=== PATIENT | male | born 1935 | race Caucasian/White ===

== ENCOUNTER 2023-06-09 08:29 | Outpatient (REF) | payer MEDICARE, SELFPAY ==
--- NOTE | 2023-06-09 | EMG_ITS ---
Right median and ulnar motor and sensory studies were performed. Right radial sensory study was performed and paraspinal muscles were tested with a needle. IMPRESSION: 1. 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 2. Mild right ulnar neuropathy across cubital tunnel. MD MAJOR Zapien/SHARONL / [phone]
== END 2023-06-09 08:30 | disposition home or self-care (01) ==
LOC: HO.NEURO 08:29
PROVIDERS: PCP Internal Medicine; Visit Provider Internal Medicine
DX: G56.01 Carpal tunnel syndrome, right upper limb (principal)
CPT/HCPCS: 95886; 95909

== ENCOUNTER 2023-08-09 10:47 | Inpatient (IN) | payer MEDICARE, SELFPAY ==
[2023-08-09] VITALS (10 sets, daily range): BP systolic 118–146; BP diastolic 36–58; PULSE 64–80; RESP 15–23; TEMP 36–36.8; O2SAT 95–100; BMI 29.2
--- NOTE | ~2023-08-09 | XR_ITS ---
EXAMINATION: XR CHEST CLINICAL INFORMATION: Hypoxia. Follow-up atelectasis. COMPARISON: X-ray 08/09/2023 TECHNIQUE: Frontal view of the chest was obtained. FINDINGS: Rotated positioning. Lordotic view. The cardiomediastinal silhouette is prominent, appearing similar as compared to previous allowing for difference in positioning/technique. Low lung volumes. Elevation of the right hemidiaphragm.. Bronchovascular crowding and bibasilar atelectasis or scarring is again seen. There is mild bronchial wall thickening, which may reflect inflammatory or infectious process. No dense consolidation is seen. No significant effusion. No pulmonary edema. No pneumothorax. XR/XR chest 1V IMPRESSION: Low lung volumes. There is bibasilar atelectasis and/or scarring. Bronchial wall thickening may reflect inflammatory infectious process. No dense consolidation.
--- NOTE | ~2023-08-09 | CT_ITS ---
EXAMINATION: CT ABDOMEN AND PELVIS WITHOUT CONTRAST CLINICAL INFORMATION: Rule out masses. COMPARISON: None available. TECHNIQUE: Multidetector volumetric imaging was performed from the superior aspect of the liver through the pubic symphysis. Sagittal and coronal reformatted images were obtained on the technologist's workstation. This CT examination was performed using dose optimization techniques as appropriate, variously including the following: *Automated exposure control *Adjustment of mA and/or kV according to patient size (this includes techniques or standardized protocols for targeted exams where dose is matched to indication/reason for exam; i.e. extremities or head) *Use of iterative reconstruction technique DLP: 599 mGy-cm FINDINGS: LUNG BASES: There is small to moderate right pleural effusion and small left pleural effusion with underlying bibasilar compressive atelectasis. Heart size is borderline normal. LIVER, GALLBLADDER, AND BILIARY TREE: The liver is normal in size, shape, and attenuation. No focal hepatic lesion or biliary ductal dilatation is present. The gallbladder has been surgically removed. PANCREAS: Unremarkable. SPLEEN: The spleen is unremarkable. There is punctate calcification in spleen. ADRENAL GLANDS: Unremarkable. KIDNEYS AND URETERS: The kidneys are normal in size, shape, and attenuation. No hydronephrosis, hydroureter, or calculi seen. No perinephric stranding. There are multiple lung right renal cysts largest is exophytic midpole measuring 6.3 x 5.2 cm. BLADDER: The bladder is distended with no bladder wall thickening or radiopaque calculi seen.. GASTROINTESTINAL TRACT: There is scattered stool, diverticula and gas seen throughout the colon without significant distention. There is a small diverticulum arising of the third segment of the duodenum, less likely perforated collection.. Best visualized on axial image 41/3 and sagittal image 96/6. Small bowel loops are normal caliber. Appendix is not visualized. There is small amount of perihepatic and perisplenic fluid. There is diffuse haziness ABDOMINAL WALL: There is abdominal wall hernia repair with mesh in place no recurrent abdominal wall hernia seen. LYMPH NODES: Normal. VASCULAR: Mild atherosclerosis of abdominal aorta is noted PELVIC VISCERA: Unremarkable. OSSEOUS STRUCTURES: No aggressive lytic or sclerotic process seen. There is mild degenerative disc changes L4-L5 and L5/S1 disc level. There are bilateral hip prosthesis producing artifact along the lower pelvis and limiting evaluation. CT/CT abdomen pelvis wo IV con IMPRESSION: No acute intra-abdominal process seen. Colonic diverticulosis without diverticulitis. Nonspecific free fluid in the right perihepatic and perisplenic space. Right renal cysts Fleischner guidelines were followed.
--- NOTE | ~2023-08-09 | NM_ITS ---
EXAMINATION: PULMONARY PERFUSION STUDY CLINICAL INFORMATION: COPD, previous Covid, shortness of breath, significant pulmonary hypertension, acute respiratory failure. COMPARISON: No previous lung scan is available for comparison. A radiograph the chest dated 08/09/2023 is available for comparison. TECHNIQUE: Following the intravenous injection of 1.5 mCi Tc-99m MAA, the lungs were imaged in the anterior and posterior, left and right lateral and RERE, JAUREGUI, LPO, and RPO projections using a gamma scintillation camera. FINDINGS: No segmental perfusion defects are present. There is homogeneous distribution of activity bilaterally. There are no focal anatomic appearing perfusion defects present. NM/NM pul perfusion IMPRESSION: Normal radionuclide lung perfusion scan.
--- NOTE | ~2023-08-09 | XR_ITS ---
EXAMINATION: XR CHEST CLINICAL INFORMATION: Shortness of breath. COMPARISON: None available. TECHNIQUE: Frontal view of the chest was obtained. FINDINGS: The cardiomediastinal silhouette is within normal limits. There appears to be mild atelectasis or scarring at the lung bases. There is blunting of the costophrenic angles. The lungs are otherwise clear. 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 The soft tissues are unremarkable. XR/XR chest 1V IMPRESSION: Atelectatic change and/or scarring at the lung bases. Blunted costophrenic angles possibly chronic change/minimal pleural fluid.
--- NOTE | 2023-08-09 11:02 | ECG_ITS ---
Test Reason : chest pain Blood Pressure : / mmHG Vent. Rate : 074 BPM Atrial Rate : 074 BPM P-R Int : 000 ms QRS Dur : 112 ms QT Int : 402 ms P-R-T Axes : 000 -18 -15 degrees QTc Int : 446 ms Atrial fibrillation Incomplete right bundle branch block Left axis deviation ST & T wave abnormality, consider anterior ischemia Abnormal ECG No previous ECGs available Referred By: Generic ED Physician Electronically Signed By:LA NENA MOELLER MD
--- NOTE | 2023-08-09 11:27 | ED_ITS ---
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 Patient states that his shortness of breath has gotten significantly worse over the last few weeks. Patient states that he also had a stomach ache, now resolved, for which he took pepto bismol and had a black stool after. Patient denies any dizziness, lightheadedness, abdominal pain, nausea, vomiting, fever, chills, blurry vision, double vision, loss of vision, chest pain, back pain, night sweats, pain with urination, increased urinary frequency, increased urinary urgency, blood in his urine, syncope or a near syncopal episode, recent trauma or falls, bowel incontinence, bladder incontinence, bowel retention, bladder retention, or any other complaints at this time. Onset (ago): week(s) Severity: moderate Relieving factors: none Exacerbating factors: none Associated symptoms: shortness of breath Treatments prior to arrival: none Related Data Home Medications Medication Instructions Recorded Confirmed albuterol sulfate 90 mcg/actuation 2 puff inhalation QID PRN wheezing 08/09/23 08/09/23 aerosol inhaler clotrimazole 1 % topical cream 1 appl topical BID PRN Rash 08/09/23 08/09/23 empagliflozin 10 mg tablet 10 mg PO QAM 08/09/23 08/09/23 (Jardiance) fluticasone 100 mcg-salmeterol 50 1 ea inhalation DAILY 08/09/23 08/09/23 mcg/dose blistr powdr for inhalation ketoconazole 2 % topical cream 1 appl topical BID PRN Rash 08/09/23 08/09/23 losartan 50 mg tablet 50 mg PO DAILY 08/09/23 08/09/23 metformin 850 mg tablet 850 mg PO DAILY 08/09/23 08/09/23 metoprolol succinate 100 mg 100 mg PO DAILY 08/09/23 08/09/23 tablet,extended release 24 hr montelukast 10 mg tablet 10 mg PO DAILY 08/09/23 08/09/23 multivitamin 1 tab PO DAILY 08/09/23 08/09/23 rivaroxaban 15 mg tablet (Xarelto) 15 mg PO DAILY 08/09/23 08/09/23 rosuvastatin 5 mg tablet 5 mg PO DAILY 08/09/23 08/09/23 tamsulosin 0.4 mg capsule 0.4 mg PO BEDTIME 08/09/23 08/09/23 torsemide 20 mg tablet 20 mg PO DAILY 08/09/23 08/09/23 umeclidinium 62.5 mcg/actuation 1 inh inhalation DAILY 08/09/23 08/09/23 blister powder for inhalation (Incruse Ellipta) Allergies Allergy/AdvReac Type Severity Reaction Status Date / Time No Known Allergies Allergy Verified 08/09/23 10:51 Review of Systems 2 Constitutional: Constitutional: Reports no additional constitutional complaints, Denies chills, Denies fever(s) and Denies night sweats Eyes: Eyes: Reports no additional eye complaints, Denies blurry vision, Denies change in vision, Denies diplopia, Denies eye discharge, Denies loss of vision and Denies eye pain ENT: Denies dizziness Cardiovascular: Cardiovascular: Reports no additional cardiovascular complaints, Denies chest pain, Denies lightheadedness, Denies Loss of Consciousness and Reports dyspnea Respiratory: Respiratory: Reports no additional respiratory complaints and Reports dyspnea Gastrointestinal: Gastrointestinal: Reports no additional gastrointestinal complaints, Denies abdominal pain, Denies hematochezia, Denies change in bowel habits and Denies change in stool character Comments: one episode of a black stool Genitourinary: Genitourinary: Reports no additional male genitourinary complaints, Denies hematuria, Denies oliguria, Denies difficulty urinating, Denies dysuria, Denies urinary frequency, Denies urinary hesitancy, Denies urinary incontinence and Denies urinary urgency Musculoskeletal: Musculoskeletal: Reports no additional musculoskeletal complaints, Denies numbness and Denies tingling Neurologic: Denies dizziness, Denies loss of vision, Denies numbness and Denies tingling Psychiatric: Psychiatric: Reports no additional psychiatric complaints Endocrine: Endocrine: Reports no additional endocrine complaints Hematologic/Lymphatic: Hematologic/Lymphatic: Reports no additional hematologic/lymphatic complaints Allergic/Immunologic: Allergic/Immunologic: Reports no additional allergic/immunologic complaints [facility] Past Medical History Attestation statement: The following information was validated with the patient. (all information validated with the patient's ) Source: old records reviewed and obtained from family (patient's provided additional history and confirmed the history provided by the patient) Social History Social History Advance Directives: No Advance Directives Information Provided: Yes Physical Exam ED Vital Signs: Vital Signs - 24 hr 08/09/23 10:52 08/09/23 11:54 08/09/23 13:08 Temperature 96.8 F 97.5 F Pulse Rate 73 71 73 Respiratory Rate 20 15 18 Blood Pressure 137/41 L 122/48 L 124/51 L Pulse Oximetry 96 Oxygen Delivery Method Room Air Nasal Cannula Oxygen Flow Rate 3 08/09/23 13:31 08/09/23 14:53 Temperature 97.6 F 98.2 F Pulse Rate 79 68 Respiratory Rate 18 19 Blood Pressure 118/42 L 119/54 L Pulse Oximetry 100 Oxygen Delivery Method Nasal Cannula Oxygen Flow Rate 3 BMI result Body Mass Index 29.2 Const General: cooperative, no acute distress, alert and awake Nutritional Appearance: well nourished Orientation/consciousness: patient oriented x3 Limitations: no limitations HENMT Head: Yes normal to inspection and Yes atraumatic Ears: hearing grossly normal bilaterally and external ears normal General nose exam: Normal external nose present, no nasal discharge noted and no epistaxis Face and sinus: Yes normal facial exam, No abrasion and No laceration Mouth: Normal oral and palatal mucosa present, no drooling and no muffled voice Eyes General: appearance normal, both eyes and all related structures Periorbital: periorbital findings normal Eyelids: Yes eyelids normal Conjunctivae: conjunctivae normal Pupils: Equal, round and reactive pupils present EOM: EOMs intact bilaterally Neck Neck: Yes normal visual inspection, Yes full ROM and Yes no lymphadenopathy Chest Chest palpation & inspection: normal inspection of the chest Resp Effort & Inspection: able to speak in complete sentences and labored Auscultation: diminished lung sounds diffuse Cardio Rate: regular rate Rhythm: regular rhythm GI Inspection: Yes normal to inspection Palpation (GI): Soft to palpation, not firm, nontender, no guarding and not rigid Neuro General: patient oriented x3 and moves all extremities Cranial nerves: Yes Equal, round and reactive pupils present Cognition (Neuro): normal cognition Motor exam (neuro): 5/5 motor strength present throughout Sensory Exam: Normal double simultaneous stimulation for sensation Coordination: [id number] test normal Extrem General: Yes normal to inspection, Yes full ROM and Yes capillary refill normal Psych Appearance: grossly normal Mental Status: mental status grossly normal Affect: normal affect Attitude: cooperative Thought process: Normal thought process present Thought content: Normal thought content present Insight: Good insight present (Psych) Medications Administered Discontinued Medications Generic Name Dose Route Start Last Admin Trade Name Freq PRN Reason Stop Dose Admin Sodium Chloride 100 mls @ 100 mls/hr 08/09/23 12:14 08/09/23 13:30 Ns IV 08/09/23 13:13 100 mls/hr ONCE ONE Administration Medical Decision Making Medical Decision Making MDM Narrative: Patient is an 87 year old assigned male at with a history of anemia for which he is supposed to be taking iron supplements but does not, cardiac stents for which is on xarelto, and long COVID / COPD for which he follows with a arts administrator or manager presenting to the emergency department today with worsening shortness of breath and 1 episode of black stool after taking pepto bismol. Patient's physical exam was as noted in the physical exam portion of this note. Patient's blood work showed a HGB of 6.0, HCT of 21, sodium of 134, BUN of 40, CR of 2.48, and a BNP of 297. Patient's EKG was unremarkable. Patient's chest x- ray showed no acute process. Patient agreed to transfusion of blood cells. 1 unit was ordered. I spoke to the hospitalist who agreed to admission. I explained my physical exam findings as well as all test results to the patient and the patient's . I answered all questions asked by the patient and the patient's . Patient and the patient's verbalized agreement and understanding with this treatment plan and admission. Differential Diagnosis Differential Diagnoses: The differential diagnosis associated with the presentation includes Anemia GI bleeding Long COVID COVID-19 Influenza RSV Pneumonia Admission/Observation Consideration of admission/observation: Escalation of care including admission/observation considered Patient admitted. Consult Healthcare Provider Management of the patient was discussed with: Hospitalist (agreed to admission as noted in the MDM Rationale portion of this note.) Lab Data [facility] Lab Attestation statement: I reviewed the patient's lab results. My interpretation of these labs are in the MDM Rationale portion of this note. 08/09/23 11:50 08/09/23 11:50 Labs: Lab Results 08/09/23 08/09/23 08/09/23 Range/Units 11:50 11:51 11:52 WBC 8.5 (4.8-10.8) X10*3/uL RBC 2.41 L (4.60-5.80) X10*6/uL Hgb 6.0 L* (14.0-18.0) g/dl Hct 21.0 L* (42.0-52.0) % MCV 87.1 (80.0-98.0) fL MCH 24.9 L (27.0-33.0) pg MCHC 28.6 L (31.0-36.0) g/dl RDW 17.2 H (11.0-16.0) % Plt Count 310 (160-400) X10*3/uL MPV 11.0 (9.4-12.4) fL Immature Gran % (Auto) 0.6 H (0.0-0.4) % Neut % (Auto) 86.3 H (45-73) % Lymph % (Auto) 4.4 L (20-40) % Lander % (Auto) 6.2 (2-11) % Eos % (Auto) 1.9 (0-4) % Baso % (Auto) 0.6 (0-2) % Lymph # (Auto) 0.4 L (1.2-4.9) X10*3/uL Lander # (Auto) 0.5 (0.1-1.2) X10*3/uL Eos # (Auto) 0.2 (0.0-0.4) X10*3/uL Baso # (Auto) 0.1 (0.0-0.2) X10*3/uL Abs Immat Gran (auto) 0.05 H (0.00-0.03) X10*3/uL Absolute Neuts (auto) 7.3 (2.0-8.3) x10*3/uL Absolute Nucleated RBC 0.020 H (0.0-0.012) X10*3/uL Nucleated RBC % (auto) 0.2 (0.0-0.2) /100WBC PT 26.1 H (11.1-13.3) SEC INR 2.1 H (0.9-1.1) APTT 36.1 (26.0-36.4) SEC VBG pH (7.32-7.43) VBG pCO2 mmHg VBG pO2 mmHg VBG HCO3 (22-26) mmol/L VBG O2 Saturation VBG Base Excess mmol/L Sodium 134 L (135-145) mmol/L Potassium 3.9 (3.3-5.1) mmol/L Chloride 98 (96-108) mmol/L Carbon Dioxide 24 (22-29) mmol/L Anion Gap 16 (12-20) BUN 40 H (9-16) mg/dL Creatinine 2.48 H (0.5-1.4) mg/dL Estim Creat Clear Calc 23.2 Estimated GFR 25 Random Glucose 202 H (60-115) mg/dL Calcium 8.5 (8.4-10.2) mg/dL Magnesium 2.1 (1.6-2.6) mg/dL Total Bilirubin 1.2 H (0.0-1.0) mg/dL AST 16 (5-37) U/L ALT 9 (0-40) U/L Alkaline Phosphatase 87 (39-117) U/L Troponin I High Sens 16.4 (<3.5-35.0) ng/L B-Natriuretic Peptide 297 H (<100) pg/mL Total Protein 6.4 L (6.5-8.0) g/dL Albumin 3.4 L (3.5-5.0) g/dL Stool Occult Blood NEGATIVE (NEGATIVE) Influenza Type A (PCR) NEGATIVE (Negative) Influenza Type B (PCR) NEGATIVE (Negative) RSV RNA Qual (PCR) NEGATIVE (Negative) SARS-CoV-2 RNA (RT-PCR) NEGATIVE (Negative) Blood Type B Positive Antibody Screen NEGATIVE Crossmatch See Detail 08/09/23 Range/Units 11:55 WBC (4.8-10.8) X10*3/uL RBC (4.60-5.80) X10*6/uL Hgb (14.0-18.0) g/dl Hct (42.0-52.0) % MCV (80.0-98.0) fL MCH (27.0-33.0) pg MCHC (31.0-36.0) g/dl RDW (11.0-16.0) % Plt Count (160-400) X10*3/uL MPV (9.4-12.4) fL Immature Gran % (Auto) (0.0-0.4) % Neut % (Auto) (45-73) % Lymph % (Auto) (20-40) % Lander % (Auto) (2-11) % Eos % (Auto) (0-4) % Baso % (Auto) (0-2) % Lymph # (Auto) (1.2-4.9) X10*3/uL Lander # (Auto) (0.1-1.2) X10*3/uL Eos # (Auto) (0.0-0.4) X10*3/uL Baso # (Auto) (0.0-0.2) X10*3/uL Abs Immat Gran (auto) (0.00-0.03) X10*3/uL Absolute Neuts (auto) (2.0-8.3) x10*3/uL Absolute Nucleated RBC (0.0-0.012) X10*3/uL Nucleated RBC % (auto) (0.0-0.2) /100WBC PT (11.1-13.3) SEC INR (0.9-1.1) APTT (26.0-36.4) SEC VBG pH 7.40 (7.32-7.43) VBG pCO2 40 mmHg VBG pO2 42 mmHg VBG HCO3 25 (22-26) mmol/L VBG O2 Saturation TNP VBG Base Excess 0.6 mmol/L Sodium (135-145) mmol/L Potassium (3.3-5.1) mmol/L Chloride (96-108) mmol/L Carbon Dioxide (22-29) mmol/L Anion Gap (12-20) BUN (9-16) mg/dL Creatinine (0.5-1.4) mg/dL Estim Creat Clear Calc Estimated GFR Random Glucose (60-115) mg/dL Calcium (8.4-10.2) mg/dL Magnesium (1.6-2.6) mg/dL Total Bilirubin (0.0-1.0) mg/dL AST (5-37) U/L ALT (0-40) U/L Alkaline Phosphatase (39-117) U/L Troponin I High Sens (<3.5-35.0) ng/L B-Natriuretic Peptide (<100) pg/mL Total Protein (6.5-8.0) g/dL Albumin (3.5-5.0) g/dL Stool Occult Blood (NEGATIVE) Influenza Type A (PCR) (Negative) Influenza Type B (PCR) (Negative) RSV RNA Qual (PCR) (Negative) SARS-CoV-2 RNA (RT-PCR) (Negative) Blood Type Antibody Screen Crossmatch Independent Interpretation I performed an independent interpretation of an: EKG and Plain X-Ray Interpretation: My interpretation is in agreement with the radiologist's impression of this imaging study. - EXAMINATION: XR CHEST CLINICAL INFORMATION: Shortness of breath. COMPARISON: None available. TECHNIQUE: Frontal view of the chest was obtained. FINDINGS: The cardiomediastinal silhouette is within normal limits. There appears to be mild atelectasis or scarring at the lung bases. There is blunting of the costophrenic angles. The lungs are otherwise clear. 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 The soft tissues are unremarkable. XR/XR chest 1V IMPRESSION: Atelectatic change and/or scarring at the lung bases. Blunted costophrenic angles possibly chronic change/minimal pleural fluid. Dictated By: Papito Rodriguez Signed By: Electronically signed by Papito Rodriguez 08/09/23 9300 Radiology Impression Discussion of test interpretation with radiology: I have reviewed the radiologist's reading. Independent Historian Clinical information obtained from an independent historian. History obtained from or confirmed by: Spouse (patient provided additional history and confirmed the history provided by the patient.) Critical Care Time Critical Care Time Critical Care Time: Yes Total Critical Care Time: 55 Attestation: I spent 55 minutes of Critical Care Time with this patient. This does not include time spent on separately reported billable procedures. Discharge Plan Discharge Clinical Impression: Anemia Patient Disposition: Admitted As Inpatient
[2023-08-09 11:58] LABS: MANUAL DIFF FLAG NO
[2023-08-09 11:58] LABS: OBS Int Ctl Valid YES; OBS1 NEGATIVE (NEGATIVE)
[2023-08-09 11:59] LABS: Basophils Absolute Auto 0.1 X10*3/uL (0.0-0.2); Basophils Percent Auto 0.6 % (0-2); Eosinophils Absolute Auto 0.2 X10*3/uL (0.0-0.4); Eosinophils Percent Auto 1.9 % (0-4); Imm Gran Abs Auto 0.05 X10*3/uL (0.00-0.03); Imm Gran Pct Auto 0.6 % (0.0-0.4); Lymphocytes Absolute Auto 0.4 X10*3/uL (1.2-4.9); Lymphocytes Percent Auto 4.4 % (20-40); Mean Corpuscular HGB Conc 28.6 g/dl (31.0-36.0); Mean Corpuscular Hemoglobin 24.9 pg (27.0-33.0); Mean Corpuscular Volume 87.1 fL (80.0-98.0); Monocytes Absolute Auto 0.5 X10*3/uL (0.1-1.2); Monocytes Percent Auto 6.2 % (2-11); NRBC Pct Auto 0.2 /100WBC (0.0-0.2); Neutrophils Absolute Auto 7.3 x10*3/uL (2.0-8.3); Neutrophils Percent Auto 86.3 % (45-73); Platelet Count 310 X10*3/uL (160-400); Red Blood Count 2.41 X10*6/uL (4.60-5.80); Red Cell Distribution Width 17.2 % (11.0-16.0); White Blood Count 8.5 X10*3/uL (4.8-10.8)
[2023-08-09 12:00] LABS: Venous Blood Gas Refer to POC result
[2023-08-09 12:01] LABS: VBG Base Excess 0.6 mmol/L; VBG HCO3 25 mmol/L (22-26); VBG pCO2 40 mmHg; VBG pO2 42 mmHg
[2023-08-09 12:04] LABS: INTERNATIONAL NORM RATIO 2.1 (0.9-1.1); Prothrombin Time 26.1 SEC (11.1-13.3)
[2023-08-09 12:07] LABS: Partial Thromboplastin Time 36.1 SEC (26.0-36.4)
[2023-08-09 12:17] LABS: Alanine Aminotransferase 9 U/L (0-40); Albumin Level 3.4 g/dL (3.5-5.0); Alkaline Phosphatase 87 U/L (39-117); Anion Gap 16 (12-20); Aspartate Amino Transferase 16 U/L (5-37); Bilirubin Total 1.2 mg/dL (0.0-1.0); Blood Urea Nitrogen 40 mg/dL (9-16); Calcium 8.5 mg/dL (8.4-10.2); Carbon Dioxide 24 mmol/L (22-29); Chloride 98 mmol/L (96-108); Creatinine Clr Calc Pharmacy 23.2; Estimated Glomerular Filt Rate 25; Glucose Random 202 mg/dL (60-115); Magnesium 2.1 mg/dL (1.6-2.6); Potassium 3.9 mmol/L (3.3-5.1); Sodium 134 mmol/L (135-145); Total Protein 6.4 g/dL (6.5-8.0)
[2023-08-09 12:18] LABS: B Type Natriuretic Peptide 297 pg/mL (<100)
[2023-08-09 12:25] LABS: Troponin-I High Sensitivity 16.4 ng/L (<3.5-35.0)
[2023-08-09 12:39] LABS: Influenza A PCR NEGATIVE (Negative); Influenza B PCR NEGATIVE (Negative); Resp Syncy Virus RNA Qual PCR NEGATIVE (Negative); SARS COV2 PCR INHOUSE NEGATIVE (Negative)
--- NOTE | 2023-08-09 13:47 | PC.NURSE ---
20g IV INSERTED L HAND AND RAC. BLOOD VERIFIED BY TWO RNS AND TRANSFUSION STARTED. VSS, DOCUMENTED PER PROTOCOL. PT TOLERATING TRANSFUSION WELL. DENIES SOB/HEADACHE/DIZZINESS. O2 SAT MAINTAINING AT 96-98% ON 3L N/C. WILL REASSESS.
--- NOTE | 2023-08-09 14:26 | PHA.MEDREC ---
Pharmacy Consult ? Medication Reconciliation Pharmacy has completed the medication reconciliation with patient. Patient stated he takes Advair and metformin once daily but claims history shows twice daily dosing. Patient also said he took medications this morning but was unable to name which ones he took.
--- NOTE | 2023-08-09 14:49 | P.HPHOSP_ITS ---
History of Present Illness Date of Service: 08/09/23 Attending physician on admission: Marcelino Jeffery Chief Complaint: Shortness of breath, difficulty breathing Pt is an 87-year-old male with a PMH significant for?anemia, chronic AFib on Xarelto, non insulin-dependent diabetes type 2, CKD unspecified, HTN, HLD, BPH, and long COVID/COPD pulmonology who presents to the ED with?generalized fatigue and worsening SOB and GU x1 week. Patient states he has been experiencing significant SOB on and off for the past 3 months, but significantly worse during the past week. Presents to the ED today since this morning he couldn't walk 10 ft without either collapsing or holding onto something due to SOB. Patient denies any hematemesis or bright red blood per rectum, but does note he had 2-3 days black stool earlier in the week. Patient around this time also took Pepto- Bismol for ?a couple of days? for an upset stomach now resolved. He believes his stool was darker-colored than normal before taking Pepto-Bismol, but was noted to be significantly darker after taking it. Stool has since returned to brown-colored. Pt has at least a 3-year hx of anemia per PCP; was started on iron supplementation at one point but stopped taking around a year ago d/t constipation. Patient also complains of increasing lower leg edema and 7 lb weight gain in the past week. He denies any history of CHF and states he is torsemide for lower leg edema. Reports normally any swelling in his legs will goal weight by, the time he wakes up but this past week he legs have remained edematous in the morning. Pt denies fever, chills, nausea, vomiting, abdominal pain. No diarrhea. In the ED pt was afebrile with pulse as high as 79 and are are as high as 20, slightly soft BP as low as 118/42, satting at 96% on 3L NC. Labs were significant for normocytic anemia of H&H 6.0/21.0 (baseline unknown), sodium 134, BUN 40, creatinine 2.48, BNP 297. No leukocytosis. VBG largely WNL. Stool negative for occult blood. Negative for influenza type a and B, RSV, COVID. CXR showed atelectatic change and/or scarring at the lung bases with blunted costophrenic angles, possibly chronic changes/minimal fluid. EKG demonstrated atrial fibrillation with nonspecific ST and T-wave abnormalities. Pt was treated with IVF and transfused 1 unit of PRBCs. Pt will be admitted to the hospital for treatment further evaluation of symptomatic anemia. Review of Systems 2 Review of Systems: Increased Weakness, fatigue, shortness of breath, GU x1 week Increased LLE, 7 lb weight gain Dark colored stool earlier in the week Denies hematemesis, hematochezia No fever, chills, nausea, vomiting, abdominal pain, diarrhea No chest pain/pressure, palpitations [facility] Medical History (Updated 08/09/23 @ 16:28 by CHHAYA Spaulding) Non-insulin dependent type 2 diabetes mellitus HTN (hypertension) HLD (hyperlipidemia) Persistent atrial fibrillation BPH (benign prostatic hyperplasia) Long COVID COPD (chronic obstructive pulmonary disease) Lower leg edema Chronic kidney disease, unspecified Social History Advance Directives: No Advance Directives Information Provided: Yes Meds Allergies Allergy/AdvReac Type Severity Reaction Status Date / Time No Known Allergies Allergy Verified 08/09/23 10:51 Home Medications Medication Instructions Recorded Confirmed Last Taken Type albuterol sulfate 90 mcg/actuation 2 puff inhalation QID PRN wheezing 08/09/23 08/09/23 Unknown History aerosol inhaler clotrimazole 1 % topical cream 1 appl topical BID PRN Rash 08/09/23 08/09/23 Unknown History empagliflozin 10 mg tablet 10 mg PO QAM 08/09/23 08/09/23 Unknown History (Jardiance) fluticasone 100 mcg-salmeterol 50 1 ea inhalation DAILY 08/09/23 08/09/23 Unknown History mcg/dose blistr powdr for inhalation ketoconazole 2 % topical cream 1 appl topical BID PRN Rash 08/09/23 08/09/23 Unknown History losartan 50 mg tablet 50 mg PO DAILY 08/09/23 08/09/23 Unknown History metformin 850 mg tablet 850 mg PO DAILY 08/09/23 08/09/23 Unknown History metoprolol succinate 100 mg 100 mg PO DAILY 08/09/23 08/09/23 Unknown History tablet,extended release 24 hr montelukast 10 mg tablet 10 mg PO DAILY 08/09/23 08/09/23 Unknown History multivitamin 1 tab PO DAILY 08/09/23 08/09/23 Unknown History rivaroxaban 15 mg tablet (Xarelto) 15 mg PO DAILY 08/09/23 08/09/23 Unknown History rosuvastatin 5 mg tablet 5 mg PO DAILY 08/09/23 08/09/23 Unknown History tamsulosin 0.4 mg capsule 0.4 mg PO BEDTIME 08/09/23 08/09/23 Unknown History torsemide 20 mg tablet 20 mg PO DAILY 08/09/23 08/09/23 Unknown History umeclidinium 62.5 mcg/actuation 1 inh inhalation DAILY 08/09/23 08/09/23 Unknown History blister powder for inhalation (Incruse Ellipta) Physical Exam 2 Vital Signs and Narrative: Vital Signs: Last Vital Signs Temp 97.6 F 08/09/23 13:31 Pulse 79 08/09/23 13:31 Resp 18 08/09/23 13:31 BP 118/42 L 08/09/23 13:31 Pulse Ox 96 08/09/23 11:54 O2 Del Method Nasal Cannula 08/09/23 11:54 O2 Flow Rate 3 08/09/23 11:54 BMI result Body Mass Index 29.2 Constitutional: Alert, in no acute distress. Mental Status: Oriented to person, place and time. Eyes: Pupils are equal, round, and reactive to light. Ear, Nose, and Throat: Oropharynx clear, mucous membranes moist. Ears and nose without deformities. Trachea midline. Respiratory: Mild wheezing bilaterally. Cardiovascular: Irregularly irregular. No murmurs, rubs, or gallops. Gastrointestinal: Abdomen soft, non-tender, non-distended. Normal bowel sounds. Neurologic: Cranial nerves II-XII are grossly intact bilaterally. No focal neurological deficits. Moves all extremities spontaneously. Skin: Warm, dry. Musculoskeletal: No cyanosis or clubbing. Extremities: 3+ bilateral pitting edema. Psychiatric: Normal mood and affect. Results Labs 08/09/23 11:50 08/09/23 11:50 Labs: Laboratory Results - last 24 hr 08/09/23 08/09/23 08/09/23 11:50 11:51 11:52 MCV 87.1 MCH 24.9 L MCHC 28.6 L RDW 17.2 H Plt Count 310 MPV 11.0 Immature Gran % (Auto) 0.6 H Neut % (Auto) 86.3 H Lymph % (Auto) 4.4 L [place] % (Auto) 6.2 Eos % (Auto) 1.9 Baso % (Auto) 0.6 Lymph # (Auto) 0.4 L [place] # (Auto) 0.5 Eos # (Auto) 0.2 Baso # (Auto) 0.1 Abs Immat Gran (auto) 0.05 H Absolute Neuts (auto) 7.3 Absolute Nucleated RBC 0.020 H Nucleated RBC % (auto) 0.2 PT 26.1 H INR 2.1 H APTT 36.1 VBG pH VBG pCO2 VBG pO2 VBG HCO3 VBG O2 Saturation VBG Base Excess Anion Gap 16 Estim Creat Clear Calc 23.2 Estimated GFR 25 Random Glucose 202 H Calcium 8.5 Magnesium 2.1 Total Bilirubin 1.2 H AST 16 ALT 9 Alkaline Phosphatase 87 B-Natriuretic Peptide 297 H Total Protein 6.4 L Albumin 3.4 L Stool Occult Blood NEGATIVE Influenza Type A (PCR) NEGATIVE Influenza Type B (PCR) NEGATIVE RSV RNA Qual (PCR) NEGATIVE SARS-CoV-2 RNA (RT-PCR) NEGATIVE Blood Type B Positive Antibody Screen NEGATIVE Crossmatch See Detail 08/09/23 11:55 MCV MCH MCHC RDW Plt Count MPV Immature Gran % (Auto) Neut % (Auto) Lymph % (Auto) [place] % (Auto) Eos % (Auto) Baso % (Auto) Lymph # (Auto) [place] # (Auto) Eos # (Auto) Baso # (Auto) Abs Immat Gran (auto) Absolute Neuts (auto) Absolute Nucleated RBC Nucleated RBC % (auto) PT INR APTT VBG pH 7.40 VBG pCO2 40 VBG pO2 42 VBG HCO3 25 VBG O2 Saturation TNP VBG Base Excess 0.6 Anion Gap Estim Creat Clear Calc Estimated GFR Random Glucose Calcium Magnesium Total Bilirubin AST ALT Alkaline Phosphatase B-Natriuretic Peptide Total Protein Albumin Stool Occult Blood Influenza Type A (PCR) Influenza Type B (PCR) RSV RNA Qual (PCR) SARS-CoV-2 RNA (RT-PCR) Blood Type Antibody Screen Crossmatch Imaging Radiologist's Impressions: Impressions Chest X-Ray 08/09/23 13:25 IMPRESSION: Atelectatic change and/or scarring at the lung bases. Blunted costophrenic angles possibly chronic change/minimal pleural fluid. Assessment and Plan (1) Anemia: Status: Acute Plan Pt is an 87-year-old male with a PMH significant for?anemia, chronic AFib on Xarelto, non insulin-dependent diabetes type 2, CKD unspecified, HTN, HLD, BPH, and long COVID/COPD pulmonology who presents to the ED with?generalized fatigue and worsening SOB and GU x1 week. Pt will be admitted to the hospital for treatment further evaluation of symptomatic anemia. Acute on chronic anemia H&H 6.0/21.0 at time of admission, on Xarelto. baseline unknown Pt with increased SOB, fatigue, generalized weakness x1 week, possible 2-3 days of black stools Stool negative for occult blood Pt w/ hx of anemia, used to be on iron supplementation by no longer taking Etiology unclear: ?GI bleed Pt transfused 1 unit PRBCs in ED Will get iron studies, LDH, indirect bilirubin GI consult IV Protonix Hold Xarelto Monitor on telemetry Follow CBC Lower leg edema 7lb weight gain, worsening LLE in the past week, elevated BNP, CXR with possible small pleural effusions Denies CHF history, says on torsemide for edema Will diurese with Lasix 40mg bid Will get echocardiogram Monitor on telemetry CKD Creatinine 2.48, baseline unclear though sees a mechanical product engineer outpatient Pt states has not been eating or drinking much the past week: dehydration vs cardio-renal Will treat as above with Lasix Follow BMP COPD/long COVID Pt slightly wheezy, will treat with Duonebs Continue home inhalers Non-insulin dependent diabetes type 2 Hold metformin Continue Jardiance Will place on sliding scale insulin Diabetic diet HTN BP a little soft, also with possible FABRIZIO Will hold losartan for now Resume as warranted HLD Continue statin BPH Continue tamsulosin Quality Stroke Does the patient have a stroke diagnosis?: No VTE Prior VTE?: No VTE Risk Level:: Medical - moderate - high VTE Device Contraindication: N/A - Device Ordered VTE Drug Contraindication: Treatment Not Indicated
[2023-08-09 16:25] LABS: Bilirubin Direct 0.6 mg/dL (0.0-0.5); Iron 15 mcg/dL (45-160); Lactate Dehydrogenase 178 U/L (118-273); Percent Iron Saturation 5 % (15-50); Total Iron Binding Capacity 329 mcg/dL (228-428); Unsaturated Iron Binding 314 ug/dL
[2023-08-09] MEDS: 0.9 % Sodium Chloride Flush 3 ML SYRINGE IVFLUSH (17:28)
[2023-08-09] MEDS: Pantoprazole Sodium 40 MG/10 ML VIAL IVPUSH (17:29)
--- NOTE | 2023-08-09 17:56 | PC.NURSE ---
Per PA, Hold Lasix due to low BP that was reported.
[2023-08-09 19:05] LABS: Glucose, Whole Blood 113 mg/dL (60-115)
--- NOTE | 2023-08-09 20:54 | PC.NURSE ---
assumed care of pt at 1915. pt resting in stretcher sats 99% on 3L NC. pt denies cp/n/v/d at this time. reporting feeling like he may need the breathing tx soon. pt denies any pain. tolerating po intake; eating dinner at this time. call gonzalez within reach.
--- NOTE | 2023-08-09 21:15 | PC.NURSE ---
resp notified for breathing tx.
[2023-08-09] MEDS: Albuterol/Iprat 2.5/0.5MG 3 ML AMPUL.NEB INHALE (21:25)
--- NOTE | 2023-08-09 21:51 | MHC.EDTECH ---
Dinner tray provided
[2023-08-09 21:56] LABS: Glucose, Whole Blood 204 mg/dL (60-115)
[2023-08-09] MEDS: Insulin Lispro 100 UNIT/ML 3 ML VIAL SUBCUT (21:59)
[2023-08-09] MEDS: Tamsulosin HCL 0.4 MG CAPSULE PO (22:00)
[2023-08-10] VITALS (18 sets, daily range): BP systolic 109–147; BP diastolic 46–76; PULSE 59–87; RESP 16–20; TEMP 36.2–37.2; O2SAT 92–98
[2023-08-10] MEDS: 0.9 % Sodium Chloride Flush 3 ML SYRINGE IVFLUSH ×3 (01:27→21:19)
--- NOTE | 2023-08-10 01:43 | PC.NURSE ---
report given to laine mcleod.
[2023-08-10] MEDS: Pantoprazole Sodium 40 MG/10 ML VIAL IVPUSH (05:56)
--- NOTE | 2023-08-10 06:15 | P.CNGI_ITS ---
History of Present Illness Data of Consult Service Date: 08/10/23 Requesting physician: Marcelino Jeffery Primary Care Provider: Flakita Rivera MD HPI Reason for consult: melena Pt is an 87-year-old male with a PMH significant for?anemia, chronic AFib on Xarelto, non insulin-dependent diabetes type 2, CKD unspecified, HTN, HLD, BPH, and long COVID/COPD pulmonology who I am seeing for anemia. Patient presented to ED with worsening fatigue and SOB and GU x1 week. . He has several days of blackish colored soft stools and v mild non radiating discomfort 1/10 in the epigastric area. He had been taking pepto as well but this was after dark stools. He denies nausea, vomiting, diarrhea or poor appetite. no sputum or chest pain. He commenced xarelto about 1-2 months ago. He has received IVF and transfused 1 unit of PRBCs. TESTS: Labs: normocytic anemia of H&H 6.0/21.0 (baseline unknown), sodium 134, BUN 40, creatinine 2.48, BNP 297. No leukocytosis. Stool negative for occult blood. Negative for influenza type a and B, RSV, COVID CXR: atelectatic change and/or scarring at the lung bases with blunted costophrenic angles, possibly chronic changes/minimal fluid EKG: atrial fibrillation with nonspecific ST and T-wave abnormalities Review of Systems 2 Review of Systems: Constitutional : No Weight loss, No Fever, No Chills ENT/Mouth : No sore throat, No Rhinorrhea Eyes: No Swelling, No Redness Cardiovascular : No Chest Pain, + SOB, + Edema Respiratory : No Cough, No Sputum, No Wheezing Gastrointestinal : see HPI Genitourinary : NO Dysuria, No Urinary Frequency, No Hematuria, No Urgency Musculoskeletal : No joint pain, No Myalgias, No Joint Swelling Skin : No Skin Lesions, No rash Neuro : + Weakness, No Numbness, No Dizziness, No Headache Psych : No Anxiety/Panic, No Depression Heme/Lymph: No Bruising, No Lymphadenopathy Endocrine : No Polyuria, No Polydipsia All other systems reviewed and are negative. Constitutional: Constitutional: Reports no additional constitutional complaints, Denies chills, Denies fever(s) and Denies night sweats Eyes: Eyes: Reports no additional eye complaints, Denies blurry vision, Denies change in vision, Denies diplopia, Denies eye discharge, Denies loss of vision and Denies eye pain ENT: Denies dizziness Cardiovascular: Cardiovascular: Reports no additional cardiovascular complaints, Denies chest pain, Denies lightheadedness, Denies Loss of Consciousness and Reports dyspnea Respiratory: Respiratory: Reports no additional respiratory complaints and Reports dyspnea Gastrointestinal: Gastrointestinal: Reports no additional gastrointestinal complaints, Denies abdominal pain, Denies hematochezia, Denies change in bowel habits and Denies change in stool character Genitourinary: Genitourinary: Reports no additional male genitourinary complaints, Denies hematuria, Denies oliguria, Denies difficulty urinating, Denies dysuria, Denies urinary frequency, Denies urinary hesitancy, Denies urinary incontinence and Denies urinary urgency Musculoskeletal: Musculoskeletal: Reports no additional musculoskeletal complaints, Denies numbness and Denies tingling Neurologic: Denies dizziness, Denies loss of vision, Denies numbness and Denies tingling Psychiatric: Psychiatric: Reports no additional psychiatric complaints Endocrine: Endocrine: Reports no additional endocrine complaints Hematologic/Lymphatic: Hematologic/Lymphatic: Reports no additional hematologic/lymphatic complaints Allergic/Immunologic: Allergic/Immunologic: Reports no additional allergic/immunologic complaints [facility] Past Medical History Medical History Non-insulin dependent type 2 diabetes mellitus HTN (hypertension) HLD (hyperlipidemia) Persistent atrial fibrillation BPH (benign prostatic hyperplasia) Long COVID COPD (chronic obstructive pulmonary disease) Lower leg edema Chronic kidney disease, unspecified Family History Pertinent family history: no FH of CRC or ulcers Social History Social History Household Members: Spouse Housing: Other Housing Other:: mobile home Do you presently have visiting nurse or other home services: No Patient Tobacco Use Status: Former Tobacco user Use of substances other than those prescribed or required for medical reasons: No Currently Displaying Signs/Symptoms of Drug Intoxication Withdrawal: No Do you feel safe in your current relationship?: Yes Advance Directives: No Advance Directives Information Provided: Yes Do you have thoughts of harming others: None Do you have a plan to hurt others: No Plan Recently lost weight without trying: No Nutrition Risks: No Nutritional Risk Poor oral hygiene: No service: Yes Meds Allergies Allergy/AdvReac Type Severity Reaction Status Date / Time No Known Allergies Allergy Verified 08/09/23 10:51 Active Medications: Current Medications Acetaminophen (Acetaminophen 325 Mg Tablet) 650 mg PO Q6H PRN PRN Reason: Pain, Mild (Pain Scale 1-3) Albuterol Sulfate (Albuterol Sulfate 90 Mcg 8 Gm Inhaler) 2 puff INHALE QID PRN PRN Reason: wheezing Albuterol/Ipratropium (Albuterol/Iprat 2.5/0.5mg 3 Ml Ampul.Neb) 3 ml INHALE RQ4H WHILE AWAKE [facility] Last Admin: 08/09/23 21:25 Dose: 3 ml Atorvastatin Calcium (Atorvastatin Calcium 20 Mg Tablet) 20 mg PO DAILY [facility] Benzonatate (Benzonatate 100 Mg Capsule) 100 mg PO TID PRN PRN Reason: Cough Dextrose (Dextrose 50 % 25 Gm/50 Ml Syringe) 25 gm IVPUSH Q15M PRN; Protocol PRN Reason: per Hypoglycemia Standing Ord. Docusate Sodium (Docusate Sodium 100 Mg Capsule) 100 mg PO DAILY PRN PRN Reason: Constipation Empagliflozin (Empagliflozin 10 Mg Tablet) 10 mg PO DAILY [facility] Fluticasone/Vilanterol (Fluticasone/Vilanterol 100/25 Blst.W.Dev) 1 puff INHALE RDAILY [facility] Furosemide (Furosemide 40 Mg/4 Ml Vial) 40 mg IVPUSH BID@0900,1800 [facility]; Protocol Last Admin: 08/09/23 19:02 Dose: Not Given Glucose (Glucose Gel 15 Gm Gel..Gram.) 15 gm PO Q15M PRN; Protocol PRN Reason: per Hypoglycemia Standing Ord. Insulin Human Lispro (Insulin Lispro 100 Unit/Ml 3 Ml Vial) 0 unit SUBCUT QIDACHS [facility]; Protocol Last Admin: 08/09/23 21:59 Dose: 4 unit Melatonin (Melatonin 3 Mg Tablet) 6 mg PO BEDTIME PRN PRN Reason: Insomnia Metoprolol Succinate (Metoprolol Succinate Er 100 Mg Tab.Er.24h) 100 mg PO DAILY [facility]; Protocol Montelukast Sodium (Montelukast Sodium 10 Mg Tablet) 10 mg PO DAILY [facility] Multivitamins/Vitamin C (Multivitamin Tablet) 1 tab PO DAILY [facility] Ondansetron HCl (Ondansetron Hcl 4 Mg/2 Ml Vial) 4 mg IVPUSH Q8H PRN PRN Reason: Nausea and Vomiting Pantoprazole Sodium (Pantoprazole Sodium 40 Mg/10 Ml Vial) 40 mg IVPUSH DAILY@0630 [facility] Last Admin: 08/10/23 05:56 Dose: 40 mg Sodium Chloride (0.9 % Sodium Chloride Flush 3 Ml Syringe) 3 ml IVFLUSH QSHIFT [facility] Last Admin: 08/10/23 01:27 Dose: 3 ml Tamsulosin HCl (Tamsulosin Hcl 0.4 Mg Capsule) 0.4 mg PO BEDTIME [facility] Last Admin: 08/09/23 22:00 Dose: 0.4 mg Home Medications Medication Instructions Recorded Confirmed Last Taken Type albuterol sulfate 90 mcg/actuation 2 puff inhalation QID PRN wheezing 08/09/23 08/09/23 Unknown History aerosol inhaler clotrimazole 1 % topical cream 1 appl topical BID PRN Rash 08/09/23 08/09/23 Unknown History empagliflozin 10 mg tablet 10 mg PO QAM 08/09/23 08/09/23 Unknown History (Jardiance) fluticasone 100 mcg-salmeterol 50 1 ea inhalation DAILY 08/09/23 08/09/23 Unknown History mcg/dose blistr powdr for inhalation ketoconazole 2 % topical cream 1 appl topical BID PRN Rash 08/09/23 08/09/23 Unknown History losartan 50 mg tablet 50 mg PO DAILY 08/09/23 08/09/23 Unknown History metformin 850 mg tablet 850 mg PO DAILY 08/09/23 08/09/23 Unknown History metoprolol succinate 100 mg 100 mg PO DAILY 08/09/23 08/09/23 Unknown History tablet,extended release 24 hr montelukast 10 mg tablet 10 mg PO DAILY 08/09/23 08/09/23 Unknown History multivitamin 1 tab PO DAILY 08/09/23 08/09/23 Unknown History rivaroxaban 15 mg tablet (Xarelto) 15 mg PO DAILY 08/09/23 08/09/23 Unknown History rosuvastatin 5 mg tablet 5 mg PO DAILY 08/09/23 08/09/23 Unknown History tamsulosin 0.4 mg capsule 0.4 mg PO BEDTIME 08/09/23 08/09/23 Unknown History torsemide 20 mg tablet 20 mg PO DAILY 08/09/23 08/09/23 Unknown History umeclidinium 62.5 mcg/actuation 1 inh inhalation DAILY 08/09/23 08/09/23 Unknown History blister powder for inhalation (Incruse Ellipta) Physical Exam 2 Vital Signs: Vital Signs: Last Vital Signs Temp 98.0 F 08/10/23 03:35 Pulse 59 08/10/23 03:35 Resp 20 08/10/23 03:35 BP 130/59 L 08/10/23 03:35 Pulse Ox 94 08/10/23 03:35 O2 Del Method Nasal Cannula 08/10/23 03:35 O2 Flow Rate 2 08/10/23 03:35 BMI result Body Mass Index 29.2 EXAM: GENERAL: The patient is well developed and nontoxic. VITAL SIGNS:see workflow HEENT: Nonicteric sclerae, PERRLA, EOMI. Oropharynx clear. Moist mucous membranes. Conjunctivae appear pale . No thyroid mass. CHEST: Chest wall is nontender. HEART: Regular rate and rhythm without murmurs. LUNGS: Clear to auscultation bilaterally. ABDOMEN: Soft, positive bowel sounds, nontender, no organomegaly.no flank tenderness SKIN: No rash, no excessive bruising, petechiae, or purpura. NEUROLOGIC: Cranial nerves II-XII intact without motor/sensory deficit. Const: General: cooperative, no acute distress, alert and awake Nutritional Appearance: well nourished Orientation/consciousness: patient oriented x3 Limitations: no limitations HEENT: Head: Yes normal to inspection and Yes atraumatic Ears: hearing grossly normal bilaterally and external ears normal General nose exam: Normal external nose present, no nasal discharge noted and no epistaxis Face and sinus: Yes normal facial exam, No abrasion and No laceration Mouth: Normal oral and palatal mucosa present, no drooling and no muffled voice Eyes: General: appearance normal, both eyes and all related structures P eriorbital: periorbital findings normal Eyelids: Yes eyelids normal C onjunctivae: conjunctivae normal Pupils: Equal, round and reactive pupils present EOM: EOMs intact bilaterally Neck: Neck: Yes normal visual inspection, Yes full ROM and Yes no lymphadenopathy Chest: Chest palpation & inspection: normal inspection of the chest Resp: Effort & Inspection: able to speak in complete sentences and labored Auscultation: diminished lung sounds diffuse Cardio: Rate: regular rate Rhythm: regular rhythm GI: Inspection: Yes normal to inspection Palpation (GI): Soft to palpation, not firm, nontender, no guarding and not rigid Neuro: General: patient oriented x3 and moves all extremities Cranial nerves: Yes Equal, round and reactive pupils present Cognition (Neuro): n ormal cognition Motor exam (neuro): 5/5 motor strength present throughout Sensory Exam: Normal double simultaneous stimulation for sensation C oordination: [id number] test normal Extrem: General: Yes normal to inspection, Yes full ROM and Yes capillary refill normal Psych: Appearance: grossly normal Mental Status: mental status grossly normal Affect: normal affect Attitude: cooperative Thought process: N ormal thought process present Thought content: Normal thought content present Insight: Good insight present (Psych) Results Labs 08/10/23 06:36 08/10/23 06:36 Labs: Short CBC 08/09/23 Range/Units 11:50 WBC 8.5 (4.8-10.8) X10*3/uL Hgb 6.0 L* (14.0-18.0) g/dl Hct 21.0 L* (42.0-52.0) % Plt Count 310 (160-400) X10*3/uL BMP 08/09/23 11:50 Sodium 134 L Potassium 3.9 Chloride 98 Carbon Dioxide 24 BUN 40 H Creatinine 2.48 H Calcium 8.5 Liver Function 08/09/23 Range/Units 11:50 Total Bilirubin 1.2 H (0.0-1.0) mg/dL Direct Bilirubin 0.6 H (0.0-0.5) mg/dL AST 16 (5-37) U/L ALT 9 (0-40) U/L Alkaline Phosphatase 87 (39-117) U/L Albumin 3.4 L (3.5-5.0) g/dL Assessment and Plan (1) Anemia: Status: Acute Plan 1/ Blood loss anemia, possible with melena ddx: esophagitis, PUD, neoplasia, malabsorption PLAN: 1/ EGD, colo on Tuesday, ok to eat today, clears tomorrow with prep in the evening 2/ can use low dose PPI Procedures Date of Service Date of Service: 08/10/23
--- NOTE | 2023-08-10 07:00 | CA_ITS ---
Transthoracic Echocardiogram Patient (Last, First, Middle): Tha Wagner R Gender: Male Date of : 1935 Age: 87 Procedure Date: 08/10/2023 Procedure Type: Transthoracic Echocardiogram Location: [facility] Height: 175.26 cm Weight: 89.81 kg BSA: 2.06 m2 Heart Rate: bpm BP: 147 / 67 mmHg Fire Prevention Captain: RADHA Referring MD: Tabatha SHAVER Highway Engineering Technician: Nik Strickland MD Symptoms: Increased LLE, SOB x1 week, denies CHF hx Study Quality: Adequate w contrast ECG Rhythm: Atrial Fibrillation Conclusions: - 1. Low normal LV ejection fraction 2. Moderately dilated right-sided chambers with mild to moderate RV systolic dysfunction 3. Trivial aortic regurgitation 4. Moderate to severe elevation right fungal systolic pressure in at least moderately elevated right atrial pressures 5. No gross pericardial effusion Findings Procedure Information Contrast agent, definity, is being given per protocol without apparent complications. Left Ventricle Normal left ventricular cavity size. There is normal left ventricular wall thickness. The left ventricular systolic function is low normal. The visually estimated ejection fraction is between 50-55%. Diastolic function is indeterminate on the basis of available data. Right Ventricle Moderately increased right ventricular cavity size. There is mild to moderately decreased right ventricular systolic function. Atria The left atrium is moderately dilated. There is lipomatous hypertrophy of the interatrial septum. There is no evidence of interatrial shunt. Aortic Valve There is mild calcification of the aortic valve. There is no aortic valve stenosis. There is trace (trivial) aortic valve regurgitation. Mitral Valve There is mild anterior and moderate posterior mitral leaflet thickening. There is moderate mitral annular calcification. There is trace mitral valve regurgitation. There is no mitral valve stenosis. Pulmonic Valve The pulmonic valve was not well visualized. Tricuspid Valve Likely normal tricuspid valve structure and function. There is mild tricuspid valve regurgitation. Moderately elevated right atrial pressure. Moderate to severe pulmonary hypertension is present. Great Vessels The pulmonary artery was not well visualized. There is mild dilatation of the ascending aorta measuring 3.70 cm. Venous The inferior vena cava is moderately dilated and collapses less than 50% with inspiration. Pericardium/Pleural There is no evidence of pericardial effusion. There is a left sided pleural effusion. Prior Study Comparison No prior study available for comparison. Measurements 2D Linear Measurements IVSd: 0.92 0.6-0.9/0.6-1.0 cm LVIDd: 5.05 3.9-5.3/4.2-5.9 cm LVIDd Index: 2.45 2.4-3.2/2.2-3.1 cm/m2 LVIDs: 2.79 2.0-3.6 cm LVPWd: 0.79 0.7-1.1 cm LA Diam: 4.60 2.7-3.8/3.0-4.0 cm LAIDs Index: 2.23 1.5-2.3 cm/m2 LV Mass: 187.48 67-162/88-224 g LV Mass Index: 91.01 43-95/49-115 g/m2 LVOT Diam: 2.40 3.0+(-)1.3 cm 2D Systolic Function EF 4C: 61.20 >55% EF 2C: 46.20 >55% EF BiP: 54.20 >55% Mitral Valve MV Pk E: 1.28 MV Decel Time: 244.00 E'Lateral: 9.03 E'Medial: 7.36 E/E' Med: 17.40 E/E' Lat: 14.20 Aortic Valve AoV Pk Kranthi: 1.76 AoV Pk Grad: 12.00 ANGELO: 3.36 LVOT LVOT Pk Kranthi: 1.31 LVOT Mn Kranthi: 0.99 LVOT VTI: 0.25 LVOT Pk Grad: 7.00 LVOT Mn Grad: 5.00 LVOT Diam: 2.40 LVOT Area: 4.52 Diastolic Function MV Pk E: 1.28 E'Medial: 7.36 E/E' Med: 17.40 E' Laterial: 9.03 E/E' Lat: 14.20 Right Ventricle TAPSE (mm): 15.80 TVS' Kranthi: 11.80 Tricuspid Valve TR Pk Kranthi: 3.37 TR Pk Grad: 45.00 RA Press: 15.00 RVSP: 60.00 Great Vessels Aorta Sinus of Valsalva: 3.50 2.0-3.5 cm Ao Asc: 3.70 2.1-3.4 cm Ao Arch: 4.30 Pulmonary Valve PV Pk Kranthi: 1.10 Peak PV Grad: 5.00 Updated in Other Vendor System with Status of Final Nik Strickland MD electronically signed on 08/10/2023 3:54:46 PM with status of Final
[2023-08-10 07:17] LABS: Glucose, Whole Blood 143 mg/dL (60-115)
[2023-08-10] MEDS: Albuterol/Iprat 2.5/0.5MG 3 ML AMPUL.NEB INHALE ×4 (07:26→19:36)
[2023-08-10 07:53] LABS: Anion Gap 14 (12-20); Blood Urea Nitrogen 35 mg/dL (9-16); Calcium 8.5 mg/dL (8.4-10.2); Carbon Dioxide 26 mmol/L (22-29); Chloride 100 mmol/L (96-108); Estimated Glomerular Filt Rate 30; Glucose Random 147 mg/dL (60-115); Potassium 3.7 mmol/L (3.3-5.1); Sodium 136 mmol/L (135-145)
[2023-08-10 07:56] LABS: Mean Corpuscular HGB Conc 29.5 g/dl (31.0-36.0); Mean Corpuscular Hemoglobin 25.5 pg (27.0-33.0); Mean Corpuscular Volume 86.3 fL (80.0-98.0); Mean Platelet Volume 11.4 fL (9.4-12.4); Platelet Count 316 X10*3/uL (160-400); Red Blood Count 2.55 X10*6/uL (4.60-5.80); Red Cell Distribution Width 16.9 % (11.0-16.0); White Blood Count 10.7 X10*3/uL (4.8-10.8)
[2023-08-10 08:05] LABS: Hemoglobin 6.5 g/dl (14.0-18.0)
--- NOTE | 2023-08-10 08:19 | MHC.CM.PN ---
CM met with Patient at bedside and addressed IMM with him, providing Patient with the original and a copy has been placed on the chart. Patient lives in a mobile home with his /HCP and adult Son and he uses a cane on uneven ground. Home/self care is the goal and CM has initiated and will follow for dc planning. PCP is Dr. Flakita Rivera.
[2023-08-10] MEDS: Empagliflozin 10 MG TABLET PO (09:18)
[2023-08-10] MEDS: Metoprolol Succinate ER 100 MG TAB.ER.24H PO (09:18)
[2023-08-10] MEDS: Montelukast Sodium 10 MG TABLET PO (09:18)
[2023-08-10] MEDS: Atorvastatin Calcium 20 MG TABLET PO (09:18)
[2023-08-10] MEDS: Multivitamin TABLET 1 TAB PO (09:18)
[2023-08-10] MEDS: Furosemide 40 MG/4 ML VIAL IVPUSH ×2 (09:19→17:11)
[2023-08-10 11:18] LABS: Glucose, Whole Blood 186 mg/dL (60-115)
[2023-08-10] MEDS: Insulin Lispro 100 UNIT/ML 3 ML VIAL SUBCUT ×2 (11:54→17:11)
--- NOTE | 2023-08-10 12:31 | HO.PM.IMPN ---
Subjective Subjective Date of Service: 08/10/23 Interval History: seen and evaluated this morning feels better overall still requiring O2 supplement Hb low at 6.5 , to transfuse Review of Systems Review of Systems: Yes all other systems are reviewed and are negative Physical Exam Vital Signs: Vital Signs: Last Vital Signs Temp 98.0 F 08/10/23 11:13 Pulse 83 08/10/23 11:35 Resp 18 08/10/23 11:35 BP 136/62 08/10/23 11:13 Pulse Ox 98 08/10/23 11:13 O2 Del Method Nasal Cannula 08/10/23 11:13 O2 Flow Rate 2 08/10/23 11:13 BMI result Body Mass Index 29.2 Const: Other: Constitutional : Awake, interactive, not in distress Neck : Normal inspection, Supple Cardiovascular : RRR, no JVP, trace lower extremity edema Respiratory : good bilateral air entry, fine basal crackles, no wheezes or rhonchi Gastrointestinal: soft, lax, Normal bowel sounds, Non tender Skin : Warm, Dry Neurological : Alert & oriented x3, No focal deficit Objective Data Active Medications Acetaminophen (Acetaminophen 325 Mg Tablet) 650 mg PO Q6H PRN PRN Reason: Pain, Mild (Pain Scale 1-3) Albuterol Sulfate (Albuterol Sulfate 90 Mcg 8 Gm Inhaler) 2 puff INHALE QID PRN PRN Reason: wheezing Albuterol/Ipratropium (Albuterol/Iprat 2.5/0.5mg 3 Ml Ampul.Neb) 3 ml INHALE RQ4H WHILE AWAKE [facility] Last Admin: 08/10/23 11:33 Dose: 3 ml Documented By: NEYDA Atorvastatin Calcium (Atorvastatin Calcium 20 Mg Tablet) 20 mg PO DAILY [facility] Last Admin: 08/10/23 09:18 Dose: 20 mg Documented By: CHANNING Benzonatate (Benzonatate 100 Mg Capsule) 100 mg PO TID PRN PRN Reason: Cough Dextrose (Dextrose 50 % 25 Gm/50 Ml Syringe) 25 gm IVPUSH Q15M PRN; Protocol PRN Reason: per Hypoglycemia Standing Ord. Docusate Sodium (Docusate Sodium 100 Mg Capsule) 100 mg PO DAILY PRN PRN Reason: Constipation Empagliflozin (Empagliflozin 10 Mg Tablet) 10 mg PO DAILY [facility] Last Admin: 08/10/23 09:18 Dose: 10 mg Documented By: CHANNING Fluticasone/Vilanterol (Fluticasone/Vilanterol 100/25 Blst.W.Dev) 1 puff INHALE RDAILY [facility] Last Admin: 08/10/23 07:26 Dose: Not Given Documented By: NEYDA Non-Admin Reason: Med Not Available Furosemide (Furosemide 40 Mg/4 Ml Vial) 40 mg IVPUSH BID@0900,1800 [facility]; Protocol Last Admin: 08/10/23 09:19 Dose: 40 mg Documented By: CHANNING Glucose (Glucose Gel 15 Gm Gel..Gram.) 15 gm PO Q15M PRN; Protocol PRN Reason: per Hypoglycemia Standing Ord. Iron Sucrose 200 mg/ Sodium (Chloride) 110 mls @ 440 mls/hr IV DAILY [facility] Stop: 08/12/23 09:14 Insulin Human Lispro (Insulin Lispro 100 Unit/Ml 3 Ml Vial) 0 unit SUBCUT QIDACHS [facility]; Protocol Last Admin: 08/10/23 11:54 Dose: 2 unit Documented By: GUERO Melatonin (Melatonin 3 Mg Tablet) 6 mg PO BEDTIME PRN PRN Reason: Insomnia Metoprolol Succinate (Metoprolol Succinate Er 100 Mg Tab.Er.24h) 100 mg PO DAILY [facility]; Protocol Last Admin: 08/10/23 09:18 Dose: 100 mg Documented By: CHANNING Montelukast Sodium (Montelukast Sodium 10 Mg Tablet) 10 mg PO DAILY [facility] Last Admin: 08/10/23 09:18 Dose: 10 mg Documented By: CHANNING Multivitamins/Vitamin C (Multivitamin Tablet) 1 tab PO DAILY [facility] Last Admin: 08/10/23 09:18 Dose: 1 tab Documented By: CHANNING Ondansetron HCl (Ondansetron Hcl 4 Mg/2 Ml Vial) 4 mg IVPUSH Q8H PRN PRN Reason: Nausea and Vomiting Pantoprazole Sodium (Pantoprazole Sodium 40 Mg/10 Ml Vial) 40 mg IVPUSH DAILY@0630 [facility] Last Admin: 08/10/23 05:56 Dose: 40 mg Documented By: DREW Sodium Chloride (0.9 % Sodium Chloride Flush 3 Ml Syringe) 3 ml IVFLUSH QSHIFT [facility] Last Admin: 08/10/23 09:19 Dose: 3 ml Documented By: CHANNING Tamsulosin HCl (Tamsulosin Hcl 0.4 Mg Capsule) 0.4 mg PO BEDTIME [facility] Last Admin: 08/09/23 22:00 Dose: 0.4 mg Documented By: TONIO Labs 08/10/23 06:36 08/10/23 06:36 Labs: Laboratory Results - last 24 hr 08/09/23 08/09/23 08/09/23 11:50 11:51 19:01 MCV MCH MCHC RDW Plt Count MPV Absolute Nucleated RBC Nucleated RBC % (auto) Smear Path Review SEE NOTE Anion Gap Estim Creat Clear Calc Estimated GFR POC Glucose 113 Random Glucose Calcium Iron 15 L TIBC 329 % Saturation 5 L Unsat Iron Binding 314 Direct Bilirubin 0.6 H Lactate Dehydrogenase 178 Influenza Type A (PCR) NEGATIVE Influenza Type B (PCR) NEGATIVE RSV RNA Qual (PCR) NEGATIVE SARS-CoV-2 RNA (RT-PCR) NEGATIVE Blood Type B Positive Antibody Screen NEGATIVE Crossmatch See Detail 08/09/23 08/10/23 08/10/23 21:52 06:36 07:11 MCV 86.3 MCH 25.5 L MCHC 29.5 L RDW 16.9 H Plt Count 316 MPV 11.4 Absolute Nucleated RBC 0.000 Nucleated RBC % (auto) 0.0 Smear Path Review Anion Gap 14 Estim Creat Clear Calc 27.0 Estimated GFR 30 POC Glucose 204 H 143 H Random Glucose 147 H Calcium 8.5 Iron TIBC % Saturation Unsat Iron Binding Direct Bilirubin Lactate Dehydrogenase Influenza Type A (PCR) Influenza Type B (PCR) RSV RNA Qual (PCR) SARS-CoV-2 RNA (RT-PCR) Blood Type Antibody Screen Crossmatch 08/10/23 11:14 MCV MCH MCHC RDW Plt Count MPV Absolute Nucleated RBC Nucleated RBC % (auto) Smear Path Review Anion Gap Estim Creat Clear Calc Estimated GFR POC Glucose 186 H Random Glucose Calcium Iron TIBC % Saturation Unsat Iron Binding Direct Bilirubin Lactate Dehydrogenase Influenza Type A (PCR) Influenza Type B (PCR) RSV RNA Qual (PCR) SARS-CoV-2 RNA (RT-PCR) Blood Type Antibody Screen Crossmatch Assessment and Plan (1) Lower leg edema: Status: Acute (2) Symptomatic anemia: Status: Acute (3) Acute on chronic anemia: Status: Acute Plan Pt is an 87-year-old male with a PMH significant for?anemia, chronic AFib on Xarelto, non insulin-dependent diabetes type 2, CKD unspecified, HTN, HLD, BPH, and long COVID/COPD pulmonology who presents to the ED with?generalized fatigue and worsening SOB and GU x1 week. Pt will be admitted to the hospital for treatment further evaluation of symptomatic anemia. Acute on chronic symptomatic anemia Hb 6.5 this morning. baseline unknown Stool negative for occult blood To transfuse 2 more units PRBCs, Total of 3 Low iron stores, normal LDH, indirect bilirubin GI input appreciated, Upper and lower endoscopies by Tuesday IV Protonix Hold Xarelto Monitor on telemetry Follow CBC Lower leg edema diurese with Lasix 40mg bid Pending echocardiogram Monitor on telemetry Follow BMP Kidney injury Unclear baseline but seems he has CKD Creatinine 2.48, improved to 2.1 could be cardio-renal, treat as above with Lasix Follow BMP COPD/long COVID slightly wheezy, will treat with Duonebs Continue home inhalers Non-insulin dependent diabetes type 2 Hold metformin Continue Jardiance Will place on sliding scale insulin Diabetic diet HTN BP a little soft, also with possible FABRIZIO Will hold losartan for now Resume as warranted HLD Continue statin BPH Continue tamsulosin The patient will need overnight stay pending evaluation of anemia with endoscopies and blood work Quality Stroke Does the patient have a stroke diagnosis?: No VTE Prior VTE?: No VTE Risk Level:: Medical - moderate - high VTE Device Contraindication: N/A - Device Ordered VTE Drug Contraindication: Treatment Not Indicated
[2023-08-10] MEDS: Iron Sucrose Complex 200 MG in 0.9 % Sodium Chloride 100 ML 440 MG IV (13:18)
[2023-08-10 16:36] LABS: Glucose, Whole Blood 173 mg/dL (60-115)
--- NOTE | 2023-08-10 17:32 | PC.NURSE ---
Pt A&OX4 speech clear. VILLALTA to command 5/5 sensation intact, +pp bilat 2+ pitting edema to BLE left > right. Denies headache, dizziness or vision changes pupils PERRLA 2B. LS dim continues on oxygen 2L satting mid 90's. Afib on tele. BS+X4 abdomen soft non-tender denies nausea/vomiting tolerating diet. Voiding in urinal without difficulty clear yellow urine. Stands at bedside to void with steady gait. Denies pain/discomfort. 2 units PRBC's given during shift tolerated well. IV iron given per order. Echo completed at bedside this afternoon. Pulmonary consult pending. Pt resting comfortably in bed. Will continue to monitor and report changes
[2023-08-10 20:28] LABS: Glucose, Whole Blood 145 mg/dL (60-115)
[2023-08-10] MEDS: Melatonin 3 MG TABLET 6 MG PO (21:15)
[2023-08-10] MEDS: Tamsulosin HCL 0.4 MG CAPSULE PO (21:19)
[2023-08-11] VITALS (12 sets, daily range): BP systolic 117–137; BP diastolic 55–65; PULSE 68–97; RESP 18–20; TEMP 36.4–37.2; O2SAT 92–99
[2023-08-11] MEDS: Albuterol/Iprat 2.5/0.5MG 3 ML AMPUL.NEB INHALE ×4 (07:28→19:26)
[2023-08-11 08:04] LABS: Hematocrit 26.9 % (42.0-52.0); Hemoglobin 8.2 g/dl (14.0-18.0); Mean Corpuscular HGB Conc 30.5 g/dl (31.0-36.0); Mean Corpuscular Hemoglobin 26.7 pg (27.0-33.0); Mean Corpuscular Volume 87.6 fL (80.0-98.0); Mean Platelet Volume 11.1 fL (9.4-12.4); Platelet Count 301 X10*3/uL (160-400); Red Blood Count 3.07 X10*6/uL (4.60-5.80); Red Cell Distribution Width 16.5 % (11.0-16.0); White Blood Count 11.9 X10*3/uL (4.8-10.8)
[2023-08-11 08:04] LABS: Glucose, Whole Blood 147 mg/dL (60-115)
[2023-08-11 08:21] LABS: Anion Gap 14 (12-20); Blood Urea Nitrogen 31 mg/dL (9-16); Calcium 8.7 mg/dL (8.4-10.2); Carbon Dioxide 30 mmol/L (22-29); Chloride 100 mmol/L (96-108); Creatinine Clr Calc Pharmacy 28.6; Estimated Glomerular Filt Rate 32; Glucose Random 139 mg/dL (60-115); Potassium 3.6 mmol/L (3.3-5.1); Sodium 140 mmol/L (135-145)
--- NOTE | 2023-08-11 08:36 | PM.CNPUL ---
History of Present Illness History of Present Illness Consult date: 08/11/23 Chief complaint: Acute anemia Narrative: This is an inpatient pulmonary consultation. The patient is an 87-year-old male with a PMH significant for?anemia, chronic AFib on Xarelto, non insulin-dependent diabetes type 2, CKD unspecified, HTN, HLD, BPH, and long COVID/COPD pulmonology who presents to the ED with?generalized fatigue and worsening SOB and GU x1 week. Patient states he has been experiencing significant SOB on and off for the past 3 months, but significantly worse during the past week. Presents to the ED today since this morning he couldn't walk 10 ft without either collapsing or holding onto something due to SOB. Patient denies any hematemesis or bright red blood per rectum, but does note he had 2-3 days black stool earlier in the week. Patient around this time also took Pepto-Bismol for ?a couple of days? for an upset stomach now resolved. He believes his stool was darker-colored than normal before taking Pepto-Bismol, but was noted to be significantly darker after taking it. Stool has since returned to brown-colored. Pt has at least a 3-year hx of anemia per PCP; was started on iron supplementation at one point but stopped taking around a year ago d/t constipation. Patient also complains of increasing lower leg edema and 7 lb weight gain in the past week. He denies any history of CHF and states he is torsemide for lower leg edema. Reports normally any swelling in his legs will goal weight by, the time he wakes up but this past week he legs have remained edematous in the morning. Pt denies fever, chills, nausea, vomiting, abdominal pain. No diarrhea. The patient did have an echocardiogram demonstrating severe pulmonary hypertension with moderate right-sided systolic dysfunction. In addition to that had x-ray that I personally reviewed demonstrating some interstitial changes at the bases. Her examination he does have some expiratory wheezing rhonchi in addition to post exhalation coughing as well as trying rales during inhalation. The patient has been on his Xarelto for the atrial fibrillation therefore low risk for thromboembolic disease although still in differential specially with severe pulmonary hypertension additional imaging studies will be warranted specially with the bleeding. If he does get a lot them a CT scan at least will catch the lower lung bases to address the interstitial lung process based on his fine crackles. Review of Systems Constitutional: Constitutional: Reports no additional constitutional complaints, Denies chills, Denies fever(s) and Denies night sweats Eyes: Eyes: Reports no additional eye complaints, Denies blurry vision, Denies change in vision, Denies diplopia, Denies eye discharge, Denies loss of vision and Denies eye pain ENT: Denies dizziness Cardiovascular: Cardiovascular: Reports no additional cardiovascular complaints, Denies chest pain, Denies lightheadedness, Denies Loss of Consciousness and Reports dyspnea Respiratory: Respiratory: Reports cough and Reports dyspnea Gastrointestinal: Gastrointestinal: Reports no additional gastrointestinal complaints, Denies abdominal pain, Denies hematochezia, Denies change in bowel habits and Denies change in stool character Genitourinary: Genitourinary: Reports no additional male genitourinary complaints, Denies hematuria, Denies oliguria, Denies difficulty urinating, Denies dysuria, Denies urinary frequency, Denies urinary hesitancy, Denies urinary incontinence and Denies urinary urgency Musculoskeletal: Musculoskeletal: Reports no additional musculoskeletal complaints, Denies numbness and Denies tingling Neurologic: Denies dizziness, Denies loss of vision, Denies numbness and Denies tingling Psychiatric: Psychiatric: Reports no additional psychiatric complaints Endocrine: Endocrine: Reports no additional endocrine complaints Hematologic/Lymphatic: Hematologic/Lymphatic: Reports no additional hematologic/lymphatic complaints Allergic/Immunologic: Allergic/Immunologic: Reports no additional allergic/immunologic complaints FOR[facility]LY [facility], [facility] Past Medical History Medical History (Updated 08/11/23 @ 08:44 by Melquiades Beasley MD) Chest crackles Pulmonary hypertension Non-insulin dependent type 2 diabetes mellitus HTN (hypertension) HLD (hyperlipidemia) Persistent atrial fibrillation BPH (benign prostatic hyperplasia) Long COVID COPD (chronic obstructive pulmonary disease) Lower leg edema Chronic kidney disease, unspecified Social History Social History Household Members: Spouse Housing: Other Housing Other:: mobile home Do you presently have visiting nurse or other home services: No Patient Tobacco Use Status: Former Tobacco user Use of substances other than those prescribed or required for medical reasons: No Currently Displaying Signs/Symptoms of Drug Intoxication Withdrawal: No Do you feel safe in your current relationship?: Yes Advance Directives: No Advance Directives Information Provided: Yes Do you have thoughts of harming others: None Do you have a plan to hurt others: No Plan Recently lost weight without trying: No Nutrition Risks: No Nutritional Risk Poor oral hygiene: No service: Yes Meds Allergies Allergy/AdvReac Type Severity Reaction Status Date / Time No Known Allergies Allergy Verified 08/09/23 10:51 Active Medications: Current Medications Acetaminophen (Acetaminophen 325 Mg Tablet) 650 mg PO Q6H PRN PRN Reason: Pain, Mild (Pain Scale 1-3) Albuterol Sulfate (Albuterol Sulfate 90 Mcg 8 Gm Inhaler) 2 puff INHALE QID PRN PRN Reason: wheezing Albuterol/Ipratropium (Albuterol/Iprat 2.5/0.5mg 3 Ml Ampul.Neb) 3 ml INHALE RQ4H WHILE AWAKE [facility] Last Admin: 08/11/23 07:28 Dose: 3 ml Atorvastatin Calcium (Atorvastatin Calcium 20 Mg Tablet) 20 mg PO DAILY [facility] Last Admin: 08/10/23 09:18 Dose: 20 mg Benzonatate (Benzonatate 100 Mg Capsule) 100 mg PO TID PRN PRN Reason: Cough Dextrose (Dextrose 50 % 25 Gm/50 Ml Syringe) 25 gm IVPUSH Q15M PRN; Protocol PRN Reason: per Hypoglycemia Standing Ord. Docusate Sodium (Docusate Sodium 100 Mg Capsule) 100 mg PO DAILY PRN PRN Reason: Constipation Empagliflozin (Empagliflozin 10 Mg Tablet) 10 mg PO DAILY [facility] Last Admin: 08/10/23 09:18 Dose: 10 mg Fluticasone/Vilanterol (Fluticasone/Vilanterol 100/25 Blst.W.Dev) 1 puff INHALE RDAILY [facility] Last Admin: 08/10/23 07:26 Dose: Not Given Furosemide (Furosemide 40 Mg/4 Ml Vial) 40 mg IVPUSH BID@0900,1800 [facility]; Protocol Last Admin: 08/10/23 17:11 Dose: 40 mg Glucose (Glucose Gel 15 Gm Gel..Gram.) 15 gm PO Q15M PRN; Protocol PRN Reason: per Hypoglycemia Standing Ord. Iron Sucrose 200 mg/ Sodium (Chloride) 110 mls @ 440 mls/hr IV DAILY [facility] Stop: 08/12/23 09:14 Last Infusion: 08/10/23 14:06 Dose: Infused Insulin Human Lispro (Insulin Lispro 100 Unit/Ml 3 Ml Vial) 0 unit SUBCUT QIDACHS [facility]; Protocol Last Admin: 08/11/23 08:19 Dose: Not Given Melatonin (Melatonin 3 Mg Tablet) 6 mg PO BEDTIME PRN PRN Reason: Insomnia Last Admin: 08/10/23 21:15 Dose: 6 mg Methylprednisolone Sodium Succinate (Methylprednisolone Sod Succ 125 Mg/2 Ml Vial) 60 mg IVPUSH ONCE ONE Stop: 08/11/23 08:36 Metoprolol Succinate (Metoprolol Succinate Er 100 Mg Tab.Er.24h) 100 mg PO DAILY [facility]; Protocol Last Admin: 08/10/23 09:18 Dose: 100 mg Montelukast Sodium (Montelukast Sodium 10 Mg Tablet) 10 mg PO DAILY [facility] Last Admin: 08/10/23 09:18 Dose: 10 mg Multivitamins/Vitamin C (Multivitamin Tablet) 1 tab PO DAILY [facility] Last Admin: 08/10/23 09:18 Dose: 1 tab Ondansetron HCl (Ondansetron Hcl 4 Mg/2 Ml Vial) 4 mg IVPUSH Q8H PRN PRN Reason: Nausea and Vomiting Pantoprazole Sodium (Pantoprazole Sodium 40 Mg/10 Ml Vial) 40 mg IVPUSH DAILY@0630 [facility] Last Admin: 08/10/23 05:56 Dose: 40 mg Sodium Chloride (0.9 % Sodium Chloride Flush 3 Ml Syringe) 3 ml IVFLUSH QSHIFT [facility] Last Admin: 08/10/23 21:19 Dose: 3 ml Tamsulosin HCl (Tamsulosin Hcl 0.4 Mg Capsule) 0.4 mg PO BEDTIME [facility] Last Admin: 08/10/23 21:19 Dose: 0.4 mg Home Medications Medication Instructions Recorded Confirmed Last Taken Type albuterol sulfate 90 mcg/actuation 2 puff inhalation QID PRN wheezing 08/09/23 08/09/23 Unknown History aerosol inhaler clotrimazole 1 % topical cream 1 appl topical BID PRN Rash 08/09/23 08/09/23 Unknown History empagliflozin 10 mg tablet 10 mg PO QAM 08/09/23 08/09/23 Unknown History (Jardiance) fluticasone 100 mcg-salmeterol 50 1 ea inhalation DAILY 08/09/23 08/09/23 Unknown History mcg/dose blistr powdr for inhalation ketoconazole 2 % topical cream 1 appl topical BID PRN Rash 08/09/23 08/09/23 Unknown History losartan 50 mg tablet 50 mg PO DAILY 08/09/23 08/09/23 Unknown History metformin 850 mg tablet 850 mg PO DAILY 08/09/23 08/09/23 Unknown History metoprolol succinate 100 mg 100 mg PO DAILY 08/09/23 08/09/23 Unknown History tablet,extended release 24 hr montelukast 10 mg tablet 10 mg PO DAILY 08/09/23 08/09/23 Unknown History multivitamin 1 tab PO DAILY 08/09/23 08/09/23 Unknown History rivaroxaban 15 mg tablet (Xarelto) 15 mg PO DAILY 08/09/23 08/09/23 Unknown History rosuvastatin 5 mg tablet 5 mg PO DAILY 08/09/23 08/09/23 Unknown History tamsulosin 0.4 mg capsule 0.4 mg PO BEDTIME 08/09/23 08/09/23 Unknown History torsemide 20 mg tablet 20 mg PO DAILY 08/09/23 08/09/23 Unknown History umeclidinium 62.5 mcg/actuation 1 inh inhalation DAILY 08/09/23 08/09/23 Unknown History blister powder for inhalation (Incruse Ellipta) Physical Exam Vital Signs: Vital Signs: Last Vital Signs Temp 98.3 F 08/11/23 07:07 Pulse 78 08/11/23 07:33 Resp 20 08/11/23 07:33 BP 137/65 08/11/23 07:07 Pulse Ox 99 08/11/23 07:07 O2 Del Method Oxymask 08/11/23 07:07 O2 Flow Rate 2 08/11/23 03:38 BMI result Body Mass Index 29.2 Const: General: comfortable HEENT: Head: Yes normocephalic Neck: Neck: Yes supple Chest: Chest palpation & inspection: normal inspection of the chest Resp: Effort & Inspection: normal respiratory effort and prolonged expiratory phase Auscultation: rales bilateral at the base, rhonchi, wheezes and diminished lung sounds Cardio: Heart sounds: S1 normal heart sound present and S2 normal heart sound present GI: Palpation (GI): Soft to palpation Skin: General skin exam: no rashes or lesions noted Extrem: General: Yes no clubbing, cyanosis or edema Results Laboratory Findings 08/11/23 06:48 08/11/23 06:48 ABG, PT/INR, D-dimer: PT/INR, D-dimer PT 26.1 SEC (11.1-13.3) H 08/09/23 11:50 INR 2.1 (0.9-1.1) H 08/09/23 11:50 Abnormal lab findings: Abnormal Labs 08/09/23 08/09/23 08/10/23 11:50 21:52 06:36 WBC RBC 2.41 L 2.55 L Hgb 6.0 L* 6.5 L* Hct 21.0 L* 22.0 L MCH 24.9 L 25.5 L MCHC 28.6 L 29.5 L RDW 17.2 H 16.9 H Immature Gran % (Auto) 0.6 H Neut % (Auto) 86.3 H Lymph % (Auto) 4.4 L Lymph # (Auto) 0.4 L Abs Immat Gran (auto) 0.05 H Absolute Nucleated RBC 0.020 H PT 26.1 H INR 2.1 H Sodium 134 L Carbon Dioxide BUN 40 H 35 H Creatinine 2.48 H 2.13 H POC Glucose 204 H Random Glucose 202 H 147 H Iron 15 L % Saturation 5 L Total Bilirubin 1.2 H Direct Bilirubin 0.6 H B-Natriuretic Peptide 297 H Total Protein 6.4 L Albumin 3.4 L Crossmatch See Detail 08/10/23 08/10/23 08/10/23 07:11 11:14 16:28 WBC RBC Hgb Hct MCH MCHC RDW Immature Gran % (Auto) Neut % (Auto) Lymph % (Auto) Lymph # (Auto) Abs Immat Gran (auto) Absolute Nucleated RBC PT INR Sodium Carbon Dioxide BUN Creatinine POC Glucose 143 H 186 H 173 H Random Glucose Iron % Saturation Total Bilirubin Direct Bilirubin B-Natriuretic Peptide Total Protein Albumin Crossmatch 08/10/23 08/11/23 08/11/23 20:15 06:48 07:12 WBC 11.9 H RBC 3.07 L D Hgb 8.2 L D Hct 26.9 L D MCH 26.7 L MCHC 30.5 L RDW 16.5 H Immature Gran % (Auto) Neut % (Auto) Lymph % (Auto) Lymph # (Auto) Abs Immat Gran (auto) Absolute Nucleated RBC PT INR Sodium Carbon Dioxide 30 H BUN 31 H Creatinine 2.01 H POC Glucose 145 H 147 H Random Glucose 139 H Iron % Saturation Total Bilirubin Direct Bilirubin B-Natriuretic Peptide Total Protein Albumin Crossmatch Assessment and Plan (1) Acute respiratory failure: Qualifiers: Respiratory failure complication: hypoxia Qualified Code(s): J96.01 - Acute respiratory failure with hypoxia Status: Acute (2) COPD exacerbation: Status: Acute (3) Pulmonary hypertension: Status: Acute (4) Chest crackles: Status: Acute Plan Worsening dyspnea due to: severe anemia, COPD, pulmonary hypertension and likely a component of ILD Perfusion scan to R/O CTED solumedrol x 1 and reassess the breathing exam, may need additional corticosteroids diuresis as tolerated May benefit from additioal imaging if etiology is still not clear Procedures Date of Service Date of Service: 08/11/23
[2023-08-11] MEDS: Furosemide 40 MG/4 ML VIAL IVPUSH ×2 (09:56→16:15)
[2023-08-11] MEDS: methylPREDNISolone Sod Succ 125 MG/2 ML VIAL 60 MG IVPUSH (09:57)
[2023-08-11] MEDS: Pantoprazole Sodium 40 MG/10 ML VIAL IVPUSH (09:57)
[2023-08-11] MEDS: Metoprolol Succinate ER 100 MG TAB.ER.24H PO (10:01)
[2023-08-11] MEDS: Multivitamin TABLET 1 TAB PO (10:01)
[2023-08-11] MEDS: 0.9 % Sodium Chloride Flush 3 ML SYRINGE IVFLUSH ×3 (10:01→21:38)
[2023-08-11] MEDS: Montelukast Sodium 10 MG TABLET PO (10:01)
[2023-08-11] MEDS: Atorvastatin Calcium 20 MG TABLET PO (10:01)
[2023-08-11] MEDS: Empagliflozin 10 MG TABLET PO (10:01)
[2023-08-11 11:26] LABS: Glucose, Whole Blood 191 mg/dL (60-115)
[2023-08-11] MEDS: Fluticasone/Vilanterol 100/25 BLST.W.DEV 1 PUFF INHALE (11:30)
--- NOTE | 2023-08-11 11:57 | MHC.CM.PN ---
PT is recommending home with services; CM will follow.
[2023-08-11] MEDS: Iron Sucrose Complex 200 MG in 0.9 % Sodium Chloride 100 ML 110 MG IV (12:07)
[2023-08-11] MEDS: Insulin Lispro 100 UNIT/ML 3 ML VIAL SUBCUT ×3 (12:16→21:38)
--- NOTE | 2023-08-11 12:44 | HO.PM.IMPN ---
Subjective Subjective Date of Service: 08/11/23 Interval History: seen and evaluated this morning feels better overall still requiring O2 supplement Hb improved to 8.2 after transfusion Plan for upper and lower endoscopies tomorrow Review of Systems Review of Systems: Yes all other systems are reviewed and are negative Physical Exam Vital Signs: Vital Signs: Last Vital Signs Temp 98.9 F 08/11/23 11:23 Pulse 75 08/11/23 11:31 Resp 18 08/11/23 11:31 BP 134/60 08/11/23 11:23 Pulse Ox 99 08/11/23 11:23 O2 Del Method Nasal Cannula 08/11/23 11:23 O2 Flow Rate 6 08/11/23 11:23 BMI result Body Mass Index 29.2 Const: Other: Constitutional : Awake, interactive, not in distress Neck : Normal inspection, Supple Cardiovascular : RRR, no JVP, trace lower extremity edema Respiratory : good bilateral air entry, fine basal crackles, no wheezes or rhonchi Gastrointestinal: soft, lax, Normal bowel sounds, Non tender Skin : Warm, Dry Neurological : Alert & oriented to self and place, No focal deficit Objective Data Active Medications Acetaminophen (Acetaminophen 325 Mg Tablet) 650 mg PO Q6H PRN PRN Reason: Pain, Mild (Pain Scale 1-3) Albuterol Sulfate (Albuterol Sulfate 90 Mcg 8 Gm Inhaler) 2 puff INHALE QID PRN PRN Reason: wheezing Albuterol/Ipratropium (Albuterol/Iprat 2.5/0.5mg 3 Ml Ampul.Neb) 3 ml INHALE RQ4H WHILE AWAKE [facility] Last Admin: 08/11/23 11:30 Dose: 3 ml Documented By: SOMMER Atorvastatin Calcium (Atorvastatin Calcium 20 Mg Tablet) 20 mg PO DAILY [facility] Last Admin: 08/11/23 10:01 Dose: 20 mg Documented By: HUSSEINTEKDale Benzonatate (Benzonatate 100 Mg Capsule) 100 mg PO TID PRN PRN Reason: Cough Dextrose (Dextrose 50 % 25 Gm/50 Ml Syringe) 25 gm IVPUSH Q15M PRN; Protocol PRN Reason: per Hypoglycemia Standing Ord. Docusate Sodium (Docusate Sodium 100 Mg Capsule) 100 mg PO DAILY PRN PRN Reason: Constipation Empagliflozin (Empagliflozin 10 Mg Tablet) 10 mg PO DAILY [facility] Last Admin: 08/11/23 10:01 Dose: 10 mg Documented By: PINKY Fluticasone/Vilanterol (Fluticasone/Vilanterol 100/25 Blst.W.Dev) 1 puff INHALE RDAILY [facility] Last Admin: 08/11/23 11:30 Dose: 1 puff Documented By: SOMMER Furosemide (Furosemide 40 Mg/4 Ml Vial) 40 mg IVPUSH BID@0900,1800 [facility]; Protocol Last Admin: 08/11/23 09:56 Dose: 40 mg Documented By: PINKY Glucose (Glucose Gel 15 Gm Gel..Gram.) 15 gm PO Q15M PRN; Protocol PRN Reason: per Hypoglycemia Standing Ord. Iron Sucrose 200 mg/ Sodium (Chloride) 110 mls @ 440 mls/hr IV DAILY [facility] Stop: 08/12/23 09:14 Last Admin: 08/11/23 12:07 Dose: 110 mls/hr Documented By: CHRISTINA Insulin Human Lispro (Insulin Lispro 100 Unit/Ml 3 Ml Vial) 0 unit SUBCUT QIDACHS [facility]; Protocol Last Admin: 08/11/23 12:16 Dose: 2 unit Documented By: CHRISTINA Melatonin (Melatonin 3 Mg Tablet) 6 mg PO BEDTIME PRN PRN Reason: Insomnia Last Admin: 08/10/23 21:15 Dose: 6 mg Documented By: HOLLEY Metoprolol Succinate (Metoprolol Succinate Er 100 Mg Tab.Er.24h) 100 mg PO DAILY [facility]; Protocol Last Admin: 08/11/23 10:01 Dose: 100 mg Documented By: PINKY Montelukast Sodium (Montelukast Sodium 10 Mg Tablet) 10 mg PO DAILY [facility] Last Admin: 08/11/23 10:01 Dose: 10 mg Documented By: PINKY Multivitamins/Vitamin C (Multivitamin Tablet) 1 tab PO DAILY [facility] Last Admin: 08/11/23 10:01 Dose: 1 tab Documented By: PINKY Ondansetron HCl (Ondansetron Hcl 4 Mg/2 Ml Vial) 4 mg IVPUSH Q8H PRN PRN Reason: Nausea and Vomiting Pantoprazole Sodium (Pantoprazole Sodium 40 Mg/10 Ml Vial) 40 mg IVPUSH DAILY@0630 [facility] Last Admin: 08/11/23 09:57 Dose: 40 mg Documented By: PINKY Sodium Chloride (0.9 % Sodium Chloride Flush 3 Ml Syringe) 3 ml IVFLUSH QSHIFT [facility] Last Admin: 08/11/23 10:01 Dose: 3 ml Documented By: PINKY Tamsulosin HCl (Tamsulosin Hcl 0.4 Mg Capsule) 0.4 mg PO BEDTIME [facility] Last Admin: 08/10/23 21:19 Dose: 0.4 mg Documented By: ERENDIRATRH Labs 08/11/23 06:48 08/11/23 06:48 Labs: Laboratory Results - last 24 hr 08/09/23 08/10/23 08/10/23 11:50 16:28 20:15 MCV MCH MCHC RDW Plt Count MPV Absolute Nucleated RBC Nucleated RBC % (auto) Anion Gap Estim Creat Clear Calc Estimated GFR POC Glucose 173 H 145 H Random Glucose Calcium Blood Type B Positive Antibody Screen NEGATIVE Crossmatch See Detail 08/11/23 08/11/23 08/11/23 06:48 07:12 11:19 MCV 87.6 MCH 26.7 L MCHC 30.5 L RDW 16.5 H Plt Count 301 MPV 11.1 Absolute Nucleated RBC 0.000 Nucleated RBC % (auto) 0.0 Anion Gap 14 Estim Creat Clear Calc 28.6 Estimated GFR 32 POC Glucose 147 H 191 H Random Glucose 139 H Calcium 8.7 Blood Type Antibody Screen Crossmatch Assessment and Plan (1) 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 Pt will be admitted to the hospital for treatment further evaluation of symptomatic anemia. Acute on chronic symptomatic anemia Hb 8.2 after total of 3 units transfusion. baseline unknown Stool negative for occult blood Low iron stores, to give Iron CT abdomen to R\O masses GI input appreciated, Upper and lower endoscopies by Tuesday IV Protonix Hold Xarelto Monitor on telemetry Follow CBC Hypoxic respiratory failure 2/2 acute diastolic CHF exacerbation V\Q scan negative diurese with Lasix 40mg bid echocardiogram showing low normal EF w moderate RV dysfunction Monitor on telemetry Follow BMP Acute Kidney injury Unclear baseline but seems he has CKD Creatinine 2.48, improved to 2 could be cardio-renal, treat as above with Lasix Follow BMP COPD/long COVID slightly wheezy, will treat with Duonebs Continue home inhalers Non-insulin dependent diabetes type 2 Hold metformin Continue Jardiance sliding scale insulin Diabetic diet HTN BP a little soft, also with possible FABRIZIO Will hold losartan for now Resume as warranted HLD Continue statin BPH Continue tamsulosin The patient will need overnight stay pending evaluation of anemia with endoscopies and blood work Quality Stroke Does the patient have a stroke diagnosis?: No VTE Prior VTE?: No VTE Risk Level:: Medical - moderate - high VTE Device Contraindication: N/A - Device Ordered VTE Drug Contraindication: Treatment Not Indicated
[2023-08-11 15:48] LABS: Glucose, Whole Blood 274 mg/dL (60-115)
[2023-08-11 20:46] LABS: Glucose, Whole Blood 285 mg/dL (60-115)
[2023-08-11] MEDS: Melatonin 3 MG TABLET 6 MG PO (21:37)
[2023-08-11] MEDS: Tamsulosin HCL 0.4 MG CAPSULE PO (21:37)
[2023-08-12] VITALS (14 sets, daily range): BP systolic 111–137; BP diastolic 50–60; PULSE 74–86; RESP 16–29; TEMP 36.1–36.8; O2SAT 91–98
[2023-08-12] MEDS: Pantoprazole Sodium 40 MG/10 ML VIAL IVPUSH (05:49)
[2023-08-12 06:41] LABS: Hematocrit 27.1 % (42.0-52.0); Mean Corpuscular HGB Conc 29.5 g/dl (31.0-36.0); Mean Corpuscular Hemoglobin 26.2 pg (27.0-33.0); Mean Corpuscular Volume 88.9 fL (80.0-98.0); Mean Platelet Volume 11.2 fL (9.4-12.4); Platelet Count 300 X10*3/uL (160-400); Red Blood Count 3.05 X10*6/uL (4.60-5.80); Red Cell Distribution Width 16.6 % (11.0-16.0); White Blood Count 9.1 X10*3/uL (4.8-10.8)
[2023-08-12 06:42] LABS: Hemoglobin 8.1 g/dl (14.0-18.0); Mean Corpuscular Hemoglobin 26.6 pg (27.0-33.0); Mean Corpuscular Volume 88.8 fL (80.0-98.0); Mean Platelet Volume 11.1 fL (9.4-12.4); Platelet Count 305 X10*3/uL (160-400); Red Blood Count 3.04 X10*6/uL (4.60-5.80); Red Cell Distribution Width 16.4 % (11.0-16.0); White Blood Count 9.3 X10*3/uL (4.8-10.8)
[2023-08-12 06:52] LABS: Anion Gap 14 (12-20); Blood Urea Nitrogen 30 mg/dL (9-16); Calcium 8.6 mg/dL (8.4-10.2); Carbon Dioxide 30 mmol/L (22-29); Chloride 102 mmol/L (96-108); Creatinine Clr Calc Pharmacy 32.2; Estimated Glomerular Filt Rate 36; Glucose Random 167 mg/dL (60-115); Potassium 3.6 mmol/L (3.3-5.1); Sodium 142 mmol/L (135-145)
[2023-08-12 06:56] LABS: Anion Gap 15 (12-20); Blood Urea Nitrogen 30 mg/dL (9-16); Calcium 8.6 mg/dL (8.4-10.2); Carbon Dioxide 28 mmol/L (22-29); Chloride 102 mmol/L (96-108); Creatinine Clr Calc Pharmacy 33.3; Estimated Glomerular Filt Rate 38; Glucose Random 164 mg/dL (60-115); Potassium 3.8 mmol/L (3.3-5.1); Sodium 141 mmol/L (135-145)
[2023-08-12] MEDS: Fluticasone/Vilanterol 100/25 BLST.W.DEV 1 PUFF INHALE (07:36)
[2023-08-12] MEDS: Albuterol/Iprat 2.5/0.5MG 3 ML AMPUL.NEB INHALE ×4 (07:36→20:03)
[2023-08-12 08:02] LABS: Glucose, Whole Blood 154 mg/dL (60-115)
--- NOTE | 2023-08-12 08:08 | P.CDIM_ITS ---
PROVIDER RESPONSE TEXT: To clarify, the appropriate diagnosis supported by the clinical indicators: Acute QUERY TEXT: PHYSICIAN'S DOCUMENTATION REQUEST Date of Query: 08/11/2023 01:14 PM EST Patient Name: Tha Wagner Admit Date: 08/09/2023 Dear Jana Moore, A review of the medical record indicates additional documentation may be needed. Please review below and update the documentation accordingly. Clinical Indicators: Per Hospitalist Progress Note 08/11/23: still requiring O2 supplement Hypoxic respiratory failure 2/2 acute diastolic CHF exacerbation V\Q scan negative diurese with Lasix 40mg bid Clarify which of the following accurately represents the acuity of the hypoxic respiratory failure. Possible options might include: Acute Acute on chronic Compensated Chronic stable condition Remission Other (explain) Clinically unable to determine (explain) Thank you, Patricia Urbina RN Use of terms such as suspected, likely, concern for, or probable (associated with a specific diagnosi s that is being evaluated, monitored, or treated as if it exists) are acceptable and can be coded in the inpatient se tting, when documented at the time of discharge. Please use your independent medical judgment in providing your response. THIS QUERY IS PART OF THE PERMANENT MEDICAL RECORD
--- NOTE | 2023-08-12 09:07 | P.PNPL_ITS ---
Subjective Subjective Date of Service: 08/12/23 Interval history: The patient was seen on exam. Feel a little better. I did review his V/Q scan which was negative for any chronic thromboembolic disease. Nothing to explain the severe pulmonary hypertension. The patient did have a CT scan of the abdomen and pelvis demonstrating what appeared to be a small effusion on the right hemithorax in addition to that some areas of atelectasis although cannot rule out a small consolidation. He is still coughing still having some chest tightness and wheezing. He did respond well to the Solu-Medrol was started on some prednisone was doxycycline at this time. 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 In addition to that he is hemoglobin is better. Clinically is feeling a little better still on some oxygen. Objective Data Labs 08/12/23 06:01 08/12/23 06:01 Labs: Laboratory Results - last 24 hr 08/11/23 08/11/23 08/11/23 11:19 15:21 20:39 WBC RBC Hgb Hct MCV MCH MCHC RDW Plt Count MPV Absolute Nucleated RBC Nucleated RBC % (auto) Sodium Potassium Chloride Carbon Dioxide Anion Gap BUN Creatinine Estim Creat Clear Calc Estimated GFR POC Glucose 191 H 274 H 285 H Random Glucose Calcium 08/12/23 08/12/23 08/12/23 06:01 06:01 06:01 WBC 9.1 9.3 RBC 3.05 L 3.04 L Hgb 8.0 L Hct MCV MCH MCHC RDW Plt Count MPV Absolute Nucleated RBC Nucleated RBC % (auto) Sodium Potassium Chloride Carbon Dioxide Anion Gap BUN Creatinine Estim Creat Clear Calc Estimated GFR POC Glucose Random Glucose Calcium 08/12/23 08/12/23 08/12/23 06:01 06:01 06:01 WBC RBC Hgb 8.1 L Hct 27.1 L 27.0 L MCV 88.9 88.8 MCH 26.2 L MCHC RDW Plt Count MPV Absolute Nucleated RBC Nucleated RBC % (auto) Sodium Potassium Chloride Carbon Dioxide Anion Gap BUN Creatinine Estim Creat Clear Calc Estimated GFR POC Glucose Random Glucose Calcium 08/12/23 08/12/23 08/12/23 06:01 06:01 06:01 WBC RBC Hgb Hct MCV MCH 26.6 L MCHC 29.5 L 30.0 L RDW 16.6 H 16.4 H Plt Count 300 MPV Absolute Nucleated RBC Nucleated RBC % (auto) Sodium Potassium Chloride Carbon Dioxide Anion Gap BUN Creatinine Estim Creat Clear Calc Estimated GFR POC Glucose Random Glucose Calcium 08/12/23 08/12/23 08/12/23 06:01 06:01 06:01 WBC RBC Hgb Hct MCV MCH MCHC RDW Plt Count 305 MPV 11.2 11.1 Absolute Nucleated RBC 0.000 0.000 Nucleated RBC % (auto) 0.0 Sodium Potassium Chloride Carbon Dioxide Anion Gap BUN Creatinine Estim Creat Clear Calc Estimated GFR POC Glucose Random Glucose Calcium 08/12/23 08/12/23 08/12/23 06:01 06:01 06:01 WBC RBC Hgb Hct MCV MCH MCHC RDW Plt Count MPV Absolute Nucleated RBC Nucleated RBC % (auto) 0.0 Sodium 142 141 Potassium 3.6 3.8 Chloride 102 Carbon Dioxide Anion Gap BUN Creatinine Estim Creat Clear Calc Estimated GFR POC Glucose Random Glucose Calcium 08/12/23 08/12/23 08/12/23 06:01 06:01 06:01 WBC RBC Hgb Hct MCV MCH MCHC RDW Plt Count MPV Absolute Nucleated RBC Nucleated RBC % (auto) Sodium Potassium Chloride 102 Carbon Dioxide 30 H 28 Anion Gap 14 15 BUN 30 H Creatinine Estim Creat Clear Calc Estimated GFR POC Glucose Random Glucose Calcium 08/12/23 08/12/23 08/12/23 06:01 06:01 06:01 WBC RBC Hgb Hct MCV MCH MCHC RDW Plt Count MPV Absolute Nucleated RBC Nucleated RBC % (auto) Sodium Potassium Chloride Carbon Dioxide Anion Gap BUN 30 H Creatinine 1.79 H 1.73 H Estim Creat Clear Calc 32.2 33.3 Estimated GFR 36 POC Glucose Random Glucose Calcium 08/12/23 08/12/23 08/12/23 06:01 06:01 06:01 WBC RBC Hgb Hct MCV MCH MCHC RDW Plt Count MPV Absolute Nucleated RBC Nucleated RBC % (auto) Sodium Potassium Chloride Carbon Dioxide Anion Gap BUN Creatinine Estim Creat Clear Calc Estimated GFR 38 POC Glucose Random Glucose 167 H 164 H Calcium 8.6 8.6 08/12/23 07:33 WBC RBC Hgb Hct MCV MCH MCHC RDW Plt Count MPV Absolute Nucleated RBC Nucleated RBC % (auto) Sodium Potassium Chloride Carbon Dioxide Anion Gap BUN Creatinine Estim Creat Clear Calc Estimated GFR POC Glucose 154 H Random Glucose Calcium Review of Systems Constitutional: Reports no additional constitutional complaints, Denies chills, Denies fever(s) and Denies night sweats Eyes: Reports no additional eye complaints, Denies blurry vision, Denies change in vision, Denies diplopia, Denies eye discharge, Denies loss of vision and Denies eye pain Denies dizziness Cardiovascular: Reports no additional cardiovascular complaints, Denies chest pain, Denies lightheadedness, Denies Loss of Consciousness and Reports dyspnea Respiratory: Reports cough and Reports dyspnea Gastrointestinal: Reports no additional gastrointestinal complaints, Denies abdominal pain, Denies hematochezia, Denies change in bowel habits and Denies change in stool character Genitourinary: Reports no additional male genitourinary complaints, Denies hematuria, Denies oliguria, Denies difficulty urinating, Denies dysuria, Denies urinary frequency, Denies urinary hesitancy, Denies urinary incontinence and Denies urinary urgency Musculoskeletal: Reports no additional musculoskeletal complaints, Denies numbness and Denies tingling Denies dizziness, Denies loss of vision, Denies numbness and Denies tingling Psychiatric: Reports no additional psychiatric complaints Endocrine: Reports no additional endocrine complaints Hematologic/Lymphatic: Reports no additional hematologic/lymphatic complaints Allergic/Immunologic: Reports no additional allergic/immunologic complaints Physical Exam 2 Vital Signs: Vital Signs: Last Vital Signs Temp 97.0 F 08/12/23 09:01 Pulse 79 08/12/23 09:01 Resp 24 H 08/12/23 09:01 BP 126/59 L 08/12/23 09:01 Pulse Ox 94 08/12/23 09:01 O2 Del Method Nasal Cannula 08/12/23 09:01 O2 Flow Rate 2 08/12/23 09:01 BMI result Body Mass Index 29.2 Const: General: comfortable HEENT: Head: Yes normocephalic Neck: Neck: Yes supple Chest: Chest palpation & inspection: normal inspection of the chest Resp: Effort & Inspection: normal respiratory effort and prolonged expiratory phase Auscultation: rales bilateral at the base, rhonchi, wheezes and diminished lung sounds Cardio: Heart sounds: S1 normal heart sound present and S2 normal heart sound present GI: Palpation (GI): Soft to palpation Skin: General skin exam: no rashes or lesions noted Extrem: General: Yes no clubbing, cyanosis or edema Procedures Date of Service Date of Service: 08/12/23 Assessment and Plan Assessment and plan (1) Pulmonary hypertension: Status: Acute (2) COPD exacerbation: Status: Acute (3) Pleural effusion: Status: Acute (4) Symptomatic anemia: Status: Acute Plan Start Prednisone start PO Doxycycline continue diuresis as tolerated wean O2 to keep pox>90% Time Spent With Patient Time: Total time managing care of this patient today ____ minutes. Progress Note: Quality Stroke Does the patient have a stroke diagnosis?: No
[2023-08-12] MEDS: Iron Sucrose Complex 200 MG in 0.9 % Sodium Chloride 100 ML 110 MG IV (09:26)
[2023-08-12] MEDS: Furosemide 40 MG/4 ML VIAL IVPUSH ×2 (09:44→17:38)
[2023-08-12 11:40] LABS: Glucose, Whole Blood 147 mg/dL (60-115)
[2023-08-12] MEDS: Sodium Phosphate,Mono-Dibasic 133 ML ENEMA PR ×2 (11:44→12:08)
[2023-08-12 11:50] LABS: INTERNATIONAL NORM RATIO 1.3 (0.9-1.1); Prothrombin Time 15.4 SEC (11.1-13.3)
--- NOTE | 2023-08-12 12:12 | HO.ANESPROP2 ---
HPI - Anesthesia Eval Consult details Narrative: 87yo male patient for EGD, Colonoscopy [facility] Active Problems Active Problems: All Active Problems (Updated 08/12/23 @ 12:12 by Maliha Sanchez MD) Pleural effusion (Acute) 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 (Acute) EF 50-55% Acute respiratory failure (Acute) Chest crackles (Acute) Moderate to Severe Pulmonary hypertension (Acute) COPD exacerbation (Acute) Acute on chronic anemia (Acute) Symptomatic anemia (Acute) Lower leg edema (Acute) Anemia (Acute). S/p 3units of PRBC Hct today 27 Asthma/COPD Past Medical History Medical History 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 Chest crackles Pulmonary hypertension Non-insulin dependent type 2 diabetes mellitus HTN (hypertension) HLD (hyperlipidemia) Persistent atrial fibrillation BPH (benign prostatic hyperplasia) Long COVID COPD (chronic obstructive pulmonary disease) Lower leg edema Chronic kidney disease, unspecified Family History Family history of problems with anesthesia: No Surgical History Surgical History (Updated 08/12/23 @ 12:55 by Rabia Herrera) H/O colonoscopy History of cataract surgery History of endoscopy History of colon surgery History of cholecystectomy H/O heart artery stent Hip joint replacement status History of Problems with Anesthesia: No Social History Social History Household Members: Spouse Housing: Other Housing Other:: mobile home Do you presently have visiting nurse or other home services: No Patient Tobacco Use Status: Former Tobacco user Tobacco use type: Cigarette service: Yes Meds Allergies Allergy/AdvReac Type Severity Reaction Status Date / Time No Known Allergies Allergy Verified 08/12/23 12:55 Active Medications: Current Medications Acetaminophen (Acetaminophen 325 Mg Tablet) 650 mg PO Q6H PRN PRN Reason: Pain, Mild (Pain Scale 1-3) Albuterol Sulfate (Albuterol Sulfate 90 Mcg 8 Gm Inhaler) 2 puff INHALE QID PRN PRN Reason: wheezing Albuterol/Ipratropium (Albuterol/Iprat 2.5/0.5mg 3 Ml Ampul.Neb) 3 ml INHALE RQ4H WHILE AWAKE SANDIE Last Admin: 08/12/23 11:28 Dose: 3 ml Atorvastatin Calcium (Atorvastatin Calcium 20 Mg Tablet) 20 mg PO DAILY SANDIE Last Admin: 08/12/23 10:41 Dose: Not Given Benzonatate (Benzonatate 100 Mg Capsule) 100 mg PO TID PRN PRN Reason: Cough Dextrose (Dextrose 50 % 25 Gm/50 Ml Syringe) 25 gm IVPUSH Q15M PRN; Protocol PRN Reason: per Hypoglycemia Standing Ord. Docusate Sodium (Docusate Sodium 100 Mg Capsule) 100 mg PO DAILY PRN PRN Reason: Constipation Doxycycline Monohydrate (Doxycycline Monohydrate 100 Mg Capsule) 100 mg PO Q12H [facility] Last Admin: 08/12/23 10:45 Dose: Not Given Empagliflozin (Empagliflozin 10 Mg Tablet) 10 mg PO DAILY [facility] Last Admin: 08/12/23 10:41 Dose: Not Given Fluticasone/Vilanterol (Fluticasone/Vilanterol 100/25 Blst.W.Dev) 1 puff INHALE RDAILY [facility] Last Admin: 08/12/23 07:36 Dose: 1 puff Furosemide (Furosemide 40 Mg/4 Ml Vial) 40 mg IVPUSH BID@0900,1800 [facility]; Protocol Last Admin: 08/12/23 09:44 Dose: 40 mg Glucose (Glucose Gel 15 Gm Gel..Gram.) 15 gm PO Q15M PRN; Protocol PRN Reason: per Hypoglycemia Standing Ord. Lactated Ringer's (Lr) 1,000 mls @ 50 mls/hr IVCONT .Q20H [facility] Insulin Human Lispro (Insulin Lispro 100 Unit/Ml 3 Ml Vial) 0 unit SUBCUT QIDACHS [facility]; Protocol Last Admin: 08/12/23 11:39 Dose: Not Given Melatonin (Melatonin 3 Mg Tablet) 6 mg PO BEDTIME PRN PRN Reason: Insomnia Last Admin: 08/11/23 21:37 Dose: 6 mg Metoprolol Succinate (Metoprolol Succinate Er 100 Mg Tab.Er.24h) 100 mg PO DAILY [facility]; Protocol Last Admin: 08/12/23 10:44 Dose: Not Given Montelukast Sodium (Montelukast Sodium 10 Mg Tablet) 10 mg PO DAILY [facility] Last Admin: 08/12/23 10:44 Dose: Not Given Multivitamins/Vitamin C (Multivitamin Tablet) 1 tab PO DAILY [facility] Last Admin: 08/12/23 10:44 Dose: Not Given Ondansetron HCl (Ondansetron Hcl 4 Mg/2 Ml Vial) 4 mg IVPUSH Q8H PRN PRN Reason: Nausea and Vomiting Pantoprazole Sodium (Pantoprazole Sodium 40 Mg/10 Ml Vial) 40 mg IVPUSH DAILY@0630 [facility] Last Admin: 08/12/23 05:49 Dose: 40 mg Prednisone (Prednisone 20 Mg Tablet) 40 mg PO DAILY [facility] Last Admin: 08/12/23 10:44 Dose: Not Given Sodium Biphosphate/Sodium Phosphate (Sodium Phosphate,Bonner-Dibasic 133 Ml Enema) 133 ml CA ONCE PRN PRN Reason: Consult order Last Admin: 08/12/23 11:44 Dose: 133 ml Sodium Chloride (0.9 % Sodium Chloride Flush 3 Ml Syringe) 3 ml IVFLUSH QSHIFT [facility] Last Admin: 08/12/23 10:41 Dose: Not Given Tamsulosin HCl (Tamsulosin Hcl 0.4 Mg Capsule) 0.4 mg PO BEDTIME [facility] Last Admin: 08/11/23 21:37 Dose: 0.4 mg Home Medications Medication Instructions Recorded Confirmed Last Taken Type albuterol sulfate 90 mcg/actuation 2 puff inhalation QID PRN wheezing 08/09/23 08/09/23 Unknown History aerosol inhaler clotrimazole 1 % topical cream 1 appl topical BID PRN Rash 08/09/23 08/09/23 Unknown History empagliflozin 10 mg tablet 10 mg PO QAM 08/09/23 08/09/23 Unknown History (Jardiance) fluticasone 100 mcg-salmeterol 50 1 ea inhalation DAILY 08/09/23 08/09/23 Unknown History mcg/dose blistr powdr for inhalation ketoconazole 2 % topical cream 1 appl topical BID PRN Rash 08/09/23 08/09/23 Unknown History losartan 50 mg tablet 50 mg PO DAILY 08/09/23 08/09/23 Unknown History metformin 850 mg tablet 850 mg PO DAILY 08/09/23 08/09/23 Unknown History metoprolol succinate 100 mg 100 mg PO DAILY 08/09/23 08/09/23 Unknown History tablet,extended release 24 hr montelukast 10 mg tablet 10 mg PO DAILY 08/09/23 08/09/23 Unknown History multivitamin 1 tab PO DAILY 08/09/23 08/09/23 Unknown History rivaroxaban 15 mg tablet (Xarelto) 15 mg PO DAILY 08/09/23 08/09/23 Unknown History rosuvastatin 5 mg tablet 5 mg PO DAILY 08/09/23 08/09/23 Unknown History tamsulosin 0.4 mg capsule 0.4 mg PO BEDTIME 08/09/23 08/09/23 Unknown History torsemide 20 mg tablet 20 mg PO DAILY 08/09/23 08/09/23 Unknown History umeclidinium 62.5 mcg/actuation 1 inh inhalation DAILY 08/09/23 08/09/23 Unknown History blister powder for inhalation (Incruse Ellipta) Exam Height,Weight and Vital Signs: Height 5 ft 9 in Weight 89.811 kg Last Vital Signs Temp 97.2 F 08/12/23 11:06 Pulse 74 08/12/23 11:28 Resp 20 08/12/23 11:28 BP 118/52 L 08/12/23 11:06 Pulse Ox 93 08/12/23 11:06 O2 Del Method Room Air 08/12/23 11:06 O2 Flow Rate 2 08/12/23 09:01 Vital Signs Temp Pulse Resp BP Pulse Ox O2 Del Method O2 Flow Rate 08/12/23 12:42 98.0 F 86 16 137/60 97 Nasal Cannula 2 08/12/23 11:28 74 20 08/12/23 11:06 97.2 F 74 20 118/52 L 93 Room Air 08/12/23 09:12 79 126/59 L 94 08/12/23 09:01 97.0 F 79 24 H 126/59 L 94 Nasal Cannula 2 08/12/23 07:37 78 20 08/12/23 03:15 97.7 F 77 20 111/54 L 91 L Nasal Cannula 3 08/11/23 23:41 98.2 F 68 20 123/60 94 Nasal Cannula 3 08/11/23 19:49 97.5 F 78 18 128/56 L 97 Nasal Cannula 3 08/11/23 19:28 97 18 08/11/23 15:18 79 18 08/11/23 15:16 97.6 F 79 20 117/60 92 Nasal Cannula 2 Pertinent Lab Results Pertinent Lab Results: Laboratory Tests 08/09/23 08/09/23 08/09/23 11:50 11:51 11:52 WBC 8.5 RBC 2.41 L Hgb 6.0 L* Hct 21.0 L* MCV 87.1 MCH 24.9 L MCHC 28.6 L RDW 17.2 H Plt Count 310 MPV 11.0 Immature Gran % (Auto) 0.6 H Neut % (Auto) 86.3 H Lymph % (Auto) 4.4 L Bonner % (Auto) 6.2 Eos % (Auto) 1.9 Baso % (Auto) 0.6 Lymph # (Auto) 0.4 L Bonner # (Auto) 0.5 Eos # (Auto) 0.2 Baso # (Auto) 0.1 Abs Immat Gran (auto) 0.05 H Absolute Neuts (auto) 7.3 Absolute Nucleated RBC 0.020 H Nucleated RBC % (auto) 0.2 Smear Path Review SEE NOTE PT 26.1 H INR 2.1 H APTT 36.1 VBG pH VBG pCO2 VBG pO2 VBG HCO3 VBG O2 Saturation VBG Base Excess Sodium 134 L Potassium 3.9 Chloride 98 Carbon Dioxide 24 Anion Gap 16 BUN 40 H Creatinine 2.48 H Estim Creat Clear Calc 23.2 Estimated GFR 25 POC Glucose Random Glucose 202 H Calcium 8.5 Magnesium 2.1 Iron 15 L TIBC 329 % Saturation 5 L Unsat Iron Binding 314 Total Bilirubin 1.2 H Direct Bilirubin 0.6 H AST 16 ALT 9 Alkaline Phosphatase 87 Lactate Dehydrogenase 178 Troponin I High Sens 16.4 B-Natriuretic Peptide 297 H Total Protein 6.4 L Albumin 3.4 L Stool Occult Blood NEGATIVE Influenza Type A (PCR) NEGATIVE Influenza Type B (PCR) NEGATIVE RSV RNA Qual (PCR) NEGATIVE SARS-CoV-2 RNA (RT-PCR) NEGATIVE Blood Type B Positive Antibody Screen NEGATIVE Crossmatch See Detail 08/09/23 08/09/23 08/09/23 11:55 19:01 21:52 WBC RBC Hgb Hct MCV MCH MCHC RDW Plt Count MPV Immature Gran % (Auto) Neut % (Auto) Lymph % (Auto) Bonner % (Auto) Eos % (Auto) Baso % (Auto) Lymph # (Auto) Bonner # (Auto) Eos # (Auto) Baso # (Auto) Abs Immat Gran (auto) Absolute Neuts (auto) Absolute Nucleated RBC Nucleated RBC % (auto) Smear Path Review PT INR APTT VBG pH 7.40 VBG pCO2 40 VBG pO2 42 VBG HCO3 25 VBG O2 Saturation TNP VBG Base Excess 0.6 Sodium Potassium Chloride Carbon Dioxide Anion Gap BUN Creatinine Estim Creat Clear Calc Estimated GFR POC Glucose 113 204 H Random Glucose Calcium Magnesium Iron TIBC % Saturation Unsat Iron Binding Total Bilirubin Direct Bilirubin AST ALT Alkaline Phosphatase Lactate Dehydrogenase Troponin I High Sens B-Natriuretic Peptide Total Protein Albumin Stool Occult Blood Influenza Type A (PCR) Influenza Type B (PCR) RSV RNA Qual (PCR) SARS-CoV-2 RNA (RT-PCR) Blood Type Antibody Screen Crossmatch 08/10/23 08/10/23 08/10/23 06:36 07:11 11:14 WBC 10.7 RBC 2.55 L Hgb 6.5 L* Hct 22.0 L MCV 86.3 MCH 25.5 L MCHC 29.5 L RDW 16.9 H Plt Count 316 MPV 11.4 Immature Gran % (Auto) Neut % (Auto) Lymph % (Auto) Bonner % (Auto) Eos % (Auto) Baso % (Auto) Lymph # (Auto) Bonner # (Auto) Eos # (Auto) Baso # (Auto) Abs Immat Gran (auto) Absolute Neuts (auto) Absolute Nucleated RBC 0.000 Nucleated RBC % (auto) 0.0 Smear Path Review PT INR APTT VBG pH VBG pCO2 VBG pO2 VBG HCO3 VBG O2 Saturation VBG Base Excess Sodium 136 Potassium 3.7 Chloride 100 Carbon Dioxide 26 Anion Gap 14 BUN 35 H Creatinine 2.13 H Estim Creat Clear Calc 27.0 Estimated GFR 30 POC Glucose 143 H 186 H Random Glucose 147 H Calcium 8.5 Magnesium Iron TIBC % Saturation Unsat Iron Binding Total Bilirubin Direct Bilirubin AST ALT Alkaline Phosphatase Lactate Dehydrogenase Troponin I High Sens B-Natriuretic Peptide Total Protein Albumin Stool Occult Blood Influenza Type A (PCR) Influenza Type B (PCR) RSV RNA Qual (PCR) SARS-CoV-2 RNA (RT-PCR) Blood Type Antibody Screen Crossmatch 08/10/23 08/10/23 08/11/23 16:28 20:15 06:48 WBC 11.9 H RBC 3.07 L D Hgb 8.2 L D Hct 26.9 L D MCV 87.6 MCH 26.7 L MCHC 30.5 L RDW 16.5 H Plt Count 301 MPV 11.1 Immature Gran % (Auto) Neut % (Auto) Lymph % (Auto) Bonner % (Auto) Eos % (Auto) Baso % (Auto) Lymph # (Auto) Bonner # (Auto) Eos # (Auto) Baso # (Auto) Abs Immat Gran (auto) Absolute Neuts (auto) Absolute Nucleated RBC 0.000 Nucleated RBC % (auto) 0.0 Smear Path Review PT INR APTT VBG pH VBG pCO2 VBG pO2 VBG HCO3 VBG O2 Saturation VBG Base Excess Sodium 140 Potassium 3.6 Chloride 100 Carbon Dioxide 30 H Anion Gap 14 BUN 31 H Creatinine 2.01 H Estim Creat Clear Calc 28.6 Estimated GFR 32 POC Glucose 173 H 145 H Random Glucose 139 H Calcium 8.7 Magnesium Iron TIBC % Saturation Unsat Iron Binding Total Bilirubin Direct Bilirubin AST ALT Alkaline Phosphatase Lactate Dehydrogenase Troponin I High Sens B-Natriuretic Peptide Total Protein Albumin Stool Occult Blood Influenza Type A (PCR) Influenza Type B (PCR) RSV RNA Qual (PCR) SARS-CoV-2 RNA (RT-PCR) Blood Type Antibody Screen Crossmatch 08/11/23 08/11/23 08/11/23 07:12 11:19 15:21 WBC RBC Hgb Hct MCV MCH MCHC RDW Plt Count MPV Immature Gran % (Auto) Neut % (Auto) Lymph % (Auto) Bonner % (Auto) Eos % (Auto) Baso % (Auto) Lymph # (Auto) Bonner # (Auto) Eos # (Auto) Baso # (Auto) Abs Immat Gran (auto) Absolute Neuts (auto) Absolute Nucleated RBC Nucleated RBC % (auto) Smear Path Review PT INR APTT VBG pH VBG pCO2 VBG pO2 VBG HCO3 VBG O2 Saturation VBG Base Excess Sodium Potassium Chloride Carbon Dioxide Anion Gap BUN Creatinine Estim Creat Clear Calc Estimated GFR POC Glucose 147 H 191 H 274 H Random Glucose Calcium Magnesium Iron TIBC % Saturation Unsat Iron Binding Total Bilirubin Direct Bilirubin AST ALT Alkaline Phosphatase Lactate Dehydrogenase Troponin I High Sens B-Natriuretic Peptide Total Protein Albumin Stool Occult Blood Influenza Type A (PCR) Influenza Type B (PCR) RSV RNA Qual (PCR) SARS-CoV-2 RNA (RT-PCR) Blood Type Antibody Screen Crossmatch 08/11/23 08/12/23 08/12/23 20:39 06:01 06:01 WBC 9.1 9.3 RBC 3.05 L Hgb Hct MCV MCH MCHC RDW Plt Count MPV Immature Gran % (Auto) Neut % (Auto) Lymph % (Auto) Bonner % (Auto) Eos % (Auto) Baso % (Auto) Lymph # (Auto) Bonner # (Auto) Eos # (Auto) Baso # (Auto) Abs Immat Gran (auto) Absolute Neuts (auto) Absolute Nucleated RBC Nucleated RBC % (auto) Smear Path Review PT INR APTT VBG pH VBG pCO2 VBG pO2 VBG HCO3 VBG O2 Saturation VBG Base Excess Sodium Potassium Chloride Carbon Dioxide Anion Gap BUN Creatinine Estim Creat Clear Calc Estimated GFR POC Glucose 285 H Random Glucose Calcium Magnesium Iron TIBC % Saturation Unsat Iron Binding Total Bilirubin Direct Bilirubin AST ALT Alkaline Phosphatase Lactate Dehydrogenase Troponin I High Sens B-Natriuretic Peptide Total Protein Albumin Stool Occult Blood Influenza Type A (PCR) Influenza Type B (PCR) RSV RNA Qual (PCR) SARS-CoV-2 RNA (RT-PCR) Blood Type Antibody Screen Crossmatch 08/12/23 08/12/23 08/12/23 06:01 06:01 06:01 WBC RBC 3.04 L Hgb 8.0 L 8.1 L Hct 27.1 L 27.0 L MCV 88.9 MCH MCHC RDW Plt Count MPV Immature Gran % (Auto) Neut % (Auto) Lymph % (Auto) Bonner % (Auto) Eos % (Auto) Baso % (Auto) Lymph # (Auto) Bonner # (Auto) Eos # (Auto) Baso # (Auto) Abs Immat Gran (auto) Absolute Neuts (auto) Absolute Nucleated RBC Nucleated RBC % (auto) Smear Path Review PT INR APTT VBG pH VBG pCO2 VBG pO2 VBG HCO3 VBG O2 Saturation VBG Base Excess Sodium Potassium Chloride Carbon Dioxide Anion Gap BUN Creatinine Estim Creat Clear Calc Estimated GFR POC Glucose Random Glucose Calcium Magnesium Iron TIBC % Saturation Unsat Iron Binding Total Bilirubin Direct Bilirubin AST ALT Alkaline Phosphatase Lactate Dehydrogenase Troponin I High Sens B-Natriuretic Peptide Total Protein Albumin Stool Occult Blood Influenza Type A (PCR) Influenza Type B (PCR) RSV RNA Qual (PCR) SARS-CoV-2 RNA (RT-PCR) Blood Type Antibody Screen Crossmatch 08/12/23 08/12/23 08/12/23 06:01 06:01 06:01 WBC RBC Hgb Hct MCV 88.8 MCH 26.2 L 26.6 L MCHC 29.5 L 30.0 L RDW 16.6 H Plt Count MPV Immature Gran % (Auto) Neut % (Auto) Lymph % (Auto) Bonner % (Auto) Eos % (Auto) Baso % (Auto) Lymph # (Auto) Bonner # (Auto) Eos # (Auto) Baso # (Auto) Abs Immat Gran (auto) Absolute Neuts (auto) Absolute Nucleated RBC Nucleated RBC % (auto) Smear Path Review PT INR APTT VBG pH VBG pCO2 VBG pO2 VBG HCO3 VBG O2 Saturation VBG Base Excess Sodium Potassium Chloride Carbon Dioxide Anion Gap BUN Creatinine Estim Creat Clear Calc Estimated GFR POC Glucose Random Glucose Calcium Magnesium Iron TIBC % Saturation Unsat Iron Binding Total Bilirubin Direct Bilirubin AST ALT Alkaline Phosphatase Lactate Dehydrogenase Troponin I High Sens B-Natriuretic Peptide Total Protein Albumin Stool Occult Blood Influenza Type A (PCR) Influenza Type B (PCR) RSV RNA Qual (PCR) SARS-CoV-2 RNA (RT-PCR) Blood Type Antibody Screen Crossmatch 08/12/23 08/12/23 08/12/23 06:01 06:01 06:01 WBC RBC Hgb Hct MCV MCH MCHC RDW 16.4 H Plt Count 300 305 MPV 11.2 11.1 Immature Gran % (Auto) Neut % (Auto) Lymph % (Auto) Bonner % (Auto) Eos % (Auto) Baso % (Auto) Lymph # (Auto) Bonner # (Auto) Eos # (Auto) Baso # (Auto) Abs Immat Gran (auto) Absolute Neuts (auto) Absolute Nucleated RBC 0.000 Nucleated RBC % (auto) Smear Path Review PT INR APTT VBG pH VBG pCO2 VBG pO2 VBG HCO3 VBG O2 Saturation VBG Base Excess Sodium Potassium Chloride Carbon Dioxide Anion Gap BUN Creatinine Estim Creat Clear Calc Estimated GFR POC Glucose Random Glucose Calcium Magnesium Iron TIBC % Saturation Unsat Iron Binding Total Bilirubin Direct Bilirubin AST ALT Alkaline Phosphatase Lactate Dehydrogenase Troponin I High Sens B-Natriuretic Peptide Total Protein Albumin Stool Occult Blood Influenza Type A (PCR) Influenza Type B (PCR) RSV RNA Qual (PCR) SARS-CoV-2 RNA (RT-PCR) Blood Type Antibody Screen Crossmatch 08/12/23 08/12/23 08/12/23 06:01 06:01 06:01 WBC RBC Hgb Hct MCV MCH MCHC RDW Plt Count MPV Immature Gran % (Auto) Neut % (Auto) Lymph % (Auto) Bonner % (Auto) Eos % (Auto) Baso % (Auto) Lymph # (Auto) Bonner # (Auto) Eos # (Auto) Baso # (Auto) Abs Immat Gran (auto) Absolute Neuts (auto) Absolute Nucleated RBC 0.000 Nucleated RBC % (auto) 0.0 0.0 Smear Path Review PT INR APTT VBG pH VBG pCO2 VBG pO2 VBG HCO3 VBG O2 Saturation VBG Base Excess Sodium 142 141 Potassium 3.6 Chloride Carbon Dioxide Anion Gap BUN Creatinine Estim Creat Clear Calc Estimated GFR POC Glucose Random Glucose Calcium Magnesium Iron TIBC % Saturation Unsat Iron Binding Total Bilirubin Direct Bilirubin AST ALT Alkaline Phosphatase Lactate Dehydrogenase Troponin I High Sens B-Natriuretic Peptide Total Protein Albumin Stool Occult Blood Influenza Type A (PCR) Influenza Type B (PCR) RSV RNA Qual (PCR) SARS-CoV-2 RNA (RT-PCR) Blood Type Antibody Screen Crossmatch 08/12/23 08/12/23 08/12/23 06:01 06:01 06:01 WBC RBC Hgb Hct MCV MCH MCHC RDW Plt Count MPV Immature Gran % (Auto) Neut % (Auto) Lymph % (Auto) Bonner % (Auto) Eos % (Auto) Baso % (Auto) Lymph # (Auto) Bonner # (Auto) Eos # (Auto) Baso # (Auto) Abs Immat Gran (auto) Absolute Neuts (auto) Absolute Nucleated RBC Nucleated RBC % (auto) Smear Path Review PT INR APTT VBG pH VBG pCO2 VBG pO2 VBG HCO3 VBG O2 Saturation VBG Base Excess Sodium Potassium 3.8 Chloride 102 102 Carbon Dioxide 30 H 28 Anion Gap 14 BUN Creatinine Estim Creat Clear Calc Estimated GFR POC Glucose Random Glucose Calcium Magnesium Iron TIBC % Saturation Unsat Iron Binding Total Bilirubin Direct Bilirubin AST ALT Alkaline Phosphatase Lactate Dehydrogenase Troponin I High Sens B-Natriuretic Peptide Total Protein Albumin Stool Occult Blood Influenza Type A (PCR) Influenza Type B (PCR) RSV RNA Qual (PCR) SARS-CoV-2 RNA (RT-PCR) Blood Type Antibody Screen Crossmatch 08/12/23 08/12/23 08/12/23 06:01 06:01 06:01 WBC RBC Hgb Hct MCV MCH MCHC RDW Plt Count MPV Immature Gran % (Auto) Neut % (Auto) Lymph % (Auto) Bonner % (Auto) Eos % (Auto) Baso % (Auto) Lymph # (Auto) Bonner # (Auto) Eos # (Auto) Baso # (Auto) Abs Immat Gran (auto) Absolute Neuts (auto) Absolute Nucleated RBC Nucleated RBC % (auto) Smear Path Review PT INR APTT VBG pH VBG pCO2 VBG pO2 VBG HCO3 VBG O2 Saturation VBG Base Excess Sodium Potassium Chloride Carbon Dioxide Anion Gap 15 BUN 30 H 30 H Creatinine 1.79 H 1.73 H Estim Creat Clear Calc 32.2 Estimated GFR POC Glucose Random Glucose Calcium Magnesium Iron TIBC % Saturation Unsat Iron Binding Total Bilirubin Direct Bilirubin AST ALT Alkaline Phosphatase Lactate Dehydrogenase Troponin I High Sens B-Natriuretic Peptide Total Protein Albumin Stool Occult Blood Influenza Type A (PCR) Influenza Type B (PCR) RSV RNA Qual (PCR) SARS-CoV-2 RNA (RT-PCR) Blood Type Antibody Screen Crossmatch 08/12/23 08/12/23 08/12/23 06:01 06:01 06:01 WBC RBC Hgb Hct MCV MCH MCHC RDW Plt Count MPV Immature Gran % (Auto) Neut % (Auto) Lymph % (Auto) Bonner % (Auto) Eos % (Auto) Baso % (Auto) Lymph # (Auto) Bonner # (Auto) Eos # (Auto) Baso # (Auto) Abs Immat Gran (auto) Absolute Neuts (auto) Absolute Nucleated RBC Nucleated RBC % (auto) Smear Path Review PT INR APTT VBG pH VBG pCO2 VBG pO2 VBG HCO3 VBG O2 Saturation VBG Base Excess Sodium Potassium Chloride Carbon Dioxide Anion Gap BUN Creatinine Estim Creat Clear Calc 33.3 Estimated GFR 36 38 POC Glucose Random Glucose 167 H 164 H Calcium 8.6 Magnesium Iron TIBC % Saturation Unsat Iron Binding Total Bilirubin Direct Bilirubin AST ALT Alkaline Phosphatase Lactate Dehydrogenase Troponin I High Sens B-Natriuretic Peptide Total Protein Albumin Stool Occult Blood Influenza Type A (PCR) Influenza Type B (PCR) RSV RNA Qual (PCR) SARS-CoV-2 RNA (RT-PCR) Blood Type Antibody Screen Crossmatch 08/12/23 08/12/23 08/12/23 06:01 07:33 10:53 WBC RBC Hgb Hct MCV MCH MCHC RDW Plt Count MPV Immature Gran % (Auto) Neut % (Auto) Lymph % (Auto) Bonner % (Auto) Eos % (Auto) Baso % (Auto) Lymph # (Auto) Bonner # (Auto) Eos # (Auto) Baso # (Auto) Abs Immat Gran (auto) Absolute Neuts (auto) Absolute Nucleated RBC Nucleated RBC % (auto) Smear Path Review PT 15.4 H D INR 1.3 H APTT VBG pH VBG pCO2 VBG pO2 VBG HCO3 VBG O2 Saturation VBG Base Excess Sodium Potassium Chloride Carbon Dioxide Anion Gap BUN Creatinine Estim Creat Clear Calc Estimated GFR POC Glucose 154 H Random Glucose Calcium 8.6 Magnesium Iron TIBC % Saturation Unsat Iron Binding Total Bilirubin Direct Bilirubin AST ALT Alkaline Phosphatase Lactate Dehydrogenase Troponin I High Sens B-Natriuretic Peptide Total Protein Albumin Stool Occult Blood Influenza Type A (PCR) Influenza Type B (PCR) RSV RNA Qual (PCR) SARS-CoV-2 RNA (RT-PCR) Blood Type Antibody Screen Crossmatch 08/12/23 11:10 WBC RBC Hgb Hct MCV MCH MCHC RDW Plt Count MPV Immature Gran % (Auto) Neut % (Auto) Lymph % (Auto) Bonner % (Auto) Eos % (Auto) Baso % (Auto) Lymph # (Auto) Bonner # (Auto) Eos # (Auto) Baso # (Auto) Abs Immat Gran (auto) Absolute Neuts (auto) Absolute Nucleated RBC Nucleated RBC % (auto) Smear Path Review PT INR APTT VBG pH VBG pCO2 VBG pO2 VBG HCO3 VBG O2 Saturation VBG Base Excess Sodium Potassium Chloride Carbon Dioxide Anion Gap BUN Creatinine Estim Creat Clear Calc Estimated GFR POC Glucose 147 H Random Glucose Calcium Magnesium Iron TIBC % Saturation Unsat Iron Binding Total Bilirubin Direct Bilirubin AST ALT Alkaline Phosphatase Lactate Dehydrogenase Troponin I High Sens B-Natriuretic Peptide Total Protein Albumin Stool Occult Blood Influenza Type A (PCR) Influenza Type B (PCR) RSV RNA Qual (PCR) SARS-CoV-2 RNA (RT-PCR) Blood Type Antibody Screen Crossmatch Narrative Narrative: Procedure Date: 08/10/2023 Procedure Type: Transthoracic Echocardiogram ECG Rhythm: Atrial Fibrillation Conclusions: - 1. Low normal LV ejection fraction 2. Moderately dilated right-sided chambers with mild to moderate RV systolic dysfunction 3. Trivial aortic regurgitation 4. Moderate to severe elevation right fungal systolic pressure in at least moderately elevated right atrial pressures 5. No gross pericardial effusion Findings Left Ventricle Normal left ventricular cavity size. There is normal left ventricular wall thickness. The left ventricular systolic function is low normal. The visually estimated ejection fraction is between 50-55%. Diastolic function is indeterminate on the basis of available data. Right Ventricle Moderately increased right ventricular cavity size. There is mild to moderately decreased right ventricular systolic function. Atria The left atrium is moderately dilated. There is lipomatous hypertrophy of the interatrial septum. There is no evidence of interatrial shunt. Aortic Valve There is mild calcification of the aortic valve. There is no aortic valve stenosis. There is trace (trivial) aortic valve regurgitation. Mitral Valve There is mild anterior and moderate posterior mitral leaflet thickening. There is moderate mitral annular calcification. There is trace mitral valve regurgitation. There is no mitral valve stenosis. Pulmonic Valve The pulmonic valve was not well visualized. Tricuspid Valve Likely normal tricuspid valve structure and function. There is mild tricuspid valve regurgitation. Moderately elevated right atrial pressure. Moderate to severe pulmonary hypertension is present. Great Vessels The pulmonary artery was not well visualized. There is mild dilatation of the ascending aorta measuring 3.70 cm. Venous The inferior vena cava is moderately dilated and collapses less than 50% with inspiration. Pericardium/Pleural There is no evidence of pericardial effusion. There is a left sided pleural effusion. Prior Study Comparison No prior study available for comparison. Airway Mallampati Class: II TM Dist: >3cm Neck ROM: Full Partial: Upper and Lower Loose/Missing/Broken Teeth: Yes (Denies broken or loose teeth) Heart: Irregularly irregular Lungs: Transmitted sounds. ? Crackles Assessment and Plan Assessment Anesthesia Assessment: Anesthesia Plan Discussed and Chart Reviewed Final Anesthetic Review Family History of Problems with Anesthesia: No History of Problems with Anesthesia: No NPO: Yes ASA Class: IV Final Preanesthetic Review: No Changes in Pt Med Stat, Meds/Allgs Chart Reviewed, Consent Obtained/Reviewed and Anes Risks/Benef Reviewed Patient Risk: High Procedure Risk: Low Assessment/Block/Sedation in SS: Assess/Block/Sedation-SS Anesthetic Plan Anesthetic Plan: MAC: Disposition: Standard PACU
--- NOTE | 2023-08-12 12:30 | MHC.SHP ---
Pre-Procedural Eval Section A Date of Service: 08/12/23 The patient is an INPATIENT: Yes The History & Physical has been completed within 30 days and I have reviewed it.: Yes Section B Chief Complaint: Acute anemia Allergies: Allergies Allergy/AdvReac Type Severity Reaction Status Date / Time No Known Allergies Allergy Verified 08/09/23 10:51 Plan Diagnosis/Plan: Unchanged I have reviewed the history and physical and performed a pertinent physical examination on my patient. No changes have occurred unless specified. Time Spent With Patient Time: Total time managing care of this patient today ____ minutes.
--- NOTE | 2023-08-12 13:08 | PC.NURSE ---
Current blood band on patient . Patient in preop ready for procedure. Dr. Magana and Dr. Sanchez made aware. Per them, okay to proceed with band. OR nurse Goodwin made aware.
--- NOTE | 2023-08-12 13:09 | PC.NURSE ---
Patient arrived to preop with one PRN IV, #22 in right forearm. Area asymptomatic, flushed with normal saline with no issues.
--- NOTE | 2023-08-12 13:46 | HO.PM.IMPN ---
Subjective Subjective Date of Service: 08/12/23 Interval History: seen and evaluated this morning feels better overall still requiring O2 supplement Hb improved to 8.2 after transfusion Plan for endoscopies today Review of Systems Review of Systems: Yes all other systems are reviewed and are negative Physical Exam Vital Signs: Vital Signs: Last Vital Signs Temp 98.0 F 08/12/23 12:42 Pulse 86 08/12/23 12:42 Resp 16 08/12/23 12:42 BP 137/60 08/12/23 12:42 Pulse Ox 97 08/12/23 12:42 O2 Del Method Nasal Cannula 08/12/23 12:42 O2 Flow Rate 2 08/12/23 12:42 BMI result Body Mass Index 29.2 Const: Other: Constitutional : Awake, interactive, not in distress Neck : Normal inspection, Supple Cardiovascular : RRR, no JVP, trace lower extremity edema Respiratory : good bilateral air entry, fine basal crackles, no wheezes or rhonchi, On O2 supplement Gastrointestinal: soft, lax, Normal bowel sounds, Non tender Skin : Warm, Dry Neurological : Alert & oriented to self and place, No focal deficit Objective Data Active Medications Acetaminophen (Acetaminophen 325 Mg Tablet) 650 mg PO Q6H PRN PRN Reason: Pain, Mild (Pain Scale 1-3) Albuterol Sulfate (Albuterol Sulfate 90 Mcg 8 Gm Inhaler) 2 puff INHALE QID PRN PRN Reason: wheezing Albuterol Sulfate (Albuterol Sulfate (0.083%) 2.5 Mg/3 Ml Vial.Neb) 2.5 mg INHALE ONCE PRN PRN Reason: Wheezing Albuterol/Ipratropium (Albuterol/Iprat 2.5/0.5mg 3 Ml Ampul.Neb) 3 ml INHALE RQ4H WHILE AWAKE [facility] Last Admin: 08/12/23 11:28 Dose: 3 ml Documented By: PERI Atorvastatin Calcium (Atorvastatin Calcium 20 Mg Tablet) 20 mg PO DAILY [facility] Last Admin: 08/12/23 10:41 Dose: Not Given Documented By: PINKY Non-Admin Reason: NPO Benzonatate (Benzonatate 100 Mg Capsule) 100 mg PO TID PRN PRN Reason: Cough Dextrose (Dextrose 50 % 25 Gm/50 Ml Syringe) 25 gm IVPUSH Q15M PRN; Protocol PRN Reason: per Hypoglycemia Standing Ord. Docusate Sodium (Docusate Sodium 100 Mg Capsule) 100 mg PO DAILY PRN PRN Reason: Constipation Doxycycline Monohydrate (Doxycycline Monohydrate 100 Mg Capsule) 100 mg PO Q12H [facility] Last Admin: 08/12/23 10:45 Dose: Not Given Documented By: PINKY Non-Admin Reason: NPO Empagliflozin (Empagliflozin 10 Mg Tablet) 10 mg PO DAILY [facility] Last Admin: 08/12/23 10:41 Dose: Not Given Documented By: PINKY Non-Admin Reason: NPO Fluticasone/Vilanterol (Fluticasone/Vilanterol 100/25 Blst.W.Dev) 1 puff INHALE RDAILY [facility] Last Admin: 08/12/23 07:36 Dose: 1 puff Documented By: PERI Furosemide (Furosemide 40 Mg/4 Ml Vial) 40 mg IVPUSH BID@0900,1800 [facility]; Protocol Last Admin: 08/12/23 09:44 Dose: 40 mg Documented By: PINKY Glucose (Glucose Gel 15 Gm Gel..Gram.) 15 gm PO Q15M PRN; Protocol PRN Reason: per Hypoglycemia Standing Ord. Lactated Ringer's (Lr) 1,000 mls @ 50 mls/hr IVCONT .Q20H [facility] Insulin Human Lispro (Insulin Lispro 100 Unit/Ml 3 Ml Vial) 0 unit SUBCUT QIDACHS [facility]; Protocol Last Admin: 08/12/23 11:39 Dose: Not Given Documented By: PINKY Non-Admin Reason: NPO Melatonin (Melatonin 3 Mg Tablet) 6 mg PO BEDTIME PRN PRN Reason: Insomnia Last Admin: 08/11/23 21:37 Dose: 6 mg Documented By: GILBERTO Metoprolol Succinate (Metoprolol Succinate Er 100 Mg Tab.Er.24h) 100 mg PO DAILY [facility]; Protocol Last Admin: 08/12/23 10:44 Dose: Not Given Documented By: PINKY Non-Admin Reason: NPO Montelukast Sodium (Montelukast Sodium 10 Mg Tablet) 10 mg PO DAILY [facility] Last Admin: 08/12/23 10:44 Dose: Not Given Documented By: PINKY Non-Admin Reason: NPO Multivitamins/Vitamin C (Multivitamin Tablet) 1 tab PO DAILY [facility] Last Admin: 08/12/23 10:44 Dose: Not Given Documented By: PINKY Non-Admin Reason: NPO Ondansetron HCl (Ondansetron Hcl 4 Mg/2 Ml Vial) 4 mg IVPUSH Q8H PRN PRN Reason: Nausea and Vomiting Ondansetron HCl (Ondansetron Hcl 4 Mg/2 Ml Vial) 4 mg IVPUSH ONCE PRN PRN Reason: Nausea and Vomiting Pantoprazole Sodium (Pantoprazole Sodium 40 Mg/10 Ml Vial) 40 mg IVPUSH DAILY@0630 [facility] Last Admin: 08/12/23 05:49 Dose: 40 mg Documented By: GILBERTO Prednisone (Prednisone 20 Mg Tablet) 40 mg PO DAILY [facility] Last Admin: 08/12/23 10:44 Dose: Not Given Documented By: PINKY Non-Admin Reason: NPO Sodium Biphosphate/Sodium Phosphate (Sodium Phosphate,Fannin-Dibasic 133 Ml Enema) 133 ml [place] ONCE PRN PRN Reason: Consult order Last Admin: 08/12/23 11:44 Dose: 133 ml Documented By: PINKY Sodium Chloride (0.9 % Sodium Chloride Flush 3 Ml Syringe) 3 ml IVFLUSH QSHIFT [facility] Last Admin: 08/12/23 10:41 Dose: Not Given Documented By: PINKY Non-Admin Reason: Previously Administered Tamsulosin HCl (Tamsulosin Hcl 0.4 Mg Capsule) 0.4 mg PO BEDTIME [facility] Last Admin: 08/11/23 21:37 Dose: 0.4 mg Documented By: GILBERTO Labs 08/12/23 06:01 08/12/23 06:01 Labs: Laboratory Results - last 24 hr 08/11/23 08/11/23 08/12/23 15:21 20:39 06:01 MCV 88.9 MCH MCHC RDW Plt Count MPV Absolute Nucleated RBC Nucleated RBC % (auto) PT INR Anion Gap Estim Creat Clear Calc Estimated GFR POC Glucose 274 H 285 H Random Glucose Calcium 08/12/23 08/12/23 08/12/23 06:01 06:01 06:01 MCV 88.8 MCH 26.2 L 26.6 L MCHC 29.5 L 30.0 L RDW 16.6 H Plt Count MPV Absolute Nucleated RBC Nucleated RBC % (auto) PT INR Anion Gap Estim Creat Clear Calc Estimated GFR POC Glucose Random Glucose Calcium 08/12/23 08/12/23 08/12/23 06:01 06:01 06:01 MCV MCH MCHC RDW 16.4 H Plt Count 300 305 MPV 11.2 11.1 Absolute Nucleated RBC 0.000 Nucleated RBC % (auto) PT INR Anion Gap Estim Creat Clear Calc Estimated GFR POC Glucose Random Glucose Calcium 08/12/23 08/12/23 08/12/23 06:01 06:01 06:01 MCV MCH MCHC RDW Plt Count MPV Absolute Nucleated RBC 0.000 Nucleated RBC % (auto) 0.0 0.0 PT INR Anion Gap 14 15 Estim Creat Clear Calc 32.2 Estimated GFR POC Glucose Random Glucose Calcium 08/12/23 08/12/23 08/12/23 06:01 06:01 06:01 MCV MCH MCHC RDW Plt Count MPV Absolute Nucleated RBC Nucleated RBC % (auto) PT INR Anion Gap Estim Creat Clear Calc 33.3 Estimated GFR 36 38 POC Glucose Random Glucose 167 H 164 H Calcium 8.6 08/12/23 08/12/23 08/12/23 06:01 07:33 10:53 MCV MCH MCHC RDW Plt Count MPV Absolute Nucleated RBC Nucleated RBC % (auto) PT 15.4 H D INR 1.3 H Anion Gap Estim Creat Clear Calc Estimated GFR POC Glucose 154 H Random Glucose Calcium 8.6 08/12/23 11:10 MCV MCH MCHC RDW Plt Count MPV Absolute Nucleated RBC Nucleated RBC % (auto) PT INR Anion Gap Estim Creat Clear Calc Estimated GFR POC Glucose 147 H Random Glucose Calcium Assessment and Plan (1) Pleural effusion: Status: Acute (2) Acute respiratory failure: Status: Acute (3) Acute on chronic anemia: Status: Acute (4) COPD exacerbation: Status: Acute (5) Symptomatic anemia: Status: Acute Plan Pt is an 87-year-old male with a PMH significant for?anemia, chronic AFib on Xarelto, non insulin-dependent diabetes type 2, CKD unspecified, HTN, HLD, BPH, and long COVID/COPD pulmonology who presents to the ED with?generalized fatigue and worsening SOB and GU x1 week. Pt will be admitted to the hospital for treatment further evaluation of symptomatic anemia. Acute on chronic symptomatic anemia Hb 8.1 after total of 3 units transfusion. baseline unknown Stool negative for occult blood Low iron stores, to give Iron CT abdomen to R\O masses GI input appreciated, Upper and lower endoscopies today IV Protonix Hold Xarelto Monitor on telemetry Follow CBC Hypoxic respiratory failure 2/2 acute diastolic CHF exacerbation V\Q scan negative diurese with Lasix 40mg bid echocardiogram showing low normal EF w moderate RV dysfunction Monitor on telemetry Follow BMP Acute Kidney injury Unclear baseline but seems he has CKD Creatinine 2.48, improved to 1.7 could be cardio-renal, treat as above with Lasix Follow BMP acute exacerbation of COPD/long COVID slightly wheezy, will treat with Duonebs Add Doxycycline and Prednisone Continue home inhalers Non-insulin dependent diabetes type 2 Hold metformin Continue Jardiance sliding scale insulin Diabetic diet HTN BP a little soft, also with possible FABRIZIO Will hold losartan for now Resume as warranted HLD Continue statin BPH Continue tamsulosin The patient will need overnight stay pending evaluation of anemia with endoscopies and blood work Quality Stroke Does the patient have a stroke diagnosis?: No VTE Prior VTE?: No VTE Risk Level:: Medical - moderate - high VTE Device Contraindication: N/A - Device Ordered VTE Drug Contraindication: Treatment Not Indicated
--- NOTE | 2023-08-12 13:56 | P.OP_ITS ---
Operative Note Operative Note Date of Service: 08/12/23 Narrative: Operative Information Procedure Description: EGD, Colonoscopy Indication: anemia, Anesthesia: MAC FLEXIBLE TRANSORAL UPPER GASTROINTESTINAL ENDOSCOPY AND COLONOSCOPY PROCEDURE NOTE UPPER ENDOSCOPY Consent: Indications for the procedure and potential complications of bleeding, perforation, reaction to medications and missed diagnosis were discussed with the patient and informed consent was obtained. Instrument: Olympus GIF H 190 J mid size upper endoscope Monitoring: Vital signs and clinical assessment, continuous EKG monitoring, Pulse oximetry, Carbon Dioxide monitoring and blood pressure monitoring were done throughout the procedure. Procedure: The patient was placed in the left lateral decubitis position and pre-procedure medications were administered and a bite block was placed. The endoscope was inserted into the mouth and advanced under direct vision to the third part of duodenum. A careful inspection was made as the upper endoscope was withdrawn including a retroflexed examination of the proximal stomach; Findings and interventions are described below. Findings: Larynx:normal Esophagus: GE junction at 45 cm, diaphragm hiatus at 47 cm, consistent with 2 cm sliding hiatal hernia, schatzki ring also noted Stomach: Normal mucosa. Biopsies were obtained to r/o h pylori. Grade 2 flap valve on retroflexed examination of the cardia. Duodenum: Normal bulb and descending duodenum, small red spot noted possible AVM, burned with soft tip cvoag and then x 2 clips applied Intervention: Biopsies as noted above, coagulation and clips COLONOSCOPY Instrument: Olympus variable stiffness pediatric scope 190L Colonoscopy Monitoring: Vital signs and clinical assessment, continuous EKG monitoring, Pulse oximetry, Carbon Dioxide monitoring and blood pressure monitoring were done throughout the procedure. Colon withdrawal time was 10 minutes. Procedure: The patient was placed in the left lateral decubitis position and pre-procedure medications were administered. After a digital rectal examination of the ano-rectum, the video colonoscope was inserted into the rectum and advanced through the colon to the cecum/TI. The colonoscope was slowly withdrawn in a retrograde panoramic fashion and the colon mucosa was carefully examined including a retroflexed view of the rectum. Findings and interventions are described below. Procedure Difficulty:moderate Findings: No blood seen Terminal Ileum-normal Cecum:normal Ascending Colon: x 2 sessile polyps removed with cold sanre 8-10 mm, not retrieved, x 1 area with oozing, x 3 clips applied with hemospray Transverse Colon -normal Descending Colon:normal Sigmoid Colon: severe diverticulosis Rectum: Retroflexion with small internal hemorrhoids, grade I Anorectum - normal Colon preparation: Shafter Bowel Preparation Scale Right colon; 1 Transverse colon: 1 Left colon; 1 (0 = Unprepared colon segment with mucosa not seen due to solid stool that cannot be cleared. 1 = Portion of mucosa of the colon segment seen, but other areas of the colon segment not well seen due to staining, residual stool and/or opaque liquid. 2 = Minor amount of residual staining, small fragments of stool and/or opaque liquid, but mucosa of colon segment seen well. 3 = Entire mucosa of colon segment seen well with no residual staining, small fragments of stool or opaque liquid) Impression and Post Procedure Diagnosis: Endoscopy Findings: hiatal hernia schatzki ring possible AVM Colonoscopy Findings: polyps internal hemorrhoids diverticular disease Plan: Await Pathology results Repeat EGD/Colonoscopy as clinically needed High fiber diet leaflet avoid straining at stool, epsom salts and sitz bath, anusol supps or cream restart anticoagulation in 48 hrs--if further bleeding then capsule Above findings were reviewed with the patient and relevant handouts were provided if indicated.
[2023-08-12 16:44] LABS: Glucose, Whole Blood 173 mg/dL (60-115)
[2023-08-12] MEDS: Insulin Lispro 100 UNIT/ML 3 ML VIAL SUBCUT ×2 (17:37→20:24)
[2023-08-12] MEDS: 0.9 % Sodium Chloride Flush 3 ML SYRINGE IVFLUSH ×2 (17:38→20:24)
[2023-08-12] MEDS: Omeprazole 40 MG CAPSULE.DR PO (17:38)
[2023-08-12 19:56] LABS: Glucose, Whole Blood 175 mg/dL (60-115)
[2023-08-12] MEDS: Tamsulosin HCL 0.4 MG CAPSULE PO (20:23)
[2023-08-12] MEDS: Doxycycline Monohydrate 100 MG CAPSULE PO (20:24)
[2023-08-12] MEDS: Melatonin 3 MG TABLET 6 MG PO (20:24)
[2023-08-12] MEDS: Benzonatate 100 MG CAPSULE PO (20:32)
[2023-08-13] VITALS (11 sets, daily range): BP systolic 122–140; BP diastolic 44–70; PULSE 73–101; RESP 16–21; TEMP 36.2–37; O2SAT 92–98
[2023-08-13] MEDS: Omeprazole 40 MG CAPSULE.DR PO ×2 (05:19→16:28)
[2023-08-13 06:17] LABS: Hematocrit 26.5 % (42.0-52.0); Hemoglobin 7.9 g/dl (14.0-18.0); Mean Corpuscular HGB Conc 29.8 g/dl (31.0-36.0); Mean Corpuscular Hemoglobin 26.2 pg (27.0-33.0); Mean Corpuscular Volume 87.7 fL (80.0-98.0); Mean Platelet Volume 10.6 fL (9.4-12.4); Platelet Count 315 X10*3/uL (160-400); Red Blood Count 3.02 X10*6/uL (4.60-5.80); Red Cell Distribution Width 17.2 % (11.0-16.0); White Blood Count 10.8 X10*3/uL (4.8-10.8)
[2023-08-13 06:20] LABS: Anion Gap 14 (12-20); Blood Urea Nitrogen 27 mg/dL (9-16); Calcium 8.4 mg/dL (8.4-10.2); Carbon Dioxide 32 mmol/L (22-29); Chloride 98 mmol/L (96-108); Creatinine Clr Calc Pharmacy 30.8; Estimated Glomerular Filt Rate 34; Glucose Random 142 mg/dL (60-115); Potassium 3.4 mmol/L (3.3-5.1); Sodium 141 mmol/L (135-145)
[2023-08-13 07:21] LABS: Glucose, Whole Blood 172 mg/dL (60-115)
[2023-08-13] MEDS: Fluticasone/Vilanterol 100/25 BLST.W.DEV 1 PUFF INHALE (08:16)
[2023-08-13] MEDS: Metoprolol Succinate ER 100 MG TAB.ER.24H PO (09:38)
[2023-08-13] MEDS: Empagliflozin 10 MG TABLET PO (09:38)
[2023-08-13] MEDS: Multivitamin TABLET 1 TAB PO (09:39)
[2023-08-13] MEDS: 0.9 % Sodium Chloride Flush 3 ML SYRINGE IVFLUSH ×3 (09:39→22:17)
[2023-08-13] MEDS: Montelukast Sodium 10 MG TABLET PO (09:39)
[2023-08-13] MEDS: Doxycycline Monohydrate 100 MG CAPSULE PO ×2 (09:39→22:17)
[2023-08-13] MEDS: Atorvastatin Calcium 20 MG TABLET PO (09:39)
[2023-08-13] MEDS: predniSONE 20 MG TABLET 40 MG PO (09:39)
[2023-08-13] MEDS: Furosemide 40 MG/4 ML VIAL IVPUSH (09:39)
[2023-08-13] MEDS: Insulin Lispro 100 UNIT/ML 3 ML VIAL SUBCUT ×4 (09:39→22:17)
--- NOTE | 2023-08-13 10:57 | HO.POSTANES ---
Post Anesthesia Evaluation Post Anesthesia Evaluation Date of Service: 08/12/23 Vital Signs: Vital Signs Temp Pulse Resp BP Pulse Ox O2 Del Method O2 Flow Rate 08/13/23 10:42 97.1 F 76 20 132/58 L 98 Nasal Cannula 3 08/13/23 08:20 78 16 08/13/23 07:06 97.6 F 78 20 125/60 95 Nasal Cannula 3 08/13/23 03:05 97.2 F 73 21 H 122/44 L 97 Nasal Cannula 08/13/23 00:12 20 Anesthesia: Monitored Mental Status: Awake Pain Control: Satisfactory Nausea/Vomiting: None Hydration: Adequate Anesthesia-Related Issues: No Anes. Related Issues
[2023-08-13 11:21] LABS: Glucose, Whole Blood 270 mg/dL (60-115)
--- NOTE | 2023-08-13 13:48 | P.PNIM_ITS ---
Subjective Subjective Date of Service: 08/13/23 Interval History: seen and evaluated this morning feels better overall still requiring O2 supplement Hb stable at 7.9 after transfusion no reported bleeding Review of Systems Review of Systems: Yes all other systems are reviewed and are negative Physical Exam 2 Vital Signs: Vital Signs: Last Vital Signs Temp 97.1 F 08/13/23 10:42 Pulse 76 08/13/23 10:42 Resp 20 08/13/23 10:42 BP 132/58 L 08/13/23 10:42 Pulse Ox 98 08/13/23 10:42 O2 Del Method Nasal Cannula 08/13/23 10:42 O2 Flow Rate 3 08/13/23 10:42 BMI result Body Mass Index 29.2 Const: Other: Constitutional : Awake, interactive, not in distress Neck : Normal inspection, Supple Cardiovascular : RRR, no JVP, trace lower extremity edema Respiratory : good bilateral air entry, fine basal crackles, no wheezes or rhonchi, On O2 supplement Gastrointestinal: soft, lax, Normal bowel sounds, Non tender Skin : Warm, Dry Neurological : Alert & oriented to self and place, No focal deficit Objective Data Active Medications Acetaminophen (Acetaminophen 325 Mg Tablet) 650 mg PO Q6H PRN PRN Reason: Pain, Mild (Pain Scale 1-3) Albuterol Sulfate (Albuterol Sulfate 90 Mcg 8 Gm Inhaler) 2 puff INHALE QID PRN PRN Reason: wheezing Albuterol Sulfate (Albuterol Sulfate (0.083%) 2.5 Mg/3 Ml Vial.Neb) 2.5 mg INHALE ONCE PRN PRN Reason: Wheezing Albuterol/Ipratropium (Albuterol/Iprat 2.5/0.5mg 3 Ml Ampul.Neb) 3 ml INHALE RQ4H WHILE AWAKE [facility] Last Admin: 08/13/23 11:50 Dose: Not Given Documented By: YANI Non-Admin Reason: Patient Asleep Atorvastatin Calcium (Atorvastatin Calcium 20 Mg Tablet) 20 mg PO DAILY [facility] Last Admin: 08/13/23 09:39 Dose: 20 mg Documented By: APOLINAR Benzonatate (Benzonatate 100 Mg Capsule) 100 mg PO TID PRN PRN Reason: Cough Last Admin: 08/12/23 20:32 Dose: 100 mg Documented By: HO.THOMPSM Dextrose (Dextrose 50 % 25 Gm/50 Ml Syringe) 25 gm IVPUSH Q15M PRN; Protocol PRN Reason: per Hypoglycemia Standing Ord. Docusate Sodium (Docusate Sodium 100 Mg Capsule) 100 mg PO DAILY PRN PRN Reason: Constipation Doxycycline Monohydrate (Doxycycline Monohydrate 100 Mg Capsule) 100 mg PO Q12H [facility] Last Admin: 08/13/23 09:39 Dose: 100 mg Documented By: APOLINAR Empagliflozin (Empagliflozin 10 Mg Tablet) 10 mg PO DAILY [facility] Last Admin: 08/13/23 09:38 Dose: 10 mg Documented By: APOLINAR Fluticasone/Vilanterol (Fluticasone/Vilanterol 100/25 Blst.W.Dev) 1 puff INHALE RDAILY [facility] Last Admin: 08/13/23 08:16 Dose: 1 puff Documented By: YANI Furosemide (Furosemide 40 Mg/4 Ml Vial) 40 mg IVPUSH BID@0900,1800 [facility]; Protocol Last Admin: 08/13/23 09:39 Dose: 40 mg Documented By: APOLINAR Glucose (Glucose Gel 15 Gm Gel..Gram.) 15 gm PO Q15M PRN; Protocol PRN Reason: per Hypoglycemia Standing Ord. Insulin Human Lispro (Insulin Lispro 100 Unit/Ml 3 Ml Vial) 0 unit SUBCUT QIDACHS [facility]; Protocol Last Admin: 08/13/23 12:10 Dose: 6 unit Documented By: APOLINAR Melatonin (Melatonin 3 Mg Tablet) 6 mg PO BEDTIME PRN PRN Reason: Insomnia Last Admin: 08/12/23 20:24 Dose: 6 mg Documented By: GILBERTO Metoprolol Succinate (Metoprolol Succinate Er 100 Mg Tab.Er.24h) 100 mg PO DAILY [facility]; Protocol Last Admin: 08/13/23 09:38 Dose: 100 mg Documented By: APOLINAR Montelukast Sodium (Montelukast Sodium 10 Mg Tablet) 10 mg PO DAILY [facility] Last Admin: 08/13/23 09:39 Dose: 10 mg Documented By: APOLINAR Multivitamins/Vitamin C (Multivitamin Tablet) 1 tab PO DAILY [facility] Last Admin: 08/13/23 09:39 Dose: 1 tab Documented By: APOLINAR Omeprazole (Omeprazole 40 Mg Capsule.Dr) 40 mg PO BID@0630,1630 [facility] Last Admin: 08/13/23 05:19 Dose: 40 mg Documented By: GILBERTO Ondansetron HCl (Ondansetron Hcl 4 Mg/2 Ml Vial) 4 mg IVPUSH Q8H PRN PRN Reason: Nausea and Vomiting Ondansetron HCl (Ondansetron Hcl 4 Mg/2 Ml Vial) 4 mg IVPUSH ONCE PRN PRN Reason: Nausea and Vomiting Prednisone (Prednisone 20 Mg Tablet) 40 mg PO DAILY [facility] Last Admin: 08/13/23 09:39 Dose: 40 mg Documented By: APOLINAR Sodium Biphosphate/Sodium Phosphate (Sodium Phosphate,Antelope-Dibasic 133 Ml Enema) 133 ml [place] ONCE PRN PRN Reason: Consult order Last Admin: 08/12/23 11:44 Dose: 133 ml Documented By: PINKY Sodium Chloride (0.9 % Sodium Chloride Flush 3 Ml Syringe) 3 ml IVFLUSH QSHIFT [facility] Last Admin: 08/13/23 09:39 Dose: 3 ml Documented By: APOLINAR Tamsulosin HCl (Tamsulosin Hcl 0.4 Mg Capsule) 0.4 mg PO BEDTIME [facility] Last Admin: 08/12/23 20:23 Dose: 0.4 mg Documented By: GILBERTO Labs 08/13/23 05:37 08/13/23 05:37 Labs: Laboratory Results - last 24 hr 08/12/23 08/12/23 08/13/23 16:20 19:31 05:37 MCV 87.7 MCH 26.2 L MCHC 29.8 L RDW 17.2 H Plt Count 315 MPV 10.6 Absolute Nucleated RBC 0.000 Nucleated RBC % (auto) 0.0 Anion Gap 14 Estim Creat Clear Calc 30.8 Estimated GFR 34 POC Glucose 173 H 175 H Random Glucose 142 H Calcium 8.4 08/13/23 08/13/23 07:08 10:44 MCV MCH MCHC RDW Plt Count MPV Absolute Nucleated RBC Nucleated RBC % (auto) Anion Gap Estim Creat Clear Calc Estimated GFR POC Glucose 172 H 270 H Random Glucose Calcium Assessment and Plan (1) Acute respiratory failure: Status: Acute (2) COPD exacerbation: Status: Acute (3) Acute on chronic anemia: Status: Acute (4) Symptomatic anemia: Status: Acute (5) 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: Status: Acute Plan Pt is an 87-year-old male with a PMH significant for?anemia, chronic AFib on Xarelto, non insulin-dependent diabetes type 2, CKD unspecified, HTN, HLD, BPH, and long COVID/COPD pulmonology who presents to the ED with?generalized fatigue and worsening SOB and GU x1 week. Pt will be admitted to the hospital for treatment further evaluation of symptomatic anemia. Acute on chronic symptomatic anemia Hb 7.9 after total of 3 units transfusion. baseline unknown Stool negative for occult blood Low iron stores, to give Iron CT abdomen to R\O masses GI EGD: Rings, Hiatus hernia and AVM. Colonoscopy: Diverticulosis, Hemorroids and polyps. no active bleeding IV Protonix High Fiber diet DC Xarelto, to start Lovenox and Warfarin tomorrow per patient request Monitor on telemetry Follow CBC Hypoxic respiratory failure 2/2 acute diastolic CHF exacerbation improving V\Q scan negative diurese with Lasix 40mg bid echocardiogram showing low normal EF w moderate RV dysfunction Monitor on telemetry Follow BMP Acute Kidney injury Unclear baseline but seems he has CKD Creatinine 2.48, improved to 1.7 could be cardio-renal, treat as above with Lasix Follow BMP acute exacerbation of COPD/long COVID slightly wheezy, will treat with Duonebs Doxycycline and Prednisone Continue home inhalers Non-insulin dependent diabetes type 2 Hold metformin Continue Jardiance sliding scale insulin Diabetic diet HTN BP a little soft, also with possible FABRIZIO Will hold losartan for now Resume as warranted HLD Continue statin BPH Continue tamsulosin The patient will need overnight stay pending treatment of Hypoxia, restarting blood thinners Quality Stroke Does the patient have a stroke diagnosis?: No VTE Prior VTE?: No VTE Risk Level:: Medical - moderate - high VTE Device Contraindication: N/A - Device Ordered VTE Drug Contraindication: Treatment Not Indicated
[2023-08-13] MEDS: Benzonatate 100 MG CAPSULE PO ×2 (14:07→22:17)
[2023-08-13] MEDS: Docusate Sodium 100 MG CAPSULE PO (14:08)
[2023-08-13] MEDS: Albuterol/Iprat 2.5/0.5MG 3 ML AMPUL.NEB INHALE ×2 (16:11→20:17)
[2023-08-13 16:19] LABS: Glucose, Whole Blood 200 mg/dL (60-115)
[2023-08-13 20:44] LABS: Glucose, Whole Blood 210 mg/dL (60-115)
[2023-08-13] MEDS: Tamsulosin HCL 0.4 MG CAPSULE PO (22:16)
[2023-08-13] MEDS: Melatonin 3 MG TABLET 6 MG PO (22:17)
[2023-08-14] VITALS (9 sets, daily range): BP systolic 113–140; BP diastolic 51–66; PULSE 68–86; RESP 18–20; TEMP 36.1–36.7; O2SAT 92–98
[2023-08-14] MEDS: Omeprazole 40 MG CAPSULE.DR PO ×2 (05:44→17:10)
[2023-08-14 06:50] LABS: Anion Gap 15 (12-20); Blood Urea Nitrogen 27 mg/dL (9-16); Calcium 8.6 mg/dL (8.4-10.2); Carbon Dioxide 30 mmol/L (22-29); Chloride 100 mmol/L (96-108); Creatinine Clr Calc Pharmacy 34.1; Estimated Glomerular Filt Rate 39; Glucose Random 130 mg/dL (60-115); Potassium 3.4 mmol/L (3.3-5.1); Sodium 142 mmol/L (135-145)
[2023-08-14 07:16] LABS: Hemoglobin 8.3 g/dl (14.0-18.0); Mean Corpuscular HGB Conc 29.6 g/dl (31.0-36.0); Mean Corpuscular Hemoglobin 26.5 pg (27.0-33.0); Mean Corpuscular Volume 89.5 fL (80.0-98.0); Mean Platelet Volume 10.6 fL (9.4-12.4); Platelet Count 320 X10*3/uL (160-400); Red Blood Count 3.13 X10*6/uL (4.60-5.80); Red Cell Distribution Width 17.9 % (11.0-16.0); White Blood Count 8.5 X10*3/uL (4.8-10.8)
[2023-08-14] MEDS: Albuterol/Iprat 2.5/0.5MG 3 ML AMPUL.NEB INHALE ×3 (07:56→20:08)
[2023-08-14] MEDS: Fluticasone/Vilanterol 100/25 BLST.W.DEV 1 PUFF INHALE (07:56)
[2023-08-14 08:01] LABS: Glucose, Whole Blood 145 mg/dL (60-115)
[2023-08-14] MEDS: Multivitamin TABLET 1 TAB PO (08:38)
[2023-08-14] MEDS: Atorvastatin Calcium 20 MG TABLET PO (08:38)
[2023-08-14] MEDS: predniSONE 20 MG TABLET 40 MG PO (08:38)
[2023-08-14] MEDS: Metoprolol Succinate ER 100 MG TAB.ER.24H PO (08:38)
[2023-08-14] MEDS: Enoxaparin Sodium 100 MG/ML SYRINGE 90 MG SUBCUT ×2 (08:38→21:18)
[2023-08-14] MEDS: Torsemide 20 MG TABLET 40 MG PO (08:38)
[2023-08-14] MEDS: Doxycycline Monohydrate 100 MG CAPSULE PO ×2 (08:38→21:10)
[2023-08-14] MEDS: Montelukast Sodium 10 MG TABLET PO (08:38)
[2023-08-14] MEDS: 0.9 % Sodium Chloride Flush 3 ML SYRINGE IVFLUSH ×3 (08:38→19:33)
[2023-08-14] MEDS: Empagliflozin 10 MG TABLET PO (08:38)
--- NOTE | 2023-08-14 10:38 | P.PNPL_ITS ---
Subjective Subjective Date of Service: 08/14/23 Interval history: The patient was seen on exam. Feels a little better. Some in some chest congestion specially the right base. I did review his chest x-ray from today demonstrating some decreased lung volumes but otherwise no airspace disease. Seems like on the CAT scan the airspace disease was deep into the sulcus so probably very hard to see on the x-ray. Still clinically he is feeling better. He is agreeable to being discharged on oxygen whenever he is ready. The patient also is tolerating the diuresis. He is also using his respiratory therapy. Wheezing seems to be better. I did provide him with an Aerobika and he was able to try an use it. He found it effective. He will continue to use sit during the daytime for mucus clearance. Objective Data Labs 08/14/23 06:09 08/14/23 06:09 Labs: Laboratory Results - last 24 hr 08/13/23 08/13/23 08/13/23 10:44 16:12 20:25 WBC RBC Hgb Hct MCV MCH MCHC RDW Plt Count MPV Absolute Nucleated RBC Nucleated RBC % (auto) Sodium Potassium Chloride Carbon Dioxide Anion Gap BUN Creatinine Estim Creat Clear Calc Estimated GFR POC Glucose 270 H 200 H 210 H Random Glucose Calcium 08/14/23 08/14/23 06:09 07:40 WBC 8.5 RBC 3.13 L Hgb 8.3 L Hct 28.0 L MCV 89.5 MCH 26.5 L MCHC 29.6 L RDW 17.9 H Plt Count 320 MPV 10.6 Absolute Nucleated RBC 0.000 Nucleated RBC % (auto) 0.0 Sodium 142 Potassium 3.4 Chloride 100 Carbon Dioxide 30 H Anion Gap 15 BUN 27 H Creatinine 1.69 H Estim Creat Clear Calc 34.1 Estimated GFR 39 POC Glucose 145 H Random Glucose 130 H Calcium 8.6 Review of Systems Constitutional: Reports no additional constitutional complaints, Denies chills, Denies fever(s) and Denies night sweats Eyes: Reports no additional eye complaints, Denies blurry vision, Denies change in vision, Denies diplopia, Denies eye discharge, Denies loss of vision and Denies eye pain Denies dizziness Cardiovascular: Reports no additional cardiovascular complaints, Denies chest pain, Denies lightheadedness, Denies Loss of Consciousness and Reports dyspnea Respiratory: Reports cough and Reports dyspnea Gastrointestinal: Reports no additional gastrointestinal complaints, Denies abdominal pain, Denies hematochezia, Denies change in bowel habits and Denies change in stool character Genitourinary: Reports no additional male genitourinary complaints, Denies hematuria, Denies oliguria, Denies difficulty urinating, Denies dysuria, Denies urinary frequency, Denies urinary hesitancy, Denies urinary incontinence and Denies urinary urgency Musculoskeletal: Reports no additional musculoskeletal complaints, Denies numbness and Denies tingling Denies dizziness, Denies loss of vision, Denies numbness and Denies tingling Psychiatric: Reports no additional psychiatric complaints Endocrine: Reports no additional endocrine complaints Hematologic/Lymphatic: Reports no additional hematologic/lymphatic complaints Allergic/Immunologic: Reports no additional allergic/immunologic complaints Physical Exam 2 Vital Signs: Vital Signs: Last Vital Signs Temp 98.1 F 08/14/23 07:38 Pulse 68 08/14/23 07:38 Resp 18 08/14/23 07:57 BP 113/51 L 08/14/23 07:38 Pulse Ox 94 08/14/23 07:38 O2 Del Method Nasal Cannula 08/14/23 07:38 O2 Flow Rate 2.5 08/14/23 07:38 Oxygen Flow Rate 3 08/13/23 13:43 BMI result Body Mass Index 29.2 Const: General: comfortable HEENT: Head: Yes normocephalic Neck: Neck: Yes supple Chest: Chest palpation & inspection: normal inspection of the chest Resp: Effort & Inspection: normal respiratory effort and prolonged expiratory phase Auscultation: rales on the right at the base, no rhonchi, no wheezes and diminished lung sounds Cardio: Heart sounds: S1 normal heart sound present and S2 normal heart sound present GI: Palpation (GI): Soft to palpation Skin: General skin exam: no rashes or lesions noted Extrem: General: Yes no clubbing, cyanosis or edema Procedures Date of Service Date of Service: 08/14/23 Assessment and Plan Assessment and plan (1) Pulmonary hypertension: Problem details: with RV dysfuction Status: Acute (2) COPD exacerbation: Status: Acute (3) Pleural effusion: Status: Acute (4) Symptomatic anemia: Status: Acute Plan Prednisone taper Doxycycline x 8-10 days started Aerobika for CPT continue diuresis as tolerated O2 to keep pox>90%. Appears to require oxygen upon discharge F/U with outpt pulmonary Time Spent With Patient Time: Total time managing care of this patient today ____ minutes. Progress Note: Quality Stroke Does the patient have a stroke diagnosis?: No
[2023-08-14 11:18] LABS: Glucose, Whole Blood 205 mg/dL (60-115)
[2023-08-14] MEDS: Insulin Lispro 100 UNIT/ML 3 ML VIAL SUBCUT ×3 (11:50→21:16)
--- NOTE | 2023-08-14 12:53 | HO.PM.IMPN ---
Subjective Subjective Date of Service: 08/14/23 Interval History: seen and evaluated this morning feels better overall still requiring O2 supplement Hb stable at 8.3 after transfusion no reported bleeding Physical Exam Vital Signs: Vital Signs: Last Vital Signs Temp 97.4 F 08/14/23 10:49 Pulse 84 08/14/23 10:49 Resp 20 08/14/23 10:49 BP 115/51 L 08/14/23 10:49 Pulse Ox 98 08/14/23 10:49 O2 Del Method Nasal Cannula 08/14/23 10:49 O2 Flow Rate 2.5 08/14/23 10:49 Oxygen Flow Rate 3 08/13/23 13:43 BMI result Body Mass Index 29.2 Const: Other: Constitutional : Awake, interactive, not in distress Neck : Normal inspection, Supple Cardiovascular : RRR, no JVP, trace lower extremity edema Respiratory : good bilateral air entry, fine basal crackles, no wheezes or rhonchi, On O2 supplement Gastrointestinal: soft, lax, Normal bowel sounds, Non tender Skin : Warm, Dry Neurological : Alert & oriented to self and place, No focal deficit Objective Data Active Medications Acetaminophen (Acetaminophen 325 Mg Tablet) 650 mg PO Q6H PRN PRN Reason: Pain, Mild (Pain Scale 1-3) Albuterol Sulfate (Albuterol Sulfate 90 Mcg 8 Gm Inhaler) 2 puff INHALE QID PRN PRN Reason: wheezing Albuterol Sulfate (Albuterol Sulfate (0.083%) 2.5 Mg/3 Ml Vial.Neb) 2.5 mg INHALE ONCE PRN PRN Reason: Wheezing Albuterol/Ipratropium (Albuterol/Iprat 2.5/0.5mg 3 Ml Ampul.Neb) 3 ml INHALE RQ4H WHILE AWAKE [facility] Last Admin: 08/14/23 11:55 Dose: Not Given Documented By: AME Non-Admin Reason: pt visiting Atorvastatin Calcium (Atorvastatin Calcium 20 Mg Tablet) 20 mg PO DAILY [facility] Last Admin: 08/14/23 08:38 Dose: 20 mg Documented By: DIANA Benzonatate (Benzonatate 100 Mg Capsule) 100 mg PO TID PRN PRN Reason: Cough Last Admin: 08/13/23 22:17 Dose: 100 mg Documented By: GILBERTO Dextrose (Dextrose 50 % 25 Gm/50 Ml Syringe) 25 gm IVPUSH Q15M PRN; Protocol PRN Reason: per Hypoglycemia Standing Ord. Docusate Sodium (Docusate Sodium 100 Mg Capsule) 100 mg PO DAILY PRN PRN Reason: Constipation Last Admin: 08/13/23 14:08 Dose: 100 mg Documented By: APOLINAR Doxycycline Monohydrate (Doxycycline Monohydrate 100 Mg Capsule) 100 mg PO Q12H [facility] Last Admin: 08/14/23 08:38 Dose: 100 mg Documented By: DIANA Empagliflozin (Empagliflozin 10 Mg Tablet) 10 mg PO DAILY [facility] Last Admin: 08/14/23 08:38 Dose: 10 mg Documented By: DIANA Enoxaparin Sodium (Enoxaparin Sodium 100 Mg/Ml Syringe) 90 mg 1 mg/kg (90 mg) SUBCUT Q12H [facility] Last Admin: 08/14/23 08:38 Dose: 90 mg Documented By: DIANA Fluticasone/Vilanterol (Fluticasone/Vilanterol 100/25 Blst.W.Dev) 1 puff INHALE RDAILY [facility] Last Admin: 08/14/23 07:56 Dose: 1 puff Documented By: AME Glucose (Glucose Gel 15 Gm Gel..Gram.) 15 gm PO Q15M PRN; Protocol PRN Reason: per Hypoglycemia Standing Ord. Insulin Human Lispro (Insulin Lispro 100 Unit/Ml 3 Ml Vial) 0 unit SUBCUT QIDACHS [facility]; Protocol Last Admin: 08/14/23 11:50 Dose: 4 unit Documented By: APOLINAR Melatonin (Melatonin 3 Mg Tablet) 6 mg PO BEDTIME PRN PRN Reason: Insomnia Last Admin: 08/13/23 22:17 Dose: 6 mg Documented By: GILBERTO Metoprolol Succinate (Metoprolol Succinate Er 100 Mg Tab.Er.24h) 100 mg PO DAILY [facility]; Protocol Last Admin: 08/14/23 08:38 Dose: 100 mg Documented By: DIANA Montelukast Sodium (Montelukast Sodium 10 Mg Tablet) 10 mg PO DAILY [facility] Last Admin: 08/14/23 08:38 Dose: 10 mg Documented By: DIANA Multivitamins/Vitamin C (Multivitamin Tablet) 1 tab PO DAILY [facility] Last Admin: 08/14/23 08:38 Dose: 1 tab Documented By: DIANA Omeprazole (Omeprazole 40 Mg Capsule.Dr) 40 mg PO BID@0630,1630 [facility] Last Admin: 08/14/23 05:44 Dose: 40 mg Documented By: MADONNA Ondansetron HCl (Ondansetron Hcl 4 Mg/2 Ml Vial) 4 mg IVPUSH Q8H PRN PRN Reason: Nausea and Vomiting Ondansetron HCl (Ondansetron Hcl 4 Mg/2 Ml Vial) 4 mg IVPUSH ONCE PRN PRN Reason: Nausea and Vomiting Prednisone (Prednisone 20 Mg Tablet) 40 mg PO DAILY [facility] Last Admin: 08/14/23 08:38 Dose: 40 mg Documented By: DIANA Sodium Biphosphate/Sodium Phosphate (Sodium Phosphate,[place]-Dibasic 133 Ml Enema) 133 ml UT ONCE PRN PRN Reason: Consult order Last Admin: 08/12/23 11:44 Dose: 133 ml Documented By: PINKY Sodium Chloride (0.9 % Sodium Chloride Flush 3 Ml Syringe) 3 ml IVFLUSH QSHIFT [facility] Last Admin: 08/14/23 08:38 Dose: 3 ml Documented By: DIANA Tamsulosin HCl (Tamsulosin Hcl 0.4 Mg Capsule) 0.8 mg PO BEDTIME [facility] Torsemide (Torsemide 20 Mg Tablet) 40 mg PO DAILY [facility]; Protocol Last Admin: 08/14/23 08:38 Dose: 40 mg Documented By: DIANA Warfarin Sodium (Warfarin Sodium 2.5 Mg Tablet) 2.5 mg PO DAILY@1800 [facility] Labs 08/14/23 06:09 08/14/23 06:09 Labs: Laboratory Results - last 24 hr 08/13/23 08/13/23 08/14/23 16:12 20:25 06:09 MCV 89.5 MCH 26.5 L MCHC 29.6 L RDW 17.9 H Plt Count 320 MPV 10.6 Absolute Nucleated RBC 0.000 Nucleated RBC % (auto) 0.0 Anion Gap 15 Estim Creat Clear Calc 34.1 Estimated GFR 39 POC Glucose 200 H 210 H Random Glucose 130 H Calcium 8.6 08/14/23 08/14/23 07:40 10:50 MCV MCH MCHC RDW Plt Count MPV Absolute Nucleated RBC Nucleated RBC % (auto) Anion Gap Estim Creat Clear Calc Estimated GFR POC Glucose 145 H 205 H Random Glucose Calcium Assessment and Plan (1) Chronic atrial fibrillation: Status: Acute (2) Acute respiratory failure: Status: Acute (3) Pleural effusion: Status: Acute (4) COPD exacerbation: Status: Acute (5) Acute on chronic anemia: Status: Acute Plan Pt is an 87-year-old male with a PMH significant for?anemia, chronic AFib on Xarelto, non insulin-dependent diabetes type 2, CKD unspecified, HTN, HLD, BPH, and long COVID/COPD pulmonology who presents to the ED with?generalized fatigue and worsening SOB and GU x1 week. Pt will be admitted to the hospital for treatment further evaluation of symptomatic anemia. Acute on chronic symptomatic anemia Hb around 8 after total of 3 units transfusion. baseline unknown Stool negative for occult blood, Low iron stores, on Iron CT abdomen to R\O masses GI EGD: Rings, Hiatus hernia and AVM. Colonoscopy: Diverticulosis, Hemorroids and polyps. no active bleeding IV Protonix High Fiber diet DC Xarelto, to start Lovenox and Warfarin today Monitor on telemetry Follow CBC Hypoxic respiratory failure 2/2 acute diastolic CHF exacerbation improving V\Q scan negative Torsemide 40 mg daily Incentive spirometry echocardiogram showing low normal EF w moderate RV dysfunction Monitor on telemetry Follow BMP Acute Kidney injury Unclear baseline but seems he has CKD Creatinine 2.48, improved to 1.7 could be cardio-renal, treat as above with Lasix Follow BMP acute exacerbation of COPD/long COVID slightly wheezy, will treat with Duonebs Doxycycline and Prednisone Continue home inhalers Non-insulin dependent diabetes type 2 Hold metformin Continue Jardiance sliding scale insulin Diabetic diet HTN BP a little soft, also with possible FABRIZIO Will hold losartan for now Resume as warranted HLD Continue statin BPH Continue tamsulosin The patient will need overnight stay pending treatment of Hypoxia, restarting blood thinners Quality Stroke Does the patient have a stroke diagnosis?: No VTE Prior VTE?: No VTE Risk Level:: Medical - moderate - high VTE Device Contraindication: N/A - Device Ordered VTE Drug Contraindication: Treatment Not Indicated
[2023-08-14 16:36] LABS: Glucose, Whole Blood 250 mg/dL (60-115)
[2023-08-14] MEDS: Warfarin Sodium 2.5 MG TABLET PO (17:10)
[2023-08-14 20:23] LABS: Glucose, Whole Blood 245 mg/dL (60-115)
[2023-08-14] MEDS: Benzonatate 100 MG CAPSULE PO (21:09)
[2023-08-14] MEDS: Tamsulosin HCL 0.4 MG CAPSULE 0.8 MG PO (21:10)
[2023-08-14] MEDS: Melatonin 3 MG TABLET 6 MG PO (21:27)
[2023-08-15] VITALS (12 sets, daily range): BP systolic 100–129; BP diastolic 49–77; PULSE 61–88; RESP 16–20; TEMP 36.1–37; O2SAT 92–100
[2023-08-15] MEDS: Omeprazole 40 MG CAPSULE.DR PO ×2 (05:36→17:08)
[2023-08-15 07:43] LABS: Glucose, Whole Blood 148 mg/dL (60-115)
[2023-08-15 08:24] LABS: Hematocrit 28.2 % (42.0-52.0); Hemoglobin 8.3 g/dl (14.0-18.0); Mean Corpuscular HGB Conc 29.4 g/dl (31.0-36.0); Mean Corpuscular Hemoglobin 26.4 pg (27.0-33.0); Mean Corpuscular Volume 89.8 fL (80.0-98.0); Mean Platelet Volume 10.5 fL (9.4-12.4); Platelet Count 293 X10*3/uL (160-400); Red Blood Count 3.14 X10*6/uL (4.60-5.80); Red Cell Distribution Width 18.2 % (11.0-16.0)
[2023-08-15] MEDS: Albuterol/Iprat 2.5/0.5MG 3 ML AMPUL.NEB INHALE ×4 (08:30→19:16)
[2023-08-15 08:31] LABS: INTERNATIONAL NORM RATIO 1.2 (0.9-1.1); Prothrombin Time 14.8 SEC (11.1-13.3)
[2023-08-15] MEDS: Fluticasone/Vilanterol 100/25 BLST.W.DEV 1 PUFF INHALE (08:33)
[2023-08-15] MEDS: predniSONE 20 MG TABLET 40 MG PO (08:53)
[2023-08-15] MEDS: Torsemide 20 MG TABLET 40 MG PO (08:53)
[2023-08-15] MEDS: Doxycycline Monohydrate 100 MG CAPSULE PO ×2 (08:53→20:57)
[2023-08-15] MEDS: Atorvastatin Calcium 20 MG TABLET PO (08:53)
[2023-08-15] MEDS: Enoxaparin Sodium 100 MG/ML SYRINGE 90 MG SUBCUT ×2 (08:53→20:57)
[2023-08-15] MEDS: Montelukast Sodium 10 MG TABLET PO (08:53)
[2023-08-15] MEDS: Empagliflozin 10 MG TABLET PO (08:54)
[2023-08-15] MEDS: Multivitamin TABLET 1 TAB PO (08:54)
[2023-08-15] MEDS: 0.9 % Sodium Chloride Flush 3 ML SYRINGE IVFLUSH ×3 (08:54→23:47)
[2023-08-15] MEDS: Metoprolol Succinate ER 100 MG TAB.ER.24H PO (08:54)
--- NOTE | 2023-08-15 08:56 | P.PNPL_ITS ---
Subjective Subjective Date of Service: 08/15/23 Interval history: The patient was seen on exam. Breathing is better. He is having issues with urinary retention now. Continues with the nebulized therapy. He is going to have a 6 minutes walk test to see if she still requires oxygen supplementation. The patient should benefit from being discharged on oxygen based on his comorbidities. Objective Data Labs 08/15/23 06:27 08/14/23 06:09 Labs: Laboratory Results - last 24 hr 08/14/23 08/14/23 08/14/23 10:50 16:27 20:03 WBC RBC Hgb Hct MCV MCH MCHC RDW Plt Count MPV Absolute Nucleated RBC Nucleated RBC % (auto) PT INR POC Glucose 205 H 250 H 245 H 08/15/23 08/15/23 06:27 07:09 WBC 7.0 RBC 3.14 L Hgb 8.3 L Hct 28.2 L MCV 89.8 MCH 26.4 L MCHC 29.4 L RDW 18.2 H Plt Count 293 MPV 10.5 Absolute Nucleated RBC 0.000 Nucleated RBC % (auto) 0.0 PT 14.8 H INR 1.2 H POC Glucose 148 H Review of Systems Constitutional: Reports no additional constitutional complaints, Denies chills, Denies fever(s) and Denies night sweats Eyes: Reports no additional eye complaints, Denies blurry vision, Denies change in vision, Denies diplopia, Denies eye discharge, Denies loss of vision and Denies eye pain Denies dizziness Cardiovascular: Reports no additional cardiovascular complaints, Denies chest pain, Denies lightheadedness, Denies Loss of Consciousness, Denies dyspnea and Reports dyspnea on exertion Respiratory: Denies dyspnea and Reports dyspnea on exertion Gastrointestinal: Reports no additional gastrointestinal complaints, Denies abdominal pain, Denies hematochezia, Denies change in bowel habits and Denies change in stool character Genitourinary: Denies hematuria, Denies oliguria and Reports difficulty urinating Musculoskeletal: Reports no additional musculoskeletal complaints, Denies numbness and Denies tingling Denies dizziness, Denies loss of vision, Denies numbness and Denies tingling Psychiatric: Reports no additional psychiatric complaints Endocrine: Reports no additional endocrine complaints Hematologic/Lymphatic: Reports no additional hematologic/lymphatic complaints Allergic/Immunologic: Reports no additional allergic/immunologic complaints Physical Exam 2 Vital Signs: Vital Signs: Last Vital Signs Temp 98.6 F 08/15/23 07:06 Pulse 88 08/15/23 08:31 Resp 18 08/15/23 08:31 BP 129/77 08/15/23 07:06 Pulse Ox 98 08/15/23 07:06 O2 Del Method Nasal Cannula 08/15/23 07:06 O2 Flow Rate 2.5 08/15/23 07:06 Oxygen Flow Rate 2.5 08/14/23 13:00 BMI result Body Mass Index 29.2 Const: General: comfortable HEENT: Head: Yes normocephalic Neck: Neck: Yes supple Chest: Chest palpation & inspection: normal inspection of the chest Resp: Effort & Inspection: normal respiratory effort Auscultation: no rales, no rhonchi, no wheezes and diminished lung sounds Cardio: Heart sounds: S1 normal heart sound present and S2 normal heart sound present GI: Palpation (GI): Soft to palpation Skin: General skin exam: no rashes or lesions noted Extrem: General: Yes no clubbing, cyanosis or edema Procedures Date of Service Date of Service: 08/15/23 Assessment and Plan Assessment and plan (1) Pulmonary hypertension: Problem details: with RV dysfuction Status: Acute (2) COPD exacerbation: Status: Acute (3) Pleural effusion: Status: Acute (4) Symptomatic anemia: Status: Acute Plan Prednisone taper Doxycycline x 8-10 days continue for Aerobika for CPT continue diuresis as tolerated Avoid LAMA/MILES due to urinary retention O2 to keep pox>90%. Appears to require oxygen upon discharge F/U with outpt pulmonary Time Spent With Patient Time: Total time managing care of this patient today ____ minutes. Progress Note: Quality Stroke Does the patient have a stroke diagnosis?: No
[2023-08-15 08:59] LABS: Prostate Specific Antigen 3.82 ng/mL (<0.05-4.0)
--- NOTE | 2023-08-15 10:10 | MHC.CM.PN ---
PER MD ROUNDS, PT EXPECTED TO DC HOME TOMORROW WITH [facility] HOME O2 EVAL PENDING
[2023-08-15 10:18] LABS: Anion Gap 13 (12-20); Blood Urea Nitrogen 33 mg/dL (9-16); Calcium 8.6 mg/dL (8.4-10.2); Carbon Dioxide 33 mmol/L (22-29); Chloride 99 mmol/L (96-108); Creatinine Clr Calc Pharmacy 31.6; Estimated Glomerular Filt Rate 35; Glucose Random 232 mg/dL (60-115); Potassium 3.4 mmol/L (3.3-5.1); Sodium 142 mmol/L (135-145)
[2023-08-15] MEDS: Finasteride 5 MG TABLET PO (10:24)
--- NOTE | 2023-08-15 10:59 | PM.UROCN ---
History of Present Illness Consult details Consult date: 08/15/23 Narrative: CC: Urinary retention 87-year-old male. Abdomen to hospital with shortness of breath, generalized fatigue. Worsening of a prior 3 months. Three year history of anemia per PCP. Increase lower leg edema. past medical history progressive diabetes. Hypertension, dyslipidemia, long COVID. Initial therapy with blood transfusion and diuretic. creatinine has fallen from 2.5-1.8. Found to be in urinary retention Folic catheter placed 1400 cc residual Known BPH previously on alpha-amanda recommend addition finasteride 4 week follow-up voiding trial Review of Systems Constitutional: Constitutional: Reports as per HPI and Reports no additional constitutional complaints Cardiovascular: Cardiovascular: Reports as per HPI and Reports no additional cardiovascular complaints Respiratory: Respiratory: Reports as per HPI and Reports no additional respiratory complaints Gastrointestinal: Gastrointestinal: Reports as per HPI and Reports no additional gastrointestinal complaints Genitourinary: Genitourinary: Reports as per HPI Musculoskeletal: Musculoskeletal: Reports no additional musculoskeletal complaints and Reports as per HPI Neurologic: Reports system reviewed and no additional complaints, except as documented and Reports as per HPI [facility] Past Medical History Medical History (Updated 08/15/23 @ 11:03 by Bruce Gilbert MD) Chronic atrial fibrillation 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 Chest crackles Pulmonary hypertension Non-insulin dependent type 2 diabetes mellitus HTN (hypertension) HLD (hyperlipidemia) Persistent atrial fibrillation BPH (benign prostatic hyperplasia) Long COVID COPD (chronic obstructive pulmonary disease) Lower leg edema Chronic kidney disease, unspecified Surgical History Surgical History (Updated 08/12/23 @ 12:55 by Rabia Herrera) H/O colonoscopy History of cataract surgery History of endoscopy History of colon surgery History of cholecystectomy H/O heart artery stent Hip joint replacement status Social History Social History Household Members: Spouse Housing: Other Housing Other:: mobile home Do you presently have visiting nurse or other home services: No Patient Tobacco Use Status: Former Tobacco user Tobacco use type: Cigarette Smoked in Last 30 Days: No Use of substances other than those prescribed or required for medical reasons: No Currently Displaying Signs/Symptoms of Drug Intoxication Withdrawal: No Do you feel safe in your current relationship?: Yes Are you DNR?: No Advance Directives: No Advance Directives Information Provided: Yes Do you have thoughts of harming others: None Do you have a plan to hurt others: No Plan Recently lost weight without trying: No Nutrition Risks: No Nutritional Risk Poor oral hygiene: No service: Yes Meds Allergies Allergy/AdvReac Type Severity Reaction Status Date / Time No Known Allergies Allergy Verified 08/12/23 12:55 Active Medications: Current Medications Acetaminophen (Acetaminophen 325 Mg Tablet) 650 mg PO Q6H PRN PRN Reason: Pain, Mild (Pain Scale 1-3) Albuterol Sulfate (Albuterol Sulfate 90 Mcg 8 Gm Inhaler) 2 puff INHALE QID PRN PRN Reason: wheezing Albuterol Sulfate (Albuterol Sulfate (0.083%) 2.5 Mg/3 Ml Vial.Neb) 2.5 mg INHALE ONCE PRN PRN Reason: Wheezing Albuterol/Ipratropium (Albuterol/Iprat 2.5/0.5mg 3 Ml Ampul.Neb) 3 ml INHALE RQ4H WHILE AWAKE [facility] Last Admin: 08/15/23 08:30 Dose: 3 ml Atorvastatin Calcium (Atorvastatin Calcium 20 Mg Tablet) 20 mg PO DAILY [facility] Last Admin: 08/15/23 08:53 Dose: 20 mg Benzonatate (Benzonatate 100 Mg Capsule) 100 mg PO TID PRN PRN Reason: Cough Last Admin: 08/14/23 21:09 Dose: 100 mg Dextrose (Dextrose 50 % 25 Gm/50 Ml Syringe) 25 gm IVPUSH Q15M PRN; Protocol PRN Reason: per Hypoglycemia Standing Ord. Docusate Sodium (Docusate Sodium 100 Mg Capsule) 100 mg PO DAILY PRN PRN Reason: Constipation Last Admin: 08/13/23 14:08 Dose: 100 mg Doxycycline Monohydrate (Doxycycline Monohydrate 100 Mg Capsule) 100 mg PO Q12H [facility] Last Admin: 08/15/23 08:53 Dose: 100 mg Empagliflozin (Empagliflozin 10 Mg Tablet) 10 mg PO DAILY [facility] Last Admin: 08/15/23 08:54 Dose: 10 mg Enoxaparin Sodium (Enoxaparin Sodium 100 Mg/Ml Syringe) 90 mg 1 mg/kg (90 mg) SUBCUT Q12H [facility] Last Admin: 08/15/23 08:53 Dose: 90 mg Finasteride (Finasteride 5 Mg Tablet) 5 mg PO DAILY [facility] Last Admin: 08/15/23 10:24 Dose: 5 mg Fluticasone/Vilanterol (Fluticasone/Vilanterol 100/25 Blst.W.Dev) 1 puff INHALE RDAILY [facility] Last Admin: 08/15/23 08:33 Dose: 1 puff Glucose (Glucose Gel 15 Gm Gel..Gram.) 15 gm PO Q15M PRN; Protocol PRN Reason: per Hypoglycemia Standing Ord. Insulin Human Lispro (Insulin Lispro 100 Unit/Ml 3 Ml Vial) 0 unit SUBCUT QIDACHS [facility]; Protocol Last Admin: 08/15/23 07:46 Dose: Not Given Melatonin (Melatonin 3 Mg Tablet) 6 mg PO BEDTIME PRN PRN Reason: Insomnia Last Admin: 08/14/23 21:27 Dose: 6 mg Metoprolol Succinate (Metoprolol Succinate Er 100 Mg Tab.Er.24h) 100 mg PO DAILY [facility]; Protocol Last Admin: 08/15/23 08:54 Dose: 100 mg Montelukast Sodium (Montelukast Sodium 10 Mg Tablet) 10 mg PO DAILY [facility] Last Admin: 08/15/23 08:53 Dose: 10 mg Multivitamins/Vitamin C (Multivitamin Tablet) 1 tab PO DAILY [facility] Last Admin: 08/15/23 08:54 Dose: 1 tab Omeprazole (Omeprazole 40 Mg Capsule.Dr) 40 mg PO BID@0630,1630 [facility] Last Admin: 08/15/23 05:36 Dose: 40 mg Ondansetron HCl (Ondansetron Hcl 4 Mg/2 Ml Vial) 4 mg IVPUSH Q8H PRN PRN Reason: Nausea and Vomiting Ondansetron HCl (Ondansetron Hcl 4 Mg/2 Ml Vial) 4 mg IVPUSH ONCE PRN PRN Reason: Nausea and Vomiting Prednisone (Prednisone 20 Mg Tablet) 40 mg PO DAILY [facility] Last Admin: 08/15/23 08:53 Dose: 40 mg Sodium Biphosphate/Sodium Phosphate (Sodium Phosphate,[place]gs-Dibasic 133 Ml Enema) 133 ml PA ONCE PRN PRN Reason: Consult order Last Admin: 08/12/23 11:44 Dose: 133 ml Sodium Chloride (0.9 % Sodium Chloride Flush 3 Ml Syringe) 3 ml IVFLUSH QSHIFT [facility] Last Admin: 08/15/23 08:54 Dose: 3 ml Tamsulosin HCl (Tamsulosin Hcl 0.4 Mg Capsule) 0.8 mg PO BEDTIME [facility] Last Admin: 08/14/23 21:10 Dose: 0.8 mg Torsemide (Torsemide 20 Mg Tablet) 40 mg PO DAILY [facility]; Protocol Last Admin: 08/15/23 08:53 Dose: 40 mg Warfarin Sodium (Warfarin Sodium 5 Mg Tablet) 5 mg PO DAILY@1800 [facility] Home Medications Medication Instructions Recorded Confirmed Last Taken Type albuterol sulfate 90 mcg/actuation 2 puff inhalation QID PRN wheezing 08/09/23 08/09/23 Unknown History aerosol inhaler clotrimazole 1 % topical cream 1 appl topical BID PRN Rash 08/09/23 08/09/23 Unknown History empagliflozin 10 mg tablet 10 mg PO QAM 08/09/23 08/09/23 Unknown History (Jardiance) fluticasone 100 mcg-salmeterol 50 1 ea inhalation DAILY 08/09/23 08/09/23 Unknown History mcg/dose blistr powdr for inhalation ketoconazole 2 % topical cream 1 appl topical BID PRN Rash 08/09/23 08/09/23 Unknown History losartan 50 mg tablet 50 mg PO DAILY 08/09/23 08/09/23 Unknown History metformin 850 mg tablet 850 mg PO DAILY 08/09/23 08/09/23 Unknown History metoprolol succinate 100 mg 100 mg PO DAILY 08/09/23 08/09/23 Unknown History tablet,extended release 24 hr montelukast 10 mg tablet 10 mg PO DAILY 08/09/23 08/09/23 Unknown History multivitamin 1 tab PO DAILY 08/09/23 08/09/23 Unknown History rivaroxaban 15 mg tablet (Xarelto) 15 mg PO DAILY 08/09/23 08/09/23 Unknown History rosuvastatin 5 mg tablet 5 mg PO DAILY 08/09/23 08/09/23 Unknown History tamsulosin 0.4 mg capsule 0.4 mg PO BEDTIME 08/09/23 08/09/23 Unknown History torsemide 20 mg tablet 20 mg PO DAILY 08/09/23 08/09/23 Unknown History umeclidinium 62.5 mcg/actuation 1 inh inhalation DAILY 08/09/23 08/09/23 Unknown History blister powder for inhalation (Incruse Ellipta) Physical Exam Vital Signs: Vital Signs: Last Vital Signs Temp 98.6 F 08/15/23 07:06 Pulse 88 08/15/23 08:31 Resp 18 08/15/23 08:31 BP 129/77 08/15/23 07:06 Pulse Ox 98 08/15/23 07:06 O2 Del Method Nasal Cannula 08/15/23 07:06 O2 Flow Rate 2.5 08/15/23 07:06 Oxygen Flow Rate 2.5 08/14/23 13:00 BMI result Body Mass Index 29.2 Const: General: cooperative, healthy appearing, comfortable and no acute distress Orientation/consciousness: patient oriented x3 HEENT: Face and sinus: Yes normal facial exam Mouth: moist mucous membranes Neck: Neck: Yes normal visual inspection, Yes full ROM and Yes trachea midline Chest: Chest palpation & inspection: normal inspection of the chest Resp: Effort & Inspection: normal respiratory effort, able to speak in complete sentences and no respiratory distress GI: Inspection: Yes normal to inspection Back/Spine/Pelvis: Cervical Spine: normal cervical lordosis Thoracic/Lumbar Spine: thoracic and lumbar spine normal to inspection Skin: General skin exam: no rashes or lesions noted Neuro: General: patient oriented x3, tone normal and moves all extremities Extrem: General: Yes normal to inspection and Yes capillary refill normal Results Labs 08/15/23 06:27 08/15/23 10:02 Labs: Abnormal lab results 08/14/23 08/14/23 08/14/23 Range/Units 10:50 16:27 20:03 RBC (4.60-5.80) X10*6/uL Hgb (14.0-18.0) g/dl Hct (42.0-52.0) % MCH (27.0-33.0) pg MCHC (31.0-36.0) g/dl RDW (11.0-16.0) % PT (11.1-13.3) SEC INR (0.9-1.1) Carbon Dioxide (22-29) mmol/L BUN (9-16) mg/dL Creatinine (0.5-1.4) mg/dL POC Glucose 205 H 250 H 245 H (60-115) mg/dL Random Glucose (60-115) mg/dL 08/15/23 08/15/23 08/15/23 Range/Units 06:27 07:09 10:02 RBC 3.14 L (4.60-5.80) X10*6/uL Hgb 8.3 L (14.0-18.0) g/dl Hct 28.2 L (42.0-52.0) % MCH 26.4 L (27.0-33.0) pg MCHC 29.4 L (31.0-36.0) g/dl RDW 18.2 H (11.0-16.0) % PT 14.8 H (11.1-13.3) SEC INR 1.2 H (0.9-1.1) Carbon Dioxide 33 H (22-29) mmol/L BUN 33 H (9-16) mg/dL Creatinine 1.82 H (0.5-1.4) mg/dL POC Glucose 148 H (60-115) mg/dL Random Glucose 232 H (60-115) mg/dL Short CBC 08/15/23 Range/Units 06:27 WBC 7.0 (4.8-10.8) X10*3/uL Hgb 8.3 L (14.0-18.0) g/dl Hct 28.2 L (42.0-52.0) % Plt Count 293 (160-400) X10*3/uL BMP 08/15/23 10:02 Sodium 142 Potassium 3.4 Chloride 99 Carbon Dioxide 33 H BUN 33 H Creatinine 1.82 H Calcium 8.6 All other labs normal. Assessment and Plan (1) Urinary retention with incomplete bladder emptying: Status: Acute Plan Add finasteride Four week follow-up voiding trial in office Procedures Date of Service Date of Service: 08/15/23
[2023-08-15 11:52] LABS: Glucose, Whole Blood 234 mg/dL (60-115)
[2023-08-15] MEDS: Insulin Lispro 100 UNIT/ML 3 ML VIAL SUBCUT ×3 (11:58→20:57)
--- NOTE | 2023-08-15 12:03 | PC.NURSE ---
This am, patient complained of difficulty voiding nd bladder distention. Bladder scanned for >999mls. MD Moore made aware and ordered for dutton catheter placed along with urology consult. 16Fr dutton placed with no difficulties. 1400mls drained immediately. Urine initially yellow then pink tinged towards the last few mls. MD aware.
--- NOTE | 2023-08-15 12:58 | P.CDIM_ITS ---
PROVIDER RESPONSE TEXT: To clarify, the appropriate diagnosis supported by the clinical indicators: Other (explain): CKD2 QUERY TEXT: PHYSICIAN'S DOCUMENTATION REQUEST Date of Query: 08/15/2023 07:26 AM EST Patient Name: Tha Wagner Admit Date: 08/09/2023 Dear Jana Moore, A review of the medical record indicates additional documentation may be needed. Please review below and update the documentation accordingly. Clinical Indicators: Per Hospitalist Progress Note 08/14/23: Acute Kidney injury Unclear baseline but seems he has CKD Creatinine 2.48, improved to 1.7 could be cardio-renal, treat as above with Lasix Follow BMP Please clarify which of the following accurately represents the patient's renal status: CKD, please provide stage Other (explain) Clinically unable to determine (explain) Thank you, Patricia Urbina RN Use of terms such as suspected, likely, concern for, or probable (associated with a specific diagnosi s that is being evaluated, monitored, or treated as if it exists) are acceptable and can be coded in the inpatient se tting, when documented at the time of discharge. Please use your independent medical judgment in providing your response. THIS QUERY IS PART OF THE PERMANENT MEDICAL RECORD
--- NOTE | 2023-08-15 14:07 | P.PNIM_ITS ---
Subjective Subjective Date of Service: 08/15/23 Interval History: seen and evaluated this morning feels better overall retaining 1.4L of urine , dutton placed requiring O2 supplement Hb stable above 8 after transfusion no reported bleeding Review of Systems Review of Systems: Yes all other systems are reviewed and are negative Physical Exam 2 Vital Signs: Vital Signs: Last Vital Signs Temp 97.1 F 08/15/23 11:40 Pulse 67 08/15/23 11:40 Resp 18 08/15/23 11:40 BP 108/50 L 08/15/23 11:40 Pulse Ox 92 08/15/23 13:00 O2 Del Method Nasal Cannula 08/15/23 13:00 O2 Flow Rate 2.5 08/15/23 11:40 Oxygen Flow Rate 2.5 08/15/23 13:00 BMI result Body Mass Index 29.2 Const: Other: Constitutional : Awake, interactive, not in distress Neck : Normal inspection, Supple Cardiovascular : RRR, no JVP, trace lower extremity edema Respiratory : good bilateral air entry, fine basal crackles, no wheezes or rhonchi, On O2 supplement Gastrointestinal: soft, lax, Normal bowel sounds, Non tender Skin : Warm, Dry Neurological : Alert & oriented to self and place, No focal deficit Objective Data Active Medications Acetaminophen (Acetaminophen 325 Mg Tablet) 650 mg PO Q6H PRN PRN Reason: Pain, Mild (Pain Scale 1-3) Albuterol Sulfate (Albuterol Sulfate 90 Mcg 8 Gm Inhaler) 2 puff INHALE QID PRN PRN Reason: wheezing Albuterol Sulfate (Albuterol Sulfate (0.083%) 2.5 Mg/3 Ml Vial.Neb) 2.5 mg INHALE ONCE PRN PRN Reason: Wheezing Albuterol/Ipratropium (Albuterol/Iprat 2.5/0.5mg 3 Ml Ampul.Neb) 3 ml INHALE RQ4H WHILE AWAKE [facility] Last Admin: 08/15/23 11:25 Dose: 3 ml Documented By: AME Atorvastatin Calcium (Atorvastatin Calcium 20 Mg Tablet) 20 mg PO DAILY [facility] Last Admin: 08/15/23 08:53 Dose: 20 mg Documented By: MARYBEL Benzonatate (Benzonatate 100 Mg Capsule) 100 mg PO TID PRN PRN Reason: Cough Last Admin: 08/14/23 21:09 Dose: 100 mg Documented By: PETER Dextrose (Dextrose 50 % 25 Gm/50 Ml Syringe) 25 gm IVPUSH Q15M PRN; Protocol PRN Reason: per Hypoglycemia Standing Ord. Docusate Sodium (Docusate Sodium 100 Mg Capsule) 100 mg PO DAILY PRN PRN Reason: Constipation Last Admin: 08/13/23 14:08 Dose: 100 mg Documented By: APOLINAR Doxycycline Monohydrate (Doxycycline Monohydrate 100 Mg Capsule) 100 mg PO Q12H [facility] Last Admin: 08/15/23 08:53 Dose: 100 mg Documented By: MARYBEL Empagliflozin (Empagliflozin 10 Mg Tablet) 10 mg PO DAILY [facility] Last Admin: 08/15/23 08:54 Dose: 10 mg Documented By: MARYBEL Enoxaparin Sodium (Enoxaparin Sodium 100 Mg/Ml Syringe) 90 mg 1 mg/kg (90 mg) SUBCUT Q12H [facility] Last Admin: 08/15/23 08:53 Dose: 90 mg Documented By: MARYBEL Finasteride (Finasteride 5 Mg Tablet) 5 mg PO DAILY [facility] Last Admin: 08/15/23 10:24 Dose: 5 mg Documented By: MARYBEL Fluticasone/Vilanterol (Fluticasone/Vilanterol 100/25 Blst.W.Dev) 1 puff INHALE RDAILY [facility] Last Admin: 08/15/23 08:33 Dose: 1 puff Documented By: AME Glucose (Glucose Gel 15 Gm Gel..Gram.) 15 gm PO Q15M PRN; Protocol PRN Reason: per Hypoglycemia Standing Ord. Insulin Human Lispro (Insulin Lispro 100 Unit/Ml 3 Ml Vial) 0 unit SUBCUT QIDACHS [facility]; Protocol Last Admin: 08/15/23 11:58 Dose: 4 unit Documented By: RISHI Melatonin (Melatonin 3 Mg Tablet) 6 mg PO BEDTIME PRN PRN Reason: Insomnia Last Admin: 08/14/23 21:27 Dose: 6 mg Documented By: PETER Metoprolol Succinate (Metoprolol Succinate Er 100 Mg Tab.Er.24h) 100 mg PO DAILY [facility]; Protocol Last Admin: 08/15/23 08:54 Dose: 100 mg Documented By: MARYBEL Montelukast Sodium (Montelukast Sodium 10 Mg Tablet) 10 mg PO DAILY [facility] Last Admin: 08/15/23 08:53 Dose: 10 mg Documented By: MARYBEL Multivitamins/Vitamin C (Multivitamin Tablet) 1 tab PO DAILY [facility] Last Admin: 08/15/23 08:54 Dose: 1 tab Documented By: MARYBEL Omeprazole (Omeprazole 40 Mg Capsule.Dr) 40 mg PO BID@0630,1630 [facility] Last Admin: 08/15/23 05:36 Dose: 40 mg Documented By: PETER Ondansetron HCl (Ondansetron Hcl 4 Mg/2 Ml Vial) 4 mg IVPUSH Q8H PRN PRN Reason: Nausea and Vomiting Ondansetron HCl (Ondansetron Hcl 4 Mg/2 Ml Vial) 4 mg IVPUSH ONCE PRN PRN Reason: Nausea and Vomiting Prednisone (Prednisone 20 Mg Tablet) 40 mg PO DAILY [facility] Last Admin: 08/15/23 08:53 Dose: 40 mg Documented By: MARYBEL Sodium Biphosphate/Sodium Phosphate (Sodium Phosphate,[place]-Dibasic 133 Ml Enema) 133 ml [place] ONCE PRN PRN Reason: Consult order Last Admin: 08/12/23 11:44 Dose: 133 ml Documented By: PINKY Sodium Chloride (0.9 % Sodium Chloride Flush 3 Ml Syringe) 3 ml IVFLUSH QSHIFT [facility] Last Admin: 08/15/23 08:54 Dose: 3 ml Documented By: MARYBEL Tamsulosin HCl (Tamsulosin Hcl 0.4 Mg Capsule) 0.8 mg PO BEDTIME [facility] Last Admin: 08/14/23 21:10 Dose: 0.8 mg Documented By: PETER Torsemide (Torsemide 20 Mg Tablet) 40 mg PO DAILY [facility]; Protocol Last Admin: 08/15/23 08:53 Dose: 40 mg Documented By: MARYBEL Warfarin Sodium (Warfarin Sodium 5 Mg Tablet) 5 mg PO DAILY@1800 [facility] Labs 08/15/23 06:27 08/15/23 10:02 Labs: Laboratory Results - last 24 hr 08/14/23 08/14/23 08/15/23 16:27 20:03 06:27 MCV 89.8 MCH 26.4 L MCHC 29.4 L RDW 18.2 H Plt Count 293 MPV 10.5 Absolute Nucleated RBC 0.000 Nucleated RBC % (auto) 0.0 PT 14.8 H INR 1.2 H Anion Gap Estim Creat Clear Calc Estimated GFR POC Glucose 250 H 245 H Random Glucose Calcium Prostate Specific Ag 3.82 08/15/23 08/15/23 08/15/23 07:09 10:02 11:25 MCV MCH MCHC RDW Plt Count MPV Absolute Nucleated RBC Nucleated RBC % (auto) PT INR Anion Gap 13 Estim Creat Clear Calc 31.6 Estimated GFR 35 POC Glucose 148 H 234 H Random Glucose 232 H Calcium 8.6 Prostate Specific Ag Assessment and Plan (1) Urinary retention with incomplete bladder emptying: Status: Acute (2) Acute respiratory failure: Status: Acute (3) COPD exacerbation: Status: Acute (4) Acute on chronic anemia: Status: Acute (5) Symptomatic anemia: Status: Acute Plan Pt is an 87-year-old male with a PMH significant for?anemia, chronic AFib on Xarelto, non insulin-dependent diabetes type 2, CKD unspecified, HTN, HLD, BPH, and long COVID/COPD pulmonology who presents to the ED with?generalized fatigue and worsening SOB and GU x1 week. Pt will be admitted to the hospital for treatment further evaluation of symptomatic anemia. Acute on chronic symptomatic anemia Hb around 8 after total of 3 units transfusion. baseline unknown Stool negative for occult blood, Low iron stores, on Iron CT abdomen to R\O masses GI EGD: Rings, Hiatus hernia and AVM. Colonoscopy: Diverticulosis, Hemorroids and polyps. no active bleeding IV Protonix High Fiber diet DC Xarelto, to start Lovenox and Warfarin today Monitor on telemetry Follow CBC Hypoxic respiratory failure 2/2 acute diastolic CHF exacerbation improving V\Q scan negative Torsemide 40 mg daily Incentive spirometry echocardiogram showing low normal EF w moderate RV dysfunction Monitor on telemetry Home O2 eval Urine retention Bladder scan with 1.4L Dutton placed Increase Tamsulosin to 0.8 and start Finasteride To follow with urology as outpatient in 2-4 weeks Acute Kidney injury on CKDII Unclear baseline but seems he has CKDII Creatinine 2.48, improved to 1.8 could be cardio-renal, treat as above with Lasix Follow BMP acute exacerbation of COPD/long COVID slightly wheezy, will treat with Duonebs Pulm input, Doxycycline and Prednisone taper dose Continue home inhalers Non-insulin dependent diabetes type 2 Hold metformin Continue Jardiance sliding scale insulin Diabetic diet HTN BP a little soft, also with possible FABRIZIO Will hold losartan for now Resume as warranted HLD Continue statin BPH Continue tamsulosin The patient will need overnight stay pending treatment of Hypoxia, restarting blood thinners Quality Stroke Does the patient have a stroke diagnosis?: No VTE Prior VTE?: No VTE Risk Level:: Medical - moderate - high VTE Device Contraindication: N/A - Device Ordered VTE Drug Contraindication: Treatment Not Indicated
[2023-08-15] MEDS: Warfarin Sodium 5 MG TABLET PO (17:07)
[2023-08-15 18:49] LABS: Glucose, Whole Blood 205 mg/dL (60-115)
[2023-08-15 20:03] LABS: Glucose, Whole Blood 272 mg/dL (60-115)
[2023-08-15] MEDS: Tamsulosin HCL 0.4 MG CAPSULE 0.8 MG PO (20:57)
[2023-08-15] MEDS: Melatonin 3 MG TABLET 6 MG PO (21:03)
[2023-08-16] VITALS (7 sets, daily range): BP systolic 127–152; BP diastolic 63–70; PULSE 62–86; RESP 16–20; TEMP 36.1–36.8; O2SAT 90–98
[2023-08-16] MEDS: Omeprazole 40 MG CAPSULE.DR PO (06:05)
[2023-08-16 06:41] LABS: Hemoglobin 8.6 g/dl (14.0-18.0); Mean Corpuscular HGB Conc 29.7 g/dl (31.0-36.0); Mean Corpuscular Hemoglobin 26.6 pg (27.0-33.0); Mean Corpuscular Volume 89.8 fL (80.0-98.0); Mean Platelet Volume 10.5 fL (9.4-12.4); Platelet Count 276 X10*3/uL (160-400); Red Blood Count 3.23 X10*6/uL (4.60-5.80); Red Cell Distribution Width 18.3 % (11.0-16.0); White Blood Count 6.8 X10*3/uL (4.8-10.8)
[2023-08-16 07:02] LABS: INTERNATIONAL NORM RATIO 1.3 (0.9-1.1); Prothrombin Time 15.3 SEC (11.1-13.3)
[2023-08-16] MEDS: Albuterol/Iprat 2.5/0.5MG 3 ML AMPUL.NEB INHALE ×2 (07:38→11:21)
[2023-08-16] MEDS: Fluticasone/Vilanterol 100/25 BLST.W.DEV 1 PUFF INHALE (07:39)
[2023-08-16] MEDS: Enoxaparin Sodium 100 MG/ML SYRINGE 90 MG SUBCUT (07:56)
[2023-08-16] MEDS: 0.9 % Sodium Chloride Flush 3 ML SYRINGE IVFLUSH (07:56)
[2023-08-16] MEDS: Doxycycline Monohydrate 100 MG CAPSULE PO (07:56)
[2023-08-16 07:57] LABS: Glucose, Whole Blood 139 mg/dL (60-115)
[2023-08-16] MEDS: Montelukast Sodium 10 MG TABLET PO (07:57)
[2023-08-16] MEDS: Metoprolol Succinate ER 100 MG TAB.ER.24H PO (07:57)
[2023-08-16] MEDS: Torsemide 20 MG TABLET 40 MG PO (07:57)
[2023-08-16] MEDS: predniSONE 20 MG TABLET 40 MG PO (07:57)
[2023-08-16] MEDS: Empagliflozin 10 MG TABLET PO (07:57)
[2023-08-16] MEDS: Multivitamin TABLET 1 TAB PO (07:57)
[2023-08-16] MEDS: Atorvastatin Calcium 20 MG TABLET PO (07:58)
[2023-08-16] MEDS: Finasteride 5 MG TABLET PO (07:58)
--- NOTE | 2023-08-16 08:54 | MHC.CM.PN ---
Patient has been medically cleared for dc to home today, with services. Patient is active with Ann [facility]ONEY, who has been notified of today's dc. CM met with Patient at bedside and addressed IMM with him (original was given to Patient and as copy was placed on the chart). Patient's will transport home. Initialized on 08/16/23 08:50 - END OF NOTE
--- NOTE | 2023-08-16 09:14 | MHC.CM.PN ---
Per MD, Patient will be medically cleared for dc to home today with services. A referral was made to NA, who has been made aware of today's dc.CM met with Patient at bedside and addressed IMM with him. Patient's will transport.
--- NOTE | 2023-08-16 09:39 | MHC.CM.PN ---
VICTOR MANUEL returned a call to Daughter/Kacie @ [phone] and discussed dc planning. Kacie had clinical questions and CM asked MD to call Kacie directly. CM will follow.
--- NOTE | 2023-08-16 11:00 | W.MHC.F2F ---
Service Date Service Date: 08/16/23 Encounter Date of encounter: 08/16/23 Reasons for Services Signs and symptoms assessed: INR follow up Physical deconditioning Reason for intermediate: monitoring of PT/INR and teach disease management Reason for physical therapy: home safety and mobility and therapeutic exercises Homebound: Leaving the home is medically contraindicated at this time without the asist of a device and/or another person due th the listed conditions above and below. Reason homebound: unsteady gait / fall risk Certification: Based on the above findings, I certify that this patient is confined to the home and needs intermittent intermediate care, physical therapy and/or speech therapy, or continues to need occupational therapy. The patient is under my care, and I have initiated the establishment of the plan of care. The patient will be followed by a physician who will periodically review the plan of care. Time Spent With Patient Time: Total time managing care of this patient today ____ minutes.
--- NOTE | 2023-08-16 11:06 | P.DS_ITS ---
DS: Providers Provider Date of Service: 08/16/23 Date of admission: 08/09/23 15:42 Primary care physician: Flakita Rivera MD Consults: 08/09/23 15:49 Consult to Gastroenterology Routine Consulting Provider: Lakesha Magana Reason for consultation: Acute anemia on Xarelto, OBS neg ?GI bleed 08/10/23 13:03 Consult to Pulmonology Routine Consulting Provider: [facility] Reason for consultation: Family request for SOB and dyspnea, long Covid DS: Diagnosis Discharge Diagnosis (1) Urinary retention with incomplete bladder emptying: Status: Inactive (2) Acute respiratory failure: Status: Resolved (3) COPD exacerbation: Status: Resolved (4) Acute on chronic anemia: Status: Resolved (5) Symptomatic anemia: Status: Resolved (6) CKD (chronic kidney disease) stage 3, GFR 30-59 ml/min: Status: Acute (7) Pleural effusion: Status: Resolved DS: Summary Hospital Course Hospital Course: Admission note HPI Pt is an 87-year-old male with a PMH significant for?anemia, chronic AFib on Xarelto, non insulin-dependent diabetes type 2, CKD unspecified, HTN, HLD, BPH, and long COVID/COPD pulmonology who presents to the ED with?generalized fatigue and worsening SOB and GU x1 week. Patient states he has been experiencing significant SOB on and off for the past 3 months, but significantly worse during the past week. Presents to the ED today since this morning he couldn't walk 10 ft without either collapsing or holding onto something due to SOB. Patient denies any hematemesis or bright red blood per rectum, but does note he had 2-3 days black stool earlier in the week. Patient around this time also took Pepto- Bismol for ?a couple of days? for an upset stomach now resolved. He believes his stool was darker-colored than normal before taking Pepto-Bismol, but was noted to be significantly darker after taking it. Stool has since returned to brown-colored. Pt has at least a 3-year hx of anemia per PCP; was started on iron supplementation at one point but stopped taking around a year ago d/t constipation. Patient also complains of increasing lower leg edema and 7 lb weight gain in the past week. He denies any history of CHF and states he is torsemide for lower leg edema. Reports normally any swelling in his legs will goal weight by, the time he wakes up but this past week he legs have remained edematous in the morning. Pt denies fever, chills, nausea, vomiting, abdominal pain. No diarrhea. In the ED pt was afebrile with pulse as high as 79 and are are as high as 20, slightly soft BP as low as 118/42, satting at 96% on 3L NC. Labs were significant for normocytic anemia of H&H 6.0/21.0 (baseline unknown), sodium 134, BUN 40, creatinine 2.48, BNP 297. No leukocytosis. VBG largely WNL. Stool negative for occult blood. Negative for influenza type a and B, RSV, COVID. CXR showed atelectatic change and/or scarring at the lung bases with blunted costophrenic angles, possibly chronic changes/minimal fluid. EKG demonstrated atrial fibrillation with nonspecific ST and T-wave abnormalities. Pt was treated with IVF and transfused 1 unit of PRBCs. Pt will be admitted to the hospital for treatment further evaluation of symptomatic anemia. Hospital course # Acute on chronic symptomatic anemia Stool negative for occult blood, Low iron stores, started on Iron IV then PO. Hb around 8 after total of 3 units transfusion. baseline unknown prior to admission. CT abdomen negative for any masses. GI did EGD showing Rings, Hiatus hernia and AVM. Also Colonoscopy: Diverticulosis, Hemorroids and polyps. no active bleeding Treated with IV Protonix then PO Omeprazol, High Fiber diet DC Xarelto, started on Lovenox and Warfarin with INR 1.4 at time of discharge and no evidence of bleeding. To be followed at home by [facility] for INR check w goal 2-3. # Hypoxic respiratory failure 2/2 acute diastolic CHF exacerbation Treated with IV Furosemide as V\Q scan negative. Changed then to Torsemide 40 mg daily with Incentive spirometry as echocardiogram showing low normal EF w moderate RV dysfunction. Had Home O2 eval but did not need it as he remained 96% on RA w exertion and 90% with rest. # Urine retention Bladder scan with 1L one time requiring straight cath then 1.4L with Dutton placed for retention. evaluated by urology. Increase Tamsulosin to 0.8 and start Finasteride. To follow with urology as outpatient in 2-4 weeks # Acute Kidney injury on CKDIII Unclear baseline but seems he has CKDIII. Creatinine 2.48 on presentation, improved to 1.8. could be cardio-renal, improved with treatment with Lasix. # Acute exacerbation of COPD/long COVID treated with Duonebs, Prednisone and Doxycycline as he was evaluated by pulmonology team. To be discharged on nebulizers, tapering dose prednisone and doxycycline with a plan to follow with Pulmonology as outpatient. Discontinue Xarelto Continue Warfarin 4 mg daily, Stop Lovenox once INR >1.8, goal of INR 2-3 (better to stay <2.5) Continue Finasteride and Tamsulosin as prescribed, to follow with Urology in 2-4 weeks as outpatient Continue Prednisone tapering dose along with Doxycycline Torsemide 40 mg daily Omeprazole daily repeat blood test as outpatient and follow with PCP Time Attestation Discharge coordination time: Greater than 30 minutes Quality: Safe Use of Opioids Does Pt have an Active Cancer Diagnosis on the Problem List?: No Quality: Stroke Does the patient have a stroke diagnosis?: No Physical Exam Vital Signs: Vital Signs: Last Vital Signs Temp 98.3 F 08/16/23 07:27 Pulse 66 08/16/23 07:41 Resp 16 08/16/23 07:41 BP 152/70 H 08/16/23 07:27 Pulse Ox 98 08/16/23 07:27 O2 Del Method Nasal Cannula 08/16/23 07:27 O2 Flow Rate 2.5 08/16/23 07:27 Oxygen Flow Rate 2.5 08/15/23 13:00 BMI result Body Mass Index 29.2 Const: Other: Constitutional : Awake, interactive, not in distress Neck : Normal inspection, Supple Cardiovascular : RRR, no JVP, trace lower extremity edema Respiratory : good bilateral air entry, no crackles, no wheezes or rhonchi Gastrointestinal: soft, lax, Normal bowel sounds, Non tender Skin : Warm, Dry Neurological : Alert & oriented to self and place, No focal deficit DS: Data Data Completed and Pending Completed studies during hospitalization [Text1]: Pending at discharge 08/12/23 13:35 Surgical [PTH] Routine Labs on day of discharge: Laboratory Results - last 24 hr 08/15/23 08/15/23 08/15/23 11:25 15:16 19:53 WBC RBC Hgb Hct MCV MCH MCHC RDW Plt Count MPV Absolute Nucleated RBC Nucleated RBC % (auto) PT INR POC Glucose 234 H 205 H 272 H 08/16/23 08/16/23 05:47 07:28 WBC 6.8 RBC 3.23 L Hgb 8.6 L Hct 29.0 L MCV 89.8 MCH 26.6 L MCHC 29.7 L RDW 18.3 H Plt Count 276 MPV 10.5 Absolute Nucleated RBC 0.000 Nucleated RBC % (auto) 0.0 PT 15.3 H INR 1.3 H POC Glucose [address] scan - abdomen: Radiologist's impression: ITS Impressions Chest X-Ray 08/09/23 13:25 IMPRESSION: Atelectatic change and/or scarring at the lung bases. Blunted costophrenic angles possibly chronic change/minimal pleural fluid. Pulmonary Perfusion Imaging 08/11/23 10:40 IMPRESSION: Normal radionuclide lung perfusion scan. Abdomen/Pelvis CT 08/11/23 16:20 IMPRESSION: No acute intra-abdominal process seen. Colonic diverticulosis without diverticulitis. Nonspecific free fluid in the right perihepatic and perisplenic space. Right renal cysts Fleischner guidelines were followed. Chest X-Ray 08/14/23 08:16 IMPRESSION: Low lung volumes. There is bibasilar atelectasis and/or scarring. Bronchial wall thickening may reflect inflammatory infectious process. No dense consolidation. Discharge Plan Discharge Anticipated Discharge Date/Time: 08/16/23 10:40 Patient Disposition: Home Health Service Discharge Diagnosis: COPD exacerbation Acute on chronic anemia URine retention GI bleed Referrals: [facility] [Outside] - 1 Week Flakita Rivera MD [Primary Care Provider] - 1 Week Discharge Medications: New doxycycline monohydrate 100 mg Capsule 100 mg PO Q12H Qty: 10 0RF enoxaparin 100 mg/mL Syringe 90 mg subcut Q12H 3 Days Qty: 5.4 0RF warfarin 2 mg tablet 4 mg PO DAILY Qty: 60 0RF prednisone 10 mg tablet See Taper PO DIRECTED Qty: 30 0RF Taper: Prednisone 40 mg daily for 3 Days and 0 Hour 30 mg daily for 3 Days and 0 Hour 20 mg daily for 3 Days and 0 Hour 10 mg daily for 3 Days and 0 Hour Rx Instructions: see taper instructions (DME) nebulizers Misc See Rx Instructions .Route Qty: 1 0RF Rx Instructions: As directed ipratropium-albuterol 0.5 mg-3 mg(2.5 mg base)/3 mL Solution For Nebulization 3 ml inhalation TID Qty: 180 1RF ferrous sulfate 325 mg (65 mg iron) tablet 325 mg PO DAILY Qty: 30 0RF finasteride 5 mg tablet 5 mg PO DAILY Qty: 90 0RF tamsulosin 0.4 mg capsule 0.8 mg PO DAILY Qty: 180 0RF torsemide 20 mg tablet 40 mg PO QAM Qty: 180 0RF omeprazole 40 mg capsule,delayed release(DR/EC) 40 mg PO DAILY Qty: 90 0RF Continued losartan 50 mg tablet 50 mg PO DAILY metoprolol succinate 100 mg tablet extended release 24 hr 100 mg PO DAILY metformin 850 mg tablet 850 mg PO DAILY montelukast 10 mg tablet 10 mg PO DAILY fluticasone propion-salmeterol 100-50 mcg/dose blister with device 1 ea inhalation DAILY albuterol sulfate 90 mcg/actuation HFA aerosol inhaler 2 puff INHALATION QID PRN (Reason: wheezing) ketoconazole 2 % cream 1 appl topical BID PRN (Reason: Rash) clotrimazole 1 % cream 1 appl topical BID PRN (Reason: Rash) rosuvastatin 5 mg tablet 5 mg PO DAILY Incruse Ellipta 62.5 mcg/actuation blister with device 1 inh inhalation DAILY Jardiance 10 mg tablet 10 mg PO QAM multivitamin Tablet 1 tab PO DAILY Discontinued torsemide 20 mg tablet 20 mg PO DAILY tamsulosin 0.4 mg capsule 0.4 mg PO BEDTIME Xarelto 15 mg tablet 15 mg PO DAILY Discharge Orders: Discharge Order (Routine); Ordered 08/16/23 Ordered By: Jana Moore Diet: Low salt diet Activity on Discharge: As tolerated Stand Alone Forms: Patient Portal Discharge page Care Plan Goals: Read below Health Concerns: Read below Plan of Treatment: Read below Assessment: You were evaluated for GI bleed by wireless cellular technician who did Endoscopies showing gastritis, diverticulitis, polyps but no active bleeding. blood level stabilized after transfusion. Treated for fluid overload and pulmonary hypertensions with IV diuretics. Torsemide increased to 40 mg daily. Seen by macroeconomics professor who recommended Prednisone and Doxycycline. Evaluated for home O2 but you were able to maintain O2 level above 90s on room air. Developed Urine retention treated with dutton catheter placement and increasing Tamsulosin and starting Finasteride. Restarted on blood thinners, warfarin with Lovenox. Discontinue Xarelto Continue Warfarin 4 mg daily, Stop Lovenox once INR >1.8, goal of INR 2-3 (better to stay <2.5) Continue Finasteride and Tamsulosin as prescribed, to follow with Urology in 2-4 weeks as outpatient Continue Prednisone tapering dose along with Doxycycline Torsemide 40 mg daily Omeprazole daily repeat blood test as outpatient and follow with PCP Discharge Date/Time: 08/16/23 13:45
[2023-08-16 11:33] LABS: Glucose, Whole Blood 221 mg/dL (60-115)
[2023-08-16] MEDS: Insulin Lispro 100 UNIT/ML 3 ML VIAL SUBCUT (13:10)
--- NOTE | 2023-08-18 09:09 | MHC.CM.PN ---
Per Daughter's request, CM has faxed the dc summary to [facility] @ [phone].
== END 2023-08-16 13:45 | disposition home health service (06) | DRG 377 ==
LOC: HO.ED 14:00 → HO.EDOVER 16:22 → HO.IMC 08-10 01:28
PROVIDERS: Anesthesiology; Internal Medicine; Internal Medicine Gastroenterology; Physician Assistant Medical; Admitting Provider Student in an Organized Health Care Education/Training Program; Emergency Provider Emergency Medicine; PCP Internal Medicine; Visit Provider Student in an Organized Health Care Education/Training Program
PROC: 0DB98ZX Excision of Duodenum, Via Natural or Artificial Opening Endoscopic, Diagnostic (ICD-10-PCS; principal; 2023-08-12 12:30)
DX: K31.811 Angiodysplasia of stomach and duodenum with bleeding (principal); I50.31 Acute diastolic (congestive) heart failure; J96.01 Acute respiratory failure with hypoxia; I13.0 Hypertensive heart and chronic kidney disease with heart failure and stage 1 through stage 4 chronic kidney disease, or unspecified chronic kidney disease; I48.20 Chronic atrial fibrillation, unspecified; J44.1 Chronic obstructive pulmonary disease with (acute) exacerbation; K22.2 Esophageal obstruction; K44.9 Diaphragmatic hernia without obstruction or gangrene; K63.5 Polyp of colon; K57.31 Diverticulosis of large intestine without perforation or abscess with bleeding; K64.0 First degree hemorrhoids; D50.9 Iron deficiency anemia, unspecified; D63.1 Anemia in chronic kidney disease; I27.29 Other secondary pulmonary hypertension; E78.5 Hyperlipidemia, unspecified; N40.1 Benign prostatic hyperplasia with lower urinary tract symptoms; U09.9 Post COVID-19 condition, unspecified; R33.8 Other retention of urine; N18.2 Chronic kidney disease, stage 2 (mild); Z91.148 Patient's other noncompliance with medication regimen for other reason; Z20.822 Contact with and (suspected) exposure to COVID-19; Z87.891 Personal history of nicotine dependence; Z79.01 Long term (current) use of anticoagulants; Z79.51 Long term (current) use of inhaled steroids; Z79.84 Long term (current) use of oral hypoglycemic drugs; Z79.899 Other long term (current) drug therapy
CPT/HCPCS: 0241U; 36415; 71045; 74176; 78580; 80048; 80053; 82248; 82272; 82803; 82947; 83540; 83615; 83735; 83880; 84153; 84484; 85025; 85027; 85610; 85730; 86850; 86900; 86901; 86923; 88305; 88342; 93005; 93306; 94640; 97116; 97162; 99285; A9540; C1758; C9113; J1650; J1756; J1940; J2704; J2930; P9016; Q9957

== ENCOUNTER 2023-08-09 15:42 | Outpatient (BNV) | payer MEDICARE, SELFPAY | END 2023-08-10 07:00 | PROVIDERS: Admitting Provider Student in an Organized Health Care Education/Training Program; Emergency Provider Emergency Medicine; PCP Internal Medicine; Visit Provider Internal Medicine Cardiovascular Disease | DX: I34.81 Nonrheumatic mitral (valve) annulus calcification (principal); I36.1 Nonrheumatic tricuspid (valve) insufficiency | CPT/HCPCS: 93306 ==

== ENCOUNTER → 2023-08-09 15:42 | Outpatient (BNV) | payer MEDICARE, SELFPAY | PROVIDERS: Admitting Provider Student in an Organized Health Care Education/Training Program; Emergency Provider Emergency Medicine; PCP Internal Medicine; Visit Provider Student in an Organized Health Care Education/Training Program | DX: J96.01 Acute respiratory failure with hypoxia (principal); J44.1 Chronic obstructive pulmonary disease with (acute) exacerbation; R33.9 Retention of urine, unspecified; D64.9 Anemia, unspecified; N18.30 Chronic kidney disease, stage 3 unspecified; J90 Pleural effusion, not elsewhere classified | CPT/HCPCS: 99223; 99232; 99233; 99239; G0180 ==

== ENCOUNTER → 2023-08-09 15:42 | Outpatient (BNV) | payer MEDICARE, SELFPAY | PROVIDERS: Admitting Provider Student in an Organized Health Care Education/Training Program; Emergency Provider Emergency Medicine; PCP Internal Medicine; Visit Provider Urology | DX: R33.9 Retention of urine, unspecified (principal) | CPT/HCPCS: 99222 ==

== ENCOUNTER → 2023-08-09 15:42 | Outpatient (BNV) | payer MEDICARE, SELFPAY | PROVIDERS: Admitting Provider Student in an Organized Health Care Education/Training Program; Emergency Provider Emergency Medicine; PCP Internal Medicine; Visit Provider Internal Medicine Gastroenterology | DX: D64.9 Anemia, unspecified (principal); K22.2 Esophageal obstruction; Q27.33 Arteriovenous malformation of digestive system vessel; K63.5 Polyp of colon; K57.30 Diverticulosis of large intestine without perforation or abscess without bleeding; K64.8 Other hemorrhoids | CPT/HCPCS: 43239; 43270; 45385; 99223 ==

== ENCOUNTER → 2023-08-09 15:42 | Outpatient (BNV) | payer MEDICARE, SELFPAY | PROVIDERS: Admitting Provider Student in an Organized Health Care Education/Training Program; Emergency Provider Emergency Medicine; PCP Internal Medicine; Visit Provider Hospitalist | DX: I27.20 Pulmonary hypertension, unspecified (principal); J44.1 Chronic obstructive pulmonary disease with (acute) exacerbation; J90 Pleural effusion, not elsewhere classified; D64.9 Anemia, unspecified | CPT/HCPCS: 99223; 99233 ==

== ENCOUNTER 2023-08-24 14:45 | Outpatient (REF) | payer MEDICARE, SELFPAY ==
[2023-08-24 16:57] LABS: Basophils Percent Auto 0.1 % (0-2); Eosinophils Percent Auto 0.2 % (0-4); Hematocrit 26.4 % (42.0-52.0); Hemoglobin 7.9 g/dl (14.0-18.0); Imm Gran Abs Auto 0.15 X10*3/uL (0.00-0.03); Imm Gran Pct Auto 1.1 % (0.0-0.4); Lymphocytes Absolute Auto 0.2 X10*3/uL (1.2-4.9); Lymphocytes Percent Auto 1.7 % (20-40); MANUAL DIFF FLAG SCAN; Mean Corpuscular HGB Conc 29.9 g/dl (31.0-36.0); Mean Corpuscular Hemoglobin 27.8 pg (27.0-33.0); Mean Platelet Volume 11.2 fL (9.4-12.4); Monocytes Absolute Auto 0.3 X10*3/uL (0.1-1.2); Monocytes Percent Auto 2.4 % (2-11); Neutrophils Absolute Auto 13.2 x10*3/uL (2.0-8.3); Neutrophils Percent Auto 94.5 % (45-73); Platelet Count 196 X10*3/uL (160-400); Red Blood Count 2.84 X10*6/uL (4.60-5.80); Red Cell Distribution Width 18.6 % (11.0-16.0); SCAN SMEAR FLAG 1; White Blood Count 13.9 X10*3/uL (4.8-10.8)
[2023-08-24 17:14] LABS: SLIDE REVIEW VERIFIED
[2023-08-25 01:07] LABS: Anion Gap 14 (12-20); Blood Urea Nitrogen 33 mg/dL (9-16); Calcium 8.6 mg/dL (8.4-10.2); Carbon Dioxide 27 mmol/L (22-29); Chloride 102 mmol/L (96-108); Estimated Glomerular Filt Rate 40; Glucose Random 316 mg/dL (60-115); Potassium 4.1 mmol/L (3.3-5.1); Sodium 139 mmol/L (135-145)
== END 2023-08-24 14:46 | disposition home or self-care (01) ==
LOC: HO.HVNA 14:45
PROVIDERS: Student in an Organized Health Care Education/Training Program; Visit Provider Internal Medicine
DX: D64.9 Anemia, unspecified (principal); N18.30 Chronic kidney disease, stage 3 unspecified; D62 Acute posthemorrhagic anemia; S20.219A Contusion of unspecified front wall of thorax, initial encounter
CPT/HCPCS: 36415; 80048; 85025

== ENCOUNTER 2023-09-19 13:25 | Outpatient (AMB) | payer MEDICARE, SELFPAY ==
--- NOTE | 2023-09-19 13:36 | A.OFFVIS_ITS ---
Intake Vital Signs 09/19/23 13:37 Height 5 ft 10 in Weight 178 lb 9.191 oz BMI 25.6 BP 118/60 Blood Pressure Location Rt brachial Position Sitting Pulse 73 Pulse Source Pulse Oximeter Pulse Oximetry (%) 95 Oxygen Delivery Method Room Air Intake Visit Reasons: cough Baggage Security Checker Required: No Allergies No Known Allergies Allergy (Verified 09/19/23 13:39) HPI HPI Comments History of Present Illness Details The patient is an 88-year-old male with a PMH significant for?anemia, chronic AFib on Xarelto, non insulin-dependent diabetes type 2, CKD unspecified, HTN, HLD, BPH, and long COVID/COPD pulmonology who presents to the ED with?generalized fatigue and worsening SOB and GU x1 week. Patient states he has been experiencing significant SOB on and off for the past 3 months, but significantly worse during the past week. Presents to the ED today since this morning he couldn't walk 10 ft without either collapsing or holding onto something due to SOB. The patient did have an echocardiogram demonstrating severe pulmonary hypertension with moderate right-sided systolic dysfunction. In addition to that had x-ray that I personally reviewed demonstrating some interstitial changes at the bases. Her examination he does have some expiratory wheezing rhonchi in addition to post exhalation coughing as well as trying rales during inhalation. The patient has been on his Xarelto for the atrial fibrillation therefore low risk for thromboembolic disease although still in differential specially with severe pulmonary hypertension additional imaging studies will be warranted specially with the bleeding. If he does get a lot them a CT scan at least will catch the lower lung bases to address the interstitial lung process based on his fine crackles. 09/19/2023 the patient is here for a pulmonary follow-up visit. The patient overall has been doing a lot better. He has been using generic Advair in addition to Incruse. He also has gotten a lot of benefit from using the nebulizer twice a day. He does have history atrial fibrillation but does not seem to be affecting his heart rate which is reassuring. Unfortunately, he has significant urinary retention. He required a catheter placement and recently was removed. He is urinating but very frequent and just a little bit. the patient is on significant amount of anticholinergic medication for his respiratory medications and is likely contributing to his urinary retention. Therefore will stop the short-acting muscarinic antagonist and also the long- acting muscarinic antagonist. I hope that with these changes is urinary reten tion improves. Will go ahead and request pulmonary function studies and follow- up in 4 months. [facility] Medical History (Updated 09/19/23 @ 20:12 by Melquiades Beasley MD) Urinary retention with incomplete bladder emptying Pulmonary hypertension Anemia Chronic atrial fibrillation 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 Chest crackles Non-insulin dependent type 2 diabetes mellitus HTN (hypertension) HLD (hyperlipidemia) Persistent atrial fibrillation BPH (benign prostatic hyperplasia) Long COVID COPD (chronic obstructive pulmonary disease) Lower leg edema Chronic kidney disease, unspecified Surgical History (Updated 08/12/23 @ 12:55 by Rabia Herrera) H/O colonoscopy History of cataract surgery History of endoscopy History of colon surgery History of cholecystectomy H/O heart artery stent Hip joint replacement status Social History Household Members: Spouse Housing: Other Housing Other:: mobile home Do you presently have visiting nurse or other home services: No Patient Tobacco Use Status: Former Tobacco user Tobacco use type: Cigarette service: Yes Review of Systems Const Denies fever(s) and Denies weight loss Eyes Denies change in vision ENT Reports nasal congestion Card Denies chest pain and Reports dyspnea on exertion Resp Reports cough, Reports dyspnea on exertion and Denies wheezing GI Reports no additional complaints Reports oliguria, Reports difficulty urinating and Reports urinary frequency Musc Reports no additional complaints Skin/Breast Denies rash Neuro Reports no additional complaints Psych Reports no additional complaints Siva/Lymph Denies easy bruising Aller/Immun Denies wheezing Physical Exam Vital Signs: Last Vital Signs Pulse 73 09/19/23 13:37 BP 118/60 09/19/23 13:37 Pulse Ox 95 09/19/23 13:37 Oxygen Delivery Method Room Air 09/19/23 13:37 BMI result Body Mass Index 25.6 Const General: comfortable HEENT Head: Yes normocephalic Neck Neck: Yes supple Chest Chest palpation & inspection: normal inspection of the chest Resp Effort & Inspection: normal respiratory effort and prolonged expiratory phase Auscultation: no wheezes and diminished lung sounds Cardio Heart sounds: S1 normal heart sound present and S2 normal heart sound present GI Palpation (GI): Soft to palpation Skin General skin exam: no rashes or lesions noted Extrem General: Yes no clubbing, cyanosis or edema Assessment & Plan Assessment & Plan (1) COPD (chronic obstructive pulmonary disease): Code(s): J44.9 - Chronic obstructive pulmonary disease, unspecified Qualifiers: COPD type: chronic bronchitis Chronic bronchitis type: simple Qualified Code(s): J41.0 - Simple chronic bronchitis (2) Urinary retention with incomplete bladder emptying: Code(s): R33.9 - Retention of urine, unspecified (3) Pulmonary hypertension: Comment: with RV dysfuction Code(s): I27.20 - Pulmonary hypertension, unspecified Plan stop LAMA/MILES continue generic advair start albuterol nebs BID PFTs F/U 3-4 months Orders: Orders PFT pulmonary function test 3 Months J41.0 - Simple chronic bronchitis Medications: New albuterol sulfate 2.5 mg (3 mL) inhalation BID 180 mL 11RF 30 days J44.9 - Chronic obstructive pulmonary disease, unspecified Discontinued ipratropium-albuterol 0.5 mg-3 mg(2.5 mg base)/3 mL Discontinued Reason: Doctor's Order 3 mL inhalation TID 180 mL 1RF Coding Level of Care Code Est Pt Level 4 (12660) Diagnoses Simple chronic bronchitis J41.0 COPD type: chronic bronchitis Chronic bronchitis type: simple Urinary retention with incomplete bladder emptying R33.9 Pulmonary hypertension I27.20 Time Spent (min) 20
[2023-09-19 13:37] VITALS: BP 118/60; PULSE 73; O2SAT 95; BMI 25.6
== END 2023-09-19 14:12 | disposition home or self-care (01) ==
PROVIDERS: PCP Internal Medicine; Referring Provider Internal Medicine; Visit Provider Hospitalist
DX: J41.0 Simple chronic bronchitis (principal); R33.9 Retention of urine, unspecified; I27.20 Pulmonary hypertension, unspecified
CPT/HCPCS: 99214

== ENCOUNTER → 2023-09-19 13:25 | Outpatient (BNVA) | payer MEDICARE, SELFPAY | PROVIDERS: PCP Internal Medicine; Visit Provider Hospitalist | DX: J41.0 Simple chronic bronchitis (principal); I27.20 Pulmonary hypertension, unspecified; R33.9 Retention of urine, unspecified | CPT/HCPCS: 99212 ==

== ENCOUNTER 2024-01-13 12:51 | Outpatient (REF) | payer MEDICARE, SELFPAY ==
--- NOTE | 2024-01-13 14:46 | PFT_ITS ---
Flows: FEV1: 83 % of predicted at 2.12 L FVC: 78 % of predicted at 2.74 L FEV1/FVC: 78 % Bronchodilator response: Absent Volumes: Total lung capacity: 82 % of predicted at 5.61 L Residual volume: 103 % of predicted at 2.79 L Slow vital capacity: 73 % of predicted at 2.82 L Expiratory reserve volume: 22 % of predicted at 0.26 L Diffusion capacity: Moderately decreased, adjusts to being mildly decreased after correction for alveolar ventilation. Impression: No obstructive or restrictive ventilatory defect. No bronchodilator response. Decreased expiratory reserve volume suggests extrathoracic restriction likely secondary to abdominal obesity. Decreased diffusion capacity suggests emphysema. MTDD
[2024-01-13 15:52] VITALS: PULSE 68; RESP 16; O2SAT 100
== END 2024-01-13 12:52 | disposition home or self-care (01) ==
LOC: HO.RESP 12:51
PROVIDERS: PCP Internal Medicine; Visit Provider Hospitalist
DX: J41.0 Simple chronic bronchitis (principal)
CPT/HCPCS: 94010; 94640; 94727; 94729

== ENCOUNTER → 2024-01-13 14:46 | Outpatient (BNV) | payer MEDICARE, SELFPAY | PROVIDERS: PCP Internal Medicine; Visit Provider Internal Medicine Pulmonary Disease | DX: J41.0 Simple chronic bronchitis (principal) | CPT/HCPCS: 94060; 94727; 94729 ==

== ENCOUNTER 2024-01-17 13:03 | Outpatient (REF) | payer MEDICARE, SELFPAY ==
--- NOTE | ~2024-01-17 | XR_ITS ---
EXAMINATION: XR CHEST CLINICAL INFORMATION: Dyspnea, unspecified COMPARISON: Portable chest 12/13/2022, 08/09/2023 TECHNIQUE: 2 views of the chest were obtained. FINDINGS: There is mild prominence of the interstitial markings and peribronchial thickening without focal consolidation, interstitial pulmonary edema or pneumothorax. There is mild elevation of the right hemidiaphragm. No pleural effusions. Heart size is upper limits of normal. Calcification of the thoracic aorta is indicative of atherosclerotic disease. There are flowing anterior marginal osteophytes versus syndesmophytes of the thoracic spine. XR/XR chest 2V IMPRESSION: Mild prominence of the interstitial markings and peribronchial thickening without focal consolidation.
[2024-01-17 13:52] LABS: MANUAL DIFF FLAG NO
[2024-01-17 15:45] LABS: Basophils Absolute Auto 0.1 X10*3/uL (0.0-0.2); Basophils Percent Auto 0.8 % (0-2); Eosinophils Absolute Auto 0.4 X10*3/uL (0.0-0.4); Eosinophils Percent Auto 4.9 % (0-4); Hemoglobin 9.6 g/dl (14.0-18.0); Imm Gran Abs Auto 0.02 X10*3/uL (0.00-0.03); Imm Gran Pct Auto 0.3 % (0.0-0.4); Lymphocytes Absolute Auto 0.8 X10*3/uL (1.2-4.9); Mean Corpuscular Hemoglobin 31.7 pg (27.0-33.0); Mean Platelet Volume 10.6 fL (9.4-12.4); Monocytes Absolute Auto 0.7 X10*3/uL (0.1-1.2); Monocytes Percent Auto 8.3 % (2-11); Neutrophils Percent Auto 75.7 % (45-73); Platelet Count 220 X10*3/uL (160-400); Red Blood Count 3.03 X10*6/uL (4.60-5.80); Red Cell Distribution Width 14.6 % (11.0-16.0); White Blood Count 7.9 X10*3/uL (4.8-10.8)
[2024-01-17 16:38] LABS: Troponin-I High Sensitivity 10.9 ng/L (<3.5-35.0)
[2024-01-17 16:58] LABS: Anion Gap 15 (12-20); Blood Urea Nitrogen 37 mg/dL (9-16); Calcium 9.4 mg/dL (8.4-10.2); Carbon Dioxide 20 mmol/L (22-29); Chloride 108 mmol/L (96-108); Estimated Glomerular Filt Rate 27; Glucose Random 97 mg/dL (60-115); Iron 54 mcg/dL (45-160); Percent Iron Saturation 22 % (15-50); Potassium 4.3 mmol/L (3.3-5.1); Sodium 139 mmol/L (135-145); Total Iron Binding Capacity 250 mcg/dL (228-428); Unsaturated Iron Binding 196 ug/dL
[2024-01-17 17:14] LABS: Ferritin 92 ng/mL (20-250)
== END 2024-01-17 13:04 | disposition home or self-care (01) ==
LOC: HO.XRAY 13:03
PROVIDERS: PCP Internal Medicine; Visit Provider Hospitalist
DX: J44.9 Chronic obstructive pulmonary disease, unspecified (principal); I27.20 Pulmonary hypertension, unspecified; R33.9 Retention of urine, unspecified; R06.09 Other forms of dyspnea
CPT/HCPCS: 36415; 71046; 80048; 82728; 83540; 84484; 85025; 99212

== ENCOUNTER 2024-01-17 13:03 | Outpatient (AMB) | payer MEDICARE, SELFPAY ==
--- NOTE | 2024-01-17 13:07 | MHC.OFFVIS ---
Vital Signs 01/17/24 13:08 Height 5 ft 10 in Weight 192 lb 14.472 oz BMI 27.7 BP 109/62 Blood Pressure Location Rt brachial Position Sitting Pulse 63 Pulse Source Doppler Pulse Oximetry (%) 93 Oxygen Delivery Method Room Air Intake Visit Reasons: cough Allergies No Known Allergies Allergy (Verified 01/17/24 13:13) HPI Comments Details: The patient is an 88-year-old male with a PMH significant for?anemia, chronic AFib on Xarelto, non insulin-dependent diabetes type 2, CKD unspecified, HTN, HLD, BPH, and long COVID/COPD pulmonology who presents to the ED with?generalized fatigue and worsening SOB and GU x1 week. Patient states he has been experiencing significant SOB on and off for the past 3 months, but significantly worse during the past week. Presents to the ED today since this morning he couldn't walk 10 ft without either collapsing or holding onto something due to SOB. The patient did have an echocardiogram demonstrating severe pulmonary hypertension with moderate right-sided systolic dysfunction. In addition to that had x-ray that I personally reviewed demonstrating some interstitial changes at the bases. Her examination he does have some expiratory wheezing rhonchi in addition to post exhalation coughing as well as trying rales during inhalation. The patient has been on his Xarelto for the atrial fibrillation therefore low risk for thromboembolic disease although still in differential specially with severe pulmonary hypertension additional imaging studies will be warranted specially with the bleeding. If he does get a lot them a CT scan at least will catch the lower lung bases to address the interstitial lung process based on his fine crackles. 09/19/2023 the patient is here for a pulmonary follow-up visit. The patient overall has been doing a lot better. He has been using generic Advair in addition to Incruse. He also has gotten a lot of benefit from using the nebulizer twice a day. He does have history atrial fibrillation but does not seem to be affecting his heart rate which is reassuring. Unfortunately, he has significant urinary retention. He required a catheter placement and recently was removed. He is urinating but very frequent and just a little bit. the patient is on significant amount of anticholinergic medication for his respiratory medications and is likely contributing to his urinary retention. Therefore will stop the short-acting muscarinic antagonist and also the long-acting muscarinic antagonist. I hope that with these changes is urinary retention improves. Will go ahead and request pulmonary function studies and follow-up in 4 months. 01/17/2024 the patient is here for a pulmonary follow-up visit. He continues to have dyspnea primarily on exertion. Moderate severity. He feels like he did when he was diagnosed with anemia. At that time he did have a large hematoma in the breast area. That has not subsided. He also noticed that his heart rate has decreased down to the 40s. 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 He will continue to monitor those closely. He does take metoprolol. In the meantime the patient has been getting a prescription of Advair that appears to be more effective than the Incruse for him. The Incruse is also costly. The Advair he has been able to get a better pal. Therefore continue the Advair this time. Has enough medication till June will follow-up in July to figure out what is the best option at that point. In the meantime in view of his significant anemia that he had previously with iron deficiency will go ahead and request blood work right now. The patient will have a chest x-ray in addition to the blood work and then I will let him know the results. The patient will follow-up in July. If he has any worsening symptoms or concerns he can always call for an earlier assessment. 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 Chest crackles Non-insulin dependent type 2 diabetes mellitus HTN (hypertension) HLD (hyperlipidemia) Persistent atrial fibrillation BPH (benign prostatic hyperplasia) Long COVID COPD (chronic obstructive pulmonary disease) Lower leg edema Chronic kidney disease, unspecified Surgical History (Updated 08/12/23 @ 12:55 by Rabia Herrera) H/O colonoscopy History of cataract surgery History of endoscopy History of colon surgery History of cholecystectomy H/O heart artery stent Hip joint replacement status Social History Household Members: Spouse Housing: Other Housing Other:: mobile home Do you presently have visiting nurse or other home services: No Patient Tobacco Use Status: Former Tobacco user Tobacco use type: Cigarette service: Yes Review of Systems Const Denies fever(s) and Denies weight loss Eyes Denies change in vision ENT Reports nasal congestion Card Denies chest pain and Reports dyspnea on exertion Resp Reports cough, Reports dyspnea on exertion and Denies wheezing GI Reports no additional complaints Reports oliguria, Reports difficulty urinating and Reports urinary frequency Musc Reports no additional complaints Skin/Breast Denies rash Neuro Reports no additional complaints Psych Reports no additional complaints Siva/Lymph Denies easy bruising Aller/Immun Denies wheezing Physical Exam Const General: comfortable HEENT Head: Yes normocephalic Neck Neck: Yes supple Chest Chest palpation & inspection: normal inspection of the chest Resp Effort & Inspection: normal respiratory effort and No prolonged expiratory phase Auscultation: clear to auscultation bilaterally and no wheezes Cardio Heart sounds: S1 normal heart sound present and S2 normal heart sound present GI Palpation (GI): Soft to palpation Skin General skin exam: no rashes or lesions noted Extrem General: Yes no clubbing, cyanosis or edema Assessment & Plan Assessment & Plan (1) COPD (chronic obstructive pulmonary disease): Code(s): J44.9 - Chronic obstructive pulmonary disease, unspecified Category: Medical Qualifiers: COPD type: chronic bronchitis Chronic bronchitis type: simple Qualified Code(s): J41.0 - Simple chronic bronchitis (2) Urinary retention with incomplete bladder emptying: Code(s): R33.9 - Retention of urine, unspecified Category: Medical (3) Pulmonary hypertension: Comment: with RV dysfuction Code(s): I27.20 - Pulmonary hypertension, unspecified Category: Medical (4) Dyspnea: Code(s): R06.00 - Dyspnea, unspecified Category: Medical Qualifiers: Dyspnea type: dyspnea on exertion Qualified Code(s): R06.09 - Other forms of dyspnea Plan continue generic advair (jacklyn) albuterol nebs BID Bloodwork CXR F/U Jul 2024 Orders: Orders Ferritin Today R06.00 - Dyspnea, unspecified Complete Blood Count Auto Diff Today R06.00 - Dyspnea, unspecified PT, INR - Anti Coag Today R06.00 - Dyspnea, unspecified XR chest 2V Today R06.00 - Dyspnea, unspecified IRON PROFILE Today R06.00 - Dyspnea, unspecified Basic Metabolic Panel Today R06.00 - Dyspnea, unspecified Troponin-I High Sensitivity Today R06.00 - Dyspnea, unspecified Coding Level of Care Code Est Pt Level 4 (85055) Diagnoses Simple chronic bronchitis J41.0 COPD type: chronic bronchitis Chronic bronchitis type: simple Urinary retention with incomplete bladder emptying R33.9 Pulmonary hypertension I27.20 Dyspnea on exertion R06.09 Dyspnea type: dyspnea on exertion Time Spent (min) 17
[2024-01-17 13:08] VITALS: BP 109/62; PULSE 63; O2SAT 93; BMI 27.7
== END 2024-01-17 13:55 | disposition home or self-care (01) ==
PROVIDERS: PCP Internal Medicine; Visit Provider Hospitalist
DX: J41.0 Simple chronic bronchitis (principal); R33.9 Retention of urine, unspecified; I27.20 Pulmonary hypertension, unspecified; R06.09 Other forms of dyspnea
CPT/HCPCS: 99214

== ENCOUNTER 2024-01-25 10:52 | Outpatient (AMB) | payer MEDICARE, SELFPAY ==
--- NOTE | 2024-01-25 10:57 | MHC.OFFVIS ---
Vital Signs 01/25/24 11:05 Height 5 ft 10 in Weight 192 lb BMI 27.5 Intake Visit Reasons: New Pt - Right CTS - EMG done Intake Note: Tha an 88 year old male who presents today as a new patient for an evaluation of right hand. EMG done. Patient reports numbness and tingling in his thumb, 2nd and 3rd digit for about 6 months. States his symptoms wake him up at night and he has no strength in his hand. He has tried a wrist sleeve with no relief. Allergies acetaminophen [From NyQuil] Allergy (Verified 01/25/24 10:59) SOB dextromethorphan [From NyQuil] Allergy (Verified 01/25/24 10:59) SOB doxylamine [From NyQuil] Allergy (Verified 01/25/24 10:59) SOB pseudoephedrine [From NyQuil] Allergy (Verified 01/25/24 10:59) SOB Medication List - Last Reconciled 01/25/24 by Ebenezer Valverde PA-C albuterol sulfate 90 mcg/actuation 2 puffs inhalation QID PRN albuterol sulfate 2.5 mg (3 mL) inhalation BID 30 days clotrimazole 1% 1 appl topical BID PRN empagliflozin (Jardiance) 10 mg PO QAM ferrous sulfate 325 mg PO DAILY fluticasone propion-salmeterol 100-50 mcg/dose 1 ea inhalation DAILY fluticasone propionate 50 mcg/actuation 1 spray intranasal DAILY ketoconazole 2% 1 appl topical BID PRN losartan 50 mg PO DAILY metformin 850 mg PO DAILY metoprolol succinate ER 100 mg PO DAILY montelukast 10 mg PO DAILY multivitamin 1 tab PO DAILY nebulizers As directed nitroglycerin 0.4 mg sublingual Q5M PRN omeprazole 40 mg PO DAILY rosuvastatin 5 mg PO DAILY tamsulosin 0.8 mg (2 x 0.4 mg) PO DAILY torsemide 40 mg (2 x 20 mg) PO QAM umeclidinium 62.5 mcg/actuation (Incruse Ellipta) 1 inh inhalation DAILY HPI HPI New Pt - Right CTS - EMG done: Details: 88-year-old male who presents to the office today for evaluation of right hand. He states he has constant numbness and tingling in his thumb, 2nd and 3rd digit for about 6 months. His symptoms wake him up at night and he has no strength in his hand. He also reports occasional locking in his hand. He finds no relief with wrist sleeve. 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 Chest crackles Non-insulin dependent type 2 diabetes mellitus HTN (hypertension) HLD (hyperlipidemia) Persistent atrial fibrillation BPH (benign prostatic hyperplasia) Long COVID COPD (chronic obstructive pulmonary disease) Lower leg edema Chronic kidney disease, unspecified Surgical History H/O colonoscopy History of cataract surgery History of endoscopy History of colon surgery History of cholecystectomy H/O heart artery stent Hip joint replacement status Social History Household Members: Spouse Housing: Other Housing Other:: mobile home Do you presently have visiting nurse or other home services: No Patient Tobacco Use Status: Former Tobacco user Tobacco use type: Cigarette service: Yes Current occupation: right hand dominant Review of Systems Const All systems reviewed & are unremarkable except as noted in HPI and below Physical Exam Vital Signs: BMI result Body Mass Index 27.5 Const General: cooperative, healthy appearing, comfortable, no acute distress, well developed and alert Orientation/consciousness: patient oriented x3 HEENT Head: Yes normal to inspection, Yes normocephalic and Yes atraumatic Eyes General: appearance normal, both eyes and all related structures Resp Effort & Inspection: normal respiratory effort and able to speak in complete sentences Cardio Rate: regular rate Peripheral pulses: Peripheral pulses 2+ throughout GI Palpation (GI): Soft to palpation Skin Lesions: no lesions Rashes: no rashes Neuro General: patient oriented x3 Extrem Other: Right wrist: Normal to inspection.? Tenderness over the carpal canal.? Numbness and tingling over the median nerve distribution of the right hand.? Able to make a full fist and fully extend all fingers.? Positive Tinel's. Results Reviewed Results Reviewed: IMPRESSION: 1. 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 2. Mild right ulnar neuropathy across cubital tunnel. 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 Since the patient has been symptomatic for several months and it is impacting their daily life, he would like to undergo right carpal tunnel release; however, he is having a procedure in next week which he is going to procced with and once recovered, he will contact the office to proceed with CTR. I did discuss the procedure in detail. We discussed risk, benefits and alternatives. Risk including but not limited to infection, weakness, stiffness, ongoing numbness or tingling. The patient does understand all this and would like to proceed with right carpal tunnel release with Dr. Christie once cleared from his cardiac procedure. He will contact our office to proceed. Patient Instructions: Scribed for Ebenezer Valverde PA-C, by Gamal Bravo electromedical equipment repairer, on 01/25/2024 at 11:00 AM EST.? I, Ebenezer Valverde PA-C, have personally reviewed and agree with the information entered by the scribe. 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
[2024-01-25 11:05] VITALS: BMI 27.5
== END 2024-01-25 15:46 | disposition home or self-care (01) ==
PROVIDERS: PCP Internal Medicine; Visit Provider Physician Assistant
DX: G56.01 Carpal tunnel syndrome, right upper limb (principal); G56.21 Lesion of ulnar nerve, right upper limb
CPT/HCPCS: 99204; 99214

== ENCOUNTER → 2024-01-25 10:52 | Outpatient (BNVA) | payer MEDICARE, SELFPAY | PROVIDERS: PCP Internal Medicine; Visit Provider Physician Assistant | DX: G56.01 Carpal tunnel syndrome, right upper limb (principal); G56.21 Lesion of ulnar nerve, right upper limb | CPT/HCPCS: 99202 ==

== ENCOUNTER → 2024-03-29 15:25 | Outpatient (BNV) | payer MEDICARE, SELFPAY | PROVIDERS: PCP Internal Medicine; Referring Provider Internal Medicine; Visit Provider Internal Medicine Medical Oncology | DX: D64.9 Anemia, unspecified (principal) | CPT/HCPCS: 99204; 99213 ==

== ENCOUNTER 2024-07-23 13:27 | Outpatient (AMB) | payer MEDICARE, SELFPAY ==
--- NOTE | 2024-07-23 13:46 | MHC.OFFVIS ---
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 Required: No Teaching Artist: Teaching Artist offered & declined Accompanied by: Spouse Allergies acetaminophen [From NyQuil] Allergy (Verified 07/23/24 13:47) SOB dextromethorphan [From NyQuil] Allergy (Verified 07/23/24 13:47) SOB doxylamine [From NyQuil] Allergy (Verified 07/23/24 13:47) SOB pseudoephedrine [From NyQuil] Allergy (Verified 07/23/24 13:47) SOB Medication List - Last Reconciled 07/23/24 by Lizzette Dick LPN albuterol sulfate 90 mcg/actuation 2 puffs inhalation QID PRN albuterol sulfate 2.5 mg (3 mL) inhalation BID 30 days aspirin 81 mg PO DAILY clopidogrel (Plavix) 75 mg PO DAILY clotrimazole 1% 1 appl topical BID PRN empagliflozin (Jardiance) 10 mg PO QAM ferrous sulfate 325 mg PO DAILY fluticasone propion-salmeterol 100-50 mcg/dose 1 ea inhalation DAILY fluticasone propionate 50 mcg/actuation 1 spray intranasal DAILY ketoconazole 2% 1 appl topical BID PRN losartan 50 mg PO DAILY metformin 850 mg PO DAILY metoprolol succinate ER 100 mg PO DAILY montelukast 10 mg PO DAILY multivitamin 1 tab PO DAILY nebulizers As directed nitroglycerin 0.4 mg sublingual Q5M PRN omeprazole 40 mg PO DAILY rosuvastatin 5 mg PO DAILY tamsulosin 0.8 mg (2 x 0.4 mg) PO DAILY torsemide 40 mg (2 x 20 mg) PO QAM umeclidinium 62.5 mcg/actuation (Incruse Ellipta) 1 inh inhalation DAILY HPI Comments Details: The patient is an 88-year-old male with a PMH significant for?anemia, chronic AFib on Xarelto, non insulin-dependent diabetes type 2, CKD unspecified, HTN, HLD, BPH, and long COVID/COPD pulmonology who presents to the ED with?generalized fatigue and worsening SOB and GU x1 week. Patient states he has been experiencing significant SOB on and off for the past 3 months, but significantly worse during the past week. Presents to the ED today since this morning he couldn't walk 10 ft without either collapsing or holding onto something due to SOB. The patient did have an echocardiogram demonstrating severe pulmonary hypertension with moderate right-sided systolic dysfunction. In addition to that had x-ray that I personally reviewed demonstrating some interstitial changes at the bases. Her examination he does have some expiratory wheezing rhonchi in addition to post exhalation coughing as well as trying rales during inhalation. The patient has been on his Xarelto for the atrial fibrillation therefore low risk for thromboembolic disease although still in differential specially with severe pulmonary hypertension additional imaging studies will be warranted specially with the bleeding. If he does get a lot them a CT scan at least will catch the lower lung bases to address the interstitial lung process based on his fine crackles. 09/19/2023 the patient is here for a pulmonary follow-up visit. The patient overall has been doing a lot better. He has been using generic Advair in addition to Incruse. He also has gotten a lot of benefit from using the nebulizer twice a day. He does have history atrial fibrillation but does not seem to be affecting his heart rate which is reassuring. Unfortunately, he has significant urinary retention. He required a catheter placement and recently was removed. He is urinating but very frequent and just a little bit. the patient is on significant amount of anticholinergic medication for his respiratory medications and is likely contributing to his urinary retention. Therefore will stop the short-acting muscarinic antagonist and also the long-acting muscarinic antagonist. I hope that with these changes is urinary retention improves. Will go ahead and request pulmonary function studies and follow-up in 4 months. 01/17/2024 the patient is here for a pulmonary follow-up visit. He continues to have dyspnea primarily on exertion. Moderate severity. He feels like he did when he was diagnosed with anemia. At that time he did have a large hematoma in the breast area. That has not subsided. He also noticed that his heart rate has decreased down to the 40s. 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 He will continue to monitor those closely. He does take metoprolol. In the meantime the patient has been getting a prescription of Advair that appears to be more effective than the Incruse for him. The Incruse is also costly. The Advair he has been able to get a better pal. Therefore continue the Advair this time. Has enough medication till June will follow-up in July to figure out what is the best option at that point. In the meantime in view of his significant anemia that he had previously with iron deficiency will go ahead and request blood work right now. The patient will have a chest x-ray in addition to the blood work and then I will let him know the results. The patient will follow-up in July. If he has any worsening symptoms or concerns he can always call for an earlier assessment. 07/23/2024 the patient is here for pulmonary follow-up visit. Overall he is doing well. He continues to take his inhalers with good effect. The patient has been having issues with a worsening cough. Sporadic. Sometimes nonproductive. He did have a chest x-ray back in 01/30/2024 demonstrating some evidence of bronchitis. Otherwise no other acute disease noted. Previously had been on a long-acting muscarinic antagonist and then he stopped. At this point I do believe the patient can try Trelegy for month and see if he gets any relief from his ongoing cough specially since he has some wheezing on exam. If after the month he wants to go back on the [place] that is perfectly fine. The patient follow-up in 6 months. 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 Chest crackles Non-insulin dependent type 2 diabetes mellitus HTN (hypertension) HLD (hyperlipidemia) Persistent atrial fibrillation BPH (benign prostatic hyperplasia) Long COVID COPD (chronic obstructive pulmonary disease) Lower leg edema Chronic kidney disease, unspecified Surgical History H/O colonoscopy History of cataract surgery History of endoscopy History of colon surgery History of cholecystectomy H/O heart artery stent Hip joint replacement status Social History (Updated 07/23/24 @ 13:48 by Lizzette Dick LPN) Household Members: Spouse Housing: Other Housing Other:: mobile home Do you presently have visiting nurse or other home services: No Patient Tobacco Use Status: Former Tobacco user Tobacco use type: Cigarette service: Yes Current occupation: right hand dominant Review of Systems Const Denies fever(s) and Denies weight loss Eyes Denies change in vision ENT Reports nasal congestion Card Denies chest pain and Reports dyspnea on exertion Resp Reports cough, Reports dyspnea on exertion and Denies wheezing GI Reports no additional complaints Reports oliguria, Reports difficulty urinating and Reports urinary frequency Musc Reports no additional complaints Skin/Breast Denies rash Neuro Reports no additional complaints Psych Reports no additional complaints Siva/Lymph Denies easy bruising Aller/Immun Denies wheezing Physical Exam Vital Signs: Last Vital Signs BP 130/70 07/23/24 13:48 Const General: comfortable HEENT Head: Yes normocephalic Neck Neck: Yes supple Chest Chest palpation & inspection: normal inspection of the chest Resp Effort & Inspection: normal respiratory effort and prolonged expiratory phase Auscultation: clear to auscultation bilaterally and no wheezes Cardio Heart sounds: S1 normal heart sound present and S2 normal heart sound present GI Palpation (GI): Soft to palpation Skin General skin exam: no rashes or lesions noted Extrem General: Yes no clubbing, cyanosis or edema Assessment & Plan Assessment & Plan (1) COPD (chronic obstructive pulmonary disease): Code(s): J44.9 - Chronic obstructive pulmonary disease, unspecified Category: Medical Qualifiers: COPD type: chronic bronchitis Chronic bronchitis type: simple Qualified Code(s): J41.0 - Simple chronic bronchitis (2) Pulmonary hypertension: Comment: with RV dysfuction Code(s): I27.20 - Pulmonary hypertension, unspecified Category: Medical (3) Dyspnea: Code(s): R06.00 - Dyspnea, unspecified Category: Medical Qualifiers: Dyspnea type: dyspnea on exertion Qualified Code(s): R06.09 - Other forms of dyspnea Plan hold generic advair trial Trelegy x 1 month albuterol nebs BID CXR F/U 6 months Medications: New qedphhqmhoa-ezrjcwcbc-heyxiorx 200-62.5-25 mcg (Trelegy Ellipta) 1 inh inhalation DAILY 60 ea 12RF 30 days Coding Level of Care Code Est Pt Level 4 (22257) Diagnoses Simple chronic bronchitis J41.0 COPD type: chronic bronchitis Chronic bronchitis type: simple Pulmonary hypertension I27.20 Dyspnea on exertion R06.09 Dyspnea type: dyspnea on exertion Time Spent (min) 16
[2024-07-23 13:48] VITALS: BP 130/70
== END 2024-07-23 13:54 | disposition home or self-care (01) ==
PROVIDERS: PCP Internal Medicine; Visit Provider Hospitalist
DX: J41.0 Simple chronic bronchitis (principal); I27.20 Pulmonary hypertension, unspecified; R06.09 Other forms of dyspnea
CPT/HCPCS: 99214

== ENCOUNTER → 2024-07-23 13:27 | Outpatient (BNVA) | payer MEDICARE, SELFPAY | PROVIDERS: PCP Internal Medicine; Visit Provider Hospitalist | DX: J41.0 Simple chronic bronchitis (principal); I27.20 Pulmonary hypertension, unspecified; R06.09 Other forms of dyspnea | CPT/HCPCS: 99212 ==

== ENCOUNTER 2024-07-24 10:04 | Outpatient (REF) | payer MEDICARE, SELFPAY ==
[2024-07-24 13:17] LABS: MANUAL DIFF FLAG NO
[2024-07-24 13:35] LABS: Basophils Absolute Auto 0.1 X10*3/uL (0.0-0.2); Basophils Percent Auto 0.9 % (0-2); Eosinophils Absolute Auto 0.4 X10*3/uL (0.0-0.4); Eosinophils Percent Auto 5.1 % (0-4); Hematocrit 32.9 % (42.0-52.0); Hemoglobin 10.2 g/dl (14.0-18.0); Imm Gran Abs Auto 0.02 X10*3/uL (0.00-0.03); Imm Gran Pct Auto 0.3 % (0.0-0.4); Lymphocytes Absolute Auto 0.7 X10*3/uL (1.2-4.9); Lymphocytes Percent Auto 8.8 % (20-40); Mean Corpuscular Hemoglobin 30.4 pg (27.0-33.0); Mean Corpuscular Volume 98.2 fL (80.0-98.0); Mean Platelet Volume 10.6 fL (9.4-12.4); Monocytes Absolute Auto 0.8 X10*3/uL (0.1-1.2); Monocytes Percent Auto 10.5 % (2-11); Neutrophils Absolute Auto 5.7 x10*3/uL (2.0-8.3); Neutrophils Percent Auto 74.4 % (45-73); Platelet Count 207 X10*3/uL (160-400); Red Blood Count 3.35 X10*6/uL (4.60-5.80); Red Cell Distribution Width 14.4 % (11.0-16.0); White Blood Count 7.6 X10*3/uL (4.8-10.8)
== END 2024-07-24 10:05 | disposition home or self-care (01) ==
LOC: HO.HMGCLDS 10:04
PROVIDERS: PCP Internal Medicine; Visit Provider Internal Medicine Medical Oncology
DX: D64.9 Anemia, unspecified (principal)
CPT/HCPCS: 36415; 85025

== ENCOUNTER 2025-02-18 15:01 | Outpatient (REF) | payer MEDICARE, SELFPAY ==
--- NOTE | ~2025-02-18 | XR_ITS ---
EXAMINATION: XR ABDOMEN KUB CLINICAL INDICATION: R11.14 - Bilious vomiting COMPARISON: No prior. CT abdomen pelvis 08/11/2023. TECHNIQUE: AP view of the abdomen. FINDINGS: Bowel gas pattern is normal/nonspecific. There is no focally dilated loop. There is moderate fecal residue seen throughout the colon, findings suggestive of obstipation. There are herniorrhaphy clips in the central abdomen. Cholecystectomy clips present. No organomegaly. Aside from vascular, no abnormal soft tissue calcification. Increased interstitial markings in both lung bases, chronic in appearance. Anastomotic suture lines present in the central pelvis. Calcified lymph nodes noted in the left groin. No suspicious bone lesion. Degenerative changes throughout the spine and SI joints. Bilateral total hip arthroplasties in place without complication. XR/XR abdomen 1V IMPRESSION: 1. No acute finding of the abdomen. No bowel obstruction. Moderate constipation. Electronically signed by: Farzad Manning MD 02/18/2025 04:49 PM EDT
--- NOTE | ~2025-02-18 | XR_ITS ---
EXAMINATION: XR CHEST CLINICAL INFORMATION: R11.14 - Bilious vomiting COMPARISON: 01/17/2024. TECHNIQUE: 2 views of the chest were obtained. FINDINGS: The cardiac, hilar, and mediastinal contours are normal. There is a probable left atrial appendage occlusion device in place. Lungs demonstrate mildly increased background interstitial markings diffusely, unchanged. There is a suggestion of some peribronchial thickening in the lower lobe distribution bilaterally. Small airways disease is a consideration. No segmental consolidation. There is no pneumothorax or pleural effusion. There is no focal osseous or soft tissue abnormality. XR/XR chest 2V IMPRESSION: 1. Stable mildly increased interstitial bilateral markings diffusely, with findings suggesting mild peribronchial thickening in the lower lung distribution. Infectious or inflammatory small airways disease is a consideration. 2. No consolidation or effusion. 3. Mild cardiac enlargement. Left atrial appendage occlusion device noted. Electronically signed by: Farzad Manning MD 02/18/2025 04:44 PM EDT
== END 2025-02-18 15:02 | disposition home or self-care (01) ==
LOC: HO.XRAY 15:01
PROVIDERS: PCP Internal Medicine; Visit Provider Hospitalist
DX: R11.14 Bilious vomiting (principal); R06.09 Other forms of dyspnea; I27.20 Pulmonary hypertension, unspecified; J41.0 Simple chronic bronchitis
CPT/HCPCS: 71046; 74018; 99212

== ENCOUNTER 2025-02-18 15:01 | Outpatient (AMB) | payer MEDICARE, SELFPAY ==
[2025-02-18 15:02] VITALS: BP 146/50; PULSE 56; O2SAT 94
--- NOTE | 2025-02-18 15:02 | MHC.OFFVIS ---
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 Required: No Accompanied by: Spouse Allergies acetaminophen [From NyQuil] Allergy (Verified 02/18/25 15:05) SOB dextromethorphan [From NyQuil] Allergy (Verified 02/18/25 15:05) SOB doxylamine [From NyQuil] Allergy (Verified 02/18/25 15:05) SOB pseudoephedrine [From NyQuil] Allergy (Verified 02/18/25 15:05) SOB HPI Comments Details: The patient is an 89-year-old male with a PMH significant for?anemia, chronic AFib on Xarelto, non insulin-dependent diabetes type 2, CKD unspecified, HTN, HLD, BPH, and long COVID/COPD pulmonology who presents to the ED with?generalized fatigue and worsening SOB and GU x1 week. Patient states he has been experiencing significant SOB on and off for the past 3 months, but significantly worse during the past week. Presents to the ED today since this morning he couldn't walk 10 ft without either collapsing or holding onto something due to SOB. The patient did have an echocardiogram demonstrating severe pulmonary hypertension with moderate right-sided systolic dysfunction. In addition to that had x-ray that I personally reviewed demonstrating some interstitial changes at the bases. Her examination he does have some expiratory wheezing rhonchi in addition to post exhalation coughing as well as trying rales during inhalation. The patient has been on his Xarelto for the atrial fibrillation therefore low risk for thromboembolic disease although still in differential specially with severe pulmonary hypertension additional imaging studies will be warranted specially with the bleeding. If he does get a lot them a CT scan at least will catch the lower lung bases to address the interstitial lung process based on his fine crackles. 09/19/2023 the patient is here for a pulmonary follow-up visit. The patient overall has been doing a lot better. He has been using generic Advair in addition to Incruse. He also has gotten a lot of benefit from using the nebulizer twice a day. He does have history atrial fibrillation but does not seem to be affecting his heart rate which is reassuring. Unfortunately, he has significant urinary retention. He required a catheter placement and recently was removed. He is urinating but very frequent and just a little bit. the patient is on significant amount of anticholinergic medication for his respiratory medications and is likely contributing to his urinary retention. Therefore will stop the short-acting muscarinic antagonist and also the long-acting muscarinic antagonist. I hope that with these changes is urinary retention improves. Will go ahead and request pulmonary function studies and follow-up in 4 months. 01/17/2024 the patient is here for a pulmonary follow-up visit. He continues to have dyspnea primarily on exertion. Moderate severity. He feels like he did when he was diagnosed with anemia. At that time he did have a large hematoma in the breast area. That has not subsided. He also noticed that his heart rate has decreased down to the 40s. We did go for brief walking oximetry was reassuring that the heart rate did orange picker to the 80s and 90s. He will continue to monitor those closely. He does take metoprolol. In the meantime the patient has been getting a prescription of Advair that appears to be more effective than the Incruse for him. The Incruse is also costly. The Advair he has been able to get a better pal. Therefore continue the Advair this time. Has enough medication till June will follow-up in July to figure out what is the best option at that point. In the meantime in view of his significant anemia that he had previously with iron deficiency will go ahead and request blood work right now. The patient will have a chest x-ray in addition to the blood work and then I will let him know the results. The patient will follow-up in July. If he has any worsening symptoms or concerns he can always call for an earlier assessment. 07/23/2024 the patient is here for pulmonary follow-up visit. Overall he is doing well. He continues to take his inhalers with good effect. The patient has been having issues with a worsening cough. Sporadic. Sometimes nonproductive. He did have a chest x-ray back in 01/30/2024 demonstrating some evidence of bronchitis. Otherwise no other acute disease noted. Previously had been on a long-acting muscarinic antagonist and then he stopped. At this point I do believe the patient can try Trelegy for month and see if he gets any relief from his ongoing cough specially since he has some wheezing on exam. If after the month he wants to go back on the Wixela that is perfectly fine. The patient follow-up in 6 months. 02/18/2025 the patient is here for pulmonary follow-up visit. He is not feeling well this morning. He woke up with nausea abdominal distention and bilious vomiting. Then he decided to make the appointment on the way here he vomited several times more in the car now orange in color. His belly has been distended his 's concern. In the office we had checked his orthostatics and they were stable. Will have him get x-rays of the chest and also the abdomen in the meantime. If there is any evidence of obstruction may need to go the ER. If his symptoms worsening general he would have to go to the ER. The patient also has been having issues with shortness of breath and wheezing. He did try the Trelegy inhaler would only cause chest discomfort. Once he stopped it his chest discomfort went away. The Wixela has been helping but partially. He has been noticing increasing wheezing at nighttime. Will go ahead increase it from the 100 to 200 50 mcg dose. In the meantime he also has a nebulizer to use as needed. Will have him follow-up in 3 months. Again if his x-rays are abnormal he may need to go to the ER depending on the findings. I will let him know if there is any concerns. 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 Chest crackles Non-insulin dependent type 2 diabetes mellitus HTN (hypertension) HLD (hyperlipidemia) Persistent atrial fibrillation BPH (benign prostatic hyperplasia) Long COVID COPD (chronic obstructive pulmonary disease) Lower leg edema Chronic kidney disease, unspecified Surgical History H/O colonoscopy History of cataract surgery History of endoscopy History of colon surgery History of cholecystectomy H/O heart artery stent Hip joint replacement status Social History Household Members: Spouse Housing: Other Housing Other:: mobile home Do you presently have visiting nurse or other home services: No Patient Tobacco Use Status: Former Tobacco user Tobacco use type: Cigarette service: Yes Current occupation: right hand dominant Review of Systems Const Denies fever(s) and Denies weight loss Eyes Denies change in vision ENT Reports nasal congestion Card Denies chest pain and Reports dyspnea on exertion Resp Reports cough, Reports dyspnea on exertion and Reports wheezing GI Reports as per HPI, Reports bloating, Reports GI cramping, Reports nausea and Reports vomiting Reports oliguria, Reports difficulty urinating and Reports urinary frequency Musc Reports no additional complaints Skin/Breast Denies rash Neuro Reports no additional complaints Psych Reports no additional complaints Siva/Lymph Denies easy bruising Aller/Immun Reports wheezing Physical Exam Vital Signs: Last Vital Signs Pulse 60 02/18/25 15:21 BP 146/54 H 02/18/25 15:21 Pulse Ox 94 02/18/25 15:02 Oxygen Delivery Method Room Air 02/18/25 15:02 Const General: comfortable HEENT Head: Yes normocephalic Neck Neck: Yes supple Chest Chest palpation & inspection: normal inspection of the chest Resp Effort & Inspection: normal respiratory effort Auscultation: clear to auscultation bilaterally and no wheezes Cardio Heart sounds: S1 normal heart sound present and S2 normal heart sound present GI Palpation (GI): nontender and Other GI palpation findings present (distented) Skin General skin exam: no rashes or lesions noted Extrem General: Yes no clubbing, cyanosis or edema Assessment & Plan Assessment & Plan (1) COPD (chronic obstructive pulmonary disease): Code(s): J44.9 - Chronic obstructive pulmonary disease, unspecified Category: Medical Qualifiers: COPD type: chronic bronchitis Chronic bronchitis type: simple Qualified Code(s): J41.0 - Simple chronic bronchitis (2) Pulmonary hypertension: Comment: with RV dysfuction Code(s): I27.20 - Pulmonary hypertension, unspecified Category: Medical (3) Dyspnea: Code(s): R06.00 - Dyspnea, unspecified Category: Medical Qualifiers: Dyspnea type: dyspnea on exertion Qualified Code(s): R06.09 - Other forms of dyspnea (4) Bilious vomiting: Code(s): R11.14 - Bilious vomiting Category: Medical Qualifiers: Nausea presence: with nausea Qualified Code(s): R11.14 - Bilious vomiting Plan increase Wixela 100/50->250/50 continue singulair CXR ABD xray albuterol nebs BID F/U 3 months, if symptoms worsen he will go to the ED Orders: Orders XR chest 2V Today R06.09 - Other forms of dyspnea, R11.14 - Bilious vomiting Medications: New fluticasone propion-salmeterol 250-50 mcg/dose (Wixela Inhub) 1 inh inhalation Q12H 60 ea 11RF 30 days Refilled albuterol sulfate 2.5 mg (3 mL) inhalation BID 180 mL 11RF 30 days J44.9 - Chronic obstructive pulmonary disease, unspecified Coding Level of Care Code Est Pt Level 4 (43149) Complex EM visit Add On G2211 Diagnoses Simple chronic bronchitis J41.0 COPD type: chronic bronchitis Chronic bronchitis type: simple Pulmonary hypertension I27.20 Dyspnea on exertion R06.09 Dyspnea type: dyspnea on exertion Bilious vomiting with nausea R11.14 Nausea presence: with nausea Time Spent (min) 18
[2025-02-18 15:21] VITALS: BP 136/50; BP 146/54; PULSE 60
--- OUTSIDE RECORDS SUMMARY | 2025-02-18 16:48 | XMS_ITS | Encounter Summary ---
Author Organization [facility] Address [address] [place] [address] Care Team Providers Care News Production Assistant Name Role Phone Flakita Rivera MD Primary Care Provider [phone] Reason for Visit * Reason Onset Date Comments Med Refill 02/14/2025 Encounter Details Date Type Department Care Team (Late st Contact Info) Description 02/14/2025 Telephone [facility] Cardiology [address] [place] [id number] Reno Wild MD [address] [place] [address] [address] [place], [place] [id number] Med Refill Social History Tobacco Use Types Packs/Day Years Used Date Smoking Tobacco: Former Cigarettes Q uit: 09/12/1964 Smokeless Tobacco: Never Alcohol Use Standard Drinks/Week Comments No 0 (1 standard drink = 0.6 oz pur e alcohol) Sex and Gender Information Value Date Recorded Sex Assigned at Not on file Legal Sex Male 10:19 AM EST Gender Identity Not on file Sexual Orientation Not on file documented as of this encounter Ordered Prescriptions Prescription Sig Dispense Quantity Refills Last Filled Start Date End Date torsemide (DEMADEX) 20 mg tablet Take 1 tablet (20 mg total) by mouth 1 (one) time each day. 90 tablet 1 02/14/2025 documented in this encounter Progress Notes * Kavitha Ruiz MA - 02/14/2025 11:09 AM EDT Evangelina 09/24/24--chem labs done 02/03--faxed a refill for Torsemide * Valentin Garcia - 02/14/2025 10:59 AM EDT Refill request for Torsemide 20 mg once a day for a 90 day supply and please send to [facility] [address]. When the request is sent in can we add to that the patient always seems to be one week short of this medication when get it. documented in this encounter Plan of Treatment Upcoming Encounters Date Type Department Care Team (Late st Contact Info) Description 06/18/2025 11:10 AM EDT Office Visit [facility] Cardiology [facility] [address] [place] [address] [place] [address] Cierra Whatley NP [address] [place] [address] [address] [place] [address] documented as of this encounter Visit Diagnoses Not on filedocumented in this encounter Discontinued Medications Medication Sig Discontinue Reason Start Date End Da te torsemide (DEMADEX) 20 mg tablet Take 1 tablet (20 mg total) by mouth 1 (one) time each day. Reorder 03/21/2024 02/14/2025 documented as of this encounter Care Teams News Production Assistant Relationship Specialty Start Date End Date Flakita Rivera MD [address] [place], [place] PCP - General Internal Medicine 07/24/21 documented as of this encounter
== END 2025-02-18 16:37 | disposition home or self-care (01) ==
LOC: HO.HPS 15:01
PROVIDERS: PCP Internal Medicine; Visit Provider Hospitalist
DX: J41.0 Simple chronic bronchitis (principal); I27.20 Pulmonary hypertension, unspecified; R06.09 Other forms of dyspnea; R11.14 Bilious vomiting
CPT/HCPCS: 99214; G2211

== ENCOUNTER → 2025-02-18 15:39 | Outpatient (BNV) | payer MEDICARE, SELFPAY | PROVIDERS: PCP Internal Medicine; Visit Provider Radiology Diagnostic Radiology | DX: R11.14 Bilious vomiting (principal) | CPT/HCPCS: 71046; 74018 ==

== ENCOUNTER 2025-03-07 11:05 | Outpatient (AMB) | payer MEDICARE, SELFPAY ==
--- NOTE | 2025-03-07 11:21 | A.OFFVIS_ITS ---
Intake Visit Reasons: ENVIRONMENTAL HEALTH OFFICER/PCP referral for PVD/LE swelling/aching Intake Note: ENVIRONMENTAL HEALTH OFFICER presents for LE swelling and pain. Has been ongoing since September 2024. Cramping at night , pain throughout the day. Accompanied by: Spouse Allergies acetaminophen (From NyQuil) Allergy (Verified 03/07/25 11:25) SOB dextromethorphan (From NyQuil) Allergy (Verified 03/07/25 11:25) SOB doxylamine (From NyQuil) Allergy (Verified 03/07/25 11:25) SOB pseudoephedrine (From NyQuil) Allergy (Verified 03/07/25 11:25) SOB HPI HPI ENVIRONMENTAL HEALTH OFFICER/PCP referral for PVD/LE swelling/aching: Details: Tha, a very pleasant 89yo male patient, is presenting today with his Nancy on a referral from his PCP for concerns of bilateral lower extremity swelling and discomfort. Complaints include pain/discomfort, swelling of lower extremities, cramping, fatigue, and heaviness of the lower extremities. It has been affecting their daily activities including walking and physical activity. It is noted in both legs. He states this has been going on since the beginning of the year, and is worsening. He states he is unable to walk more than 50' before his legs feel like they will give out and he gets pain from his hip to his toes. The pain does stop when he stops. He states it has been worse since the weather has gotten hotter. He is currently on Lasix for swelling, which he states helps a little. 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 He is a diabetic and is on oral medications. Patient denies any previous venous surgery or injections. He does have a hx of Afib; he had a Watchman placed last year and is no longer on AC. Patient denies any history of DVT/ PE. Patient denies any history of phlebitis. Trial of compression includes - elevation with some relief They now present for vascular evaluation regarding their varicose veins. 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 Chest crackles Non-insulin dependent type 2 diabetes mellitus HTN (hypertension) HLD (hyperlipidemia) Persistent atrial fibrillation BPH (benign prostatic hyperplasia) Long COVID COPD (chronic obstructive pulmonary disease) Lower leg edema Chronic kidney disease, unspecified Surgical History H/O colonoscopy History of cataract surgery History of endoscopy History of colon surgery History of cholecystectomy H/O heart artery stent Hip joint replacement status Social History Household Members: Spouse Housing: Other Housing Other:: mobile home Do you presently have visiting nurse or other home services: No Patient Tobacco Use Status: Former Tobacco user Tobacco use type: Cigarette service: Yes Current occupation: right hand dominant Review of Systems Const Reports as per HPI and Denies weakness ENT Reports Normal hearing present and Denies dizziness Card Reports as per HPI, Denies chest pain, Denies chest pain at rest, Denies chest pain with activity, Denies dyspnea and Denies dyspnea on exertion Resp Reports as per HPI, Denies cough, Denies dyspnea and Denies dyspnea on exertion GI Reports as per HPI, Denies abdominal pain, Denies nausea and Denies vomiting Musc Denies numbness Skin/Breast Reports as per HPI, Denies erythema and Denies wounds Neuro Reports Normal hearing present, Denies dizziness, Denies numbness, Denies Sensory deficit (Neuro) and Denies weakness Psych Reports no additional complaints Endo Reports no additional complaints Physical Exam Const General: healthy appearing and no acute distress Orientation/consciousness: patient oriented x3 HEENT Head: Yes normal to inspection Ears: hearing grossly normal bilaterally Mouth: Normal oral and palatal mucosa present Resp Effort & Inspection: normal respiratory effort and able to speak in complete sentences Auscultation: clear to auscultation bilaterally Cardio Jugular venous distension: no JVD Rate: regular rate Rhythm: regular rhythm Heart sounds: S1 normal heart sound present and S2 normal heart sound present Bruits: no abdominal aortic bruits, no carotid bruits, no femoral bruits and no renal bruits Peripheral pulses: Peripheral pulses 2+ throughout GI Inspection: Yes normal to inspection Palpation (GI): No Abdominal aortic bruit present Skin General skin exam: no rashes or lesions noted Wounds: no wounds Hair: normal Neuro General: patient oriented x3 Cranial nerves: Yes Normal hearing present Cognition (Neuro): normal cognition Gait exam (Neuro): Normal gait present Motor exam (neuro): 5/5 motor strength present throughout Sensory Exam: No Sensory deficit (Neuro) Extrem Other: Bilateral lower extremities: +1 pitting edema noted; sock line indented in skin. Skin warm to the touch. No discoloration or wounds noted. Palpable DP pulses. CEAP: C - 3 E - primary A - superficial P - reflux General: Yes normal to inspection, Yes full ROM, Yes capillary refill normal and Yes normal gait Assessment & Plan Assessment & Plan (1) Varicose veins of both lower extremities with inflammation: Code(s): I83.11 - Varicose veins of right lower extremity with inflammation; I83.12 - Varicose veins of left lower extremity with inflammation Category: Medical Plan: Tha is presenting today with his on referral from his PCP for concerns of bilateral lower extremity swelling and discomfort. In short, the patient has evidence of venous insufficiency. I have discussed the pathophysiology with the patient. In addition I have provided informational material regarding venous disease to the patient. We have discussed conservative measures i ncluding compression, elevation, and exercise. I have also provided a handout regarding appropriate use of compression stockings and where to purchase good compression stockings as well. I have taken the liberty of ordering venous insufficiency testing with the patient. They will follow up with me after testing. The patient had an opportunity to ask questions regarding the treatment plan. All questions were answered. Imaging studies, laboratory studies and physical exam results were discussed and reviewed in detail. No major barriers to understanding were identified. The patient expressed understanding and agreement with the above treatment plan. The patient is aware they should contact our office by phone for worsening of the current condition or the appearance of new symptoms. Thank you for allowing me to participate in the vascular care of this patient. If you have any questions or concerns regarding the treatment for the above condition please do not hesitate to contact me. The office telephone contact is [phone]. This note is constructed using voice recognition software. While every effort has been made to ensure accuracy, magazine supervisor errors may have been included. Thank you for allowing me to participate in the care of your patient. Yours sincerely, CHHAYA Ramsey Orders: Orders US venous duplex LE BI 1 Week I83.11 - Varicose veins of right lower extremity with inflammation, I83.12 - Varicose veins of left lower extremity with in flammation Coding Level of Care Code New Pt Level 4 (14131) Diagnoses Varicose veins of both lower extremities with inflammation I83.11; I83.12
--- OUTSIDE RECORDS SUMMARY | 2025-03-07 13:13 | XMS_ITS | Encounter Summary ---
Author Organization [facility] [place] [address] Care Team Providers Care Shake Loader Name Role Phone Flakita Rivera MD Primary Care Provider [phone] Encounter Details Date Type Department Care Team ([facility] Contact Info) Description 02/06/2025 Telephone [facility] [address] [phone] Gretchen Rush MD 175 [facility] [address] [place] [address] Social History Tobacco Use Types Packs/Day Years [...] on file documented as of this encounter Progress Notes * Gretchen Rush MD - 02/06/2025 6:16 PM EDT Albuterol send * George Darby MA - 02/06/2025 11:51 AM EDT Pt has not been seen since 03/01/2023. Please advise * Daniel De Luna - 02/06/2025 11:22 AM EDT PATIENT will be seeing DR. Beasley in [place]. He will not follow up in our office He want will like his refill for his rescue Inhaler from our office. Please advice and clarify if we will be sending in medication form patient until he is seen by the other Pulmo Dr. documented in this encounter Plan of Treatment Upcoming Encounters Date Type Department Care Team (Late st Contact Info) Description 06/18/2025 11:10 AM EDT Office Visit [facility] [address] [place] [address] Dr Prateek [address] [place] [address] Cierra Whatley NP [address] [place] [address] Dr [place] [address] [place] [address] documented as of this encounter Visit Diagnoses Not on filedocumented in this encounter Care Teams Shake Loader Relationship Specialty Start Date End Date Flakita Rivera MD [address] [place] PCP - General Internal Medicine 07/24/21 documented as of this encounter
== END 2025-03-07 11:50 | disposition home or self-care (01) ==
LOC: HO.HVS 11:05
PROVIDERS: PCP Internal Medicine; Visit Provider Physician Assistant Surgical
DX: I83.11 Varicose veins of right lower extremity with inflammation (principal); I83.12 Varicose veins of left lower extremity with inflammation
CPT/HCPCS: 99204

== ENCOUNTER → 2025-03-07 11:05 | Outpatient (BNVA) | payer MEDICARE, SELFPAY | PROVIDERS: PCP Internal Medicine; Visit Provider Physician Assistant Surgical | DX: I83.11 Varicose veins of right lower extremity with inflammation (principal); I83.12 Varicose veins of left lower extremity with inflammation | CPT/HCPCS: 99202 ==

== ENCOUNTER 2025-04-04 13:08 | Outpatient (REF) | payer MEDICARE, SELFPAY ==
--- NOTE | ~2025-04-04 | US_ITS ---
EXAMINATION: US LOWER EXTREMITY VENOUS (REFLUX EXAM), BILATERAL CLINICAL INFORMATION: I83.11 - Varicose veins of right lower extremity with inflammation COMPARISON: None. TECHNIQUE: Color flow triplex imaging and compression Doppler was performed to evaluate both the deep and the superficial systems bilaterally. To evaluate the superficial system, the examination was performed in the upright position. Color-flow Doppler ultrasound and compression ultrasound were utilized. In addition, maneuvers were utilized to demonstrate reflux. FINDINGS: 1. DEEP VENOUS ULTRASOUND OF THE RIGHT LOWER EXTREMITY: Common Femoral Vein: Compressible, normal respiratory variation and augmented flow. Femoral Vein: Compressible, normal color flow and augmentation. Popliteal Vein: Compressible, normal augmentation. Deep Reflux: There is no evidence of reflux in the deep system in either the common femoral vein, superficial femoral or the popliteal vein. Popliteal fossa cyst measures 5.5 x 1.2 x 3.4 cm. 2. SUPERFICIAL ULTRASOUND WITH DOPPLER OF RIGHT LOWER EXTREMITY: GREAT SAPHENOUS VEIN: Linear echogenicity is evident within the greater saphenous vein in the midcalf likely a result of chronic nonocclusive thrombus. Saphenofemoral Junction: 0.7 cm; Reflux: 0 ms Proximal Thigh: 0.5 cm; Reflux: 0 ms Mid Thigh: 0.3 cm; Reflux: 0 ms Distal Thigh: 0.3 cm; Reflux: 0 ms At Knee: 0.4 cm; Reflux: 0 ms Below Knee/Proximal Calf: 0.3 cm; Reflux: 0 ms Mid Calf: 0.2 cm; Reflux: > 3300 ms Ankle/Distal Calf: 0.2 cm; Reflux: 0 ms SMALL SAPHENOUS VEIN: Peripheral isoechoic echogenicity is identified in the proximal calf consistent with chronic nonocclusive thrombus. Drainage: Thigh extension Saphenopopliteal Junction: 0.4 cm; Reflux: 0 ms Mid calf: 0.3 cm; Reflux: 0 ms Distal: 0.2 cm; Reflux: 0 ms VEIN OF GIACOMINI: Size: 0.3 cm Reflux: 0 ms PERFORATORS: Location: Small saphenous vein into varicosity, mid calf Size: 0.1 cm Reflux: 0 ms Location: Greater saphenous vein, proximal and mid calf Size: 0.1 cm Reflux: 0 ms VARICOSITIES > 3mm: Location: Greater saphenous vein, at knee Size: 0.3 cm Reflux: 0 ms Location: Greater saphenous vein, distal calf Size: 0.4 cm Reflux: 0 ms 3. DEEP VENOUS ULTRASOUND OF THE LEFT LOWER EXTREMITY: Common Femoral Vein: Compressible, normal respiratory variation and augmented flow. Femoral Vein: Compressible, normal color flow and augmentation. Popliteal Vein: Compressible, normal augmentation. Deep Reflux: There is no evidence of reflux in the deep system in either the common femoral vein, superficial femoral or the popliteal vein. 4. SUPERFICIAL ULTRASOUND WITH DOPPLER OF LEFT LOWER EXTREMITY: Linear echogenic shadowing material 6 mm in length is evident along the fascia in the proximal thigh. On CT, there is a densely calcified lymph node in this region. Popliteal fossa cyst measures 4.8 x 1.0 x 3.8 cm. GREAT SAPHENOUS VEIN: Hyperechoic and isoechoic wall thickening is noted in the distal calf region likely as result of chronic changes related to recannulization of chronic thrombus. Saphenofemoral Junction: 0.7 cm; Reflux: 0 ms Proximal Thigh: 0.4 cm; Reflux: 0 ms Mid Thigh: 0.4 cm; Reflux: 0 ms Distal Thigh: 0.3 cm; Reflux: 0 ms At Knee: 0.4 cm; Reflux: 0 ms Below Knee/Proximl calf: 0.2 cm; Reflux: 0 ms Mid Calf: 0.3 cm; Reflux: 0 ms Distal Calf/Ankle: 0.2 cm; Reflux: 0 ms Lateral accessory GREAT SAPHENOUS VEIN: Saphenofemoral Junction: 0.4 cm; Reflux: 0 ms Mid Thigh: 0.2 cm; Reflux: 0 ms SMALL SAPHENOUS VEIN: Isoechoic material is seen within the peripheral wall of the small saphenous vein in the distal calf consistent with nonocclusive chronic thrombus. Drainage: Popliteal vein Saphenopopliteal Junction: 0.4 cm; Reflux: 0 ms Mid calf: 0.2 cm; Reflux: 0 ms Distal calf: 0.2 cm; Reflux: 0 ms VEIN OF GIACOMINI: Size: 0.2 Reflux: 0 PERFORATORS: Location: Small saphenous vein, midcalf Size: 0.2 cm Reflux: 0 ms Location: Greater saphenous vein, distal calf Size: 0.4 cm Reflux: 0 ms Location: Greater saphenous vein, distal calf Size: 0.4 cm Reflux: 0 ms Location: Greater saphenous vein, distal calf Size: 0.4 cm Reflux: 0 ms VARICOSITIES > 3mm: Location: None Imaged Size: NA cm Reflux: NA ms Location: None Imaged Size: NA cm Reflux: NA ms Location: None Imaged Size: NA cm Reflux: NA ms Location: None Imaged Size: NA cm Reflux: NA ms Location: None Imaged Size: NA cm Reflux: NA ms US/US venous duplex LE BI IMPRESSION: Right: Venous incompetence involving greater saphenous vein in the mid calf. 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 Left: No venous reflux is demonstrated. Higginbotham's cyst and chronic. Calcified left inguinal lymph nodes. Nonocclusive thrombus involving greater saphenous vein in the distal calf and small saphenous vein in the distal calf. Electronically signed by: Stanford Baeza MD 04/04/2025 02:30 PM EDT
--- OUTSIDE RECORDS SUMMARY | 2025-04-04 13:18 | XMS_ITS | Encounter Summary ---
Author Organization [facility] Address [address] [place] [address] Care Team Providers Care Traverse Rod Assembler Name Role Phone Sindi Penny MD Primary Care Provider Unavailabl e Flakita Rivera MD Primary Care Provider Regina vailable Flakita Rivera MD Primary Care Provider Regina vailable Reno Wild MD Unavailable [phone] Cierra Whatley NP Unavailable [phone] Flakita Rivera MD Primary Care Provider Regina vailable Cassi Cunningham PA-C Unavailable Imelda Cody MD Unavailable [phone] Encounter Details Date Type Department Care Team Description 11/08/2013 [facility] [address] [place] [address] Reno Wild MD [address] [place] [address] [address] [place], [place] [phone] Social History Tobacco Use Types Packs/Day Years Used Date Smoking Tobacco: Never Assessed Sex Assigned at Date Recorded Not on file Job Start Date Occupation Industry Not on file Not on file Not on file documented as of this encounter Plan of Treatment Not on file documented as of this encounter Procedures Procedure Name Priority Date/Time Associated Diagnosis Comments OUTSIDE ECHO Routine 11/08/2013 documented in this encounter Results * OUTSIDE ECHO (11/08/2013) Provider Default CARDIOLOGY documented in this encounter Visit Diagnoses Not on filedocumented in this encounter Care Teams Traverse Rod Assembler Relationship Specialty Start Date End Date Sindi Penny MD PCP - General Internal Medicine 08/15/17 01/26/18 Flakita Rivera MD PCP - General Internal Medicine 01/27/18 01/18/21 Flakita Rivera MD PCP - General 09/19/13 08/14/17 Flakita Rivera MD PCP - General Internal Medicine 07/24/21 Reno Wild MD [address] [place] [address] [address] [place] [address] Marketing Effectiveness Manager Cardiovascular Disease 11/05/20 Cierra Whatlye NP [address] [place] [address] [address] [place] [address] Nurse Practitioner Cardiology 11/05/20 Cassi Cunningham PA-C [address] [place] [address] [address] [place] [address] Specialist Cardiology 04/26/24 Imelda Cody MD [address] [place] [address] Specialist Cardiology 04/26/24 documented as of this encounter
--- OUTSIDE RECORDS SUMMARY | 2025-04-04 13:19 | XMS_ITS | Clinical Summary ---
Author Organization [facility] Address [address] [place] [address] Care Team Providers Care Cable Former Name Role Phone Flakita Rivera MD Primary Care Provider [phone] Allergies Active Allergy Reactions Criticality Noted Date Comments Aspirin 06/14/2018 Niacin And Related Palpitations Low 02/18/2016 hives Zthaylaau-Lnxtasoqpd-Yp-Apap 017 Other Anaphylaxis High 02/18/2016 Pseudoephedrine 06/14/2018 Medications Medication Sig Dispensed Refills Start Date End Date Status PROAIR HFA 108 (90 BASE) MCG/ACT inhaler INHALE 1 TO 2 PUFFS EVERY 4 TO 6 HOURS NEEDED 3 05/04/2017 Active clopidogrel (PLAVIX) 75 MG tablet 0 02/15/2017 Active fluticasone (FLONASE) 50 MCG/ACT nasal spray 0 02/16/2017 Activ e hydrochlorothiazide (HYDRODIURIL) tablet 25 mg 0 02/16/2017 Active lisinopril (PRINIVIL,ZESTRIL) tablet 2.5 mg TAKE ONE TABLET(S) EVERY DAY BY [id number] 1 05/02/2017 Active metoprolol succinate (TOPROL-XL) 24 hr tablet 50 mg 0 02/15/2017 Active montelukast (SINGULAIR) 10 MG tablet 0 04/03/2017 Active mupirocin (BACTROBAN) 2 % ointment 0 03/02/2017 Active ranitidine (ZANTAC) 150 MG tablet 0 04/13/2017 Active SPIRIVA HANDIHALER 18 MCG inhalation capsule INHALE CONTENTS OF ONE CAPSULE DAILY USING HANDIHALER 1 05/14/2017 Active JANTOVEN 1 MG tablet 0 04/01/2017 Active amoxicillin (AMOXIL) 500 MG capsule TAKE 4 CAPSULES BY MOUTH 1 HOUR PRIOR TO DENTAL PROCEDURE 20 capsule 3 07/21/2021 Active Active Problems Problem Noted Date Diagnosed Date Left hip pain 05/17/2017 Family History Medical History Relation Name Comments Hypertension Maternal Grandfather Hypertension Mother Relation Name Status Comments Maternal Grandfather Mother Social History Tobacco Use Types Packs/Day Years Used Date Smoking Tobacco: Never Assessed Sex and Gender Information Value Date Recorded Sex Assigned at Not on file Gender Identity Not on file Sexual Orientation Not on file Last Filed Vital Signs Vital Sign Reading Time Taken Comments Blood Pressure - - Pulse - - Temperature - - Respiratory Rate - - Oxygen Saturation - - Inhaled Oxygen Concentration - - Weight 92.5 kg (204 lb) 11/29/2018 1:40 PM EDT Height 182.9 cm (6') 11/29/2018 1:40 PM EDT Body Mass Index 27.67 11/29/2018 1:40 PM EDT Plan of Treatment Health Maintenance Due Date Last Done Comments COVID-19 Vaccine (#1) 02/23/1936 Depression Screening 1947 Preventative Health Evaluation 1953 DTap / Tdap / Td (1 - Tdap) 1954 Shingrix-Zoster Vaccine (1 of 2) 1985 Fall Risk Assessment 2000 Pneumococcal Vaccine (1 of 1 - PCV) 2000 RSV Adult > 60+ Yrs or Pregn ant (1 - 1-dose 75+ series) 2010 Influenza Vaccine (#1) 2025 Hepatitis B Vaccines Aged Out No long er eligible based on patient's age to complete this topic RSV Ped < 20 months Aged Out No longe r eligible based on patient's age to complete this topic Care Teams Cable Former Relationship Specialty Start Date End Date Flakita Rivera MD [facility] [address] [place] [phone] PCP - General Internal Medicine 11/28/17
--- OUTSIDE RECORDS SUMMARY | 2025-04-04 13:19 | XMS_ITS | Patient Health Record ---
Author Organization [facility] Address [address] [place] [address] Care Team Providers Care Lead Medical Technologist Name Role Phone Flakita Rivera Primary Care Provider Radha Fonseca Unavailable [phone] Allergies Allergen (clinical drug ingredient) Drug/Non Drug Allergy documented on EMR Reaction Allergy Type Onset Date Status aspirin Aspirin bleed Drug Allergy Active morphine Morphine Sulfate hallucinate Drug Allergy Active Reason For Referral No Information Medications Medication SIG (Take, Route, Frequency, Duration) Notes Start Date End Date Status Albuterol Sulfate HFA 108 (90 Base) MCG/ACT Inhalation; Duration: 25 Days Active Flonase Active Montelukast Sodium 10 MG Oral; Duration: 90 Days Active Budesonide-Formoterol Fumarate inhaler Active metFORMIN HCl 850 MG TAKE ONE TABLET BY MOUTH TWICE A DAY Oral; Duration: 90 Days Active Spiriva HandiHaler 18 MCG 1 capsule by inhaling the contents of the capsule using the HandiHaler device Inhalation Once a day Active Jantoven 5 MG Oral; Duration: 32 Days Active Amoxicillin For procedures Act anuj Losartan Potassium-HCTZ 100-25 MG TAKE ONE TABLET BY MOUTH EVERY DAY Oral; Duration: 90 Days Active Nitroglycerin PRN Active Doxycycline Monohydrate 100 MG 1 capsule Orally Twice a day; Duration: 5 days 11/19/2022 Active Tamsulosin HCl 0.4 MG 1 capsule Orally Once a day; Duration: 30 day(s) Active Rosuvastatin Calcium 5 MG 1 tablet Orally Once a day; Duration: 30 day(s) Active FeroSul 325 (65 Fe) MG 1 tablet Orally O nce a day; Duration: 30 day(s) Active Jardiance 10 MG 1 tablet Orally Once a day; Duration: 30 day(s) Active Omeprazole 20 MG 1 capsule 30 minutes before morning meal Orally Once a day; Duration: 30 day(s) Active Furosemide 20 MG 1 tablet Orally Once a day; Duration: 30 day(s) Active Warfarin Sodium Acti ve Immunizations Vaccine Route Administration Date Status Comme nts Influenza Unknown 07/13/2022 Administered COVID-19 Pfizer BioNTech Vaccine Unknown 07/13/2022 Administered 2020,2020 2020 Social History Tobacco Use: Social History Observation Description Date Details (start date - stop date) Former Smoker NA - NA Tobacco Use/Smoking Question Answer Notes Are you a: former smoker Additional Findings: Tobacco Non-User Current no n-smoker Alcohol Screen Question Answer Notes Did you have a drink containing alcohol in the p ast year? No Points 0 Interpretation Negative Tobacco use other than smoking: Question Answer Notes Are you an other tobacco user? 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 confirmed Plan Of Treatment Pending Test Test Name Order Date X ray : Foot, left 3V 11/19/2022 Insurance Providers Payer Name Payer Address Payer Phone Subscriber Number Group Number Insured Name Patient Relationship to Insured Coverage Start Date Coverage End Date [employer] Medicare Preferred [address] [place] [address] [id number] Tha Wagner Self - patient is the insured 2 Medical (General) History Medical History History ICD Code Anemia asthma Cataracts Chicken pox covid-19 Diabetic type ll Gall bladder problems High blood pressure Joint implants/screws Kidney disease Measles Mumps Surgical History Surgery Date(Month/Year) hip surgery left 2019 hip surgery right 2020 hernia 2002
--- OUTSIDE RECORDS SUMMARY | 2025-04-04 13:19 | XMS_ITS | Encounter Summary ---
Author Organization [facility], Address [address] [place] [address] Phone Care Team Providers Care Welder First Class Name Role Phone Flakita Rivera MD Primary Care Provider [phone] Encounter Details Date Type Department Care Team (Late Contact Info) Description 04/01/2025 Telephone [facility], [address] [place] [address] Shahla Martinez [place] [address] [place] [address] Social History Tobacco Use Types Packs/Day Years Used Date Smoking Tobacco: Never Sex and Gender Information Value Date Recorded Sex Assigned at Male 11/21/2023 2:56 PM EDT Legal Sex Male 4:31 PM EST Gender Identity Male 11/21/2023 2:56 PM EDT Sexual Orientation Not on file documented as of this encounter Miscellaneous Notes * Telephone Encounter - Shahla Martinez MA - 04/01/2025 10:31 AM EDT Pt called in states he has continued on the 2 tablets daily on the torsemide. He states he started at 190lbs and is now 185. He had recently labs done ( scanned in under media ) he is wondering how long you would like him to continue this dose, and what steps he should take next. He can be reached at [phone] documented in this encounter Plan of Treatment Upcoming Encounters Date Type Department Care Team (Late st Contact Info) Description 04/17/2025 3:30 PM EDT Office Visit [facility], [address] [place] [phone] Joes F Mann MD [address] [place] [phone] documented as of this encounter Visit Diagnoses Not on filedocumented in this encounter Care Teams Welder First Class Relationship Specialty Start Date End Date Flakita Rivera MD [facility] [address] PCP - General 07/17/19 documented as of this encounter
--- OUTSIDE RECORDS SUMMARY | 2025-04-04 13:19 | XMS_ITS | Encounter Summary ---
Author Organization [facility] Address [address] [place] [address] Care Team Providers Care Orthopaedic Nurse Name Role Phone Flakita Rivera MD Primary Care Provider [phone] Encounter Details Date Type Department Care Team (Late st Contact Info) Description 02/07/[address] [facility] [address] [facility] [place] [address] Flakita Rivera MD [address] [place] [address] Dr Lopez [place] [id number] Type 2 diabetes mellitus with diabetic neuropathy, unspecified (CMS/HCC V24, CMS/HCC V28); Hypertensive chronic kidney disease with stage 1 through stage 4 chronic kidney disease, or unspecified chronic kidney disease; Anemia in other chronic diseases classified elsewhere; Pure hypercholesterolemia , unspecified; Other proteinuria Social History Tobacco Use Types Packs/Day Years [...] as of this encounter Plan of Treatment Upcoming Encounters Date Type Department Care Team (Late st Contact Info) Description 06/18/2025 11:10 AM EDT Office Visit [facility] [address] [place] [address] Cierra Whatley NP [address] [place] [address] [place] [address] Scheduled Orders Name Type Priority Associated Diagnoses Orde r Schedule Comprehensive metabolic panel Lab Routine Type 2 diabetes mellitus with diabetic neuropathy, unspecified ([facility] V24, [facility] V28) Hypertensive chronic kidney disease with stage 1 through stage 4 chronic kidney disease, or unspecified chronic kidney disease Ordered: 02/07/2025 CBC and differential Lab Routine Anemia in other chronic diseases classified elsewhere Ordered: 02/07/2025 Lipid panel with reflex to direct LDL Lab Routine Pure hypercholesterolemia, unspecified Ordered: 02/07/2025 Vitamin B12 and folate Lab Routine Anemia in other chronic diseases classified elsewhere Ordered: 02/07/2025 Ferritin Lab Routine Anemia in other chronic diseases classified elsewhere Ordered: 02/07/2025 Microalbumin creatinine urine ratio Lab Routine Other proteinuria Ordered: 02/07/2025 Hemoglobin A1c Lab Routine Type 2 diabetes mellitus with diabetic neuropathy, unspecified ([facility] V24, CMS/[facility] V28) Ordered: 02/07/2025 documented as of this encounter Visit Diagnoses Diagnosis Type 2 diabetes mellitus with diabetic neuropathy, unspecified (CMS/HCC V24, CMS/HCC V28) Hypertensive chronic kidney disease with stage 1 through stage 4 chronic kidney disease, or unspecified chronic kidney disease Anemia in other chronic diseases classified elsewhere Pure hypercholesterolemia, unspecified Other proteinuria documented in this encounter Care Teams Orthopaedic Nurse Relationship Specialty Start Date End Date Flakita Rivera MD [address] [place] [address] PCP - General Internal Medicine 07/24/21 documented as of this encounter
== END 2025-04-04 13:09 | disposition home or self-care (01) ==
LOC: HO.US 13:08
PROVIDERS: PCP Internal Medicine; Visit Provider Physician Assistant Surgical
DX: I83.11 Varicose veins of right lower extremity with inflammation (principal); I83.12 Varicose veins of left lower extremity with inflammation
CPT/HCPCS: 93970

== ENCOUNTER → 2025-04-04 13:09 | Outpatient (BNV) | payer MEDICARE, SELFPAY | PROVIDERS: PCP Internal Medicine; Visit Provider Radiology Diagnostic Radiology | DX: I83.11 Varicose veins of right lower extremity with inflammation (principal) | CPT/HCPCS: 93970 ==

== ENCOUNTER 2025-05-23 13:09 | Outpatient (AMB) | payer MEDICARE, SELFPAY ==
--- NOTE | 2025-05-23 13:14 | MHC.OFFVIS ---
Intake Visit Reasons: follow up s/p US 04/04/25 Intake Note: Patient presents for follow up US. No complaints. Accompanied by: Spouse Allergies acetaminophen (From NyQuil) Allergy (Verified 05/23/25 13:16) SOB dextromethorphan (From NyQuil) Allergy (Verified 05/23/25 13:16) SOB doxylamine (From NyQuil) Allergy (Verified 05/23/25 13:16) SOB pseudoephedrine (From NyQuil) Allergy (Verified 05/23/25 13:16) SOB HPI HPI follow up s/p US 04/04/25: Details: The patient is an 89-year-old male presenting with venous insufficiency. He reports that his legs wear out quickly, particularly within 100 yards of walking, causing pain in both legs and necessitating rest. The patient has a history of spinal stenosis, for which he underwent surgery performed by Dr. Pari Pretty. He experiences lower back pain that radiates down his legs, suggesting a possible nerve involvement. He has undergone bilateral hip replacements, which he sometimes suspects may contribute to his leg discomfort. The patient also notes swelling in his feet, which he attributes to fluid retention. In terms of physical activity, he used to play golf actively but now plays less frequently, opting for shorter courses and using a golf cart due to leg fatigue. 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 Chest crackles Non-insulin dependent type 2 diabetes mellitus HTN (hypertension) HLD (hyperlipidemia) Persistent atrial fibrillation BPH (benign prostatic hyperplasia) Long COVID COPD (chronic obstructive pulmonary disease) Lower leg edema Chronic kidney disease, unspecified Surgical History H/O colonoscopy History of cataract surgery History of endoscopy History of colon surgery History of cholecystectomy H/O heart artery stent Hip joint replacement status Social History Household Members: Spouse Housing: Other Housing Other:: mobile home Do you presently have visiting nurse or other home services: No Patient Tobacco Use Status: Former Tobacco user Tobacco use type: Cigarette service: Yes Current occupation: right hand dominant Review of Systems Const All systems reviewed & are unremarkable except as noted in HPI and below Reports no additional complaints ENT Reports Normal hearing present Card Denies chest pain, Denies chest pain at rest, Denies chest pain with activity and Denies pedal edema Resp Denies cough GI Denies abdominal pain Musc Denies abnormal gait, Denies muscle cramps and Denies radiating pain into limb Skin/Breast Denies skin ulcer and Denies wounds Neuro Reports Normal hearing present and Denies abnormal gait Psych Reports no additional complaints Physical Exam Const General: cooperative, healthy appearing and comfortable Orientation/consciousness: oriented to person, oriented to place and oriented to time HEENT Head: Yes normal to inspection Neck Neck: Yes normal visual inspection Carotids: no bruits Chest Chest palpation & inspection: normal inspection of the chest Resp Effort & Inspection: normal respiratory effort and able to speak in complete sentences Auscultation: clear to auscultation bilaterally, no crackles, no rales, no rhonchi and no wheezes Cardio Other: Palpable dorsalis pedis pulse Rate: regular rate Rhythm: regular rhythm Heart sounds: S1 normal heart sound present and S2 normal heart sound present Bruits: no carotid bruits Peripheral pulses: Peripheral pulses 2+ throughout GI Inspection: Yes normal to inspection Skin Wounds: no wounds Hair: normal Neuro General: oriented to person, oriented to place and oriented to time Cranial nerves: Yes CN's II-XII intact bilaterally and Yes Normal hearing present Cognition (Neuro): normal cognition Motor exam (neuro): 5/5 motor strength present throughout Extrem Other: venous exam: +1 edema bilaterally General: No clubbing, No cyanosis and No edema Psych Appearance: grossly normal Mental Status: mental status grossly normal Speech and movement: Normal speech and movement present Assessment & Plan Assessment & Plan (1) Leg pain, bilateral: Code(s): M79.604 - Pain in right leg; M79.605 - Pain in left leg Category: Medical Plan: During the visit, I discussed with the patient that his venous and arterial functions are normal, and no further follow-up is necessary unless symptoms worsen. We also talked about his history of spinal stenosis and the associated lower back pain, which may involve nerve issues. He will follow up with us on an as-needed basis. Thank you for allowing us to assist in his care. Plan Patient was informed and verbally consented to the use of an ambient scribe for clinic note documentation during this visit. Patient Instructions: - Continue regular physical activity as tolerated, such as playing golf - Monitor for any worsening of leg symptoms and seek medical attention if necessary. Coding Level of Care Code Est Pt Level 4 (66541) Diagnoses Leg pain, bilateral M79.604; M79.605
--- OUTSIDE RECORDS SUMMARY | 2025-05-23 17:10 | XMS_ITS | Encounter Summary ---
Author Organization [facility] [place], Address [address] [place] [address] Phone Care Team Providers Care Distributor Of Directories Name Role Phone Flakita Rivera MD Primary Care Provider Encounter Details Date Type Department Care Team (Late st Contact Info) Description 06/24/2023 Documentation Only [facility] [address] [place] [address] Jessica Chavez [address] [place] [address] Social History Tobacco Use Types [...] Care Team (Late st Contact Info) Description 05/31/2025 1:30 PM EDT Office Visit [facility] [address] [place] [address] Jose F Mann MD [address] [place] [address] [place] [address] documented as of this encounter Visit Diagnoses Not on filedocumented in this encounter Care Teams Distributor Of Directories Relationship Specialty Start Date End Date Flakita Rivera MD [facility] [address] PCP - General 07/17/19 documented as of this encounter
--- OUTSIDE RECORDS SUMMARY | 2025-05-23 17:10 | XMS_ITS | Clinical Summary ---
Author Organization [facility] Address [address] [place] [address] Care Team Providers Care Sorter Operator Name Role Phone Flakita Rivera MD Primary Care Provider [phone] Allergies Active Allergy Reactions Criticality Noted Date Comments Aspirin 06/14/2018 Niacin And Related Palpitations Low 02/18/2016 hives Yesafceqa-Asohrklgmb-Je-Apap 017 Other Anaphylaxis High 02/18/2016 Pseudoephedrine 06/14/2018 [...] mg TAKE ONE TABLET(S) EVERY DAY BY FXUSU2CK 1 05/02/2017 Active metoprolol succinate (TOPROL-XL) 24 [...] age to complete this topic Care Teams Sorter Operator Relationship Specialty Start Date End Date Flakita Rivera MD [facility] [address] [place] [id number] PCP - General Internal Medicine 11/28/17
--- OUTSIDE RECORDS SUMMARY | 2025-05-23 17:10 | XMS_ITS | Encounter Summary ---
Author Organization [facility] [place], Address [address] [place] [address] Phone Care Team Providers Care Treasurer Savings Bank Name Role Phone Flakita Rivera MD Primary Care Provider Encounter Details Date Type Department Care Team (Late st Contact Info) Description 01/17/2024 Documentation Only [facility] [address] [place] [address] Shahla Martinez ID [address] [place] [phone] Social History Tobacco Use Types Packs/Day Years [...] Visit [facility] [address] [place] [address] Jose F Mann MD [address] [place] [address] [place] [address] documented as of this encounter Visit Diagnoses Not on filedocumented in this encounter Care Teams Treasurer Savings Bank Relationship Specialty Start Date End Date Flakita Rivera MD [address] [place] [address] PCP - General 07/17/19 documented as of this encounter
--- OUTSIDE RECORDS SUMMARY | 2025-05-23 17:10 | XMS_ITS | Encounter Summary ---
Author Organization [facility] [place], Address [address] [place] [address] Phone Care Team Providers Care Materials Coordinator Name Role Phone Flakita Rivera MD Primary Care Provider Encounter Details Date Type Department Care Team (Late st Contact Info) Description 02/10/2023 Documentation Only [facility] [address] [place] [address] Jessica Chavez [address] [place] [address] Social History Tobacco Use Types [...] Visit [facility] [address] [place] [address] Jose F Mann MD [address] [place] [address] [place] [address] documented as of this encounter Visit Diagnoses Not on filedocumented in this encounter Care Teams Materials Coordinator Relationship Specialty Start Date End Date Flakita Rivera MD [facility] [address] PCP - General 07/17/19 documented as of this encounter
--- OUTSIDE RECORDS SUMMARY | 2025-05-23 17:10 | XMS_ITS | Encounter Summary ---
Author Organization [facility] [place], Address [address] [place] [address] Phone Care Team Providers Care Apartment Locator Name Role Phone Flakita Rivera MD Primary Care Provider Encounter Details Date Type Department Care Team (Late st Contact Info) Description 06/12/2024 Documentation Only [facility] [address] [place] [address] Shahla Martinez [place] [address] [place] [phone] Social History Tobacco Use Types Packs/Day Years [...] Visit [facility] [address] [place] [address] Jose F Mann MD [address] [place] [address] [place] [address] documented as of this encounter Visit Diagnoses Not on filedocumented in this encounter Care Teams Apartment Locator Relationship Specialty Start Date End Date Flakita Rivera MD [address] [place] [address] PCP - General 07/17/19 documented as of this encounter
--- OUTSIDE RECORDS SUMMARY | 2025-05-23 17:10 | XMS_ITS | Encounter Summary ---
Author Organization [facility] [place], Address [address] [place] [address] Phone Care Team Providers Care Program Manager Environmental Planning Name Role Phone Flakita Rivera MD Primary Care Provider [phone] Encounter Details Date Type Department Care Team (Late st Contact Info) Description 11/24/2023 Documentation Only [facility] [address] [place] [address] Jose F Mann MD [address] [place] [address] [place] [phone] Social History Tobacco Use Types Packs/Day Years [...] Visit [facility] [address] [place] [address] Jose F Mann MD [address] [place] [address] [place] [phone] documented as of this encounter Visit Diagnoses Not on filedocumented in this encounter Care Teams Program Manager Environmental Planning Relationship Specialty Start Date End Date Flakita Rivera MD [address] [place] [address] [address] [place], [place] PCP - General 07/17/19 documented as of this encounter
--- OUTSIDE RECORDS SUMMARY | 2025-05-23 17:10 | XMS_ITS | Encounter Summary ---
Author Organization [facility] [place], Address [address] [place] [address] Phone Care Team Providers Care Utility Bagger Name Role Phone Flakita Rivera MD Primary Care Provider Encounter Details Date Type Department Care Team (Late st Contact Info) Description 12/06/2023 Documentation Only [facility] [address] [place] [address] Irene Flynn [address] [place] [phone] Social History Tobacco Use Types Packs/Day Years [...] Visit [facility] [address] [place] [address] Jose F Mann MD [address] [place] [address] [place] [address] documented as of this encounter Visit Diagnoses Not on filedocumented in this encounter Care Teams Utility Bagger Relationship Specialty Start Date End Date Flakita Rivera MD [address] PCP - General 07/17/19 documented as of this encounter
--- OUTSIDE RECORDS SUMMARY | 2025-05-23 17:11 | XMS_ITS | Encounter Summary ---
Author Organization [facility] [place], Address [address] [place] [address] Phone Care Team Providers Care Senior Data Integration Developer Name Role Phone Flakita Rivera MD Primary Care Provider Encounter Details Date Type Department Care Team (Late st Contact Info) Description 03/26/2025 Documentation Only [facility] [address] [place] [address] Shahla Martinez [place] [address] [place] [phone] Social History Tobacco Use Types Packs/Day Years [...] Visit [facility] [address] [place] [address] Jose F Mann MD [address] [place] [address] [place] [address] documented as of this encounter Visit Diagnoses Not on filedocumented in this encounter Care Teams Senior Data Integration Developer Relationship Specialty Start Date End Date Flakita Rivera MD [address] [place] [address] PCP - General 07/17/19 documented as of this encounter
--- OUTSIDE RECORDS SUMMARY | 2025-05-23 17:11 | XMS_ITS | Encounter Summary ---
Author Organization [facility] [place], Address [address] [place] [address] Phone Care Team Providers Care Carder Blankets Name Role Phone Flakita Rivera MD Primary Care Provider [phone] Encounter Details Date Type Department Care Team (Late st Contact Info) Description 03/26/2025 Documentation Only [facility] [address] [place] [place] [address] Shahla Martinez [place] [address] [place] [phone] Social History Tobacco Use Types Packs/Day Years [...] Visit [facility] [address] [place] [address] Jose F Mann MD [address] [place] [address] [place] [address] documented as of this encounter Visit Diagnoses Not on filedocumented in this encounter Care Teams Carder Blankets Relationship Specialty Start Date End Date Flakita Rivera MD [address] [place] [address] PCP - General 07/17/19 documented as of this encounter
--- OUTSIDE RECORDS SUMMARY | 2025-05-23 17:11 | XMS_ITS | Patient Health Record ---
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 confirmed Plan Of Treatment Pending Test Test Name Order Date X ray : Foot, left 3V 11/19/2022 Insurance Providers Payer Name Payer Address Payer Phone Subscriber Number Group Number Insured Name Patient Relationship to Insured Coverage Start Date Coverage End Date [employer] Medicare Preferred [address] [place] [address] [id number] Tha Wagner Self - patient is the insured 2 Medical (General) History Medical History History ICD Code Anemia asthma Cataracts Chicken pox covid-19 Diabetic type ll Gall bladder problems High blood pressure Joint implants/screws Kidney disease Measles Mumps Surgical History Surgery Date(Month/Year) hip surgery left 2019 hip surgery right 2020 hernia 2002
--- OUTSIDE RECORDS SUMMARY | 2025-05-23 17:11 | XMS_ITS | Encounter Summary ---
Author Organization [facility] [place], Address [address] [place] [address] Phone Care Team Providers Care Rn Clinical Research Name Role Phone Flakita Rivera MD Primary Care Provider [phone] Encounter Details Date Type Department Care Team (Late st Contact Info) Description 12/28/2021 Documentation Only [facility] [address] [place] [address] Jessica Chavez [address] [place] [address] Social History Tobacco Use Types [...] Visit [facility] [address] [place] [place] [address] Jose F Mann MD [address] [place] [address] [place] [address] documented as of this encounter Visit Diagnoses Not on filedocumented in this encounter Care Teams Rn Clinical Research Relationship Specialty Start Date End Date Flakita Rivera MD [facility] PCP - General 07/17/19 documented as of this encounter
--- OUTSIDE RECORDS SUMMARY | 2025-05-23 17:11 | XMS_ITS | Encounter Summary ---
Author Organization [facility] [place], Address [address] [place] [address] Phone Care Team Providers Care Business Analytics Faculty Member Name Role Phone Flakita Rivera MD Primary Care Provider Encounter Details Date Type Department Care Team (Late st Contact Info) Description 04/29/2025 Documentation Only [facility] [address] [place] [address] Shahla Martinez [place] [address] [place] [phone] Social History Tobacco Use Types Packs/Day Years [...] Visit [facility] [address] [place] [address] Jose F Mann MD [address] [place] [address] [place] [address] documented as of this encounter Visit Diagnoses Not on filedocumented in this encounter Care Teams Business Analytics Faculty Member Relationship Specialty Start Date End Date Flakita Rivera MD [address] [place] [address] PCP - General 07/17/19 documented as of this encounter
--- OUTSIDE RECORDS SUMMARY | 2025-05-23 17:11 | XMS_ITS | Clinical Summary ---
Author Organization [facility], Address [address] [place] [address] [place] [address] Phone Care Team Providers Care Stock Manager Name Role Phone Flakita Rivera MD Primary Care Provider [phone] Allergies Active Allergy Reactions Criticality Noted Date Comments Acetaminophen 01/19/2021 Aspirin 06/14/2018 Atorvastatin 06/19/2021 MYALGIA Dextromethorphan Hbr 01/19/2021 Doxylamine 01/19/2021 Lisinopril 06/19/2021 COUGH Metformin 06/19/2021 DIARRHEA Niacin And Related Palpitations Low 02/18/2016 hives Other Anaphylaxis High 02/18/2016 Wofjzrihi-Vwbhnjczhn-Hf-Apap 017 Pseudoephedrine 06/14/2018 Medications Fluticasone Furoate-Vilanter ol 200-25 MCG/INH aerosol powder Inhale Active warfarin (COUMADIN) 1 MG tablet Take as directed per After Visit Summary. Active fluticasone (FLONASE) 50 MCG/ACT nasal spray Administer 1 spray into each nostril 2 (two) times a day Active metFORMIN (GLUCOPHAGE) 850 MG tablet Take 850 mg by mouth 2 (two) times a day with meals Active metoprolol succinate XL (TOPROL-XL) 100 MG 24 hr tablet Take 100 mg by mouth 1 (one) time each day Active montelukast (SINGULAIR) 10 MG tablet Take 10 mg by mouth every night Active omeprazole (PriLOSEC) [address] capsule Take 20 mg by mouth 1 (one) time each day Do not crush or chew. Active albuterol HFA (PROVENTIL HFA;VENTOLIN HFA) 108 (90 Base) MCG/ACT inhaler Inhale 2 puffs 4 (four) times a day Active rosuvastatin (CRESTOR) 5 MG tablet Take 5 mg by mouth 1 (one) time each day Active Tiotropium [place] Monohydrate 2.5 MCG/ACT aerosol solution Inhale 2 puffs 1 (one) time each day Active tamsulosin (FLOMAX) 0.4 MG 24 hr capsule Take 0.4 mg by mouth 1 (one) time each day Active amoxicillin (AMOXIL) 500 MG tablet Take 2 g by mouth if needed Pre-procdures 9 Active Multiple Vitamins-Mineral s (MULTIVITAMIN ADULT EXTRA C PO) Take 1 tablet by mouth 1 (one) time each day Active clotrimazole (LOTRIMIN) 1 % cream APPLY TO THIGHS TWO TIMES A DAY 1 Active Jardiance 10 MG tablet Take 1 tablet by mouth every other day 1 Active furosemide (LASIX) 20 MG tablet Take 20 mg by mouth 1 (one) time each day Active Aspirin Low Dose 81 MG EC tablet Take 81 mg by mouth 1 (one) time each day 4 Active ciprofloxacin (CIPRO) 500 MG tablet Take 500 mg by mouth in the morning and 500 mg in the evening. 4 Active doxycycline (MONODOX) 100 MG capsule 3 Active Enoxaparin Sodium 100 MG/ML solution prefilled syringe 3 Active finasteride (PROSCAR) 5 MG tablet 3 Active Fluticasone-Salm eterol 100-50 MCG/ACT aerosol powder INHALE 1 PUFF INTO THE LUNGS TWO TIMES A DAY Active OneTouch Verio test strip USE TO CHECK BLOOD SUGAR TWICE A DAY 4 Active ipratropium-albu terol (DUO-NEB) 0.5-2.5 mg/3 mL nebulizer solution 3 Active ketoconazole (NIZORAL) 2 % cream APPLY TO RASH TWO TIMES A DAY 4 Active predniSONE (DELTASONE) 10 MG tablet TAKE 4 TABLETS DAILY FOR 3 DAYS THEN 3 TABLETS DAILY FOR 3 DAYS, THEN 2 TABLETS DAILY FOR 3 DAYS, THEN 1 TABLET DAILY FOR 3 DAYS 4 Active losartan (COZAAR) 50 MG tablet Take 50 mg by mouth 1 (one) time each day Active torsemide (DEMADEX) 20 MG tablet Take 2 tablets (40 mg total) by mouth 1 (one) time each day 60 tablet 04/17/20 26 Active metOLazone 5 MG tablet Take 1 tablet (5 mg total) by mouth every Tuesday and Tuesday 8 tablet 04/19/20 26 Active Active Problems Problem Noted Date Diagnosed Date Fatigue 02/03/2023 Stage 3b chronic kidney disease 06/25/2022 Anemia, not otherwise specified 07/30/2021 Edema of lower extremity 07/30/2021 Cyst of kidney 06/29/2021 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 This has improved his symptoms and his leg edema has completely resolved. He had put on about 6 pounds and once he started taking the furosemide he went back to his baseline weight. His creatinine went up from 1.5-1.9 with 40 mg of furosemide daily therefore I am reducing this to 20 mg daily and repeating a basic metabolic panel next week. I will also plan to update an echocardiogram. His last echocardiogram was in 2008 showing an LVEF of 60 to 65%. Patient advised to seek emergency medical attention by calling 911 if they were to develop severe dyspnea, chest pain that did not resolve with rest or nitroglycerin, or if they were to faint. I've asked the patient to call if they develop worsening symptoms of heart failure such as increased shortness of breath, new or worsening cough, increased swelling in the legs or ankles, or weight gain of more than 2 pounds in one day or 4 pounds in one week. Hyperlipidemia 08/19/2017 07/12/2023 Overview (07/12/2023): Last Assessment & Plan: Patient continues on rosuvastatin. Goal LDL cholesterol is less than 70. We will need to update these at his next office visit. His last LDL was 27. 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); Microalbuminuria 05/10/2025 Telephone [facility] [address] [place] [address] Shahla Martinez MA 04/29/2025 Documentation Only [facility] [address] [place] [address] Shahla Martinez MA 04/17/2025 3:30 PM EDT Office Visit [facility] [address] [place] [address] Jose F Mann MD 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); Hypertension; 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); Microalbuminuria; Edema of lower extremity 04/09/2025 Orders Only [facility] [address] [place] [address] Shahla Martinez MA 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); Hypertension; 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); Microalbuminuria 04/05/2025 Orders Only [facility] [address] [place] [address] Jose F Mann MD 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) 04/01/2025 Telephone [facility] [address] [place] [address] Shahla Martinez MA 03/29/2025 Office Communication [facility] [address] [place] [address] Jessica Chavez 03/26/2025 Documentation Only [facility] [address] [place] [address] Shahla Martinez MA 03/26/2025 Documentation Only [facility] [address] [place] [address] Shahla Martinez MA 03/21/2025 Telephone [facility] [address] [place] [address] Shahla Martinez MA 03/18/2025 4:00 PM EDT Office Visit [facility] [address] [place] [address] Jose F Mann MD 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); Hypertension; 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); Microalbuminuria; Atherosclerotic heart disease of [place] coronary artery with angina pectoris, not otherwise specified (HCC); Paroxysmal atrial fibrillation (HCC) 03/18/2025 Office Communication [facility] [address] [place] [address] Irene Flynn 03/04/2025 Orders Only [facility] [address] [place] [address] Shahla Martinez MA 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); Edema of lower extremity; Hypertension; 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) from Last 3 Months Immunizations Immunization Administration Dates Next Due Influenza Split High Dose Pr eservative Free IM 07/07/2018,06/23/2017 Influenza Vaccine, Quadrivalent, Adjuvanted 11/2022,06/30/2020 Influenza, High-dose Seasona l, Quadrivalent, Preservative Free 07/05/2022,06/16/2021 Influenza, Trivalent, Adjuvanted 07/12/2019 Moderna SARS-COV-2 07/19/2022,02/15/2022, 021 Moderna SARS-CoV-2 Bivalent 12+ 07/19/2022 Pfizer SARS-COV-2 07/09/2021 Rsv, Bivalent, Protein Subun it Rsvpref, Diluent Reconstitutd 08/26/2023 Zoster, Recombinant 12/12/2018,10/12/2018 Family History Medical History Relation Comments Diabetes Mother Hyperlipidemia Mother Thyroid disease Mother Relation Status Comments Mother Social History Tobacco Use Types Packs/Day Years Used Date Smoking Tobacco: Never Sex and Gender Information Value Date Recorded Sex Assigned at Male 11/21/2023 2:56 PM EDT Legal Sex Male 4:31 PM EST Gender Identity Male 11/21/2023 2:56 PM EDT Sexual Orientation Not on file Last Filed Vital Signs Vital Sign Reading Time Taken Comments Blood Pressure 105/50 04/17/2025 3:35 PM EDT Pulse 82 11/20/2018 12:00 PM EDT Temperature - - Respiratory Rate - - Oxygen Saturation - - Inhaled Oxygen Concentration - - Weight 83.9 kg (185 lb) 04/17/2025 3:35 PM EDT Height 177.8 cm (5' 10 ) 11/20/2018 12:00 PM EDT Body Mass Index 26.54 11/20/2018 12:00 PM EDT Plan of Treatment Upcoming Encounters Date Type Department Care Team (Late st Contact Info) Description 05/31/2025 1:30 PM EDT Office Visit [facility], [address] [place] [address] Jose F Mann MD [address] [facility] [place] [address] Health Maintenance Due Date Last Done Comments Pneumococcal Vaccine: 50+ Years (1 of 2 - PCV) 1954 Diabetes: Ophthalmology Exam 06/19/2021 Diabetes: Pedal Pulse Checked 06/19/2021 Diabetes: Sensory Foot Exam 06/19/2021 Diabetes: Visual Foot Exam 06/19/2021 Influenza Vaccine (#1) 2025 3, 07/13/2022, 07/05/2022, Additional history exists Diabetes: Hemoglobin A1C 08/16/2025 025, 02/07/2025, 08/15/2024, Additional history exists Hepatitis B Vaccine Aged Out No longe r eligible based on patient's age to complete this topic Insurance [employer] Care Teams Stock Manager Relationship Specialty Start Date End Date Flakita Rivera MD [address] [place] [address] PCP - General 07/17/19
--- OUTSIDE RECORDS SUMMARY | 2025-05-23 17:11 | XMS_ITS | Encounter Summary ---
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) Microalbuminuria Expected: 05/22/2025, Expires: 06/21/2026 Urine Albumin / Creatinine Ratio Lab Routine Stage 3b chronic kidney disease (HCC) Hypertension 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
== END 2025-05-23 13:58 | disposition home or self-care (01) ==
LOC: HO.HVS 13:09
PROVIDERS: PCP Internal Medicine; Visit Provider Surgery Vascular Surgery
DX: M79.604 Pain in right leg (principal); M79.605 Pain in left leg
CPT/HCPCS: 99214

== ENCOUNTER → 2025-05-23 13:09 | Outpatient (BNVA) | payer MEDICARE, SELFPAY | PROVIDERS: PCP Internal Medicine; Visit Provider Surgery Vascular Surgery | DX: M79.604 Pain in right leg (principal); M79.605 Pain in left leg; Z96.643 Presence of artificial hip joint, bilateral | CPT/HCPCS: 99212 ==

== ENCOUNTER 2025-06-14 14:03 | Outpatient (AMB) | payer MEDICARE, SELFPAY ==
--- OUTSIDE RECORDS SUMMARY | 2025-06-14 14:17 | XMS_ITS | Encounter Summary ---
Author Organization [facility], Address [address] [place] [address] Phone Care Team Providers Care Bridge Construction Inspector Name Role Phone Flakita Rivera MD Primary Care Provider [phone] Encounter Details Date Type Department Care Team (Late st Contact Info) Description 12/06/2023 Documentation Only [facility] [address] [place] [address] Irene Flynn [address] [place] [phone] Social History Tobacco Use Types Packs/Day Years [...] Care Team (Late st Contact Info) Description 06/26/2025 10:15 AM EDT Office Visit [facility] [address] [place] [address] [place] [address] 08/09/2025 4:00 PM EST Office Visit [facility] [address] [place] [address] Jose F Mann MD [address] [facility] [place] [address] documented as of this encounter Visit Diagnoses Not on filedocumented in this encounter Care Teams Bridge Construction Inspector Relationship Specialty Start Date End Date Flakita Rivera MD [facility] PCP - General 07/17/19 documented as of this encounter
--- OUTSIDE RECORDS SUMMARY | 2025-06-14 14:17 | XMS_ITS | Encounter Summary ---
Author Organization [facility] Address [address] [place] [address] Care Team Providers Care Breakdown Worker Name Role Phone Flakita Rivera MD Primary Care Provider [phone] Encounter Details Date Type Department Care Team (Late st Contact Info) Description 02/07/[address] [facility] - Main Lab [address] [facility] [place] [address] Flakita Rivera MD [address] [place] [address] [address] [place] [id number] Type 2 diabetes mellitus with diabetic neuropathy, [...] Description 06/18/2025 11:10 AM EDT Office Visit [facility] [address] [place] [address] Cierra Whatley NP [address] [place] [address] [place] [address] Scheduled Orders Name Type Priority Associated Diagnoses Orde r Schedule Comprehensive metabolic panel Lab Routine Type 2 diabetes mellitus with diabetic neuropathy, unspecified ([facility] V24, [facility] V28) Hypertensive chronic kidney disease with stage [...] diabetic neuropathy, unspecified (CMS/HCC V24, CMS/HCC V28) Ordered: 02/07/2025 documented as of this encounter Visit Diagnoses Diagnosis Type 2 diabetes mellitus with diabetic neuropathy, unspecified (CMS/HCC V24, CMS/HCC V28) Hypertensive chronic kidney disease with stage 1 through stage 4 chronic kidney disease, or unspecified chronic kidney disease Anemia in other chronic diseases classified elsewhere Pure hypercholesterolemia, unspecified Other proteinuria documented in this encounter Care Teams Breakdown Worker Relationship Specialty Start Date End Date Flakita Rivera MD [address] [place] [address] PCP - General Internal Medicine 07/24/21 documented as of this encounter
--- OUTSIDE RECORDS SUMMARY | 2025-06-14 14:17 | XMS_ITS | Clinical Summary ---
Author Organization [facility] Address [address] [place] [address] Care Team Providers Care International Sales Manager Name Role Phone Flakita Rivera MD Primary Care Provider [phone] Allergies Active Allergy Reactions Criticality Noted Date Comments Aspirin 06/14/2018 Niacin And Related Palpitations Low 02/18/2016 hives Eaubdyrul-Oylzsakvhp-Pn-Apap 017 Other Anaphylaxis High 02/18/2016 Pseudoephedrine 06/14/2018 [...] mg TAKE ONE TABLET(S) EVERY DAY BY [id number] 1 05/02/2017 Active metoprolol succinate (TOPROL-XL) 24 [...] age to complete this topic Care Teams International Sales Manager Relationship Specialty Start Date End Date Flakita Rivera MD [facility] [address] [place] [phone] PCP - General Internal Medicine 11/28/17
--- OUTSIDE RECORDS SUMMARY | 2025-06-14 14:17 | XMS_ITS | Encounter Summary ---
Author Organization [facility], Address [address] [place] [address] Phone Care Team Providers Care Laborer Driver Name Role Phone Flakita Rivera MD Primary Care Provider Encounter Details Date Type Department Care Team (Late st Contact Info) Description 03/26/2025 Documentation Only [facility] [address] [place] [address] Shahla Martinez [place] [address] [place] [phone] Social History Tobacco Use Types Packs/Day Years [...] Visit [facility] [address] [place] [address] 08/09/2025 4:00 PM EST Office Visit [facility] [address] [facility] [place] [address] Jose F Mann MD [address] [facility] [place] [address] documented as of this encounter Visit Diagnoses Not on filedocumented in this encounter Care Teams Laborer Driver Relationship Specialty Start Date End Date Flakita Rivera MD [address] [place] [address] PCP - General 07/17/19 documented as of this encounter
--- OUTSIDE RECORDS SUMMARY | 2025-06-14 14:17 | XMS_ITS | Clinical Summary ---
Author Organization [facility], Address [address] [place] [address] [place] [address] Phone Care Team Providers Care Business Teacher Name Role Phone Flakita Rivera MD Primary Care Provider [phone] Allergies Active Allergy Reactions Criticality Noted Date Comments Acetaminophen 01/19/2021 Aspirin 06/14/2018 Atorvastatin 06/19/2021 MYALGIA Dextromethorphan Hbr 01/19/2021 Doxylamine 01/19/2021 Lisinopril 06/19/2021 COUGH Metformin 06/19/2021 DIARRHEA Niacin And Related Palpitations Low 02/18/2016 hives Other Anaphylaxis High 02/18/2016 Jejgxzbly-Kskmpxpbdt-Cb-Apap 017 Pseudoephedrine 06/14/2018 Medications Fluticasone Furoate-Vilanter ol [...] 1 (one) time each day Active Tiotropium [place] Monohydrate 2.5 MCG/ACT aerosol solution Inhale 2 [...] kidney 06/29/2021 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 06/29/2021 Orthopnea [...] Encounters Date Type Department Care Team Description 06/07/2025 Documentation Only [facility] [address] [place] [address] Chelsea Vásquez 06/07/2025 Office Communication [facility] [address] [place] [address] Chelsea Vásquez 05/31/2025 1:30 PM EDT Office Visit [facility] [address] [place] [address] Jose F Mann MD 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); Hypertension; 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); Edema of lower extremity; Microalbuminuria 05/31/2025 Office Communication [facility] [address] [place] [address] Brody Tello MA 05/22/2025 Orders Only [facility] [address] [place] [address] Shahla Martinez MA 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); Hypertension; 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); Microalbuminuria 05/10/2025 Telephone [facility] [address] [place] [address] Shahla Martinez MA 04/29/2025 Documentation Only [facility] [address] [place] [address] Shahla Martinez MA 04/17/2025 3:30 PM EDT Office Visit [facility] [address] [place] [address] Jose F Mann MD 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); Hypertension; 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); Microalbuminuria; Edema of lower extremity 04/09/2025 Orders Only [facility] [address] [place] [address] Shahla Martinez MA 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); Hypertension; 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); Microalbuminuria 04/05/2025 Orders Only [facility] [place] [address] [address] Jose F Mann MD 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) 04/01/2025 Telephone [facility] [address] [place] [address] Shahla Martinez MA 03/29/2025 Office Communication [facility] [address] [place] [address] Jessica Chavez 03/26/2025 Documentation Only [facility] [address] [place] [address] Shahla Martinez MA 03/26/2025 Documentation Only [facility] [address] [place] [address] Shahla Martinez MA 03/21/2025 Telephone [facility] [address] [place] [address] Shahla Martinez MA 03/18/2025 4:00 PM EDT Office Visit [facility] [address] [place] [address] Jose F Mann MD 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); Hypertension; 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); Microalbuminuria; Atherosclerotic heart disease of [place] coronary artery with angina pectoris, not otherwise specified (HCC); Paroxysmal atrial fibrillation (HCC) 03/18/2025 Office Communication [facility], [address] [place] [address] Irene Flynn from Last 3 Months Immunizations Immunization Administration [...] Visit [facility] [address] [place] [address] [place] [address] 08/09/2025 4:00 PM EST Office Visit [facility] [address] [place] [address] Jose F Mann MD [address] [place] [address] [place] [address] Health Maintenance Due Date Last [...] this topic Insurance [employer] Medicare Care Teams Business Teacher Relationship Specialty Start Date End Date Flakita Rivera MD [address] [place] [address] [address] [place], [place] PCP - General 07/17/19
--- OUTSIDE RECORDS SUMMARY | 2025-06-14 14:17 | XMS_ITS | Encounter Summary ---
Author Organization [facility], Address [address] [place] [address] Phone Care Team Providers Care Tunnel Elastic Operator Lockstitch Name Role Phone Flakita Rivera MD Primary Care Provider Encounter Details Date Type Department Care Team (Late st Contact Info) Description 04/29/2025 Documentation Only [facility] [address] [place] [address] Shahla Martinez [place] [address] [place] [id number] Social History Tobacco Use Types Packs/Day Years [...] Visit [facility] [address] [place] [address] 08/09/2025 4:00 PM EST Office Visit [facility] [address] [place] [address] Jose F Mann MD [address] [place] [address] documented as of this encounter Visit Diagnoses Not on filedocumented in this encounter Care Teams Tunnel Elastic Operator Lockstitch Relationship Specialty Start Date End Date Flakita Rivera MD [address] [place] [address] PCP - General 07/17/19 documented as of this encounter
--- OUTSIDE RECORDS SUMMARY | 2025-06-14 14:17 | XMS_ITS | Clinical Summary ---
Author Organization [address] Address [address] [place] [address] [place] [address] Phone Care Team Providers Care Cytology Technologist Name Role Phone Flakita Rivera MD Primary Care Provider [phone] Allergies Active Allergy Reactions Criticality Noted Date Comments Acetaminophen 01/19/2021 Aspirin Bleeding,GI bleeding Low 06/14/2018 Dextromethorphan Anaphylaxis High 01/19/2021 Doxylamine Anaphylaxis High 01/19/2021 Niacin 01/19/2021 Nyquil Anaphylaxis High 02/18/2016 Pseudoephedrine Anaphylaxis High 06/14/2018 Medications amoxicillin (AMOXIL) 500 mg tablet Amoxicillin Active albuterol-budes onide (AIRSUPRA) 90-80 mcg/actuation inhaler 2 puffs, Inhalation, Every 6 hours, 0 Refills, Maintenance, 02/01/24 9:50:00 EDT, Partial fill upon patient request if the prescription is for a schedule II opioid drug. 4 Active umeclidinium (Incruse Ellipta) 62.5 mcg/actuation inhalation Inhale into the lungs. Active rosuvastatin (CRESTOR) 5 mg tablet Take 5 mg by mouth daily. Active omeprazole (PriLOSEC) [address] capsule Daily Active mupirocin (BACTROBAN) 2 % ointment 7 Active multivitamin tablet Take 1 tablet by mouth 1 (one) time each day. Active metoprolol succinate (TOPROL-XL) 50 mg 24 hr tablet 7 Active losartan (COZAAR) 50 mg tablet Take 1 tablet (50 mg total) by mouth 1 (one) time each day. Active ketoconazole (NIZORAL) 2 % cream APPLY TO RASH TWO TIMES A DAY 4 Active hydroCHLOROthia zide (HYDRODIURIL) 25 mg tablet 7 Active furosemide (LASIX) 20 mg tablet Take 1 tablet (20 mg total) by mouth 1 (one) time each day. Active clopidogreL (PLAVIX) 75 mg tablet Take 1 tablet (75 mg total) by mouth 1 (one) time each day. 6 Active empagliflozin (Jardiance) 10 mg tablet Take 1 tablet (10 mg total) by mouth 1 (one) time each day. Every other day Active fluticasone propion-salmete roL (ADVAIR DISKUS) 100-50 mcg/dose diskus inhaler Inhale 1 Puff into the lungs 2 times daily. Active aspirin 81 mg EC tablet Take 1 Tablet by mouth daily for 180 days. 4 Active metFORMIN (GLUCOPHAGE) 850 mg tablet Take 1 Tablet by mouth 2 times daily (with meals). Active ferrous sulfate 325 mg (65 mg elemental iron) tablet Take 1 tablet (325 mg total) by mouth 1 (one) time each day. Active fluticasone propionate (FLONASE) 50 mcg/actuation nasal spray 2 Sprays by Each Nare route daily. Active tamsulosin (FLOMAX) 0.4 mg 24 hr capsule Take 0.4 mg by mouth daily. Take 30 mins after same meal every day Active nitroglycerin (NITROSTAT) 0.4 mg SL tabletIndicatio ns:Coronary artery disease involving chinik coronary artery of chinik heart without angina pectoris Place 1 tablet (0.4 mg total) under the tongue every 5 (five) minutes if needed for chest pain. May repeat dose every 5 minutes for up to 3 doses total. 100 tablet 11 5 09/24/19 26 Active albuterol HFA (PROAIR HFA ; PROVENTIL HFA ; VENTOLIN HFA) 90 mcg/actuation inhaler Inhale 2 puffs by mouth every 6 (six) hours if needed for wheezing. 6.7 g 3 5 02/07/20 26 Active torsemide (DEMADEX) 20 mg tablet Take 1 tablet (20 mg total) by mouth 1 (one) time each day. 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 The decrease from 100 mg to 50 mg of metoprolol succinate has had no significant increase in ventricular response rate and no significant increase in blood pressure we will leave him on 50 mg of metoprolol succinate Diverticulosis 09/14/2024 Bradycardia 07/03/2024 Overview (09/14/2024): Last Assessment & Plan: Patient has issues with bradycardia. They have not improved all that much with discontinuation of the large dose of metoprolol but we will leave him where he is he is not symptomatic his blood pressure is fine. It sounds like he is definitely anemic and is ant get Procrit will see him back in 3 months and see if we have improved his symptoms if not we may consider doing a stress test to recheck for chronotropic incompetence Chest wall hematoma 08/29/2023 Hypercoagulable state due to paroxysmal atrial fibrillation ([facility] V24, [facility] V28) 08/29/2023 Pulmonary nodule 08/29/2023 Stage 3b chronic kidney disease ([facility] V24, [facility] V28) 06/25/2022 Anemia 07/30/2021 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 He feels well and denies any exertional anginal symptoms. He continues on cardioprotective medical therapy with beta-amanda and statin. At this time he is not on aspirin due to significant issues with GI bleeding recently. We will introduce this once his ecchymosis has resolved. Assessment & Plan (09/24/2024 12:33 PM EST): Orders: nitroglycerin (NITROSTAT) 0.4 mg SL tablet; Place 1 tablet (0.4 mg total) under the tongue every 5 (five) minutes if needed for chest pain. May repeat dose every 5 minutes for up to 3 doses total. CKD (chronic kidney disease) stage 3, GFR 30-59 ml/min ([facility] V24, [facility] V28) 06/14/2018 Congestive heart failure ([facility] V24, [facility] V 28) 06/14/2018 Overview (09/14/2024): Last Assessment & Plan: Patient was recently [...] day or 4 pounds in one week. Assessment & Plan (09/24/2024 12:33 PM EST): Patient complains of dyspnea with exertion no evidence of heart failure no evidence of volume overload. We thought it was secondary to either tight rate control of his A-fib or anemia. So we loosened his A-fib rate control by decreasing his beta- amanda and he has received Procrit with a 1 g increase in his hemoglobin since last visit. With these changes his exertional dyspnea is gone he feels better he has not developed any issues with hypertension or tachycardia we will leave him on the reduced dose of metoprolol and continue with his anemia treatment. And follow-up in 6 months Gastroesophageal reflux disease 06/14/2018 Type 2 diabetes mellitus wit h other diabetic kidney complication ([facility] V24, [facility] V28) 06/14/2018 Osteoarthritis 06/14/2018 Overview (09/14/2024): Spine Nephrolithiasis 06/14/2018 Asthma 08/19/2017 COPD (chronic obstructive pu lmonary disease) ([facility] V24, [facility] V28) 08/19/2017 Hyperlipidemia 08/19/2017 Overview (09/14/2024): Last Assessment & Plan: Patient continues on rosuvastatin. Goal LDL cholesterol is less than 70. We will need to update these at his next office visit. His last LDL was 27. HTN (hypertension) 08/19/2017 Overview (09/14/2024): Last Assessment & Plan: Patient's blood pressure is well-controlled with a reading today of 112/64. No changes to his medical therapies today. He will continue with losartan and metoprolol as prescribed. Encounters Date Type Department Care Team Description 05/17/2025 Lab Requisition [facility] [address] [facility] [place] [address] Flakita Rivera MD Hypertensive chronic kidney disease with stage 1 through stage 4 chronic kidney disease, or unspecified chronic kidney disease; Type 2 diabetes mellitus without complications ([facility] V24, [facility] V28) from Last 3 Months Surgical History Surgery Date Site/Laterality Comments OTHER SURGICAL HISTORY 2005 PROCEDURE: [place] COLECTOMY PRTL W/COLOST/ILEOST & MUCOFISTULA; COMMENT: 3/ of colon removed- Sigmoid colon HERNIA REPAIR 2005 PROCEDURE: HISTORICAL HERNIA REPAIR/ING; COMMENT: with mesh HIP ARTHROPLASTY Bilateral PROCEDURE: HISTORICAL HIP REPLACEMENT; COMMENT: 2017 OTHER SURGICAL HISTORY 05/19/2018 PROCEDURE: REFERRAL TO INTERVENTIONAL RADIOLOGY; COMMENT: allbladder was drained LUMBAR LAMINECTOMY PROCEDURE: HISTORICAL LUMB LAMINECTOMY Medical History Medical History Date Comments Hyperlipidemia 08/19/2017 DX:Hyperlipidemi a HTN (hypertension) 08/19/2017 DX:HTN (hyper tension) COPD (chronic obstructive pu lmonary disease) [place] [place] [facility] [place]) 08/19/2017 DX:COPD (chronic o bstructive pulmonary disease) ([facility]) Asthma 08/19/2017 DX:Asthma Acute cholecystitis due to b iliary calculus DX:Acute cholecystitis due t o biliary calculus Type 2 diabetes mellitus wit h renal manifestations ([facility] [place] [facility]) 06/14/2018 DX:Type 2 diabetes mellitus with renal manifestations ([facility]) CKD (chronic kidney disease) stage 3, GFR 30-59 ml/min ([facility]) 06/14/2018 DX:CKD (chronic kidney disea se) stage 3, GFR 30-59 ml/min ([facility]) CAD (coronary artery disease) 06/14/2018 DX :CAD (coronary artery disease); COMMENT: Stents GERD (gastroesophageal reflux disease) 06/14/2018 DX:GERD (gastroesophageal reflux disease) BPH (benign prostatic hyperplasia) 06/14/2018 DX:BPH (benign prostatic hyperplasia) Atrial fibrillation ([facility] [place] [facility] [place]) 06/14/2018 DX:Atrial fibrillation ([facility]) CHF (congestive heart failur e) ([facility] [place] [facility]) 06/14/2018 DX:CHF (congestive heart fa ilure) ([facility]) S/P hip replacement, bilateral 06/14/2018 D X:S/P hip replacement, bilateral Nephrolithiasis 06/14/2018 DX:Nephrolithias is Diverticulosis 06/14/2018 DX:Diverticulosi s Osteoarthritis 06/14/2018 DX:Osteoarthriti s; COMMENT: Spine Family History Medical History Relation Name Comments Diabetes Father Hypertension Diabetes Mother Hypertension Relation Name Status Comments Father Mother Social History Tobacco Use Types Packs/Day [...] on file Sexual Orientation Not on file Obstetrics History Last Filed Vital Signs Vital Sign Reading Time Taken Comments Blood Pressure 122/84 09/24/2024 12:29 PM EST Pulse 56 09/24/2024 11:31 AM EST Temperature - - Respiratory Rate - - Oxygen Saturation 94% 09/24/2024 11:31 AM EST Inhaled Oxygen Concentration - - Weight 83.5 kg (184 lb) 09/24/2024 11:31 AM EST Height 175.3 cm (5' 9 ) 09/24/2024 11:31 AM EST Body Mass Index 27.17 09/24/2024 11:31 AM EST Plan of Treatment Upcoming Encounters Date Type Department Care Team (Late st Contact Info) Description 06/18/2025 11:10 AM EDT Office Visit [facility] [address] [place] [address] Cierra Whatley NP [address] [place] [address] [address] [place] [address] Health Maintenance Due Date Last Done Comments Diabetes: Annual Foot Exam 1945 Diabetes: Annual Retina Eye Exam 1945 DTaP,Tdap,and Td Vaccines (1 - Tdap) 1954 Falls Risk Assessment 08/21/2022 Medicare Annual Wellness Visit 08/21/2022 Social Influencers of Health Screening 08/21/2022 Depression Screening 09/12/2024 COVID-19 Vaccine ( season) 2025 07/19/2022, 07/13/2022, 02/15/2022, Additional history exists Influenza Vaccine (#1) 2025 , 06/14/2023, 07/13/2022, Additional history exists Diabetes: Blood Sugar Control Test (HGBA1C) 11/14/2025 05/17/2025, 02/07/2025, 11/12/2024, Additional history exists Hypertension/CHF/CAD Annual BMP Blood Test 05/17/2026 05/17/2025, 04/29/2025, 03/26/2025, Additional history exists Cholesterol Screening (Lipid Panel) 02/07/2030 02/07/2025 Zoster Vaccines Completed 12/12/2018, 10/12/2018 RSV Immunization Adult Patients Completed 08/26/2023 Pneumococcal Vaccine: 50+ Years Completed 01/02/2025 HIB Vaccines Aged Out No longer eligi ble based on patient's age to complete this topic HPV Vaccines Aged Out No longer eligi ble based on patient's age to complete this topic Hepatitis A Vaccines Aged Out No long er eligible based on patient's age to complete this topic Hepatitis B Vaccines Aged Out No long er eligible based on patient's age to complete this topic IPV Vaccines Aged Out No longer eligi ble based on patient's age to complete this topic MMR Vaccines Aged Out No longer eligi ble based on patient's age to complete this topic Meningococcal ACWY Vaccine Aged Out N o longer eligible based on patient's age to complete this topic Meningococcal B Vaccine Aged Out No l onger eligible based on patient's age to complete this topic RSV Immunization Patients Under 20 months Aged Out No longer eligible based on patient's age to complete this topic Varicella Vaccines Aged Out No longer eligible based on patient's age to complete this topic Procedures Procedure Name Priority Date/Time Associated Diagnosis Comments PARATHYROID HORMONE INTACT Routine 05/17/2025 12:51 PM EDT Primary hyperparathyroidism ([facility]/HCC V24) Diabetes mellitus (CMS/HCC V24, CMS/HCC V28) PHOSPHORUS Routine 05/17/2025 12:51 PM EDT Primary hyperparathyroidism (CMS/HCC V24) Diabetes mellitus (CMS/HCC V24, CMS/HCC V28) VITAMIN D 25 HYDROXY Routine 05/17/2025 12:51 PM EDT Primary hyperparathyroidism (CMS/HCC V24) Diabetes mellitus (CMS/HCC V24, CMS/HCC V28) COMPREHENSIVE METABOLIC PANEL Routine 05/17/2025 12:51 PM EDT Primary hyperparathyroidism (CMS/HCC V24) Diabetes mellitus (CMS/HCC V24, CMS/HCC V28) HEMOGLOBIN A1C Routine 05/17/2025 12:51 PM EDT Primary hyperparathyroidism ([facility] V24) Diabetes mellitus ([facility] V24, [facility] V28) URINALYSIS WITH REFLEX MICROSCOPIC Routine 04/29/2025 2:22 PM EDT Chronic kidney disease (CKD) stage G3b/A1, moderately decreased glomerular filtration rate (GFR) between 30-44 mL/min/1.73 square meter and albuminuria creatinine ratio les* ([facility] V24, [facility] V28) Essential hypertension, malignant Type II or unspecified type diabetes mellitus with renal manifestations, not stated as uncontrolled(250.40) ([facility] V24, [facility] V28) Proteinuria Localized edema RENAL FUNCTION PANEL Routine 04/29/2025 2:22 PM EDT Chronic kidney disease (CKD) stage G3b/A1, moderately decreased glomerular filtration rate (GFR) between 30-44 mL/min/1.73 square meter and albuminuria creatinine ratio les* ([facility] V24, [facility] V28) Essential hypertension, malignant Type II or unspecified type diabetes mellitus with renal manifestations, not stated as uncontrolled(250.40) ([facility] V24, [facility] V28) Proteinuria Localized edema PARATHYROID HORMONE INTACT Routine 04/29/2025 2:22 PM EDT Chronic kidney disease (CKD) stage G3b/A1, moderately decreased glomerular filtration rate (GFR) between 30-44 mL/min/1.73 square meter and albuminuria creatinine ratio les* ([facility] V24, [facility] V28) Essential hypertension, malignant Type II or unspecified type diabetes mellitus with renal manifestations, not stated as uncontrolled(250.40) ([facility] V24, [facility] V28) Proteinuria Localized edema COMPLETE BLOOD COUNT Routine 04/29/2025 2:22 PM EDT Chronic kidney disease (CKD) stage G3b/A1, moderately decreased glomerular filtration rate (GFR) between 30-44 mL/min/1.73 square meter and albuminuria creatinine ratio les* ([facility] V24, [facility] V28) Essential hypertension, malignant Type II or unspecified type diabetes mellitus with renal manifestations, not stated as uncontrolled(250.40) (CMS/HCC V24, CMS/HCC V28) Proteinuria Localized edema FERRITIN Routine 04/29/2025 2:22 PM EDT Chronic kidney disease (CKD) stage G3b/A1, moderately decreased glomerular filtration rate (GFR) between 30-44 mL/min/1.73 square meter and albuminuria creatinine ratio les* (CMS/HCC V24, CMS/HCC V28) Essential hypertension, malignant Type II or unspecified type diabetes mellitus with renal manifestations, not stated as uncontrolled(250.40) (CMS/HCC V24, CMS/HCC V28) Proteinuria Localized edema IRON AND TIBC Routine 04/29/2025 2:22 PM EDT Chronic kidney disease (CKD) stage G3b/A1, moderately decreased glomerular filtration rate (GFR) between 30-44 mL/min/1.73 square meter and albuminuria creatinine ratio les* (CMS/HCC V24, CMS/HCC V28) Essential hypertension, malignant Type II or unspecified type diabetes mellitus with renal manifestations, not stated as uncontrolled(250.40) (CMS/HCC V24, CMS/HCC V28) Proteinuria Localized edema URINALYSIS WITH REFLEX MICROSCOPIC Routine 04/29/2025 2:22 PM EDT Chronic kidney disease (CKD) stage G3b/A1, moderately decreased glomerular filtration rate (GFR) between 30-44 mL/min/1.73 square meter and albuminuria creatinine ratio les* (CMS/HCC V24, CMS/HCC V28) Essential hypertension, malignant Type II or unspecified type diabetes mellitus with renal manifestations, not stated as uncontrolled(250.40) (CMS/HCC V24, CMS/HCC V28) Proteinuria Localized edema MICROALBUMIN CREATININE URINE RATIO Routine 04/29/2025 2:22 PM EDT Chronic kidney disease (CKD) stage G3b/A1, moderately decreased glomerular filtration rate (GFR) between 30-44 mL/min/1.73 square meter and albuminuria creatinine ratio les* (CMS/HCC V24, CMS/HCC V28) Essential hypertension, malignant Type II or unspecified type diabetes mellitus with renal manifestations, not stated as uncontrolled(250.40) ([facility] V24, [facility] V28) Proteinuria Localized edema COMPLETE BLOOD COUNT Routine 03/26/2025 12:36 PM EDT Chronic kidney disease (CKD) stage G3b/A1, moderately decreased glomerular filtration rate (GFR) between 30-44 mL/min/1.73 square meter and albuminuria creatinine ratio les* ([facility] V24, [facility] V28) Essential hypertension, malignant Type II or unspecified type diabetes mellitus with renal manifestations, not stated as uncontrolled(250.40) ([facility]/HCC V24, [facility] V28) Proteinuria Atherosclerotic 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 ([facility] V24) Paroxysmal atrial fibrillation ([facility] V24, [facility] V28) PARATHYROID HORMONE INTACT Routine 03/26/2025 12:36 PM EDT Chronic kidney disease (CKD) stage G3b/A1, moderately decreased glomerular filtration rate (GFR) between 30-44 mL/min/1.73 square meter and albuminuria creatinine ratio les* ([facility] V24, [facility] V28) Essential hypertension, malignant Type II or unspecified type diabetes mellitus with renal manifestations, not stated as uncontrolled(250.40) ([facility] V24, [facility] V28) Proteinuria Atherosclerotic 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 ([facility] V24) Paroxysmal atrial fibrillation ([facility] V24, [facility] V28) RENAL FUNCTION PANEL Routine 03/26/2025 12:36 PM EDT Chronic kidney disease (CKD) stage G3b/A1, moderately decreased glomerular filtration rate (GFR) between 30-44 mL/min/1.73 square meter and albuminuria creatinine ratio les* ([facility] V24, [facility]/HCC V28) Essential hypertension, malignant Type II or unspecified type diabetes mellitus with renal manifestations, not stated as uncontrolled(250.40) ([facility] V24, [facility]/HCC V28) Proteinuria Atherosclerotic 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 ([facility] V24) Paroxysmal atrial fibrillation ([facility] V24, [facility] V28) LIPID PANEL WITH REFLEX TO DIRECT LDL Routine 02/07/2025 12:54 PM EDT 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 Diabetic neuropathy ([facility]) 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, 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) Chronic systolic heart failure ([facility], [facility]) from Last 3 Months or Most Recently Relevant to Health Maintenance Results * Vitamin D 25 hydroxy (05/17/2025 12:51 PM EDT) [facility] Vit D, 25-Hydroxy 52.4 30.0 - 80.0 ng/mL LAB CHEMISTRY METHOD 05/17/2025 6:21 PM EDT [facility] Blood Venous blood specimen / Unknown Venipuncture / Unknown 05/17/2025 12:51 PM EDT 05/17/2025 12:51 PM EDT us Flakita Rivera MD LAB BLOOD ORDERABLES Final Re sult Performing Organization Address [facility]/ZIP Co de Phone Number [facility] [address] [place] [address], [place] [phone] * (ABNORMAL) Phosphorus (05/17/2025 12:51 PM EDT) [facility] Phosphorus 5.3(H) 2.5 - 4.5 mg/dL LAB CHEMISTRY METHOD 05/17/2025 5:33 PM EDT [facility] Blood Venous blood specimen / Unknown Venipuncture / Unknown 05/17/2025 12:51 PM EDT 05/17/2025 12:51 PM EDT us Flakita Rivera MD LAB BLOOD ORDERABLES Final Re sult Performing Organization Address City/[facility]/ZIP Co de Phone Number [facility] [address] [place] [address], [place] [phone] * (ABNORMAL) Parathyroid hormone intact (05/17/2025 12:51 PM EDT) Only the most recent of3 resultswithin the time period is included. PTH 194.2(H) 18.5 - 88.0 pcg/mL LAB CHEMISTRY METHOD 05/17/2025 6:22 PM EDT [facility] Blood Venous blood specimen / Unknown Venipuncture / Unknown 05/17/2025 12:51 PM EDT 05/17/2025 12:51 PM EDT us Flakita Rivera MD LAB BLOOD ORDERABLES Final Re sult Performing Organization Address [facility]/ZIP Co de Phone Number [facility] [address] [place] [address], [place] [phone] * Hemoglobin A1c (05/17/2025 12:51 PM EDT) Pathologist [facility] Hemoglobin A1C 6.4 <6.5 % LAB CHEMISTRY METHOD 05/18/2025 1:01 PM EDT [facility] Mean Bld Glu Estim. 137 mg/dL LAB CHEMISTRY METHOD 05/18/2025 1:01 PM EDT [facility] Blood Venous blood specimen / Unknown Venipuncture / Unknown 05/17/2025 12:51 PM EDT 05/17/2025 12:51 PM EDT us Flakita Rivera MD LAB BLOOD ORDERABLES Final Re sult [facility] [address] [place] [address], [place] [phone] * (ABNORMAL) Comprehensive metabolic panel (05/17/2025 12:51 PM EDT) Pathologist [facility] Sodium 136 133 - 145 mmol/L LAB CHEMISTRY METHOD 05/17/2025 5:39 PM EDT [facility] LAB Potassium 4.1 3.5 - 5.5 mmol/L LAB CHEMISTRY METHOD 05/17/2025 5:39 PM [facility] Chloride 101 96 - 110 mmol/L LAB CHEMISTRY METHOD 05/17/2025 5:39 PM [facility] CO2 29 21 - 32 mmol/L LAB CHEMISTRY METHOD 05/17/2025 5:39 PM [facility] Anion Gap 6 3 - 11 LAB CHEMISTRY METHOD 05/17/2025 5:39 PM [facility] Glucose 82 70 - 100 mg/dL LAB CHEMISTRY METHOD 05/17/2025 5:39 PM [facility] BUN 49(H) 5 - 25 mg/dL LAB CHEMISTRY METHOD 05/17/2025 5:39 PM [facility] Creatinine 3.53(H) 0.70 - 1.30 mg/dL LAB CHEMISTRY METHOD 05/17/2025 5:39 PM [facility] eGFR 16(L) >=60 mL/min/1. 73m2 LAB CHEMISTRY METHOD 05/17/2025 5:39 PM [facility] Comment:Calculation based on the Chronic Kidney Disease Epidemiology Collaboration (CKD-EPI) equation refit without adjustment for race. BUN/Creatinine Ratio 13.9 LAB CHEMISTRY METHOD 05/17/2025 5:39 PM [facility] Calcium 8.8 8.5 - 10.5 mg/dL LAB CHEMISTRY METHOD 05/17/2025 5:39 PM [facility] AST (SGOT) 14 10 - 42 unit/L LAB CHEMISTRY METHOD 05/17/2025 5:39 PM [facility] ALT (SGPT) 20 10 - 60 unit/L LAB CHEMISTRY METHOD 05/17/2025 5:39 PM [facility] Alkaline Phosphatase 133(H) 42 - 121 unit/L LAB CHEMISTRY METHOD 05/17/2025 5:39 PM [facility] Total Protein 6.7 6.0 - 8.0 g/dL LAB CHEMISTRY METHOD 05/17/2025 5:39 PM EDT [facility] Albumin 3.5 3.2 - 5.0 g/dL LAB CHEMISTRY METHOD 05/17/2025 5:39 PM EDT [facility] Total Bilirubin 1.0 0.0 - 1.4 mg/dL LAB CHEMISTRY METHOD 05/17/2025 5:39 PM EDT [facility] Blood Venous blood specimen / Unknown Venipuncture / Unknown 05/17/2025 12:51 PM EDT 05/17/2025 12:51 PM EDT us Flakita Rivera MD LAB BLOOD ORDERABLES Final Re sult [facility] [address] [place] [address], [place] [phone] * (ABNORMAL) Urinalysis with reflex microscopic (04/29/2025 2:22 PM EDT) Specific [place] Urine 1.009 1.003 - 1.030 LAB URINALYSIS - AUTOMATED METHOD 04/29/2025 4:48 PM [facility] pH, Urine 5.5 5.0 - 8.0 pH LAB URINALYSIS - AUTOMATED METHOD 04/29/2025 4:48 PM [facility] Leukocytes, Urine Large(A) Negative LAB URINALYSIS - AUTOMATED METHOD 04/29/2025 4:48 PM [facility] Nitrite, Urine Negative Negative LAB URINALYSIS - AUTOMATED METHOD 04/29/2025 4:48 PM [facility] Protein, Urine 30(A) <=Trace mg/dL LAB URINALYSIS - AUTOMATED METHOD 04/29/2025 4:48 PM [facility] Glucose, Urine Negative Negative mg/dL LAB URINALYSIS - AUTOMATED METHOD 04/29/2025 4:48 PM [facility] Ketones, Urine Negative Negative mg/dL LAB URINALYSIS - AUTOMATED METHOD 04/29/2025 4:48 PM [facility] Urobilinogen, Urine 0.2 0.2 - 1.0 mg/dL LAB URINALYSIS - AUTOMATED METHOD 04/29/2025 4:48 PM [facility] Bilirubin, Urine Negative Negative LAB URINALYSIS - AUTOMATED METHOD 04/29/2025 4:48 PM EDT [facility] Blood, Urine Small(A) Negative LAB URINALYSIS - AUTOMATED METHOD 04/29/2025 4:48 PM [facility] RBC, Urine 9.2(H) 0 - 4 /HPF LAB URINALYSIS - AUTOMATED METHOD 04/29/2025 4:48 PM [facility] WBC, Urine 409.7(H) 0 - 4 /HPF LAB URINALYSIS - AUTOMATED METHOD 04/29/2025 4:48 PM [facility] Squamous Epithelial, Urine 6 0 - 60 /LPF LAB URINALYSIS - AUTOMATED METHOD 04/29/2025 4:48 PM [facility] Bacteria, Urine Negative Negative /HPF LAB URINALYSIS - AUTOMATED METHOD 04/29/2025 4:48 PM [facility] Hyaline Casts, Urine 0.8 0 - 3 /LPF LAB URINALYSIS - AUTOMATED METHOD 04/29/2025 4:48 PM [facility] Urine Urine specimen obtained by clean catch procedure / Unknown Non-blood Collection / Unknown 04/29/2025 2:22 PM EDT 04/29/2025 2:22 PM EDT us Jose F Mann MD LAB URINE ORDERABLES Final Result [facility] [address] [place] [address], * (ABNORMAL) Iron and TIBC (04/29/2025 2:22 PM EDT) Iron 32(L) 50 - 160 mcg/dL LAB CHEMISTRY METHOD 04/29/2025 5:22 PM EDT [facility] TIBC 312 250 - 450 mcg/dL LAB CHEMISTRY METHOD 04/29/2025 5:22 PM EDT [facility] Iron Saturation 10(L) 20 - 50 % LAB CHEMISTRY METHOD 04/29/2025 5:22 PM EDT [facility] Blood Venous blood specimen / Unknown Venipuncture / Unknown 04/29/2025 2:22 PM EDT 04/29/2025 2:22 PM EDT us Jose F Mann MD LAB BLOOD ORDERABLES Final Result Performing Organization Address City/[facility] de Phone Number [facility] [address] [place] [address], * (ABNORMAL) Microalbumin creatinine urine ratio (04/29/2025 2:22 PM EDT) Creatinine, Urine 44.0 mg/dL LAB CHEMISTRY METHOD 04/29/2025 6:00 PM EDT [facility] Microalb, Ur 251.0(H) 0.0 - 29.0 mg/L LAB CHEMISTRY METHOD 04/29/2025 6:00 PM EDT [facility] Microalb/Crea t Ratio 570(H) <30 mg/g creat LAB CHEMISTRY METHOD 04/29/2025 6:00 PM EDT [facility] Urine Urine specimen obtained by clean catch procedure / Unknown Non-blood Collection / Unknown 04/29/2025 2:22 PM EDT 04/29/2025 2:22 PM EDT us Jose F Mann MD LAB URINE ORDERABLES Final Result [facility] [address] [place] [address], * (ABNORMAL) Complete blood count (04/29/2025 2:22 PM EDT) Only the most recent of2 resultswithin the time period is included. WBC 8.7 4.8 - 10.8 K/mcL LAB HEMETOLOGY METHOD 04/29/2025 4:50 PM EDT [facility] RBC 3.40(L) 4.50 - 5.50 M/mcL LAB HEMETOLOGY METHOD 04/29/2025 4:50 PM EDT [facility] Hemoglobin 9.8(L) 13.5 - 17.5 g/dL LAB HEMETOLOGY METHOD 04/29/2025 4:50 PM EDT [facility] Hematocrit 33.1(L) 42.0 - 54.0 % LAB HEMETOLOGY METHOD 04/29/2025 4:50 PM EDT [facility] MCV 97.1 79.0 - 98.0 FL LAB HEMETOLOGY METHOD 04/29/2025 4:50 PM EDT [facility] MCH 28.7 27.0 - 32.0 pcg LAB HEMETOLOGY METHOD 04/29/2025 4:50 PM EDT [facility] MCHC 29.6(L) 32.0 - 37.0 g/dL LAB HEMETOLOGY METHOD 04/29/2025 4:50 PM EDT [facility] RDW 17.3(H) 11.0 - 15.0 % LAB HEMETOLOGY METHOD 04/29/2025 4:50 PM EDT [facility] Platelets 221 130 - 400 K/mcL LAB HEMETOLOGY METHOD 04/29/2025 4:50 PM EDT [facility] MPV 10.8 7.0 - 11.0 FL LAB HEMETOLOGY METHOD 04/29/2025 4:50 PM EDT [facility] NRBC 0.0 <1.0 % LAB HEMETOLOGY METHOD 04/29/2025 4:50 PM EDT [facility] NRBC Absolute 0.00 <0.10 K/mcL LAB HEMETOLOGY METHOD 04/29/2025 4:50 PM EDT [facility] Blood Venous blood specimen / Unknown Venipuncture / Unknown 04/29/2025 2:22 PM EDT 04/29/2025 2:22 PM EDT us Jose F Mann MD LAB BLOOD ORDERABLES Final Result Performing Organization Address City/[facility]/ZIP Co de Phone Number [facility] [address] [place] [address], [place] [phone] * Ferritin (04/29/2025 2:22 PM EDT) Pathologist [facility] Ferritin 28 26 - 388 ng/mL LAB CHEMISTRY METHOD 04/29/2025 5:22 PM EDT [facility] Blood Venous blood specimen / Unknown Venipuncture / Unknown 04/29/2025 2:22 PM EDT 04/29/2025 2:22 PM EDT us Jose F Mann MD LAB BLOOD ORDERABLES Final Result [facility] [address] [place] [address], [place] [phone] * (ABNORMAL) Renal function panel (04/29/2025 2:22 PM EDT) Only the most recent of2 resultswithin the time period is included. Sodium 137 133 - 145 mmol/L LAB CHEMISTRY METHOD 04/29/2025 5:22 PM EDT [facility] Potassium 4.3 3.5 - 5.5 mmol/L LAB CHEMISTRY METHOD 04/29/2025 5:22 PM [facility] Chloride 100 96 - 110 mmol/L LAB CHEMISTRY METHOD 04/29/2025 5:22 PM [facility] CO2 27 21 - 32 mmol/L LAB CHEMISTRY METHOD 04/29/2025 5:22 PM [facility] Anion Gap 10 3 - 11 LAB CHEMISTRY METHOD 04/29/2025 5:22 PM [facility] Glucose 93 70 - 100 mg/dL LAB CHEMISTRY METHOD 04/29/2025 5:22 PM [facility] BUN 65(H) 5 - 25 mg/dL LAB CHEMISTRY METHOD 04/29/2025 5:22 PM [facility] Creatinine 3.90(H) 0.70 - 1.30 mg/dL LAB CHEMISTRY METHOD 04/29/2025 5:22 PM [facility] eGFR 14(L) >=60 mL/min/1. 73m2 LAB CHEMISTRY METHOD 04/29/2025 5:22 PM [facility] Comment:Calculation based on the Chronic Kidney Disease Epidemiology Collaboration (CKD-EPI) equation refit without adjustment for race. BUN/Creatinine Ratio 16.7 LAB CHEMISTRY METHOD 04/29/2025 5:22 PM [facility] Albumin 3.6 3.2 - 5.0 g/dL LAB CHEMISTRY METHOD 04/29/2025 5:22 PM [facility] Calcium 8.5 8.5 - 10.5 mg/dL LAB CHEMISTRY METHOD 04/29/2025 5:22 PM [facility] Phosphorus 4.9(H) 2.5 - 4.5 mg/dL LAB CHEMISTRY METHOD 04/29/2025 5:22 PM [facility] Blood Venous blood specimen / Unknown Venipuncture / Unknown 04/29/2025 2:22 PM EDT 04/29/2025 2:22 PM EDT us Jose F Mann MD LAB BLOOD ORDERABLES Final Result [facility] [address] [place] [address], [place] [phone] * (ABNORMAL) Lipid panel with reflex to direct LDL (02/07/2025 12:54 PM EDT) Cholesterol 74 0 - 200 mg/dL LAB CHEMISTRY METHOD 02/07/2025 5:15 PM EDT [facility] Triglycerides 56 0 - 150 mg/dL LAB CHEMISTRY METHOD 02/07/2025 5:15 PM EDT [facility] HDL 38(L) >=40 mg/dL LAB CHEMISTRY METHOD 02/07/2025 5:15 PM EDT [facility] LDL Calculated 25 0 - 100 mg/dL LAB CHEMISTRY METHOD 02/07/2025 5:15 PM EDT [facility] VLDL Cholesterol Narinder 11.2 mg/dL LAB CHEMISTRY METHOD 02/07/2025 5:15 PM EDT [facility] Non HDL Chol. 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
--- OUTSIDE RECORDS SUMMARY | 2025-06-14 14:17 | XMS_ITS | Encounter Summary ---
Author Organization [facility] [place], Address [address] [place] [address] Phone Care Team Providers Care Rn Long Term Care Name Role Phone Flakita Rivera MD Primary Care Provider Encounter Details Date Type Department Care Team (Late st Contact Info) Description 06/12/2024 Documentation Only [facility] [address] [place] [address] Shahla Martinez [place] [address] [place] [phone] Social History Tobacco Use Types Packs/Day Years [...] Visit [facility] Center [address] [place] [address] 08/09/2025 4:00 PM EST Office Visit [facility] [address] [place] [address] Jose F Mann MD [address] [facility] [place] [address] documented as of this encounter Visit Diagnoses Not on filedocumented in this encounter Care Teams Rn Long Term Care Relationship Specialty Start Date End Date Flakita Rivera MD [address] [place] [address] PCP - General 07/17/19 documented as of this encounter
--- OUTSIDE RECORDS SUMMARY | 2025-06-14 14:17 | XMS_ITS | Encounter Summary ---
Author Organization [facility] Address [address] [place] [address] Care Team Providers Care Press Hand Supervisor Name Role Phone Flakita Rivera MD Primary Care Provider [phone] Encounter Details Date Type Department Care Team (Late st Contact Info) Description 05/17/2025 Lab Requisition [facility] - Main Lab [address] [facility] [place] [address] Flakita Rivera MD [address] [place] [address] [place] [address] Hypertensive chronic kidney disease with stage 1 through stage 4 chronic kidney disease, or unspecified chronic kidney disease; Type 2 diabetes mellitus without complications (CMS/HCC V24, [facility]/HCC V28) Social History Tobacco Use Types Packs/Day Years [...] Description 06/18/2025 11:10 AM EDT Office Visit [facility] [address] [place] [address] Cierra Whatley NP [address] [place] [address] [place] [address] Scheduled Orders Name Type Priority Associated Diagnoses Orde r Schedule Comprehensive metabolic panel Lab Routine Hypertensive chronic kidney disease with stage 1 through stage 4 chronic kidney disease, or unspecified chronic kidney disease Ordered: 05/17/2025 Hemoglobin A1c Lab Routine Type 2 diabetes mellitus without complications ([facility] V24, [facility] V28) Ordered: 05/17/2025 documented as of this encounter Visit Diagnoses Diagnosis Hypertensive chronic kidney disease with stage 1 through stage 4 chronic kidney disease, or unspecified chronic kidney disease Type 2 diabetes mellitus without complications ([facility] V24, [facility] V28) documented in this encounter Care Teams Press Hand Supervisor Relationship Specialty Start Date End Date Flakita Rivera MD [address] [place] [address] [address] [place], [place] PCP - General Internal Medicine 07/24/21 documented as of this encounter
--- OUTSIDE RECORDS SUMMARY | 2025-06-14 14:17 | XMS_ITS | Encounter Summary ---
Author Organization [facility] [place], Address [address] [place] [address] Phone Care Team Providers Care Evp Managing Director Name Role Phone Flakita Rivera MD Primary Care Provider Encounter Details Date Type Department Care Team (Late st Contact Info) Description 11/24/2023 Documentation Only [facility] [address] [place] [address] Jose F Mann MD [address] [place] [address] [place] [address] Social History Tobacco Use Types Packs/Day Years [...] Visit [facility] Center [address] [place] [address] [place] [address] 08/09/2025 4:00 PM EST Office Visit [facility] [address] [place] [address] Jose F Mann MD [address] [place] [address] Dr. [place] [address] documented as of this encounter Visit Diagnoses Not on filedocumented in this encounter Care Teams Evp Managing Director Relationship Specialty Start Date End Date Flakita Rivera MD [address] [place] [address] PCP - General 07/17/19 documented as of this encounter
--- OUTSIDE RECORDS SUMMARY | 2025-06-14 14:17 | XMS_ITS | Patient Health Record ---
Author Organization [facility] Address [address] [facility] 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 confirmed Plan Of Treatment Pending Test Test Name Order Date X ray : Foot, left 3V 11/19/2022 Insurance Providers Payer Name Payer Address Payer Phone Subscriber Number Group Number Insured Name Patient Relationship to Insured Coverage Start Date Coverage End Date [employer] Medicare Preferred [address] [place] [address] [phone] [id number] Tha Wagner Self - patient is the insured 2 Medical (General) History Medical History History ICD Code Anemia asthma Cataracts Chicken pox covid-19 Diabetic type ll Gall bladder problems High blood pressure Joint implants/screws Kidney disease Measles Mumps Surgical History Surgery Date(Month/Year) hip surgery left 2019 hip surgery right 2020 hernia 2002
--- OUTSIDE RECORDS SUMMARY | 2025-06-14 14:17 | XMS_ITS | Encounter Summary ---
Author Organization [facility] [place], Address [address] [place] [address] Phone Care Team Providers Care Theatrical Trouper Name Role Phone Flakita Rivera MD Primary Care Provider [phone] Encounter Details Date Type Department Care Team (Late st Contact Info) Description 06/24/2023 Documentation Only [facility] [address] [place] [address] Jessica Chavez [address] [place] [phone] Social History Tobacco Use Types Packs/Day Years [...] Visit [facility] Center [address] [place] [address] [place] [address] 08/09/2025 4:00 PM EST Office Visit [facility] [address] [place] [address] Jose F Mann MD [address] [place] [address] [place] [address] documented as of this encounter Visit Diagnoses Not on filedocumented in this encounter Care Teams Theatrical Trouper Relationship Specialty Start Date End Date Flakita Rivera MD [address] [place] [address] PCP - General 07/17/19 documented as of this encounter
--- OUTSIDE RECORDS SUMMARY | 2025-06-14 14:17 | XMS_ITS | Encounter Summary ---
Author Organization [facility] [place], Address [address] [place] [address] Phone Care Team Providers Care Knife Edger Name Role Phone Flakita Rivera MD Primary Care Provider Encounter Details Date Type Department Care Team (Late st Contact Info) Description 02/10/2023 Documentation Only [facility] [address] [place] [address] Jessica Chavez [address] [place] [phone] Social History Tobacco Use Types Packs/Day Years [...] Visit [facility] Center [address] [place] [address] [place] [address] 08/09/2025 4:00 PM EST Office Visit [facility] [address] [place] [address] Jose F Mann MD [address] [place] [address] Dr. Prateek [place] [address] documented as of this encounter Visit Diagnoses Not on filedocumented in this encounter Care Teams Knife Edger Relationship Specialty Start Date End Date Flakita Rivera MD [address] [place] [address] PCP - General 07/17/19 documented as of this encounter
--- OUTSIDE RECORDS SUMMARY | 2025-06-14 14:17 | XMS_ITS | Encounter Summary ---
Author Organization [facility] [place], Address [address] [place] [address] Phone Care Team Providers Care Stone And Plate Preparer Apprentice Name Role Phone Flakita Rivera MD Primary Care Provider Encounter Details Date Type Department Care Team (Late st Contact Info) Description 12/28/2021 Documentation Only [facility] [address] [place] [address] Jessica Chavez [address] [place] [phone] Social History Tobacco Use Types Packs/Day Years [...] Visit [facility] Center [address] [place] [address] [place] [address] 08/09/2025 4:00 PM EST Office Visit [facility] [address] [place] [address] Jose F Mann MD [address] [place] [address] [place] [address] documented as of this encounter Visit Diagnoses Not on filedocumented in this encounter Care Teams Stone And Plate Preparer Apprentice Relationship Specialty Start Date End Date Flakita Rivera MD [address] [place] [address] PCP - General 07/17/19 documented as of this encounter
--- OUTSIDE RECORDS SUMMARY | 2025-06-14 14:17 | XMS_ITS | Encounter Summary ---
Author Organization [facility] [place], Address [address] [place] [address] Phone Care Team Providers Care Topper Packer Name Role Phone Flakita Rivera MD Primary Care Provider Encounter Details Date Type Department Care Team (Late st Contact Info) Description 01/17/2024 Documentation Only [facility] [address] [place] [address] Shahla Martinez [place] [address] [place] [phone] Social History Tobacco Use Types Packs/Day Years [...] Visit [facility] V[facility] Access Center [address] [facility] [address] 08/09/2025 4:00 PM EST Office Visit [facility] [address] [facility] [address] Jose F Mann MD [address] [facility] [place] [address] documented as of this encounter Visit Diagnoses Not on filedocumented in this encounter Care Teams Topper Packer Relationship Specialty Start Date End Date Flakita Rivera MD [address] [place] [address] PCP - General 07/17/19 documented as of this encounter
--- OUTSIDE RECORDS SUMMARY | 2025-06-14 14:17 | XMS_ITS | Encounter Summary ---
Author Organization [facility] [place], Address [address] [place] [address] Phone Care Team Providers Care Culinary Worker Name Role Phone Flakita Rivera MD Primary Care Provider [phone] Encounter Details Date Type Department Care Team (Late st Contact Info) Description 03/26/2025 Documentation Only [facility] [address] [place] [address] Shahla Martinez [place] [address] [place] [phone] Social History Tobacco Use Types Packs/Day Years [...] [facility] Center [address] [facility] [place] [address] 08/09/2025 4:00 PM EST Office Visit [facility] [address] [facility] [place] [address] Jose F Mann MD [address] [facility] [place] [address] documented as of this encounter Visit Diagnoses Not on filedocumented in this encounter Care Teams Culinary Worker Relationship Specialty Start Date End Date Flakita Rivera MD [address] [place] [address] PCP - General 07/17/19 documented as of this encounter
--- NOTE | 2025-06-14 14:43 | MHC.OFFVIS ---
Vital Signs 06/14/25 14:45 Height 5 ft 9 in Weight 176 lb BMI 26.0 Intake Visit Reasons: OV-Discuss right carpal tunnel release sx Intake Note: Tha 89 yr old right hand dominant male presents today for his EMG review. IMPRESSION: 1. 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 2. Mild right ulnar neuropathy across cubital tunnel. Allergies acetaminophen (From NyQuil) Allergy (Verified 06/14/25 14:48) SOB dextromethorphan (From NyQuil) Allergy (Verified 06/14/25 14:48) SOB doxylamine (From NyQuil) Allergy (Verified 06/14/25 14:48) SOB pseudoephedrine (From NyQuil) Allergy (Verified 06/14/25 14:48) SOB HPI HPI OV-Discuss right carpal tunnel release sx: Details: Tha 89 yr old right hand dominant male presents today for his EMG review. The patient reports that he has been experiencing dense numbness in the median nerve distribution of the right hand for several years, but denies any numbness or tingling in the ulnar nerve distribution. Patient would like to discuss surgery at this time. IMPRESSION: 1. 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 2. Mild right ulnar neuropathy across cubital tunnel. [facility]LY [facility] Medical History Bilious vomiting Dyspnea Urinary retention with incomplete bladder emptying Pulmonary hypertension Anemia Chronic atrial fibrillation 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 Chest crackles Non-insulin dependent type 2 diabetes mellitus HTN (hypertension) HLD (hyperlipidemia) Persistent atrial fibrillation BPH (benign prostatic hyperplasia) Long COVID COPD (chronic obstructive pulmonary disease) Lower leg edema Chronic kidney disease, unspecified Surgical History H/O colonoscopy History of cataract surgery History of endoscopy History of colon surgery History of cholecystectomy H/O heart artery stent Hip joint replacement status Social History Household Members: Spouse Housing: Other Housing Other:: mobile home Do you presently have visiting nurse or other home services: No Patient Tobacco Use Status: Former Tobacco user Tobacco use type: Cigarette service: Yes Current occupation: right hand dominant Review of Systems Const All systems reviewed & are unremarkable except as noted in HPI and below Physical Exam Vital Signs: BMI result Body Mass Index 26.0 Extrem Other: Neuro: Decreased sensation in the median nerve distribution of the right hand. Normal sensation to all other digits in the right hand today. Normal sensation in the tips of all digits of the left hand today. No thenar or intrinsic wasting. Good APB muscle firing and good finger cross. Vascular: Capillary refill brisk. ROM: Patient can make a fist and extend all their digits. Skin: No lacerations or abrasions noted. General: No ecchymosis. No erythema or evidence of infection. Assessment & Plan Assessment & Plan (1) Carpal tunnel syndrome on right: Code(s): G56.01 - Carpal tunnel syndrome, right upper limb Category: Medical Plan 1. Right carpal tunnel syndrome Symptoms constant, daily, worse at night I educated the patient about the condition. I discussed both operative and nonoperative treatment options. The patient would like to proceed with surgery. The risks and benefits of operative treatment were discussed with the patient and the patient wishes to proceed with surgery. These risks include, but are not limited to, risk of damage to blood vessels, nerves, tendons, infection, recurrence, incomplete relief of preoperative symptoms, persistent pain, possible need for further surgery, and the risks associated with regional blocks and/or anesthesia. Plan is to take the patient to the operating room at some point in the next few weeks for the following procedures: 1. Right carpal tunnel release under local anesthesia All of the preoperative paperwork including the consent was discussed today. All of the patient's questions were answered in the clinic today. The patient understands that they will be in contact with our project controls scheduler to discuss scheduling their procedure. Patient denies diabetes, blood thinners, asthma, heart issues, lung issues, kidney issues, or current smoking. Coding Level of Care Code New Pt Level 4 (53120) Diagnoses Carpal tunnel syndrome on right G56.01
[2025-06-14 14:45] VITALS: BMI 26.0
== END 2025-06-14 15:24 | disposition home or self-care (01) ==
LOC: HO.HOS 14:04
PROVIDERS: PCP Internal Medicine
DX: G56.01 Carpal tunnel syndrome, right upper limb (principal)
CPT/HCPCS: 99204

== ENCOUNTER → 2025-06-14 14:03 | Outpatient (BNVA) | payer MEDICARE, SELFPAY | PROVIDERS: PCP Internal Medicine | DX: Z01.818 Encounter for other preprocedural examination (principal); G56.01 Carpal tunnel syndrome, right upper limb | CPT/HCPCS: 99202 ==

== ENCOUNTER 2025-07-29 07:50 | Day surgery (SDC) | payer MEDICARE, SELFPAY ==
--- OUTSIDE RECORDS SUMMARY | 2025-06-18 09:16 | XMS_ITS | Encounter Summary ---
Author Organization [facility], Address [address] [place] [address] Phone Care Team Providers Care File Machine Operator Name Role Phone Flakita Rivera MD Primary Care Provider Encounter Details Date Type Department Care Team (Late st Contact Info) Description 03/26/2025 Documentation Only [facility] [address] [place] [address] Shahla Martinez [place] [address] [place] [phone] Social History Tobacco Use Types Packs/Day Years [...] Visit [facility] [address] [address] 08/09/2025 4:00 PM EST Office Visit [facility] [address] [place] [address] Jose F Mann MD [address] [place] [address] documented as of this encounter Visit Diagnoses Not on filedocumented in this encounter Care Teams File Machine Operator Relationship Specialty Start Date End Date Flakita Rivera MD [address] [place] [address] PCP - General 07/17/19 documented as of this encounter
--- OUTSIDE RECORDS SUMMARY | 2025-06-18 09:16 | XMS_ITS | Encounter Summary ---
Author Organization [facility] Address [address] [place] [address] Care Team Providers Care Manager Gallery Name Role Phone Flakita Rivera MD Primary Care Provider [phone] Encounter Details Date Type Department Care Team (Late st Contact Info) Description 02/07/2025 Lab Requisition [facility] - Main Lab [address] [facility] [place] [address] Flakita Rivera MD [address] [place] [address] [place] Lopez [place] [id number] Type 2 diabetes mellitus with diabetic neuropathy, [...] Description 06/18/2025 11:10 AM EDT Office Visit [facility] [address] [place] [address] Cierra Whatley NP [address] [place] [address] [place] [address] Scheduled Orders Name Type Priority Associated Diagnoses Orde r Schedule Comprehensive metabolic panel Lab Routine Type 2 diabetes mellitus with diabetic neuropathy, unspecified ([facility] V24, [facility] V28) Hypertensive chronic kidney disease with stage [...] proteinuria documented in this encounter Care Teams Manager Gallery Relationship Specialty Start Date End Date Flakita Rivera MD [address] [place] [address] PCP - General Internal Medicine 07/24/21 documented as of this encounter
--- OUTSIDE RECORDS SUMMARY | 2025-06-18 09:16 | XMS_ITS | Encounter Summary ---
Author Organization [facility], Address [address] [place] [address] Phone Care Team Providers Care Purchasing/Receiving Name Role Phone Flakita Rivera MD Primary Care Provider [phone] Encounter Details Date Type Department Care Team (Late st Contact Info) Description 03/26/2025 Documentation Only [facility] [address] [place] [address] Shahla Martinez [place] [address] [place] [phone] Social History Tobacco Use Types Packs/Day Years [...] Visit [facility] [address] [place] [address] 08/09/2025 4:00 PM EST Office Visit [facility] [address] [place] [address] Jose F Mann MD [address] [place] [address] documented as of this encounter Visit Diagnoses Not on filedocumented in this encounter Care Teams Purchasing/Receiving Relationship Specialty Start Date End Date Flakita Rivera MD [address] [place] [address] PCP - General 07/17/19 documented as of this encounter
--- OUTSIDE RECORDS SUMMARY | 2025-06-18 09:16 | XMS_ITS | Patient Health Record ---
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 Plan Of Treatment Pending Test Test Name Order Date X ray : Foot, left 3V 11/19/2022 Insurance Providers Payer Name Payer Address Payer Phone Subscriber Number Group Number Insured Name Patient Relationship to Insured Coverage Start Date Coverage End Date [employer] Medicare Preferred [address] [place] [address] [phone] [id number] Tha Wagner Self - patient is the insured 2 Medical (General) History Medical History History ICD Code Anemia asthma Cataracts Chicken pox covid-19 Diabetic type ll Gall bladder problems High blood pressure Joint implants/screws Kidney disease Measles Mumps Surgical History Surgery Date(Month/Year) hip surgery left 2019 hip surgery right 2020 hernia 2002
--- OUTSIDE RECORDS SUMMARY | 2025-06-18 09:16 | XMS_ITS | Encounter Summary ---
Author Organization [facility] [place], Address [address] [place] [address] Phone Care Team Providers Care Courtesy Driver Name Role Phone Flakita Rivera MD Primary Care Provider [phone] Encounter Details Date Type Department Care Team (Late st Contact Info) Description 12/06/2023 Documentation Only [facility] [address] [place] [address] Irene Flynn [address] [place] [phone] Social History Tobacco Use Types Packs/Day Years [...] Visit [facility] [address] [place] [address] [place] [address] 08/09/2025 4:00 PM EST Office Visit [facility] [address] [place] [address] Jose F Mann MD [address] [place] [address] documented as of this encounter Visit Diagnoses Not on filedocumented in this encounter Care Teams Courtesy Driver Relationship Specialty Start Date End Date Flakita Rivera MD [facility] PCP - General 07/17/19 documented as of this encounter
--- OUTSIDE RECORDS SUMMARY | 2025-06-18 09:16 | XMS_ITS | Encounter Summary ---
Author Organization [facility] Address [address] [place] [address] Care Team Providers Care Cras Name Role Phone Flakita Rivera MD Primary Care Provider [phone] Encounter Details Date Type Department Care Team (Late st Contact Info) Description 05/17/2025 Lab Requisition [facility] - Main Lab [address] [facility] [place] [address] Flakita Rivera MD [address] [place] [address] [place] [address] Hypertensive chronic kidney disease with stage 1 through stage 4 chronic kidney disease, or unspecified chronic kidney disease; Type 2 diabetes mellitus without complications (CMS/HCC V24, [facility]/HCC V28) Social History Tobacco Use Types Packs/Day [...] Description 06/18/2025 11:10 AM EDT Office Visit [facility] [address] [place] [address] Cierra Whatley NP [address] [place] [address] [place] [address] Scheduled Orders Name Type Priority Associated Diagnoses Orde r Schedule Comprehensive metabolic panel Lab Routine Hypertensive chronic kidney disease with stage 1 through stage 4 chronic kidney disease, or unspecified chronic kidney disease Ordered: 05/17/2025 Hemoglobin A1c Lab Routine Type 2 diabetes mellitus without complications ([facility] V24, [facility] V28) Ordered: 05/17/2025 documented as of this encounter Visit Diagnoses Diagnosis Hypertensive chronic kidney disease with stage 1 through stage 4 chronic kidney disease, or unspecified chronic kidney disease Type 2 diabetes mellitus without complications ([facility] V24, [facility] V28) documented in this encounter Care Teams Cras Relationship Specialty Start Date End Date Flakita Rivera MD [address] [place] [address] [address] [place], [place] PCP - General Internal Medicine 07/24/21 documented as of this encounter
--- OUTSIDE RECORDS SUMMARY | 2025-06-18 09:16 | XMS_ITS | Clinical Summary ---
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 ([facility] V24, [facility] V28) 09/14/2024 Atrial fibrillation ([facility] V24, [facility] V28) 0 09/14/2024 Assessment & [...] Hypercoagulable state due to paroxysmal atrial fibrillation ([facility] V24, [facility] V28) 08/29/2023 Pulmonary nodule 08/29/2023 Stage 3b chronic kidney disease ([facility] V24, CM S/[facility] V28) 06/25/2022 Anemia 07/30/2021 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 ([facility] V24) 06/29/2021 Cyst of kidney, [...] kidney disease) stage 3, GFR 30-59 ml/min ([facility] V24, [facility] V28) 06/14/2018 Congestive heart failure ([facility] V24, [facility] V 28) 06/14/2018 Overview (09/14/2024): [...] mellitus wit h other diabetic kidney complication ([facility] V24, [facility] V28) 06/14/2018 Osteoarthritis 06/14/2018 Overview (09/14/2024): Spine Nephrolithiasis 06/14/2018 Asthma 08/19/2017 COPD (chronic obstructive pu lmonary disease) ([facility] V24, [facility] V28) 08/19/2017 Hyperlipidemia 08/19/2017 Overview [...] Department Care Team Description 05/17/[address] [facility] - Main Lab [address] [facility] [facility] [place] [address] Flakita Rivera MD Hypertensive chronic kidney disease with stage 1 through stage 4 chronic kidney disease, or unspecified chronic kidney disease; Type 2 diabetes mellitus without complications ([facility] V24, [facility] V28) from Last 3 Months Surgical History Surgery Date Site/Laterality Comments OTHER SURGICAL HISTORY 2005 PROCEDURE: SC COLECTOMY PRTL W/COLOST/ILEOST & MUCOFISTULA; COMMENT: 3/ [...] tension) COPD (chronic obstructive pu lmonary disease) ([facility] V24, [facility] V28) 08/19/2017 DX:COPD (chronic o bstructive pulmonary disease) ([facility]) Asthma 08/19/2017 DX:Asthma Acute cholecystitis due to b iliary calculus DX:Acute cholecystitis due t o biliary calculus Type 2 diabetes mellitus wit h renal manifestations ([facility] V24, [facility] V28) 06/14/2018 DX:Type 2 diabetes mellitus with renal manifestations ([facility]) CKD (chronic kidney disease) stage 3, GFR 30-59 ml/min ([facility] V24, [facility] V28) 06/14/2018 DX:CKD (chronic kidney disea se) stage 3, GFR 30-59 ml/min ([facility]) CAD (coronary artery disease) 06/14/2018 DX :CAD (coronary artery disease); COMMENT: Stents GERD (gastroesophageal reflux disease) 06/14/2018 DX:GERD (gastroesophageal reflux disease) BPH (benign prostatic hyperplasia) 06/14/2018 DX:BPH (benign prostatic hyperplasia) Atrial fibrillation ([facility] V24, [facility] V28) 06/14/2018 DX:Atrial fibrillation ([facility]) CHF (congestive heart failur e) ([facility] V24, [facility] V28) 06/14/2018 DX:CHF (congestive heart fa ilure) ([facility]) S/P hip replacement, bilateral 06/14/2018 [...] Description 06/18/2025 11:10 AM EDT Office Visit [facility] [address] [place] [address] Cierra Whatley NP [address] [place] [address] Dr [address] [place] [address] Health Maintenance Due Date Last [...] Routine 05/17/2025 12:51 PM EDT Primary hyperparathyroidism ([facility] V24) Diabetes mellitus (CMS/HCC V24, CMS/HCC [...] Routine 05/17/2025 12:51 PM EDT Primary hyperparathyroidism ([facility] V24) Diabetes mellitus ([facility] V24, [facility] V28) URINALYSIS WITH REFLEX MICROSCOPIC Routine 04/29/2025 2:22 PM EDT Chronic kidney disease (CKD) stage G3b/A1, moderately decreased glomerular filtration rate (GFR) between 30-44 mL/min/1.73 square meter and albuminuria creatinine ratio les* ([facility] V24, [facility] V28) Essential hypertension, malignant Type II or unspecified type diabetes mellitus with renal manifestations, not stated as uncontrolled(250.40) ([facility] V24, [facility] V28) Proteinuria Localized edema RENAL FUNCTION PANEL Routine 04/29/2025 2:22 PM EDT Chronic kidney disease (CKD) stage G3b/A1, moderately decreased glomerular filtration rate (GFR) between 30-44 mL/min/1.73 square meter and albuminuria creatinine ratio les* ([facility] V24, [facility] V28) Essential hypertension, malignant Type II or unspecified type diabetes mellitus with renal manifestations, not stated as uncontrolled(250.40) ([facility] V24, [facility] V28) Proteinuria Localized edema PARATHYROID HORMONE INTACT Routine 04/29/2025 2:22 PM EDT Chronic kidney disease (CKD) stage G3b/A1, moderately decreased glomerular filtration rate (GFR) between 30-44 mL/min/1.73 square meter and albuminuria creatinine ratio les* ([facility] V24, [facility] V28) Essential hypertension, malignant Type II or unspecified type diabetes mellitus with renal manifestations, not stated as uncontrolled(250.40) ([facility] V24, [facility] V28) Proteinuria Localized edema COMPLETE BLOOD COUNT Routine 04/29/2025 2:22 PM EDT Chronic kidney disease (CKD) stage G3b/A1, moderately decreased glomerular filtration rate (GFR) between 30-44 mL/min/1.73 square meter and albuminuria creatinine ratio les* ([facility] V24, [facility] V28) Essential hypertension, malignant Type [...] with renal manifestations, not stated as uncontrolled(250.40) ([facility] V24, [facility] V28) Proteinuria Localized edema COMPLETE BLOOD COUNT Routine 03/26/2025 12:36 PM EDT Chronic kidney disease (CKD) stage G3b/A1, moderately decreased glomerular filtration rate (GFR) between 30-44 mL/min/1.73 square meter and albuminuria creatinine ratio les* ([facility] V24, [facility] V28) Essential hypertension, malignant Type II or unspecified type diabetes mellitus with renal manifestations, not stated as uncontrolled(250.40) (CMS/HCC V24, CMS/[facility] V28) Proteinuria 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 ([facility] V24) Paroxysmal atrial fibrillation ([facility] V24, [facility] V28) PARATHYROID HORMONE INTACT Routine 03/26/2025 12:36 PM EDT Chronic kidney disease (CKD) stage G3b/A1, moderately decreased glomerular filtration rate (GFR) between 30-44 mL/min/1.73 square meter and albuminuria creatinine ratio les* ([facility] V24, [facility] V28) Essential hypertension, malignant Type II or unspecified type diabetes mellitus with renal manifestations, not stated as uncontrolled(250.40) ([facility] V24, [facility] V28) Proteinuria 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 ([facility] V24) Paroxysmal atrial fibrillation ([facility] V24, [facility] V28) RENAL FUNCTION PANEL Routine 03/26/2025 12:36 PM EDT Chronic kidney disease (CKD) stage G3b/A1, moderately decreased glomerular filtration rate (GFR) between 30-44 mL/min/1.73 square meter and albuminuria creatinine ratio les* ([facility] V24, CMS/HCC V28) Essential hypertension, malignant Type II or unspecified type diabetes mellitus with renal manifestations, not stated as uncontrolled(250.40) ([facility] V24, CMS/HCC V28) Proteinuria 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 ([facility] V24) Paroxysmal atrial fibrillation ([facility] V24, [facility] V28) LIPID PANEL WITH REFLEX TO DIRECT LDL Routine 02/07/2025 12:54 PM EDT 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 Diabetic neuropathy ([facility] V24, [facility] V28) 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, 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) Chronic systolic heart failure ([facility] V24, [facility] V28) from Last 3 Months or Most Recently Relevant to Health Maintenance Results * Vitamin D 25 hydroxy (05/17/2025 12:51 PM EDT) [facility] Vit D, 25-Hydroxy 52.4 30.0 - 80.0 ng/mL LAB CHEMISTRY METHOD 05/17/2025 6:21 PM EDT [facility] Blood Venous blood specimen / Unknown Venipuncture / Unknown 05/17/2025 12:51 PM EDT 05/17/2025 12:51 PM EDT us Flakita Rivera MD LAB BLOOD ORDERABLES Final Re sult Performing Organization Address [facility]/ZIP Co de Phone Number [facility] [address] [place] [address], [place] [phone] * (ABNORMAL) Phosphorus (05/17/2025 12:51 PM EDT) [facility] Phosphorus 5.3(H) 2.5 - 4.5 mg/dL LAB CHEMISTRY METHOD 05/17/2025 5:33 PM EDT [facility] Blood Venous blood specimen / Unknown Venipuncture / Unknown 05/17/2025 12:51 PM EDT 05/17/2025 12:51 PM EDT us Flakita Rivera MD LAB BLOOD ORDERABLES Final Re sult Performing Organization Address City/[facility]/ZIP Co de Phone Number [facility] [address] [place] [address], [place] [phone] * (ABNORMAL) Parathyroid hormone intact (05/17/2025 12:51 PM EDT) Only the most recent of3 resultswithin the time period is included. PTH 194.2(H) 18.5 - 88.0 pcg/mL LAB CHEMISTRY METHOD 05/17/2025 6:22 PM EDT [facility] Blood Venous blood specimen / Unknown Venipuncture / Unknown 05/17/2025 12:51 PM EDT 05/17/2025 12:51 PM EDT us Flakita Rivera MD LAB BLOOD ORDERABLES Final Re sult Performing Organization Address [facility]/ZIP Co de Phone Number [facility] [address] [place] [address], [place] [phone] * Hemoglobin A1c (05/17/2025 12:51 PM EDT) Pathologist [facility] Hemoglobin A1C 6.4 <6.5 % LAB CHEMISTRY METHOD 05/18/2025 1:01 PM EDT [facility] Mean Bld Glu Estim. 137 mg/dL LAB CHEMISTRY METHOD 05/18/2025 1:01 PM EDT [facility] Blood Venous blood specimen / Unknown Venipuncture / Unknown 05/17/2025 12:51 PM EDT 05/17/2025 12:51 PM EDT us Flakita Rivera MD LAB BLOOD ORDERABLES Final Re sult [facility] [address] [place] [address], [place] [phone] * (ABNORMAL) Comprehensive metabolic panel (05/17/2025 12:51 PM EDT) Pathologist [facility] Sodium 136 133 - 145 mmol/L LAB CHEMISTRY METHOD 05/17/2025 5:39 PM EDT [facility] Potassium 4.1 3.5 - 5.5 mmol/L LAB CHEMISTRY METHOD 05/17/2025 5:39 PM [facility] Chloride 101 96 - 110 mmol/L LAB CHEMISTRY METHOD 05/17/2025 5:39 PM [facility] CO2 29 21 - 32 mmol/L LAB CHEMISTRY METHOD 05/17/2025 5:39 PM [facility] Anion Gap 6 3 - 11 LAB CHEMISTRY METHOD 05/17/2025 5:39 PM [facility] Glucose 82 70 - 100 mg/dL LAB CHEMISTRY METHOD 05/17/2025 5:39 PM [facility] BUN 49(H) 5 - 25 mg/dL LAB CHEMISTRY METHOD 05/17/2025 5:39 PM [facility] Creatinine 3.53(H) 0.70 - 1.30 mg/dL LAB CHEMISTRY METHOD 05/17/2025 5:39 PM [facility] eGFR 16(L) >=60 mL/min/1. 73m2 LAB CHEMISTRY METHOD 05/17/2025 5:39 PM [facility] Comment:Calculation based on the Chronic Kidney Disease Epidemiology Collaboration (CKD-EPI) equation refit without adjustment for race. BUN/Creatinine Ratio 13.9 LAB CHEMISTRY METHOD 05/17/2025 5:39 PM [facility] Calcium 8.8 8.5 - 10.5 mg/dL LAB CHEMISTRY METHOD 05/17/2025 5:39 PM [facility] AST (SGOT) 14 10 - 42 unit/L LAB CHEMISTRY METHOD 05/17/2025 5:39 PM [facility] ALT (SGPT) 20 10 - 60 unit/L LAB CHEMISTRY METHOD 05/17/2025 5:39 PM [facility] Alkaline Phosphatase 133(H) 42 - 121 unit/L LAB CHEMISTRY METHOD 05/17/2025 5:39 PM [facility] Total Protein 6.7 6.0 - 8.0 g/dL LAB CHEMISTRY METHOD 05/17/2025 5:39 PM EDT [facility] Albumin 3.5 3.2 - 5.0 g/dL LAB CHEMISTRY METHOD 05/17/2025 5:39 PM EDT [facility] Total Bilirubin 1.0 0.0 - 1.4 mg/dL LAB CHEMISTRY METHOD 05/17/2025 5:39 PM EDT [facility] Blood Venous blood specimen / Unknown Venipuncture / Unknown 05/17/2025 12:51 PM EDT 05/17/2025 12:51 PM EDT us Flakita Rivera MD LAB BLOOD ORDERABLES Final Re sult [facility] [address] [place] [address], [place] [phone] * (ABNORMAL) Urinalysis with reflex microscopic (04/29/2025 2:22 PM EDT) Specific [place] Urine 1.009 1.003 - 1.030 LAB URINALYSIS - AUTOMATED METHOD 04/29/2025 4:48 PM [facility] pH, Urine 5.5 5.0 - 8.0 pH LAB URINALYSIS - AUTOMATED METHOD 04/29/2025 4:48 PM [facility] Leukocytes, Urine Large(A) Negative LAB URINALYSIS - AUTOMATED METHOD 04/29/2025 4:48 PM [facility] Nitrite, Urine Negative Negative LAB URINALYSIS - AUTOMATED METHOD 04/29/2025 4:48 PM [facility] Protein, Urine 30(A) <=Trace mg/dL LAB URINALYSIS - AUTOMATED METHOD 04/29/2025 4:48 PM [facility] Glucose, Urine Negative Negative mg/dL LAB URINALYSIS - AUTOMATED METHOD 04/29/2025 4:48 PM [facility] Ketones, Urine Negative Negative mg/dL LAB URINALYSIS - AUTOMATED METHOD 04/29/2025 4:48 PM [facility] Urobilinogen, Urine 0.2 0.2 - 1.0 mg/dL LAB URINALYSIS - AUTOMATED METHOD 04/29/2025 4:48 PM [facility] Bilirubin, Urine Negative Negative LAB URINALYSIS - AUTOMATED METHOD 04/29/2025 4:48 PM EDT [facility] Blood, Urine Small(A) Negative LAB URINALYSIS - AUTOMATED METHOD 04/29/2025 4:48 PM [facility] RBC, Urine 9.2(H) 0 - 4 /HPF LAB URINALYSIS - AUTOMATED METHOD 04/29/2025 4:48 PM [facility] WBC, Urine 409.7(H) 0 - 4 /HPF LAB URINALYSIS - AUTOMATED METHOD 04/29/2025 4:48 PM [facility] Squamous Epithelial, Urine 6 0 - 60 /LPF LAB URINALYSIS - AUTOMATED METHOD 04/29/2025 4:48 PM [facility] Bacteria, Urine Negative Negative /HPF LAB URINALYSIS - AUTOMATED METHOD 04/29/2025 4:48 PM [facility] Hyaline Casts, Urine 0.8 0 - 3 /LPF LAB URINALYSIS - AUTOMATED METHOD 04/29/2025 4:48 PM [facility] Urine Urine specimen obtained by clean catch procedure / Unknown Non-blood Collection / Unknown 04/29/2025 2:22 PM EDT 04/29/2025 2:22 PM EDT us Jose F Mann MD LAB URINE ORDERABLES Final Result [facility] [address] [place] [address], * (ABNORMAL) Iron and TIBC (04/29/2025 2:22 PM EDT) Iron 32(L) 50 - 160 mcg/dL LAB CHEMISTRY METHOD 04/29/2025 5:22 PM EDT [facility] TIBC 312 250 - 450 mcg/dL LAB CHEMISTRY METHOD 04/29/2025 5:22 PM EDT [facility] Iron Saturation 10(L) 20 - 50 % LAB CHEMISTRY METHOD 04/29/2025 5:22 PM EDT [facility] Blood Venous blood specimen / Unknown Venipuncture / Unknown 04/29/2025 2:22 PM EDT 04/29/2025 2:22 PM EDT us Jose F Mann MD LAB BLOOD ORDERABLES Final Result Performing Organization Address City/[facility]/[place] de Phone Number [facility] [address] [place] [address], * (ABNORMAL) Microalbumin creatinine urine ratio (04/29/2025 2:22 PM EDT) Creatinine, Urine 44.0 mg/dL LAB CHEMISTRY METHOD 04/29/2025 6:00 PM EDT [facility] Microalb, Ur 251.0(H) 0.0 - 29.0 mg/L LAB CHEMISTRY METHOD 04/29/2025 6:00 PM EDT [facility] Microalb/Crea t Ratio 570(H) <30 mg/g creat LAB CHEMISTRY METHOD 04/29/2025 6:00 PM EDT [facility] Urine Urine specimen obtained by clean catch procedure / Unknown Non-blood Collection / Unknown 04/29/2025 2:22 PM EDT 04/29/2025 2:22 PM EDT us Jose F Mann MD LAB URINE ORDERABLES Final Result [facility] [address] [place] [address], * (ABNORMAL) Complete blood count (04/29/2025 2:22 PM EDT) Only the most recent of2 resultswithin the time period is included. WBC 8.7 4.8 - 10.8 K/mcL LAB HEMETOLOGY METHOD 04/29/2025 4:50 PM EDT [facility] RBC 3.40(L) 4.50 - 5.50 M/mcL LAB HEMETOLOGY METHOD 04/29/2025 4:50 PM EDT [facility] Hemoglobin 9.8(L) 13.5 - 17.5 g/dL LAB HEMETOLOGY METHOD 04/29/2025 4:50 PM EDT [facility] Hematocrit 33.1(L) 42.0 - 54.0 % LAB HEMETOLOGY METHOD 04/29/2025 4:50 PM EDT [facility] MCV 97.1 79.0 - 98.0 FL LAB HEMETOLOGY METHOD 04/29/2025 4:50 PM EDT [facility] MCH 28.7 27.0 - 32.0 pcg LAB HEMETOLOGY METHOD 04/29/2025 4:50 PM EDT [facility] MCHC 29.6(L) 32.0 - 37.0 g/dL LAB HEMETOLOGY METHOD 04/29/2025 4:50 PM EDT [facility] RDW 17.3(H) 11.0 - 15.0 % LAB HEMETOLOGY METHOD 04/29/2025 4:50 PM EDT [facility] Platelets 221 130 - 400 K/mcL LAB HEMETOLOGY METHOD 04/29/2025 4:50 PM EDT [facility] MPV 10.8 7.0 - 11.0 FL LAB HEMETOLOGY METHOD 04/29/2025 4:50 PM EDT [facility] NRBC 0.0 <1.0 % LAB HEMETOLOGY METHOD 04/29/2025 4:50 PM EDT [facility] NRBC Absolute 0.00 <0.10 K/mcL LAB HEMETOLOGY METHOD 04/29/2025 4:50 PM EDT [facility] Blood Venous blood specimen / Unknown Venipuncture / Unknown 04/29/2025 2:22 PM EDT 04/29/2025 2:22 PM EDT us Jose F Mann MD LAB BLOOD ORDERABLES Final Result Performing Organization Address City/[facility]/ZIP Co de Phone Number [facility] [address] [place] [address], [place] [phone] * Ferritin (04/29/2025 2:22 PM EDT) Pathologist [facility] Ferritin 28 26 - 388 ng/mL LAB CHEMISTRY METHOD 04/29/2025 5:22 PM EDT [facility] Blood Venous blood specimen / Unknown Venipuncture / Unknown 04/29/2025 2:22 PM EDT 04/29/2025 2:22 PM EDT us Jose F Mann MD LAB BLOOD ORDERABLES Final Result [facility] [address] [place] [address], [place] [phone] * (ABNORMAL) Renal function panel (04/29/2025 2:22 PM EDT) Only the most recent of2 resultswithin the time period is included. Sodium 137 133 - 145 mmol/L LAB CHEMISTRY METHOD 04/29/2025 5:22 PM EDT [facility] Potassium 4.3 3.5 - 5.5 mmol/L LAB CHEMISTRY METHOD 04/29/2025 5:22 PM [facility] Chloride 100 96 - 110 mmol/L LAB CHEMISTRY METHOD 04/29/2025 5:22 PM [facility] CO2 27 21 - 32 mmol/L LAB CHEMISTRY METHOD 04/29/2025 5:22 PM [facility] Anion Gap 10 3 - 11 LAB CHEMISTRY METHOD 04/29/2025 5:22 PM [facility] Glucose 93 70 - 100 mg/dL LAB CHEMISTRY METHOD 04/29/2025 5:22 PM [facility] BUN 65(H) 5 - 25 mg/dL LAB CHEMISTRY METHOD 04/29/2025 5:22 PM [facility] Creatinine 3.90(H) 0.70 - 1.30 mg/dL LAB CHEMISTRY METHOD 04/29/2025 5:22 PM [facility] eGFR 14(L) >=60 mL/min/1. 73m2 LAB CHEMISTRY METHOD 04/29/2025 5:22 PM [facility] Comment:Calculation based on the Chronic Kidney Disease Epidemiology Collaboration (CKD-EPI) equation refit without adjustment for race. BUN/Creatinine Ratio 16.7 LAB CHEMISTRY METHOD 04/29/2025 5:22 PM [facility] Albumin 3.6 3.2 - 5.0 g/dL LAB CHEMISTRY METHOD 04/29/2025 5:22 PM [facility] Calcium 8.5 8.5 - 10.5 mg/dL LAB CHEMISTRY METHOD 04/29/2025 5:22 PM [facility] Phosphorus 4.9(H) 2.5 - 4.5 mg/dL LAB CHEMISTRY METHOD 04/29/2025 5:22 PM [facility] Blood Venous blood specimen / Unknown Venipuncture / Unknown 04/29/2025 2:22 PM EDT 04/29/2025 2:22 PM EDT us Jose F Mann MD LAB BLOOD ORDERABLES Final Result [facility] [address] [place] [address], [place] [phone] * (ABNORMAL) Lipid panel with reflex to direct LDL (02/07/2025 12:54 PM EDT) Cholesterol 74 0 - 200 mg/dL LAB CHEMISTRY METHOD 02/07/2025 5:15 PM EDT [facility] Triglycerides 56 0 - 150 mg/dL LAB CHEMISTRY METHOD 02/07/2025 5:15 PM EDT [facility] HDL 38(L) >=40 mg/dL LAB CHEMISTRY METHOD 02/07/2025 5:15 PM EDT [facility] LDL Calculated 25 0 - 100 mg/dL LAB CHEMISTRY METHOD 02/07/2025 5:15 PM EDT [facility] VLDL Cholesterol Narinder 11.2 mg/dL LAB CHEMISTRY METHOD 02/07/2025 5:15 PM EDT [facility] Non HDL Chol. (LDL+VLDL) 36 <145 mg/dL LAB CHEMISTRY METHOD 02/07/2025 5:15 PM EDT [facility] Chol/HDL Ratio 1.9 0.0 - 4.4 LAB CHEMISTRY METHOD 02/07/2025 5:15 PM EDT [facility] Blood Venous blood specimen / Unknown Venipuncture / Unknown 02/07/2025 12:54 PM EDT 02/07/2025 12:55 PM EDT Flakita Rivera MD LAB BLOOD ORDERABLES Final Re sult [facility] [address] [place] [address], [place] [phone] from Last 3 Months or Most Recently Relevant to Health Maintenance Insurance [employer] Advance Directives Documents on File Type Date Recorded 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
--- OUTSIDE RECORDS SUMMARY | 2025-06-18 09:17 | XMS_ITS | Encounter Summary ---
Author Organization [facility], Address [address] [place] [address] Phone Care Team Providers Care Herb Digger Name Role Phone Flakita Rivera MD Primary Care Provider [phone] Encounter Details Date Type Department Care Team (Late st Contact Info) Description 11/24/2023 Documentation Only [facility] [address] [place] [address] Jose F Mann MD [address] [place] [address] [place] [address] Social History Tobacco Use Types [...] Visit [facility] [address] [place] [address] [place] [address] 08/09/2025 4:00 PM EST Office Visit [facility] [address] [place] [address] Jose F Mann MD [address] [place] [address] [place] [address] documented as of this encounter Visit Diagnoses Not on filedocumented in this encounter Care Teams Herb Digger Relationship Specialty Start Date End Date Flakita Rivera MD [address] [place] [address] PCP - General 07/17/19 documented as of this encounter
--- OUTSIDE RECORDS SUMMARY | 2025-06-18 09:17 | XMS_ITS | Encounter Summary ---
Author Organization [facility] [place], Address [address] [place] [address] Phone Care Team Providers Care Clin Application Specialist Name Role Phone Flakita Rivera MD Primary Care Provider [phone] Encounter Details Date Type Department Care Team (Late st Contact Info) Description 01/17/2024 Documentation Only [facility] [address] [place] [address] Shahla Martinez [place] [address] [place] [phone] Social History Tobacco Use Types Packs/Day Years [...] Visit [facility] [address] [place] [address] 08/09/2025 4:00 PM EST Office Visit [facility] [address] [address] Jose F Mann MD [address] [place] [address] documented as of this encounter Visit Diagnoses Not on filedocumented in this encounter Care Teams Clin Application Specialist Relationship Specialty Start Date End Date Flakita Rivera MD [address] [place] [address] PCP - General 07/17/19 documented as of this encounter
--- OUTSIDE RECORDS SUMMARY | 2025-06-18 09:17 | XMS_ITS | Encounter Summary ---
Author Organization [facility] [place], Address [address] [place] [address] Phone Care Team Providers Care Superintendent Pier Name Role Phone Flakita Rivera MD Primary Care Provider Encounter Details Date Type Department Care Team (Late st Contact Info) Description 12/28/2021 Documentation Only [facility] [address] [place] [address] Jessica Chavez [address] [place] [phone] Social History Tobacco Use Types Packs/Day Years [...] Visit [facility] [address] [place] [address] [place] [address] 08/09/2025 4:00 PM EST Office Visit [facility] [address] [place] [address] Jose F Mann MD [address] [place] [address] [place] [address] documented as of this encounter Visit Diagnoses Not on filedocumented in this encounter Care Teams Superintendent Pier Relationship Specialty Start Date End Date Flakita Rivera MD [address] [place] [address] PCP - General 07/17/19 documented as of this encounter
--- OUTSIDE RECORDS SUMMARY | 2025-06-18 09:17 | XMS_ITS | Clinical Summary ---
Author Organization [facility] Address [address] [place] [address] Care Team Providers Care Inspector Agricultural Commodities Name Role Phone Flakita Rivera MD Primary Care Provider [phone] Allergies Active Allergy Reactions Criticality Noted Date Comments Aspirin 06/14/2018 Niacin And Related Palpitations Low 02/18/2016 hives Bxvouizka-Cvvklbypbq-Kk-Apap 017 Other Anaphylaxis High 02/18/2016 Pseudoephedrine 06/14/2018 [...] mg TAKE ONE TABLET(S) EVERY DAY BY [id number] 1 05/02/2017 Active metoprolol succinate (TOPROL-XL) 24 [...] age to complete this topic Care Teams Inspector Agricultural Commodities Relationship Specialty Start Date End Date Flakita Rivera MD [facility] [address] [place] [phone] PCP - General Internal Medicine 11/28/17
--- OUTSIDE RECORDS SUMMARY | 2025-06-18 09:17 | XMS_ITS | Encounter Summary ---
Author Organization [facility] [place], Address [address] [place] [address] Phone Care Team Providers Care Delivery Room Clerk Name Role Phone Flakita Rivera MD Primary Care Provider Encounter Details Date Type Department Care Team (Late st Contact Info) Description 02/10/2023 Documentation Only [facility] [address] [place] [address] Jessica Chavez [address] [place] [phone] Social History Tobacco Use Types Packs/Day Years [...] Visit [facility] Center [address] [place] [address] [place] [address] 08/09/2025 4:00 PM EST Office Visit [facility] [address] [place] [address] Jose F Mann MD [address] [place] [address] [place] [address] documented as of this encounter Visit Diagnoses Not on filedocumented in this encounter Care Teams Delivery Room Clerk Relationship Specialty Start Date End Date Flakita Rivera MD [address] [place] [address] PCP - General 07/17/19 documented as of this encounter
--- OUTSIDE RECORDS SUMMARY | 2025-06-18 09:17 | XMS_ITS | Encounter Summary ---
Author Organization [facility] [place], Address [address] [place] [address] Phone Care Team Providers Care Sports Betting Manager Name Role Phone Flakita Rivera MD Primary Care Provider Encounter Details Date Type Department Care Team (Late st Contact Info) Description 06/12/2024 Documentation Only [facility] [address] [place] [address] Shahla Maritnez [place] [address] [place] [phone] Social History Tobacco Use Types Packs/Day Years [...] Visit [facility] [address] [place] [place] [address] 08/09/2025 4:00 PM EST Office Visit [facility] [address] [place] [address] Jose F Mann MD [address] [facility] [address] [place] [address] documented as of this encounter Visit Diagnoses Not on filedocumented in this encounter Care Teams Sports Betting Manager Relationship Specialty Start Date End Date Flakita Rivera MD [address] [place] [address] PCP - General 07/17/19 documented as of this encounter
--- OUTSIDE RECORDS SUMMARY | 2025-06-18 09:17 | XMS_ITS | Clinical Summary ---
Author Organization [facility] [place], Address [address] [place] [address] [place] [address] Phone Care Team Providers Care Boat Worker Name Role Phone Flakita Rivera MD Primary Care Provider +1- [phone] Allergies Active Allergy Reactions Criticality Noted Date Comments Acetaminophen 01/19/2021 Aspirin 06/14/2018 Atorvastatin 06/19/2021 MYALGIA Dextromethorphan Hbr 01/19/2021 Doxylamine 01/19/2021 Lisinopril 06/19/2021 COUGH Metformin 06/19/2021 DIARRHEA Niacin And Related Palpitations Low 02/18/2016 hives Other Anaphylaxis High 02/18/2016 Gnrlyfrhq-Pdeywatshs-Ef-Apap 017 Pseudoephedrine 06/14/2018 Medications Fluticasone Furoate-Vilanter ol [...] 1 (one) time each day Active Tiotropium [place] Monohydrate 2.5 MCG/ACT aerosol solution Inhale 2 [...] kidney 06/29/2021 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 06/29/2021 Orthopnea [...] Only [facility] [address] [place] [address] Chelsea Vásquez 06/07/2025 Office Communication [facility] [address] [place] [address] Chelsea Vásquez 05/31/2025 1:30 PM EDT Office Visit [facility] [address] [place] [address] Jose F Mann MD 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); Hypertension; 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); Edema of lower extremity; Microalbuminuria 05/31/2025 Office Communication [facility] [address] [place] [address] Brody Tello MA 05/22/2025 Orders Only [facility] [address] [place] [address] Shahla Martinez MA 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); Hypertension; 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); Microalbuminuria 05/10/2025 Telephone [facility] [address] [place] [address] Shahla Martinez MA 04/29/2025 Documentation Only [facility] [address] [place] [address] Shahla Martinez MA 04/17/2025 3:30 PM EDT Office Visit [facility] [address] [place] [address] Jose F Mann MD 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); Hypertension; 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); Microalbuminuria; Edema of lower extremity 04/09/2025 Orders Only [facility] [address] [place] [address] Shahla Martinez MA 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); Hypertension; 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); Microalbuminuria 04/05/2025 Orders Only [facility] [place] [address] [place] [address] Jose F Mann MD 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) 04/01/2025 Telephone [facility] [address] [place] [address] Shahla Martinez MA 03/29/2025 Office Communication [facility] [address] [place] [address] Jessica Chavez 03/26/2025 Documentation Only [facility] [address] [place] [address] Shahla Martinez MA 03/26/2025 Documentation Only [facility] [address] [place] [address] Shahla Martinez MA 03/21/2025 Telephone [facility] [address] [place] [address] Shahla Martinez MA 03/18/2025 4:00 PM EDT Office Visit [facility] [address] [place] [address] Jose F Mann MD 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); Hypertension; 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); Microalbuminuria; Atherosclerotic heart disease of [place] coronary artery with angina pectoris, not otherwise specified (HCC); Paroxysmal atrial fibrillation (HCC) 03/18/2025 Office Communication [facility] [place], [address] [facility] [place] [address] Irene Flynn from Last 3 Months Immunizations [...] Visit [facility] Center [address] [place] [address] [place] [address] 08/09/2025 4:00 PM EST Office Visit [facility] [address] [place] [address] Jose F Mann MD [address] [place] [address] [place] [address] Health Maintenance Due Date Last [...] this topic Insurance [employer] Care Teams Boat Worker Relationship Specialty Start Date End Date Flakita Rivera MD [address] [place] [address] [address] [place], [place] PCP - General 07/17/19
--- OUTSIDE RECORDS SUMMARY | 2025-06-18 09:17 | XMS_ITS | Encounter Summary ---
Author Organization [facility] [place], Address [address] [place] [address] Phone Care Team Providers Care Study Coordinator Name Role Phone Flakita Rivera MD Primary Care Provider [phone] Encounter Details Date Type Department Care Team (Late st Contact Info) Description 06/24/2023 Documentation Only [facility] [address] [place] [address] Jessica Chavez [address] [place] [phone] Social History Tobacco Use Types Packs/Day Years [...] Visit [facility] Center [address] [place] [address] [place] [address] 08/09/2025 4:00 PM EST Office Visit [facility] [address] [place] [place] [address] Jose F Mann MD [address] [place] [address] [place] [address] documented as of this encounter Visit Diagnoses Not on filedocumented in this encounter Care Teams Study Coordinator Relationship Specialty Start Date End Date Flakita Rivera MD [address] [place] [address] PCP - General 07/17/19 documented as of this encounter
--- OUTSIDE RECORDS SUMMARY | 2025-06-18 09:17 | XMS_ITS | Encounter Summary ---
Author Organization [facility] [place], Address [address] [place] [address] Phone Care Team Providers Care Dock Superintendent Name Role Phone Flakita Rivera MD Primary Care Provider [phone] Encounter Details Date Type Department Care Team (Late st Contact Info) Description 04/29/2025 Documentation Only [facility] [address] [place] [address] Shahla Martinez [place] [address] [place] [phone] Social History Tobacco Use Types Packs/Day Years [...] Visit [facility] Center [address] [facility] [place] [address] 08/09/2025 4:00 PM EST Office Visit [facility] [address] [place] [address] Jose F Mann MD [address] [facility] [place] [place] [address] documented as of this encounter Visit Diagnoses Not on filedocumented in this encounter Care Teams Dock Superintendent Relationship Specialty Start Date End Date Flakita Rivera MD [address] [place] [address] PCP - General 07/17/19 documented as of this encounter
[2025-07-29 08:38] VITALS: BMI 24.0
[2025-07-29 08:40] VITALS: BP 114/47; PULSE 47; RESP 16; TEMP 36.5; O2SAT 98
--- NOTE | 2025-07-29 09:08 | MHC.SHP ---
Pre-Procedural Eval Section A - 24 Hr Update-Section A only Date of Service: 07/29/25 The patient is an INPATIENT: No Changes since office visit: No Cold of Flu in the past 2 weeks, No New Medical Problems, No Changes in Medication and No Patient answered all questions The patient has been examined within 24 hours of the surgical procedure. The History & Physical has been completed within 30 days and I have reviewed it.: Yes Section B - Complete if H&P > 30 days Chief Complaint: Carpal tunnel syndrome, right upper limb Allergies: Allergies Allergy/AdvReac Type Severity Reaction Status Date / Time acetaminophen (From NyQuil) Allergy SOB Verified 07/10/25 13:59 dextromethorphan (From Allergy SOB Verified 07/10/25 13:59 NyQuil) doxylamine (From NyQuil) Allergy SOB Verified 07/10/25 13:59 pseudoephedrine (From NyQuil) Allergy SOB Verified 07/10/25 13:59 Plan Diagnosis/Plan: Unchanged I have reviewed the history and physical and performed a pertinent physical examination on my patient. No changes have occurred unless specified. Time Spent With Patient Time: Total time managing care of this patient today ____ minutes.
--- NOTE | 2025-07-29 09:09 | W.PM.OPN ---
Operative Note Operative Note Date of Service: 07/29/25 Narrative: Preop diagnosis: 1. Right Carpal tunnel syndrome Postop diagnosis: same Procedure: 1. Right Carpal tunnel release Surgeon: Magdalene Christie MD Air Defense Specialist: None Anesthesia: local block using 1% lidocaine with epinephrine Findings: Thickened transverse carpal ligament. EBL: Less than 5 mL Specimens: None Complications: None Disposition: Brought to recovery room in stable condition Plan: Follow-up for 10-14 days for wound check and suture removal Indications: The patient is 89 years old, with right carpal tunnel syndrome that has been unresponsive to nonoperative management. The risks and benefits of operative treatment including but not limited to risk of damage to blood vessels, nerves, tendons, infection, persistent pain, persistent symptoms, or possible need for additional surgery were discussed with the patient and the patient wishes to proceed with surgery. Procedure: Once consent was obtained a local block was performed using a combination of 1% lidocaine with epinephrine. The patient was then brought back to the operating suite and placed on the operative table in supine position. The right upper extremity was prepped and draped in a standard surgical fashion. Once assured that we had a good block, a 2.0 cm longitudinal incision was made centered over the carpal tunnel. The incision was made through the skin to the subcutaneous tissues using a #15 blade. Dissection was made down to the level of the transverse carpal ligament with care being taken to protect the palmar cutaneous nerve. Once the transverse carpal ligament was clearly visualized, a longitudinal incision was made in the transverse carpal ligament 1st using a #15 blade, then using tenotomy scissors under direct visualization. Care was taken to look for and protect the motor branch of the median nerve when seen in this area. Once satisfied with our carpal tunnel release the wound was copiously irrigated with normal saline and hemostasis was obtained with a brief period of local pressure. The skin edges were reapproximated with some 5.0 nylon suture material and a sterile dressing was applied. The patient appears to have tolerated the procedure well and with no complications. All digits were well vascularized at the conclusion of the case..
[2025-07-29 10:24] VITALS: PULSE 61; RESP 16; TEMP 36.3; O2SAT 98
== END 2025-07-29 10:32 | disposition home or self-care (01) ==
PROVIDERS: PCP Internal Medicine; Visit Provider Orthopaedic Surgery
PROC: (CPT 64721; principal; 2025-07-29 09:30)
DX: G56.01 Carpal tunnel syndrome, right upper limb (principal); R20.0 Anesthesia of skin; E11.22 Type 2 diabetes mellitus with diabetic chronic kidney disease; I13.0 Hypertensive heart and chronic kidney disease with heart failure and stage 1 through stage 4 chronic kidney disease, or unspecified chronic kidney disease; N18.9 Chronic kidney disease, unspecified; I50.30 Unspecified diastolic (congestive) heart failure; I27.20 Pulmonary hypertension, unspecified; Z95.5 Presence of coronary angioplasty implant and graft; E78.5 Hyperlipidemia, unspecified; I48.19 Other persistent atrial fibrillation; R60.0 Localized edema; D64.9 Anemia, unspecified; J44.9 Chronic obstructive pulmonary disease, unspecified; Z88.8 Allergy status to other drugs, medicaments and biological substances
CPT/HCPCS: 64721; J0165; J2003

== ENCOUNTER → 2025-07-29 07:50 | Outpatient (BNV) | payer MEDICARE, SELFPAY | PROVIDERS: PCP Internal Medicine; Visit Provider Orthopaedic Surgery | DX: G56.01 Carpal tunnel syndrome, right upper limb (principal) | CPT/HCPCS: 64721 ==

== ENCOUNTER 2025-08-13 14:23 | Outpatient (AMB) | payer MEDICARE, SELFPAY ==
--- NOTE | 2025-08-13 14:28 | MHC.OFFVIS ---
Vital Signs 08/13/25 14:31 Height 5 ft 10 in Weight 168 lb BMI 24.1 Intake Visit Reasons: PO-Rt CTR 07/29/25 Intake Note: Tha 89 yr old right hand dominant male presents today for his P/O visit for his right CTR done with Dr Christie on 07/29/25. States numbness is still there however it is improving, he is now able to cone picker items, he has his sensation back in his thumb, index and middle finger. Allergies acetaminophen (From NyQuil) Allergy (Verified 07/10/25 13:59) SOB dextromethorphan (From NyQuil) Allergy (Verified 07/10/25 13:59) SOB doxylamine (From NyQuil) Allergy (Verified 07/10/25 13:59) SOB pseudoephedrine (From NyQuil) Allergy (Verified 07/10/25 13:59) SOB HPI HPI PO-Rt CTR 07/29/25: Details: Tha is an 89 year old right hand dominant man who returns S/P right carpal tunnel release, DOS: 07/29/25. He says he is doing well and his sensation is improving. He continues to have some numbness in the median nerve distribution, but he is happy with the improvement since his surgery. He says he is now able to pick objects up easier, which he is happy about. He is asking about possible Cardiologists here at [facility]. A list was provided. [facility] Medical History Bilious vomiting Dyspnea Urinary retention with incomplete bladder emptying Pulmonary hypertension Anemia Chronic atrial fibrillation 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 Chest crackles Non-insulin dependent type 2 diabetes mellitus HTN (hypertension) HLD (hyperlipidemia) Persistent atrial fibrillation BPH (benign prostatic hyperplasia) Long COVID COPD (chronic obstructive pulmonary disease) Lower leg edema Chronic kidney disease, unspecified Surgical History H/O colonoscopy History of cataract surgery History of endoscopy History of colon surgery History of cholecystectomy H/O heart artery stent Hip joint replacement status Social History Household Members: Spouse Housing: Other Housing Other:: mobile home Do you presently have visiting nurse or other home services: No Patient Tobacco Use Status: Former Tobacco user Tobacco use type: Cigarette service: Yes Current occupation: right hand dominant Review of Systems Const All systems reviewed & are unremarkable except as noted in HPI and below Physical Exam Vital Signs: BMI result Body Mass Index 24.1 Const General: no acute distress and alert Orientation/consciousness: patient oriented x3 Neuro General: patient oriented x3 Extrem Other: The patient was alert oriented and in no acute distress The incision is healing well with no erythema drainage or evidence of infection. Sutures removed and Steri-Strips applied He can make a fist and extend all his digits Sensation is improved but not yet normal in the median nerve distribution. Normal sensation in the ulnar nerve distribution Cap refill is brisk Nerve Conduction Study Right-side only IMPRESSION: 1. 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 2. Mild right ulnar neuropathy across cubital tunnel. 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 Right carpal tunnel syndrome, S/P release DOS: 07/29/25 Pre-operatively with dense numbness Now with improved but not yet normal sensation in the median nerve distribution The patient appears to be doing well post-operatively I educated him about the post-operative course I explained the signs and symptoms of infection, if the patient develops any new or worsening erythema, drainage, pain, or warmth they should contact the clinic or attend the ED. I discussed activity modifications, he is to lift nothing heavier than a cellphone for the next 2 weeks. They should also avoid any heavy impact activities, falls, or sports activities for the next 4 weeks He will perform gentle ROM exercises at home He should avoid any underwater activities for the next 5 days He should gently massage about the incision site to reduce the risk of hypersensitivity He can follow up prn 2. Right cubital tunnel syndrome, mild Asymptomatic Scribed for Magdalene Christie MD by Marcel Muhammad medical registrar, on 12/2/25 at 2:35 PM, EST. 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
[2025-08-13 14:31] VITALS: BMI 24.1
--- OUTSIDE RECORDS SUMMARY | 2025-08-13 16:22 | XMS_ITS | Clinical Summary ---
Author Organization [facility] Address [address] [place] [address] Care Team Providers Care Personnel Representative Name Role Phone Flakita Rivera MD Primary Care Provider [phone] Allergies Active Allergy Reactions Criticality Noted Date Comments Aspirin 06/14/2018 Niacin And Related Palpitations Low 02/18/2016 hives Rqpeqknnn-Lsgeczrvfz-Ou-Apap 017 Other Anaphylaxis High 02/18/2016 Pseudoephedrine 06/14/2018 [...] mg TAKE ONE TABLET(S) EVERY DAY BY [id number] 1 05/02/2017 Active metoprolol succinate (TOPROL-XL) 24 [...] age to complete this topic Care Teams Personnel Representative Relationship Specialty Start Date End Date Flakita Rivera MD [facility] [address] [place] [phone] PCP - General Internal Medicine 11/28/17
== END 2025-08-13 14:51 | disposition home or self-care (01) ==
LOC: HO.HOS 14:23
PROVIDERS: PCP Internal Medicine; Visit Provider Orthopaedic Surgery
DX: G56.01 Carpal tunnel syndrome, right upper limb (principal); G56.21 Lesion of ulnar nerve, right upper limb
CPT/HCPCS: 99024

== ENCOUNTER 2025-08-19 13:00 | Outpatient (RCR) | payer MEDICARE, SELFPAY ==
[2025-07-01 11:08] VITALS: BP 115/30; PULSE 51; RESP 16; TEMP 36.4; O2SAT 98
[2025-07-08 11:15] VITALS: BP 112/41; PULSE 50; RESP 16; TEMP 36.4; O2SAT 100
[2025-07-15 12:35] VITALS: BP 121/53; PULSE 93; RESP 16; TEMP 36.1; O2SAT 96
[2025-07-22 12:13] VITALS: BP 117/43; PULSE 44; RESP 16; TEMP 36.6; O2SAT 100
[2025-07-30 12:08] VITALS: BP 115/40; PULSE 45; RESP 16; TEMP 36.7; O2SAT 96
[2025-08-05 14:18] VITALS: BP 112/49; PULSE 50; RESP 16; TEMP 36.6; O2SAT 96
[2025-08-12 11:50] VITALS: BP 114/40; PULSE 51; RESP 16; TEMP 36.6; O2SAT 97
[2025-08-19 13:09] VITALS: BP 114/38; PULSE 50; RESP 16; TEMP 36.4; O2SAT 100
== END 2025-08-19 14:19 | disposition home or self-care (01) ==
LOC: HO.INF 13:00
PROVIDERS: Visit Provider Internal Medicine Medical Oncology
DX: D64.9 Anemia, unspecified (principal)
CPT/HCPCS: 96365; 96366; 96374; 96375; 96376; J1756